=== PATIENT | male | born 1950 | race Caucasian/White ===

== ENCOUNTER 2021-10-23 06:40 | Outpatient (CLI) | payer MEDICARE ==
[~2021-10-23] VITALS: Ht 175.3 cm; Wt 77.3 kg
[2021-10-23] MEDS ORDERED: LISI20TA26 PO (12:07)
[2021-10-23] MEDS ORDERED: IBUP1TAB14 PO (12:07)
[2021-10-23] MEDS ORDERED: OMG1KC PO (12:07)
[2021-10-23] MEDS ORDERED: ASPI-999 PO (12:07)
== END 2021-10-23 12:12 | disposition home or self-care (01) ==
LOC: PREOP 06:40
PROVIDERS: ATTEND Specialist
DX: Z01.818 Encounter for other preprocedural examination (principal)

== ENCOUNTER 2021-10-26 07:44 | Day surgery (SDC) | payer BC, MEDICARE ==
[~2021-10-26] VITALS: Ht 175 cm; Wt 77.3 kg
[~2021-10-26 07:44] MED LIST: ASPI-999 PO; IBUP1TAB14 PO; LISI20TA26 PO; OMG1KC PO
[2021-10-26] MEDS ORDERED: PHENYLEPHRINE 10% OPHTH (NEO-SYN) 5 ML BTL OU PRN (08:00)
[2021-10-26] MEDS ORDERED: TETRACAINE 0.5% OPHTH SOLN 4 ML BTL (SINGLE DOSE ONLY) OU PRN (08:00)
[2021-10-26] MEDS ORDERED: TROPICAMIDE 1% OPH SOLN (MYDRIACYL) 15 ML BTL OU PRN (08:00)
[2021-10-26 08:15] VITALS: BP 129/96
--- NOTE | 2021-10-26 08:48 | Ophthalmologist Pre-Op Note ---
Pre-Operative Progress Note H&P Reviewed The H&P was reviewed, patient examined and no changes noted. Date H&P Reviewed: Oct 26, 2021 Time H&P Reviewed: 08:11 Pre-Op Dx Secondary Cataract, Right Eye SHANEKA RAMIREZ MD Oct 26, 2021 08:48
--- NOTE | 2021-10-26 08:49 | Ophthalmology Operative Report ---
YAG Capsulotomy PREOPERATIVE DIAGNOSIS: Secondary Cataract Left Eye POSTOPERATIVE DIAGNOSIS: Secondary Cataract Left Eye PROCEDURE: YAG Capsulotomy, left eye SURGEON: Errol Ramirez ANESTHESIA: Topical anesthesia COMPLICATIONS: None ESTIMATED BLOOD LOSS: Minimal DESCRIPTION OF PROCEDURE: After proper informed consent was obtained, the patient's, a 71 male left eye received one drop of Tropicamide and one drop of Tetracaine. The patient was then placed at the YAG laser and using a power of [5.2 ] millijoules and [27 ] bursts were used to fashion a central capsulotomy. The patient tolerated the procedure well without complications. ERROL RAMIREZ MD Oct 26, 2021 08:49
== END 2021-10-26 08:39 | disposition home or self-care (01) ==
LOC: SDC 07:44
PROVIDERS: ATTEND Specialist
DX: H26.492 Other secondary cataract, left eye (principal); I10 Essential (primary) hypertension; Z79.899 Other long term (current) drug therapy

== ENCOUNTER 2021-11-14 08:31 | Inpatient (IN) | payer MEDICARE ==
[~2021-11-14] VITALS: Ht 175.3 cm; Wt 63.3 kg
[2021-11-14 09:47] LABS: BASOPHILS % (AUTO) 0 % (0-10); EOSINOPHILS % (AUTO) 0 % (0-10); HEMATOCRIT 41 % (40-54); HEMOGLOBIN 13.6 g/dL (13.3-17.7); LYMPHOCYTES # (AUTO) 0.6 10^3/uL (1.0-4.0); LYMPHOCYTES % (AUTO) 7 % (12-44); MEAN CORPUSCULAR HEMOGLOBIN 29 pg (25-34); MEAN CORPUSCULAR HGB CONC 33 g/dL (32-36); MEAN CORPUSCULAR VOLUME 88 fL (80-99); MEAN PLATELET VOLUME 11.3 fL (9.0-12.2); MONOCYTES # (AUTO) 0.6 10^3/uL (0.0-1.0); MONOCYTES % (AUTO) 8 % (0-12); NEUTROPHILS # (AUTO) 6.7 10^3/uL (1.8-7.8); NEUTROPHILS % (AUTO) 83 % (42-75); PLATELET COUNT 178 10^3/uL (130-400); WHITE BLOOD COUNT 8.1 10^3/uL (4.3-11.0)
[2021-11-14 09:49] LABS: ALBUMIN 3.2 GM/DL (3.2-4.5); POTASSIUM 3.7 MMOL/L (3.6-5.0)
[2021-11-14 09:50] LABS: CALCIUM 8.8 MG/DL (8.5-10.1)
[2021-11-14 09:52] LABS: TOTAL PROTEIN 7.1 GM/DL (6.4-8.2)
[2021-11-14 09:53] LABS: BILIRUBIN,TOTAL 0.9 MG/DL (0.1-1.0)
[2021-11-14 09:56] LABS: CREATININE SERUM 1.2 MG/DL (0.60-1.30)
[2021-11-14 10:20] LABS: FIBRIN DEGRADATION PRODUCTS >= 20.00 UG/ML (0.00-0.49); INR 1.4 (0.8-1.4); PARTIAL THROMBOPLASTIN TIME 33 SEC (24-35); PROTHROMBIN TIME PATIENT 17.2 SEC (12.2-14.7)
[2021-11-14 10:36] LABS: LYMPHOCYTES % (MANUAL) 3 %; NEUTROPHILS % (MANUAL) 90 %
[2021-11-14 10:37] LABS: EOSINOPHILS % (MANUAL) 1 %; MONOCYTES % (MANUAL) 6 %; RBC MORPH NORMAL
--- NOTE | 2021-11-14 10:38 | Diagnostic Imaging Report ---
INDICATION: Short of breath. Positive for Covid 19. FINDINGS: The upright portable chest shows normal heart size and vascularity. There are bilateral infiltrates present in a pattern that can be seen with Covid pneumonia. There is no effusion or pneumothorax. IMPRESSION: There are bilateral infiltrates present, consistent with pneumonia. The report was faxed to Infection Control by [email or web address]@10:35 AM. Dictated by: Dictated on workstation # [id number]
[2021-11-14] MEDS ORDERED: cefTRIAXone 1 GM PRE-MIX 50 ML IV STA (11:41)
[2021-11-14] MEDS ORDERED: ENOXAPARIN 80 MG/0.8 ML (LOVENOX) SYR SC ONE (11:45)
[2021-11-14] MEDS ORDERED: HOLD METFORMIN - RECEIVED CONTRAST 20 ML VIAL IV SCH (11:45)
[2021-11-14] MEDS ORDERED: IOHEXOL 350 MG/ML 100 ML (OMNIPAQUE 350) VIAL IV ONE (11:45)
[2021-11-14] MEDS ORDERED: NS 100 ML (IVPB) BAG IV ONE (11:45)
--- NOTE | 2021-11-14 12:39 | ED General ---
General Chief Complaint: COVID19 Suspect/Confirmed Stated Complaint: COVID PNEUMONIA Nursing Triage Note: PT ARRIVES TO ER VIA W/C. PT REPORTS TESTED POSITIVE FOR COVID APPROX 4-5 DAYS AGO, S/S STARTED 7-10 DAYS AGO. PT C/O WORSENING SOB/COUGH/WEAKNESS. RA SAT WAS 81%, PT PLACED ON 3L, SATS IMPROVED TO 89%, O2 INCREASED TO 4L, SAT'S 92%. Source of Information: Patient, Family Exam Limitations: No Limitations History of Present Illness Date Seen by Provider: Nov 14, 2021 Time Seen by Provider: 09:37 Initial Comments This is 71-year-old gentleman presents to the emergency room with increasing weakness, generalized illness, and shortness of breath after diagnosis of COVID- 19. See timeframes above. He was significantly hypoxic on arrival with an O2 sat of 81% on room air. Oxygen saturation was resuscitated with nasal cannula. Patient does report being fully vaccinated earlier this year. Patient is so weak at this time he is unable to even operate his phone. He is alert but slightly confused. He reports a very few health problems other than hypertension. He denies chest pain or feeling significantly short of breath. Patient thought may be a monoclonal antibody therapy was being arranged but he does not remember having infusion therapy scheduled. Allergies and Home Medications Allergies Coded Allergies: No Known Drug Allergies (Unverified , 10/23/21) Patient Home Medication List Home Medication List Reviewed: Yes Aspirin (Aspirin) 81 Mg Tab.chew, 81 MG PO DAILY, (Reported) Entered as Reported by: LEE GARZA on 10/23/211206 Ibuprofen/Diphenhydramine Cit (Advil Pm Caplet) 1 Each Tablet, 1 EACH PO HS, (Reported) Entered as Reported by: LEE GARZA on 10/23/211206 Lisinopril (Lisinopril) Unknown Strength Tablet, 1 TAB PO DAILY, (Reported) Entered as Reported by: LEE GARZA on 10/23/211206 [place] 3 Polyunsat Fatty Acids (Fish Oil 1,000 mg Capsule) 1,000 Mg Cap, 1,000 MG PO DAILY, (Reported) Entered as Reported by: LEE GARZA on 10/23/211206 Review of Systems Review of Systems Constitutional: see HPI EENTM: no symptoms reported Respiratory: see HPI Cardiovascular: no symptoms reported Gastrointestinal: no symptoms reported Genitourinary: no symptoms reported Musculoskeletal: no symptoms reported Skin: no symptoms reported Psychiatric/Neurological: See HPI Hematologic/Lymphatic: No Symptoms Reported Immunological/Allergic: no symptoms reported Past Yurmomr-Jkinzj-Eecxqi Hx Patient Social History Tobacco Use?: No Use of E-Cig and/or Vaping dev: No Substance use?: No Alcohol Use?: No Pt feels they are or have been: No Immunizations Up To Date First/Initial COVID19 Vaccinat: SPRING 2020 Second COVID19 Vaccination James: SPRING 2020 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 oz. kg; 23.00 BMI Method: General Appearance: WD/WN, Mild Distress, Thin HEENT: PERRL/EOMI, Normal ENT Inspection Neck: Normal Inspection Respiratory: Lungs Clear, Normal Breath Sounds, No Accessory Muscle Use, Decre ased Breath Sounds (Diminished in the right base) Cardiovascular: Regular Rate, Rhythm, No Edema, No Murmur Gastrointestinal: Normal Bowel Sounds, Non Tender, Soft Extremity: Normal Inspection, Non Tender, No Calf Tenderness, No Pedal Edema Neurologic/Psychiatric: Alert, Other (Mildly confused, generalized weakness with no focal deficit) Skin: normal color, warm/dry Focused Exam Lactate Level 11/14/21 09:02: Lactic Acid Level 2.25*H 11/14/21 11:45: Lactic Acid Level 2.00 Lactic Acid Level Laboratory Tests Test 11/14/21 11:45 Lactic Acid Level 2.00 MMOL/L (0.50-2.00) Progress/Results/Core Measures Suspected Sepsis SIRS Temperature: Pulse: 80 Respiratory Rate: 28 Laboratory Tests 11/14/21 09:02: White Blood Count 8.1 Blood Pressure 157 /81 Mean: 99 11/14/21 09:02: Lactic Acid Level 2.25*H 11/14/21 11:45: Lactic Acid Level 2.00 Laboratory Tests 11/14/21 09:02: Creatinine 1.20, INR Comment 1.4, Platelet Count 178, Total Bilirubin 0.9 Results/Orders Lab Results Laboratory Tests Test 11/14/21 09:02 11/14/21 11:45 Range/Units White Blood Count 8.1 4.3-11.0 10^3/uL Red Blood Count 4.72 4.30-5.52 10^6/uL Hemoglobin 13.6 13.3-17.7 g/dL Hematocrit 41 40-54 % Mean Corpuscular Volume 88 80-99 fL Mean Corpuscular Hemoglobin 29 25-34 pg Mean Corpuscular Hemoglobin Concent 33 32-36 g/dL Red Cell Distribution Width 12.7 10.0-14.5 % Platelet Count 178 130-400 10^3/uL Mean Platelet Volume 11.3 9.0-12.2 fL Immature Granulocyte % (Auto) 2 % Neutrophils (%) (Auto) 83 H 42-75 % Lymphocytes (%) (Auto) 7 L 12-44 % Monocytes (%) (Auto) 8 0-12 % Eosinophils (%) (Auto) 0 0-10 % Basophils (%) (Auto) 0 0-10 % Neutrophils # (Auto) 6.7 1.8-7.8 10^3/uL Lymphocytes # (Auto) 0.6 L 1.0-4.0 10^3/uL Monocytes # (Auto) 0.6 0.0-1.0 10^3/uL Eosinophils # (Auto) 0.0 0.0-0.3 10^3/uL Basophils # (Auto) 0.0 0.0-0.1 10^3/uL Immature Granulocyte # (Auto) 0.2 H 0.0-0.1 10^3/uL Neutrophils % (Manual) 90 % Lymphocytes % (Manual) 3 % Monocytes % (Manual) 6 % Eosinophils % (Manual) 1 % Blood Morphology Comment NORMAL Prothrombin Time 17.2 H 12.2-14.7 SEC INR Comment 1.4 0.8-1.4 Activated Partial Thromboplast Time 33 24-35 SEC D-Dimer >= 20.00 H 0.00-0.49 UG/ML Sodium Level 139 135-145 MMOL/L Potassium Level 3.7 3.6-5.0 MMOL/L Chloride Level 103 98-107 MMOL/L Carbon Dioxide Level 24 21-32 MMOL/L Anion Gap 12 5-14 MMOL/L Blood Urea Nitrogen 30 H 7-18 MG/DL Creatinine 1.20 0.60-1.30 MG/DL Estimat Glomerular Filtration Rate 60 BUN/Creatinine Ratio 25 Glucose Level 135 H 70-105 MG/DL Lactic Acid Level 2.25 *H 2.00 0.50-2.00 MMOL/L Calcium Level 8.8 8.5-10.1 MG/DL Corrected Calcium 9.4 8.5-10.1 MG/DL Total Bilirubin 0.9 0.1-1.0 MG/DL Aspartate Amino Transf (AST/SGOT) 56 H 5-34 U/L Alanine Aminotransferase (ALT/SGPT) 22 0-55 U/L Alkaline Phosphatase 61 40-136 U/L Troponin I 5.963 *H <0.028 NG/ML C-Reactive Protein High Sensitivity 15.21 H 0.00-0.50 MG/DL Total Protein 7.1 6.4-8.2 GM/DL Albumin 3.2 3.2-4.5 GM/DL Procalcitonin 0.22 H <0.10 NG/ML My Orders Orders - MANI BARLOW MD Cbc With Automated Diff (11/14/21 09:38) Comprehensive Metabolic Panel (11/14/21 09:38) Blood Culture (11/14/21 09:38) Sputum Culture (11/14/21:38) Urinalysis (11/14/21:38) Urine Culture (11/14/21:38) Protime With Inr (11/14/21:38) Partial Thromboplastin Time (11/14/21:38) Chest 1 View, Ap/Pa Only (11/14/21 09:38) Ed Iv/Invasive Line Start (11/14/21:38) Ed Iv/Invasive Line Start (11/14/21:38) Vital Signs Adult Sepsis Patie Q15M (11/14/21 09:38) O2 (11/14/21 09:38) Remove Rings In Anticipation O (11/14/21 09:38) Lactic Acid Analyzer (11/14/21 09:38) Hs C Reactive Protein (11/14/21 09:38) Fibrin Degradation Products (11/14/21 09:38) Procalcitonin (Pct) (11/14/21 09:38) Manual Differential (11/14/21 09:02) Troponin I [place] (11/14/21 10:19) Ekg Tracing (11/14/21 10:19) Monitor-Rhythm Ecg Trace Only (11/14/21 10:19) Ct Angio Chest W (11/14/21 11:22) Dexamethasone Injection (Decadron Inje (11/14/21 11:30) Iohexol Injection (Omnipaque 350 Mg/Ml 1 (11/14/21 11:45) Received Contrast (Hold Metformin- Contr (11/14/21 11:45) Ns (Ivpb) (Sodium Chloride 0.9% Ivpb Bag (11/14/21 11:45) Ceftriaxone 1 Gm Pre-Mix (Rocephin 1 Gm (11/14/21 11:41) Ed Admission (Communication) (11/14/21 11:42) Enoxaparin Injection (Lovenox Injection) (11/14/21 11:45) Lactated Ringers (Lr 1000 Ml Iv Solution (11/14/21 13:00) Medications Given in ED Current Medications Medications Dose Ordered Sig/Floyd Route Start Time Stop Time Status Last Admin Dose Admin Dexamethasone Sodium Phosphate 6 mg ONCE ONCE IV 11/14/21 11:30 11/14/21 11:31 DC 11/14/21 11:32 6 MG Vital Signs/I&O 11/14/21 11/14/21 11/14/21 11/14/21 08:54 08:54 09:02 09:43 Temp 36.3 Pulse 80 74 Resp 28 18 B/P (MAP) 157/81 (106) 153/80 Pulse Ox 89 92 95 O2 Delivery Nasal Cannula Room Air Nasal Cannula Nasal Cannula O2 Flow Rate 3.00 4.00 4.00 11/14/21 11/14/21 11/14/21 11/14/21 10:43 11:14 11:59 13:01 Pulse 80 78 66 Resp 18 B/P (MAP) 156/80 145/77 153/72 Pulse Ox 90 92 94 97 O2 Delivery Nasal Cannula Nasal Cannula Vapotherm O2 Flow Rate 4.00 4.00 30.00 FiO2 60 11/14/21 13:11 Pulse 69 Resp 18 B/P (MAP) 153/72 Pulse Ox 97 Capillary Refill : Blood Pressure Mean: 99 Progress Note #1: Time: 12:39 Progress Note Septic work-up was pursued. Patient was found to have a markedly elevated D- dimer. CT angiogram report is pending. There was concern about ST changes on the quality assurance monitor chassis. For this reason EKG and troponin were obtained. The automated read of the EKG stated acute MS. This has been reviewed by both Dr. Grewal and myself. We disagree with the automated interpretation. Patient does not appear to have a STEMI. He also denied any chest pain. Troponin was markedly elevated which may reflect NSTEMI versus strain from pulmonary embolus. Patient has received dexamethasone 6 mg IV and is now on Vapotherm. Oxygen saturation was borderline with nasal cannula at 6 L/min. He is more stable and more alert on Vapotherm. I discussed CODE STATUS with the patient and his . He would like to remain full code at this time. He is also agreeable to experimental antiviral therapies. Patient will be admitted to the ICU given his frail condition. His case has been discussed with Dr. Grewal and Dr. Watts. IV fluids will be administered for renal prophylaxis after his CT angiogram. Rocephin was given as a precaution for possible superimposed bacterial pneumonia. Progress Note #2: Time: 13:[address] angiogram demonstrated bilateral pulmonary emboli. Patient received Lovenox 70 mg subcu in the ER. ECG Initial ECG Impression Date: Nov 14, 2021 Initial ECG Impression Time: 10:22 Initial ECG Rate: 76 Comment Sinus rhythm with nondiagnostic ST changes. No STEMI identified. No abnormal intervals or axis deviation. EKG was reviewed by me and Dr. Grewal. Diagnostic Imaging Diagonstic Imaging: Xray Plain Films/CT/US/NM/MRI: chest Comments Chest x-ray reviewed by me and report reviewed. See report below: NAME: KATLYN CHOUDHARY [facility] REC#: [id number] PT STATUS: REG ER : 1950 PHYSICIAN: MANI BARLOW MD ADMIT DATE: 11/14/21/ER Signed Date of Exam:11/14/21 CHEST 1 VIEW, AP/PA ONLY INDICATION: Short of breath. Positive for Covid 19. FINDINGS: The upright portable chest shows normal heart size and vascularity. There are bilateral infiltrates present in a pattern that can be seen with Covid pneumonia. There is no effusion or pneumothorax. IMPRESSION: There are bilateral infiltrates present, consistent with pneumonia. The report was faxed to Infection Control by [email or web address]@10:35 AM. Dictated by: Dictated on workstation # [id number] Dict: 11/14/21 1034 Trans: 11/14/21 1046 [id number] Interpreted by: WILMER BARRIENTOS MD Electronically signed by: WILMER BARRIENTOS MD 11/14/21 1046 Diagonstic Imaging: CT Plain Films/CT/US/NM/MRI: chest Comments CT angiogram chest viewed by me and report reviewed. See report below: NAME: KATLYN CHOUDHARY [facility] REC#: [id number] PT STATUS: ADM IN : 1950 PHYSICIAN: MANI BARLOW MD ADMIT DATE: 11/14/21/ICU Draft Date of Exam:11/14/21 CT ANGIO CHEST W PROCEDURE: CT angiography of the chest with contrast. TECHNIQUE: Multiple contiguous axial images were obtained through the chest after uneventful bolus administration of intravenous contrast. 3D reconstructed CTA MIP acquisitions were also performed. Auto Exposure Controls were utilized during the CT exam to meet ALARA standards for radiation dose reduction. INDICATION: Elevated D-dimer and shortness of air. Patient is COVID-19 positive. COMPARISON: No prior studies are available for comparison. FINDINGS: Evaluation of the pulmonary arterial system demonstrates several filling defects within subsegmental branches of the pulmonary arteries to the right left lower lobes. No definite lobar or central pulmonary emboli are detected. Aorta is nonaneurysmal. There is no pericardial or pleural fluid. Parenchymal evaluation does show extensive groundglass infiltrates throughout bilateral upper and lower lobes consistent with COVID-19 pneumonia. Upper abdomen is unremarkable apart from a small stone in the gallbladder. IMPRESSION: Findings positive for pulmonary emboli involving segmental and subsegmental pulmonary arterial branches to the right and left lower lobes. No central emboli are detected. In addition, there are extensive groundglass pulmonary infiltrates involving all five lobes consistent with COVID-19 pneumonia. Dictated on workstation # [id number] Dict: 11/14/21 1250 Trans: 11/14/21 1300 AS6 [id number] Interpreted by: JONNY GORDILLO MD Departure Communication (Admissions) Time/Spoke to Admitting Phy: 11:40 Dr. Watts Time/Spoke to Consulting Phy: 11:25 Dr. Grewal Impression Primary Impression: Acute respiratory failure due to COVID-19 Additional Impressions: Altered mental status Qualified Codes: R41.82 - Altered mental status, unspecified Elevated d-dimer NSTEMI (non-ST elevated myocardial infarction) Bilateral pulmonary embolism Disposition: ADMITTED INPATIENT Condition: Improved Admissions Decision to Admit Reason: Admit from ER (General) Decision to Admit/Date: Nov 14, 2021 Time/Decision to Admit Time: 09:38 Departure-Patient Inst. Referrals: JEANETH RODRIGUEZ DO (PCP/Family) Primary Care Physician MANI BARLOW MD Nov 14, 2021 12:39
[2021-11-14] MEDS ORDERED: LACTATED RINGERS 1,000 ML IV ONE (13:00)
--- NOTE | 2021-11-14 13:01 | Diagnostic Imaging Report ---
PROCEDURE: CT angiography of the chest with contrast. TECHNIQUE: Multiple contiguous axial images were obtained through the chest after uneventful bolus administration of intravenous contrast. 3D reconstructed CTA MIP acquisitions were also performed. Auto Exposure Controls were utilized during the CT exam to meet ALARA standards for radiation dose reduction. INDICATION: Elevated D-dimer and shortness of air. Patient is COVID-19 positive. COMPARISON: No prior studies are available for comparison. FINDINGS: Evaluation of the pulmonary arterial system demonstrates several filling defects within subsegmental branches of the pulmonary arteries to the right left lower lobes. No definite lobar or central pulmonary emboli are detected. Aorta is nonaneurysmal. There is no pericardial or pleural fluid. Parenchymal evaluation does show extensive groundglass infiltrates throughout bilateral upper and lower lobes consistent with COVID-19 pneumonia. Upper abdomen is unremarkable apart from a small stone in the gallbladder. IMPRESSION: Findings positive for pulmonary emboli involving segmental and subsegmental pulmonary arterial branches to the right and left lower lobes. No central emboli are detected. In addition, there are extensive groundglass pulmonary infiltrates involving all five lobes consistent with COVID-19 pneumonia. Dictated by: Dictated on workstation # [id number]
--- NOTE | 2021-11-14 13:27 | History & Physical-Hospitalist ---
History of Present Illness HPI/Chief Complaint Christiano Cuadra is a 71 year old male with PMH HTN, HLD, who presented with shortness of breath. He was diagnosed with COVID about 5 days ago. He is also having weakness. He is having a dry cough. His appetite is poor. He is not having fevers or chills. He is not having chest pain. He denies nausea, vomiting, and diarrhea. He received two vaccines in January. He did not get a booster. Source: patient Exam Limitations: no limitations Date Seen 11/14/21 Time Seen by a Provider: 13:30 Attending Physician Nat Gore MD PCP Lima Ferris DO Referring Physician Date of Admission Nov 14, 2021 at 11:43 Home Medications & Allergies Home Medications Reviewed patient Home Medication Reconciliation performed by pharmacy medication reconciliations layout technician and/or nursing. Patients Allergies have been reviewed. Allergies Allergies Coded Allergies No Known Drug Allergies (Vykfmnnxhw26/30/21) Past Wswoynj-Vacxti-Vrdqfs Hx Patient Social History Tobacco Use?: No Use of E-Cig and/or Vaping dev: No Substance use?: No Alcohol Use?: No Pt feels they are or have been: No Immunizations Up To Date First/Initial COVID19 Vaccinat: SPRING 2020 Second COVID19 Vaccination James: SPRING 2020 Current Status Advance Directives: No Communicates: Verbally Primary Language: Namibian Preferred Spoken Language: Namibian Is interpretation needed?: No Past Medical History Surgeries: Eye Surgery High Cholesterol, Hypertension Family Medical History No Pertinent Family Hx Review of Systems Constitutional: malaise, weakness EENTM: no symptoms reported Respiratory: cough, short of breath Cardiovascular: no symptoms reported Gastrointestinal: no symptoms reported Genitourinary: no symptoms reported Musculoskeletal: no symptoms reported Skin: no symptoms reported Psychiatric/Neurological: No Symptoms Reported Physical Exam Physical Exam Vital Signs Vital Signs - First Documented 11/14/21 11/14/21 08:54 11:59 Temp 36.3 Pulse 80 Resp 28 B/P (MAP) 157/81 (106) Pulse Ox 89 O2 Delivery Nasal Cannula O2 Flow Rate 3.00 FiO2 60 Capillary Refill : Height, Weight, BMI Height: '" Weight: lbs. oz. kg; 23.00 BMI Method: General Appearance: No Apparent Distress, WD/WN HEENT: PERRL/EOMI, Pharynx Normal Neck: Normal Inspection, Supple Respiratory: Lungs Clear, Normal Breath Sounds, No Respiratory Distress Cardiovascular: Regular Rate, Rhythm, No Edema, No Murmur Gastrointestinal: Normal Bowel Sounds, Non Tender, Soft Extremity: Normal Inspection, Non Tender, No Pedal Edema Neurologic/Psychiatric: Alert, Oriented x3, No Motor/Sensory Deficits, Normal Mood/Affect Skin: Normal Color, Warm/Dry Results Results/Procedures Labs Laboratory Tests 11/14/21 09:02 Patient resulted labs reviewed. Imaging: Reviewed Imaging Films, Reviewed Imaging Report Assessment/Plan Admission Diagnosis Acute respiratory failure due to COVID-19 Admission Status: Inpatient Order (span 2 midnights) Reason for Inpatient Admission: Bilateral pulmonary embolism Assessment and Plan Acute respiratory failure due to COVID-19 Hypercoagulable state associated with COVID-19 Bilateral pulmonary embolism Secondary bacterial pneumonia NSTEMI HTN HLD COVID+ at outside facility about 5 days ago Chest xray with bilateral infiltrates Begin Decadron Actemra ordered in ER Requiring Vapotherm Significantly elevated ddimer CT Angio with bialteral pulmonary embolism Started on therapeutic Lovenox Procal moderately elevated Begin Rocephin and Azithromycin Troponin significantly elevated EKG with some ST elevation in anterolateral leads Cardiology consulted Repeat troponin Echo ordered ASA loading dose then continue daily Consult TeleICU Critical Care Critically Ill Patient Diagnosis/Problems Diagnosis/Problems (1) Acute respiratory failure due to COVID-19 Status: Acute (2) Bilateral pulmonary embolism Status: Acute (3) Hypercoagulable state associated with COVID-19 Status: Acute (4) Secondary bacterial pneumonia Status: Acute (5) NSTEMI (non-ST elevated myocardial infarction) Status: Acute (6) HTN (hypertension) Status: Chronic (7) HLD (hyperlipidemia) Status: Chronic NAT GORE MD Nov 14, 2021 13:27
[2021-11-14] MEDS ORDERED: ASPIRIN 81 MG CHEW (CHILDREN'S ASA) PO ONE (13:30)
[2021-11-14] MEDS ORDERED: MELATONIN 3 MG TABLET PO PRN (13:45)
[2021-11-14] MEDS ORDERED: REMDESIVIR INJ 200 MG in NS (IVPB) 210 ML IV ONE (13:45)
[2021-11-14] MEDS ORDERED: ONDANSETRON 4 MG (ZOFRAN) ORAL DISSOLVE TAB PO PRN (13:45)
[2021-11-14] MEDS ORDERED: ANTACID SUSP 30 ML UDC (MYLANTA) PO PRN (13:45)
[2021-11-14] MEDS ORDERED: ACETAMINOPHEN 325 MG TABLET PO PRN (13:45)
[2021-11-14] MEDS ORDERED: ENOXAPARIN 100 MG/1 ML (LOVENOX) SYR SC SCH (13:45)
[2021-11-14] MEDS ORDERED: diphenhydrAMINE 25 MG TAB (BENADRYL) PO PRN (13:45)
[2021-11-14] MEDS ORDERED: polyethylene glycoL POWDER 17 GM (MIRALAX) PACK PO PRN (13:45)
[2021-11-14] MEDS ORDERED: CEFEPIME INJECTION 1,000 MG in NS (IVPB) 50 ML IV SCH (14:00)
[2021-11-14 14:06] VITALS: BP 157/81
[2021-11-14 14:14] VITALS: BP 135/77
--- NOTE | 2021-11-14 14:22 | Tele-ICU Consult ---
History of Present Illness History of Present Illness Date Seen by Provider: Nov 14, 2021 Time Seen by Provider: 14:12 Date of Admission 11/14/21 History of Present Illness 71 yr old male with pmhx of htn, hld diagnosed with covid-19 infection abput 5 days ago. today came to ER with dyspnea and weakness and cough. no cp. no fever or chills. CTA chest done in Er revealed antonio. PE. He is hypoxic requiring vapotherm. Admitted to icu for further care. No hx of DM or Malignancy. Allergies and Home Medications Allergies Coded Allergies: No Known Drug Allergies (Unverified , 10/23/21) Home Medications Aspirin 81 Mg Tab.chew, 81 MG PO DAILY, (Reported) Ibuprofen/Diphenhydramine Cit 1 Each Tablet, 1 EACH PO HS, (Reported) Lisinopril Unknown Strength Tablet, 1 TAB PO DAILY, (Reported) [place] 3 Polyunsat Fatty Acids 1,000 Mg Cap, 1,000 MG PO DAILY, (Reported) Past Medical/Social/Family Hx Patient Social History Tobacco Use?: No Use of E-Cig and/or Vaping dev: No Substance use?: No Alcohol Use?: No Pt stated abuse/neglect: No Immunizations Up To Date First/Initial COVID19 Vaccinat: SPRING 2020 Second COVID19 Vaccination James: SPRING 2020 Current Status Advance Directives: No Communicates: Verbally Primary Language: Portuguese Preferred Spoken Language: Portuguese Is interpretation needed?: No Review of Systems Constitutional: see HPI EENTM: see HPI Other ROS PER RN Focused Exam Lactate Level 11/14/21 09:02: Lactic Acid Level 2.25*H 11/14/21 11:45: Lactic Acid Level 2.00 Height, Weight, BMI Height: '" Weight: lbs. oz. kg; 23.00 BMI Method: Lactic Acid Level Laboratory Tests Test 11/14/21 11:45 Lactic Acid Level 2.00 MMOL/L (0.50-2.00) Exam Exam Patient acknowledged, consented, and participated in this virtual visit which was conducted using real time audio/video Vital Signs Date Time Temp Pulse Resp B/P (MAP) Pulse Ox O2 Delivery O2 Flow Rate FiO2 11/14/21 14:06 36.3 80 81 21 11/14/21 13:48 92 Vapotherm 30.00 75 11/14/21 13:11 69 18 153/72 97 11/14/21 13:01 66 153/72 97 11/14/21 11:59 94 Vapotherm 30.00 60 11/14/21 11:14 78 145/77 92 Nasal Cannula 4.00 11/14/21 10:43 80 18 156/80 90 Nasal Cannula 4.00 11/14/21 09:43 74 18 153/80 95 Nasal Cannula 4.00 11/14/21 09:02 92 Nasal Cannula 4.00 11/14/21 08:54 36.3 80 28 157/81 (106) Room Air 11/14/21 08:54 89 Nasal Cannula 3.00 Height & Weight Height: '" Weight: lbs. oz. kg; 23.00 BMI Method: General Appearance: No Apparent Distress, WD/WN, Mild Distress HEENT: PERRL/EOMI, Pharynx Normal Neck: Normal Inspection, Supple Respiratory: Lungs Clear, Normal Breath Sounds, No Respiratory Distress Cardiovascular: Regular Rate, Rhythm, No Edema, No Murmur Extremity: Normal Inspection, Non Tender, No Pedal Edema Neurologic/Psychiatric: Alert, Oriented x3, No Motor/Sensory Deficits, Normal Mood/Affect Skin: Normal Color, Warm/Dry Other comments pe per attending Results Lab Laboratory Tests 11/14/21 09:02 Radiology cxr, cta chest reviewed Assessment/Plan Assessment/Plan 1. ACUTE ANTONIO. PE DUE TO HYPERCOAGULABLE STATE ASSOCIATED WITH COVID -19 VIRAL INFECTION. 2. COVID -19 VIRAL INFECTION AND PNEUMONIA. 3. ACUTE HYPOXIC RESPIRATORY FAILURE DUE TO COVID-19 PNEUMONIA. 4. HOSTORY OF HYPERTENSION 5. MILD LACTIC ACIDOSIS DUE TO PE. 6. ELEVATED TROPONIN DUE TO PE OR MYOCARDITIS. 7. SUPERADDED BACTERIAL PNEUMONIA SUSPECTED. RECOMENDATIONS. 1. START FULL DOSE LOVENOX. 2. OXYGENATION WITH VAPOTHER. 3. INITIATE REMDESVIR AND DEXAMETHASONE. 4. IV CEFPIME AND AZITHROMYCIN. 5. SUGGEST TO GET ECHOCARDIOGRAM. 6. ULCER PROPHYLAXIS Critical Care: Critically Ill Patient Time spent with patient (mins): 40 PRISCILA CONCEPCION MD Nov 14, 2021 14:21
[2021-11-14] MEDS ORDERED: AZITHROMYCIN INJECTION 500 MG in NS (IVPB) 250 ML IV NR (14:45)
[2021-11-14] MEDS ORDERED: FAMOTIDINE 20 MG (PEPCID) TABLET PO PRN (14:45)
[2021-11-14 15:00] VITALS: BP 136/71
[2021-11-14] MEDS ORDERED: NS IV 500 ML 500 ML ONE (15:00)
[2021-11-14 16:00] VITALS: BP 152/66
[2021-11-14] MEDS: inSUlin ASPART (NovoLOG) 1 UNIT/0.01 ML (CHARGE PER UNIT) SC SCH ×2 (16:30→21:26)
[2021-11-14 17:00] VITALS: BP 156/83
--- NOTE | 2021-11-14 17:05 | Consultation-Cardiology ---
HPI-Cardiology Cardiology Consultation: Date of Consultation 11/14/2021 Date of Admission 11/14/2021 Attending Physician Lu Watts MD Admitting Physician Lima Ferris DO Consulting Physician ALISHA WILSON JR, MD HPI: Time Seen by a Provider: 17:48 Chief Complaint: Reason for consultation: Abnormal troponin level. I have been asked to see Christiano in the intensive care unit due to an elevated troponin level. Because of the patient's Covid positivity, I did not meet with the patient. I obtained the history from the patient's nurse, the medical record, and per previous discussions with the emergency room provider earlier today. The patient was apparently diagnosed with Covid 5 days ago. He was ini tially managing okay at home. However, he developed progressive shortness of breath and came to the emergency room today for further evaluation. He was felt to be in respiratory distress. During his evaluation, troponin levels were obtained which were elevated. As such, a cardiology consultation was requested. The patient had not been reporting any chest pain. His main complaint was shortness of breath. Due to his acute respiratory failure, he was admitted to the intensive care unit for further treatment. Certain portions of this document may have been dictated utilizing voice recognition technology. Inherent to this technology, typographical and grammatical errors may exist. As much as I am diligent to identify and correct these mistakes, some errors may remain in the document. Review of Systems-Cardiology Review of Systems Other comments Not obtained due to the patient's Covid status. [id number] Hx Patient Social History Smoking Status: Former Smoker Have you traveled recently?: No Alcohol Use?: No Pt feels they are or have been: No Past Medical History PMH As described under Assessment. Family Medical History Family Medical History: There is no reported family history of premature coronary artery disease. Allergies and Home Medications Allergies Coded Allergies: No Known Drug Allergies (Unverified , 10/23/21) Patient Home Medication List Home Medication List Reviewed: Yes Aspirin (Aspirin) 81 Mg Tab.chew, 81 MG PO DAILY, (Reported) Entered as Reported by: LEE GARZA on 10/23/21 1207 Ibuprofen/Diphenhydramine Cit (Advil Pm Caplet) 1 Each Tablet, 1 EACH PO HS, (Reported) Entered as Reported by: LEE GARZA on 10/23/217 Lisinopril (Lisinopril) Unknown Strength Tablet, 1 TAB PO DAILY, (Reported) Entered as Reported by: LEE GARZA on 10/23/21 1207 [place] 3 Polyunsat Fatty Acids (Fish Oil 1,000 mg Capsule) 1,000 Mg Cap, 1,000 MG PO DAILY, (Reported) Entered as Reported by: LEE GARZA on 10/23/211206 Exam Vital Signs Vital Signs Date Time Temp Pulse Resp B/P (MAP) Pulse Ox O2 Delivery O2 Flow Rate FiO2 11/14/21 16:16 36.3 11/14/21 16:00 66 152/66 (94) 94 High Flow N/C 30.00 75.00 11/14/21 16:00 45 11/14/21 15:00 21 Physical Exam I did not examine the patient due to his Covid status. Labs Laboratory Tests Test 11/14/21 09:02 11/14/21 11:45 11/14/21 13:14 11/14/21 16:25 Range/Units White Blood Count 8.1 4.3-11.0 10^3/uL Red Blood Count 4.72 4.30-5.52 10^6/uL Hemoglobin 13.6 13.3-17.7 g/dL Hematocrit 41 40-54 % Mean Corpuscular Volume 88 80-99 fL Mean Corpuscular Hemoglobin 29 25-34 pg Mean Corpuscular Hemoglobin Concent 33 32-36 g/dL Red Cell Distribution Width 12.7 10.0-14.5 % Platelet Count 178 130-400 10^3/uL Mean Platelet Volume 11.3 9.0-12.2 fL Immature Granulocyte % (Auto) 2 % Neutrophils (%) (Auto) 83 H 42-75 % Lymphocytes (%) (Auto) 7 L 12-44 % Monocytes (%) (Auto) 8 0-12 % Eosinophils (%) (Auto) 0 0-10 % Basophils (%) (Auto) 0 0-10 % Neutrophils # (Auto) 6.7 1.8-7.8 10^3/uL Lymphocytes # (Auto) 0.6 L 1.0-4.0 10^3/uL Monocytes # (Auto) 0.6 0.0-1.0 10^3/uL Eosinophils # (Auto) 0.0 0.0-0.3 10^3/uL Basophils # (Auto) 0.0 0.0-0.1 10^3/uL Immature Granulocyte # (Auto) 0.2 H 0.0-0.1 10^3/uL Neutrophils % (Manual) 90 % Lymphocytes % (Manual) 3 % Monocytes % (Manual) 6 % Eosinophils % (Manual) 1 % Blood Morphology Comment NORMAL Prothrombin Time 17.2 H 12.2-14.7 SEC INR Comment 1.4 0.8-1.4 Activated Partial Thromboplast Time 33 24-35 SEC D-Dimer >= 20.00 H 0.00-0.49 UG/ML Sodium Level 139 135-145 MMOL/L Potassium Level 3.7 3.6-5.0 MMOL/L Chloride Level 103 98-107 MMOL/L Carbon Dioxide Level 24 21-32 MMOL/L Anion Gap 12 5-14 MMOL/L Blood Urea Nitrogen 30 H 7-18 MG/DL Creatinine 1.20 0.60-1.30 MG/DL Estimat Glomerular Filtration Rate 60 BUN/Creatinine Ratio 25 Glucose Level 135 H 70-105 MG/DL Lactic Acid Level 2.25 *H 2.00 0.50-2.00 MMOL/L Calcium Level 8.8 8.5-10.1 MG/DL Corrected Calcium 9.4 8.5-10.1 MG/DL Total Bilirubin 0.9 0.1-1.0 MG/DL Aspartate Amino Transf (AST/SGOT) 56 H 5-34 U/L Alanine Aminotransferase (ALT/SGPT) 22 0-55 U/L Alkaline Phosphatase 61 40-136 U/L Troponin I 5.963 *H 7.671 *H <0.028 NG/ML C-Reactive Protein High Sensitivity 15.21 H 0.00-0.50 MG/DL Total Protein 7.1 6.4-8.2 GM/DL Albumin 3.2 3.2-4.5 GM/DL Procalcitonin 0.22 H <0.10 NG/ML Glucometer 153 H 70-110 MG/DL Radiology ECHOCARDIOGRAM (11/14/2021): 1. This is a technically difficult study due to poor image quality, particularly in the apical views. 2. Left ventricle: The cavity size appears normal. Wall thickness appears normal. Systolic function is normal. The estimated ejection fraction is 60-65%. There are no regional wall motion abnormalities identified on this technically difficult study. The left ventricular diastolic function is indeterminate. 3. Aortic valve: There is mild aortic valve sclerosis. There is mild aortic regurgitation with a pressure half-time of 299 ms. 4. Pulmonary arteries: The pulmonary artery pressure cannot be estimated on this study due to inadequate tricuspid regurgitant envelope. ECG Impression ECG Comment Sinus rhythm with possible old inferior myocardial infarction without acute ST changes. Diagnosis/Problems Diagnosis/Problems (1) Troponin level elevated Assessment & Plan: I suspect this is a type II non-ST elevation myocardial infarction secondary to right ventricular strain from the significant pulmonary emboli. Unfortunately, his echocardiogram was unable to obtain a pulmonary pressure. On the other hand, no obvious wall motion abnormalities were identified on the echocardiogram but this was a limited study due to the patient's Covid status. He is being treated with anticoagulation for the pulmonary embolism. Once he recovers from Covid and the pulmonary emboli, we may want to consider an ischemic evaluation. I do not see any indications for urgent cardiac catheterization or noninvasive ischemic evaluation at this time since there is a possible reason for the elevated troponin and no acute, concerning ST changes. Furthermore, the patient is not complaining of chest discomfort. (2) Pulmonary embolism Assessment & Plan: This may possibly be related to his Covid infection. The hospitalist is managing this condition. (3) Primary hypertension Assessment & Plan: Resume outpatient antihypertensive medication. (4) Mixed hyperlipidemia Assessment & Plan: He has a reported history of hyperlipidemia and has been taking omega-3 fatty acids at home. I have ordered a lipid panel for the morning. ALISHA WILSON JR, MD Nov 14, 2021 17:05
[2021-11-14 18:00] VITALS: BP 152/76
[2021-11-14 18:55] LABS: CLARITY,URINE SL CLOUDY; COLOR,URINE AMBER; GLUCOSE, URINE (UA) NEGATIVE (NEGATIVE); KETONES,URINE NEGATIVE (NEGATIVE); LEUKOCYTE ESTERASE ,URINE NEGATIVE (NEGATIVE); NITRITE,URINE NEGATIVE (NEGATIVE); PH,URINE 5.5 (5-9); PROTEIN,URINE 2+ (NEGATIVE)
[2021-11-14] MEDS: RT-ALBUTEROL HFA 8.5 GM INHALER IH SCH ×2 (19:03→22:26)
[2021-11-14 19:04] LABS: RBC,URINE RARE /HPF
[2021-11-14 19:06] LABS: AMORPHOUS SEDIMENT,UR RARE AMOR URATES /LPF; BACTERIA,URINE TRACE /HPF
[2021-11-14 19:10] LABS: BILIRUBIN,URINE 1+ (NEGATIVE)
[2021-11-14] MEDS: SENNOSIDES 8.6 MG (SENOKOT) TAB PO SCH (21:25)
[2021-11-14] MEDS: ENOXAPARIN 80 MG/0.8 ML (LOVENOX) SYR SC SCH (21:25)
[2021-11-14] MEDS: DOCUSATE SODIUM 100 MG (COLACE) CAP PO SCH (21:25)
[2021-11-15] MEDS: RT-ALBUTEROL HFA 8.5 GM INHALER IH SCH ×6 (02:30→22:47)
[2021-11-15 05:48] LABS: BASOPHILS % (AUTO) 0 % (0-10); EOSINOPHILS % (AUTO) 0 % (0-10); HEMATOCRIT 36 % (40-54); HEMOGLOBIN 12.1 g/dL (13.3-17.7); LYMPHOCYTES # (AUTO) 0.5 10^3/uL (1.0-4.0); LYMPHOCYTES % (AUTO) 5 % (12-44); MEAN CORPUSCULAR HEMOGLOBIN 29 pg (25-34); MEAN CORPUSCULAR HGB CONC 34 g/dL (32-36); MEAN CORPUSCULAR VOLUME 86 fL (80-99); MEAN PLATELET VOLUME 11.8 fL (9.0-12.2); MONOCYTES # (AUTO) 0.6 10^3/uL (0.0-1.0); MONOCYTES % (AUTO) 7 % (0-12); NEUTROPHILS # (AUTO) 7.8 10^3/uL (1.8-7.8); NEUTROPHILS % (AUTO) 85 % (42-75); PLATELET COUNT 185 10^3/uL (130-400); WHITE BLOOD COUNT 9.2 10^3/uL (4.3-11.0)
[2021-11-15 05:53] LABS: ALBUMIN 2.7 GM/DL (3.2-4.5); POTASSIUM 3.7 MMOL/L (3.6-5.0)
[2021-11-15 05:54] LABS: CALCIUM 8.4 MG/DL (8.5-10.1)
[2021-11-15 05:57] LABS: BILIRUBIN,TOTAL 0.4 MG/DL (0.1-1.0)
[2021-11-15 05:59] LABS: CREATININE SERUM 1.02 MG/DL (0.60-1.30); PHOSPHORUS 4.4 MG/DL (2.3-4.7)
[2021-11-15 06:02] LABS: MAGNESIUM 2.3 MG/DL (1.6-2.4)
[2021-11-15] MEDS ORDERED: dexAMETHasone 6 MG TAB (DECADRON) PO SCH (07:00)
[2021-11-15] MEDS: inSUlin ASPART (NovoLOG) 1 UNIT/0.01 ML (CHARGE PER UNIT) SC SCH ×4 (07:35→20:15)
[2021-11-15] MEDS: POTASSIUM CL 10MEQ/50ML IVPB 50 ML IV SCH (08:22)
[2021-11-15] MEDS: MAGNESIUM 1 GM/100 ML IVPB 100 ML IV SCH (08:22)
[2021-11-15] MEDS: KCL 20 MEQ TAB (K-DUR) PO SCH (08:23)
[2021-11-15] MEDS: cefTRIAXone 1 GM PRE-MIX 50 ML IV SCH (08:26)
[2021-11-15] MEDS: SENNOSIDES 8.6 MG (SENOKOT) TAB PO SCH ×2 (08:36→20:14)
[2021-11-15] MEDS: DOCUSATE SODIUM 100 MG (COLACE) CAP PO SCH ×2 (08:36→20:14)
[2021-11-15] MEDS: ASPIRIN 81 MG CHEW (CHILDREN'S ASA) PO SCH (08:36)
[2021-11-15] MEDS: ENOXAPARIN 80 MG/0.8 ML (LOVENOX) SYR SC SCH ×2 (08:37→20:14)
[2021-11-15] MEDS: AZITHROMYCIN INJECTION 250 MG in NS (IVPB) 250 ML IV SCH (09:00)
--- NOTE | 2021-11-15 12:56 | Cardiology Progress Note ---
Progress Note-Cardiology Events since last exam Date Seen by Provider: Nov 15, 2021 Time Seen by Provider: 12:55 Events since last exam I am following him due to elevated troponin level. He remains in the intensive care unit. I spoke to one of his nurses and there have not been any significant cardiac issues overnight. He has not been complaining of any chest discomfort whatsoever. He remains on nasal cannula oxygen. I did not meet with the patient due to his Covid status. Certain portions of this document may have been dictated utilizing voice recognition technology. Inherent to this technology, typographical and grammatical errors may exist. As much as I am diligent to identify and correct these mistakes, some errors may remain in the document. Vitals Last set of Vitals Signs Vital Signs 11/14/21 11/15/21 11/15/21 19:29 07:52 12:00 Temp 36.0 Pulse 75 Resp 21 B/P (MAP) 130/63 Pulse Ox 92 O2 Delivery Vapotherm O2 Flow Rate 30.00 75.00 FiO2 75 Labs Labs Laboratory Tests 11/15/21 05:35 Exam Vital Signs Vital Signs Date Time Temp Pulse Resp B/P (MAP) Pulse Ox O2 Delivery O2 Flow Rate FiO2 11/15/21 12:00 75 21 130/63 92 Vapotherm 30.00 75.00 11/15/21 07:52 75 11/14/21 19:29 36.0 Physical Exam I did not examine the patient due to his Covid status. Labs Laboratory Tests Test 11/14/21 16:25 11/14/21 18:47 11/14/21 20:17 11/14/21 21:20 Range/Units Glucometer 153 H 175 H 70-110 MG/DL Urine Color MARTHA H Urine Clarity SL CLOUDY Urine pH 5.5 5-9 Urine Specific [place] 1.025 H 1.016-1.022 Urine Protein 2+ H NEGATIVE Urine Glucose (UA) NEGATIVE NEGATIVE Urine Ketones NEGATIVE NEGATIVE Urine Nitrite NEGATIVE NEGATIVE Urine Bilirubin 1+ H NEGATIVE Urine Urobilinogen 4.0 < = 1.0 MG/DL Urine Leukocyte Esterase NEGATIVE NEGATIVE Urine RBC (Auto) TRACE-I H NEGATIVE Urine RBC RARE /HPF Urine WBC NONE /HPF Urine Crystals PRESENT H /LPF Urine Amorphous Sediment RARE ANGELICA URATES H /LPF Urine Bacteria TRACE /HPF Urine Casts NONE /LPF Urine Mucus NEGATIVE /LPF Urine Culture Indicated CULTURE PENDING Troponin I 5.490 *H <0.028 NG/ML Test 11/15/21 05:35 11/15/21 10:09 Range/Units White Blood Count 9.2 4.3-11.0 10^3/uL Red Blood Count 4.16 L 4.30-5.52 10^6/uL Hemoglobin 12.1 L 13.3-17.7 g/dL Hematocrit 36 L 40-54 % Mean Corpuscular Volume 86 80-99 fL Mean Corpuscular Hemoglobin 29 25-34 pg Mean Corpuscular Hemoglobin Concent 34 32-36 g/dL Red Cell Distribution Width 12.8 10.0-14.5 % Platelet Count 185 130-400 10^3/uL Mean Platelet Volume 11.8 9.0-12.2 fL Immature Granulocyte % (Auto) 2 % Neutrophils (%) (Auto) 85 H 42-75 % Lymphocytes (%) (Auto) 5 L 12-44 % Monocytes (%) (Auto) 7 0-12 % Eosinophils (%) (Auto) 0 0-10 % Basophils (%) (Auto) 0 0-10 % Neutrophils # (Auto) 7.8 1.8-7.8 10^3/uL Lymphocytes # (Auto) 0.5 L 1.0-4.0 10^3/uL Monocytes # (Auto) 0.6 0.0-1.0 10^3/uL Eosinophils # (Auto) 0.0 0.0-0.3 10^3/uL Basophils # (Auto) 0.0 0.0-0.1 10^3/uL Immature Granulocyte # (Auto) 0.2 H 0.0-0.1 10^3/uL Sodium Level 138 135-145 MMOL/L Potassium Level 3.7 3.6-5.0 MMOL/L Chloride Level 105 98-107 MMOL/L Carbon Dioxide Level 20 L 21-32 MMOL/L Anion Gap 13 5-14 MMOL/L Blood Urea Nitrogen 39 H 7-18 MG/DL Creatinine 1.02 0.60-1.30 MG/DL Estimat Glomerular Filtration Rate 72 BUN/Creatinine Ratio 38 Glucose Level 139 H 70-105 MG/DL Calcium Level 8.4 L 8.5-10.1 MG/DL Corrected Calcium 9.4 8.5-10.1 MG/DL Phosphorus Level 4.4 2.3-4.7 MG/DL Magnesium Level 2.3 1.6-2.4 MG/DL Total Bilirubin 0.4 0.1-1.0 MG/DL Aspartate Amino Transf (AST/SGOT) 43 H 5-34 U/L Alanine Aminotransferase (ALT/SGPT) 19 0-55 U/L Alkaline Phosphatase 55 40-136 U/L Lactate Dehydrogenase 628 H 125-220 U/L C-Reactive Protein High Sensitivity 11.34 H 0.00-0.50 MG/DL Total Protein 6.0 L 6.4-8.2 GM/DL Albumin 2.7 L 3.2-4.5 GM/DL Triglycerides Level 157 H <150 MG/DL Cholesterol Level 153 < 200 MG/DL LDL Cholesterol Direct 109 1-129 MG/DL VLDL Cholesterol 31 5-40 MG/DL HDL Cholesterol 17 L 40-60 MG/DL Glucometer 186 H 70-110 MG/DL Radiology ELECTROCARDIOGRAM: Sinus rhythm with anterolateral T wave inversion concerning for ischemia. Diagnosis/Problems Diagnosis/Problems (1) Troponin level elevated Assessment & Plan: I suspect this is a type II non-ST elevation myocardial infarction secondary to right ventricular strain from the significant pulmonary emboli. Unfortunately, his echocardiogram was unable to obtain a pulmonary pressure. On the other hand, no obvious wall motion abnormalities were identified on the echocardiogram but this was a limited study due to the patie nt's Covid status. On the other hand, today's electrocardiogram is concerning for anterolateral ischemia. Despite this, the patient is not complaining of chest discomfort. As such, I recommend we continue with the present medical therapy for his pulmonary emboli and Covid infection. I will obtain a follow-up electrocardiogram tomorrow. If he does start having chest pain, then we may need to consider further evaluation with a cardiac catheterization. (2) Abnormal ECG Assessment & Plan: As above, today's electrocardiogram shows anterolateral T wave changes concerning for ischemia. Despite these changes, the patient does not appear to be having angina. Unclear whether or not these ECG changes could be due to right ventricular strain from bilateral pulmonary emboli. We will proceed as above (3) Pulmonary embolism Assessment & Plan: This may possibly be related to his Covid infection. The hospitalist is managing this condition. (4) Primary hypertension Assessment & Plan: His blood pressure is presently controlled without having resumed his outpatient antihypertensive medication. (5) Mixed hyperlipidemia Assessment & Plan: He has a reported history of hyperlipidemia. His LDL level is minimally elevated. I do not see any indication to start statin medication at this time. ALISHA WILSON JR, MD Nov 15, 2021 12:56
[2021-11-15] MEDS: REMDESIVIR INJ 100 MG in NS (IVPB) 230 ML IV SCH (13:23)
[2021-11-15] MEDS ORDERED: LISI1TAB46 PO (13:34)
--- NOTE | 2021-11-15 18:53 | Progress Note - Hospitalist ---
Subjective HPI/CC On Admission Date Seen by Provider: Nov 15, 2021 Time Seen by Provider: 09:00 Christiano Cuadra is a 71 year old male with PMH HTN, HLD, who presented with shortness of breath. He was diagnosed with COVID about 5 days ago. He is also having weakness. He is having a dry cough. His appetite is poor. He is not having fevers or chills. He is not having chest pain. He denies nausea, vomiting, and diarrhea. He received two vaccines in January. He did not get a booster. Subjective/Events-last exam He is doing well. He is not short of breath. He is not having pain. He was able to eat. Focused Exam Lactate Level 11/14/21 09:02: Lactic Acid Level 2.25*H 11/14/21 11:45: Lactic Acid Level 2.00 Objective Exam Vital Signs Vital Signs Date Time Temp Pulse Resp B/P (MAP) Pulse Ox O2 Delivery O2 Flow Rate FiO2 11/15/21 18:00 76 24 157/96 92 Vapotherm 35.00 65.00 11/15/21 16:00 65 11/15/21 15:50 36.0 Capillary Refill : General Appearance: No Apparent Distress, WD/WN Respiratory: Lungs Clear, Normal Breath Sounds, No Respiratory Distress Cardiovascular: Regular Rate, Rhythm, No Edema, No Murmur Gastrointestinal: Normal Bowel Sounds, Non Tender, Soft Extremity: Normal Inspection, Non Tender, No Pedal Edema Neurologic/Psychiatric: Alert, Oriented x3, No Motor/Sensory Deficits, Normal Mood/Affect Skin: Normal Color, Warm/Dry Results/Procedures Lab Laboratory Tests 11/15/21 05:35 Patient resulted labs reviewed. Imaging: Reviewed Imaging Films, Reviewed Imaging Report Assessment/Plan Assessment and Plan Assess & Plan/Chief Complaint Acute respiratory failure due to COVID-19 Hypercoagulable state associated with COVID-19 Bilateral pulmonary embolism Secondary bacterial pneumonia NSTEMI HTN HLD COVID+ at outside facility about 5 days ago Chest xray with bilateral infiltrates Continue Decadron s/p Actemra 11/14 Requiring Vapotherm, slightly improved CT Angio 11/14 with bialteral pulmonary embolism Continue therapeutic Lovenox Continue Rocephin and Azithromycin Troponin significantly elevated EKG with some ST elevation in anterolateral leads Cardiology following Echo with no wall motion abnormalities, normal EF Continue [facility] TeleICU following Critical Care Critically Ill Patient Diagnosis/Problems Diagnosis/Problems (1) Acute respiratory failure due to COVID-19 Status: Acute (2) Bilateral pulmonary embolism Status: Acute (3) Hypercoagulable state associated with COVID-19 Status: Acute (4) Secondary bacterial pneumonia Status: Acute (5) NSTEMI (non-ST elevated myocardial infarction) Status: Acute (6) HTN (hypertension) Status: Chronic (7) HLD (hyperlipidemia) Status: Chronic NAT GORE MD Nov 15, 2021 18:53
[2021-11-16] MEDS: RT-ALBUTEROL HFA 8.5 GM INHALER IH SCH ×6 (02:48→22:34)
[2021-11-16 06:07] LABS: BASOPHILS % (AUTO) 0 % (0-10); EOSINOPHILS % (AUTO) 0 % (0-10); HEMATOCRIT 40 % (40-54); HEMOGLOBIN 13.3 g/dL (13.3-17.7); LYMPHOCYTES # (AUTO) 0.5 10^3/uL (1.0-4.0); LYMPHOCYTES % (AUTO) 5 % (12-44); MEAN CORPUSCULAR HEMOGLOBIN 29 pg (25-34); MEAN CORPUSCULAR HGB CONC 34 g/dL (32-36); MEAN CORPUSCULAR VOLUME 86 fL (80-99); MEAN PLATELET VOLUME 11.2 fL (9.0-12.2); MONOCYTES # (AUTO) 0.5 10^3/uL (0.0-1.0); MONOCYTES % (AUTO) 5 % (0-12); NEUTROPHILS # (AUTO) 8.8 10^3/uL (1.8-7.8); NEUTROPHILS % (AUTO) 87 % (42-75); PLATELET COUNT 232 10^3/uL (130-400); WHITE BLOOD COUNT 10.1 10^3/uL (4.3-11.0)
[2021-11-16 06:38] LABS: ALBUMIN 2.9 GM/DL (3.2-4.5); BILIRUBIN,TOTAL 0.4 MG/DL (0.1-1.0); CALCIUM 8.7 MG/DL (8.5-10.1); CREATININE SERUM 0.95 MG/DL (0.60-1.30); MAGNESIUM 2.2 MG/DL (1.6-2.4); PHOSPHORUS 3.3 MG/DL (2.3-4.7); POTASSIUM 3.4 MMOL/L (3.6-5.0); TOTAL PROTEIN 6.3 GM/DL (6.4-8.2)
[2021-11-16] MEDS: POTASSIUM CL 10MEQ/50ML IVPB 50 ML IV SCH (06:49)
[2021-11-16] MEDS: MAGNESIUM 1 GM/100 ML IVPB 100 ML IV SCH (06:53)
[2021-11-16] MEDS: KCL 20 MEQ TAB (K-DUR) PO SCH (06:53)
[2021-11-16] MEDS: inSUlin ASPART (NovoLOG) 1 UNIT/0.01 ML (CHARGE PER UNIT) SC SCH ×4 (06:53→20:43)
[2021-11-16] MEDS: cefTRIAXone 1 GM PRE-MIX 50 ML IV SCH (08:24)
[2021-11-16] MEDS: ASPIRIN 81 MG CHEW (CHILDREN'S ASA) PO SCH (08:24)
[2021-11-16] MEDS: SENNOSIDES 8.6 MG (SENOKOT) TAB PO SCH ×2 (08:24→20:43)
[2021-11-16] MEDS: DOCUSATE SODIUM 100 MG (COLACE) CAP PO SCH ×2 (08:26→20:43)
[2021-11-16] MEDS: ENOXAPARIN 80 MG/0.8 ML (LOVENOX) SYR SC SCH ×2 (08:26→20:50)
[2021-11-16] MEDS: AZITHROMYCIN INJECTION 250 MG in NS (IVPB) 250 ML IV SCH (08:37)
[2021-11-16] MEDS ORDERED: AZITHROMYCIN INJECTION 250 MG in NS (IVPB) 250 ML IV SCH (09:00)
--- NOTE | 2021-11-16 09:49 | Cardiology Progress Note ---
Progress Note-Cardiology Events since last exam Date Seen by Provider: Nov 16, 2021 Time Seen by Provider: 09:44 Events since last exam I am following him due to elevated troponin level and abnormal electrocardiogram in the setting of Covid infection on top of bilateral pulmonary emboli. He remains in the ICU. Oxygenation has been acceptable. He is not intubated. He has not reported any chest pain whatsoever to the staff. I did not see the patient due to his Covid status. I did speak with the hospitalist today. Certain portions of this document may have been dictated utilizing voice recognition technology. Inherent to this technology, typographical and grammatical errors may exist. As much as I am diligent to identify and correct these mistakes, some errors may remain in the document. Vitals Last set of Vitals Signs Vital Signs 11/16/21 11/16/21 11/16/21 11/16/21 06:00 07:00 07:34 07:50 Temp 36.9 Pulse 79 Resp 28 B/P (MAP) 148/71 Pulse Ox 91 O2 Delivery Vapotherm O2 Flow Rate 20.00 FiO2 80 Labs Labs Laboratory Tests 11/16/21 05:45 Exam Vital Signs Vital Signs Date Time Temp Pulse Resp B/P (MAP) Pulse Ox O2 Delivery O2 Flow Rate FiO2 11/16/21 07:50 36.9 11/16/21 07:34 91 Vapotherm 20.00 80 11/16/21 07:00 79 11/16/21 06:00 28 148/71 Physical Exam I did not examine the patient due to his Covid status. Labs Laboratory Tests Test 11/15/21 10:09 11/15/21 15:52 11/15/21 20:10 11/16/21 05:45 Range/Units Glucometer 186 H 145 H 144 H 70-110 MG/DL White Blood Count 10.1 4.3-11.0 10^3/uL Red Blood Count 4.61 4.30-5.52 10^6/uL Hemoglobin 13.3 13.3-17.7 g/dL Hematocrit 40 40-54 % Mean Corpuscular Volume 86 80-99 fL Mean Corpuscular Hemoglobin 29 25-34 pg Mean Corpuscular Hemoglobin Concent 34 32-36 g/dL Red Cell Distribution Width 12.9 10.0-14.5 % Platelet Count 232 130-400 10^3/uL Mean Platelet Volume 11.2 9.0-12.2 fL Immature Granulocyte % (Auto) 2 % Neutrophils (%) (Auto) 87 H 42-75 % Lymphocytes (%) (Auto) 5 L 12-44 % Monocytes (%) (Auto) 5 0-12 % Eosinophils (%) (Auto) 0 0-10 % Basophils (%) (Auto) 0 0-10 % Neutrophils # (Auto) 8.8 H 1.8-7.8 10^3/uL Lymphocytes # (Auto) 0.5 L 1.0-4.0 10^3/uL Monocytes # (Auto) 0.5 0.0-1.0 10^3/uL Eosinophils # (Auto) 0.0 0.0-0.3 10^3/uL Basophils # (Auto) 0.0 0.0-0.1 10^3/uL Immature Granulocyte # (Auto) 0.2 H 0.0-0.1 10^3/uL Sodium Level 142 135-145 MMOL/L Potassium Level 3.4 L 3.6-5.0 MMOL/L Chloride Level 109 H 98-107 MMOL/L Carbon Dioxide Level 20 L 21-32 MMOL/L Anion Gap 13 5-14 MMOL/L Blood Urea Nitrogen 36 H 7-18 MG/DL Creatinine 0.95 0.60-1.30 MG/DL Estimat Glomerular Filtration Rate 79 BUN/Creatinine Ratio 38 Glucose Level 111 H 70-105 MG/DL Calcium Level 8.7 8.5-10.1 MG/DL Corrected Calcium 9.6 8.5-10.1 MG/DL Phosphorus Level 3.3 2.3-4.7 MG/DL Magnesium Level 2.2 1.6-2.4 MG/DL Total Bilirubin 0.4 0.1-1.0 MG/DL Aspartate Amino Transf (AST/SGOT) 43 H 5-34 U/L Alanine Aminotransferase (ALT/SGPT) 29 0-55 U/L Alkaline Phosphatase 59 40-136 U/L Total Protein 6.3 L 6.4-8.2 GM/DL Albumin 2.9 L 3.2-4.5 GM/DL Diagnosis/Problems Diagnosis/Problems (1) Troponin level elevated Assessment & Plan: I suspect this is a type II non-ST elevation myocardial infarction secondary to right ventricular strain from the significant pulmonary emboli. Unfortunately, his echocardiogram was unable to obtain a pulmonary pressure. On the other hand, no obvious wall motion abnormalities were identified on the echocardiogram but this was a limited study due to the patient's Covid status. I will continue to follow his electrocardiogram ch tito. If he develops any chest discomfort, we may need to consider further evaluation with a cardiac catheterization. Furthermore, if he has persistent ischemic changes on his electrocardiogram, that may also prompt cardiac catheterization. I recommend he continue on enoxaparin for the time being. (2) Abnormal ECG Assessment & Plan: His electrocardiograms have shown anterolateral T wave changes concerning for ischemia. Despite these changes, the patient does not appear to be having angina. Unclear whether or not these ECG changes could be due to right ventricular strain from bilateral pulmonary emboli. We will proceed as above (3) Primary hypertension Assessment & Plan: Blood pressures have now been intermittently elevated. I will start him on low-dose carvedilol. (4) Pulmonary embolism Assessment & Plan: This may possibly be related to his Covid infection. The hospitalist is managing this condition. Until we decide whether or not he will need a cardiac catheterization, I recommend he continue on enoxaparin for anticoagulation. (5) Mixed hyperlipidemia Assessment & Plan: He has a reported history of hyperlipidemia. His LDL level is minimally elevated. I do not see any indication to start statin medication at this time. ALISHA WILSON JR, MD Nov 16, 2021 09:49
--- NOTE | 2021-11-16 12:00 | Tele-ICU Progress Note ---
Subjective Date Seen by a Provider: Nov 16, 2021 Time Seen by a Provider: 11:59 Sepsis Event Evaluation Height, Weight, BMI Height: '" Weight: lbs. oz. kg; 23.85 BMI Method: Focused Exam Lactate Level 11/14/21 09:02: Lactic Acid Level 2.25*H 11/14/21 11:45: Lactic Acid Level 2.00 Exam Exam Patient acknowledged, consented, and participated in this virtual visit which was conducted using real time audio/video Vital Signs Date Time Temp Pulse Resp B/P (MAP) Pulse Ox O2 Delivery O2 Flow Rate FiO2 11/16/21 10:43 96 Vapotherm 35.00 80 11/16/21 10:00 75 23 154/75 93 Vapotherm 40.00 100.00 11/16/21 09:00 82 17 146/75 90 Vapotherm 40.00 100.00 11/16/21 08:50 Vapotherm 40.00 100.00 11/16/21 08:30 Vapotherm 25.00 80 11/16/21 08:00 82 30 147/76 94 Vapotherm 20.00 55.00 11/16/21 07:50 36.9 11/16/21 07:34 91 Vapotherm 20.00 80 11/16/21 07:00 81 23 139/66 Vapotherm 20.00 55.00 11/16/21 07:00 79 11/16/21 06:00 78 28 148/71 80 Vapotherm 20.00 55.00 11/16/21 05:00 78 28 172/81 91 Vapotherm 20.00 55.00 11/16/21 04:00 Vapotherm 25.00 65 11/16/21 04:00 36.1 11/16/21 04:00 75 20 144/68 91 Vapotherm 20.00 55.00 11/16/21 03:00 86 29 135/64 93 Vapotherm 20.00 55.00 11/16/21 02:48 92 Vapotherm 20.00 55 11/16/21 02:00 50 25 138/68 98 Vapotherm 20.00 55.00 11/16/21 01:00 71 11/16/21 01:00 71 25 139/76 90 Vapotherm 20.00 55.00 11/16/21 00:00 87 29 129/75 92 Vapotherm 20.00 55.00 11/16/21 00:00 36.0 94 Vapotherm 20.00 55.00 11/15/21 23:08 Vapotherm 25.00 60 11/15/21 23:00 73 27 142/76 94 Vapotherm 20.00 55.00 11/15/21 22:47 95 Vapotherm 25.00 65 11/15/21 22:00 72 27 133/71 90 Vapotherm 20.00 55.00 11/15/21 21:00 66 25 148/75 90 Vapotherm 20.00 55.00 11/15/21 20:46 35.7 11/15/21 20:00 81 26 148/70 90 Vapotherm 20.00 55.00 11/15/21 20:00 Vapotherm 25.00 60 11/15/21 19:01 97 Vapotherm 35.00 65 11/15/21 19:00 79 11/15/21 19:00 79 23 131/74 97 Vapotherm 20.00 55.00 11/15/21 18:00 76 24 157/96 92 Vapotherm 35.00 65.00 11/15/21 17:00 75 28 151/81 93 Vapotherm 35.00 65.00 11/15/21 16:00 Vapotherm 30.00 65 11/15/21 16:00 69 32 138/73 93 Vapotherm 35.00 65.00 11/15/21 15:50 36.0 11/15/21 15:00 73 20 138/75 91 Vapotherm 35.00 65.00 11/15/21 14:44 90 Vapotherm 35.00 65 11/15/21 14:00 63 24 130/68 98 Vapotherm 30.00 75.00 11/15/21 13:04 78 11/15/21 13:00 Vapotherm 30.00 75 11/15/21 13:00 81 22 149/95 92 Vapotherm 30.00 75.00 11/15/21 12:00 75 21 130/63 92 Vapotherm 30.00 75.00 I & O 11/16/21 07:00 Intake Total 2350 ml Output Total 1100 ml Balance 1250 ml Height & Weight Height: '" Weight: lbs. oz. kg; 23.85 BMI Method: General Appearance: No Apparent Distress, WD/WN HEENT: PERRL/EOMI, Pharynx Normal Neck: Normal Inspection, Supple Respiratory: Lungs Clear, Normal Breath Sounds, No Respiratory Distress Cardiovascular: Regular Rate, Rhythm, No Edema, No Murmur Extremity: Normal Inspection, Non Tender, No Pedal Edema Neurologic/Psychiatric: Alert, Oriented x3, No Motor/Sensory Deficits, Normal Mood/Affect Skin: Normal Color, Warm/Dry Results Lab Laboratory Tests 11/15/21 05:35 11/16/21 05:45 Assessment/Plan Assessment/Plan (Tele-ICU Physician , Progress Note ) Available chart/ vitals / labs / Images reviewed Video assessment done using teleICU camera, rest of exam as per RN Discussed with RN , EXAM PER RN Events overnight : Afebrile FiO2 - I/O = Drips: Pressors: , hemodynamically stable Consultants: Hospital course: 11/14- ARF , COVID, PNA, PE 11/16 A/P Acite resp failure -VT 40 L 90 % COVID PNA - RMSV - Dexa IV PE - bilar , segmental -lovenoc full dose ELEVATED TROPONIN DUE TO PE OR MYOCARDITIS - cards consulted SUPERADDED BACTERIAL PNEUMONIA - abx Lines : (Central Line Necessity Reviewed) Prieto: OG: Nutrition: Analgesia: Anxiety/ delirium VTE Prophylaxis: Stress Ulcer Prophylaxis: Glycemic Control: Plans in collaboration with bedside consultants and IM MDs. Discussed with RN to reach out if any questions or concerns A total of 33 minutes of critical care time was devoted to this patient today, required to treat and/or prevent further deterioration of critical care condition ( as above) . SAMSON MAYEN MD Nov 16, 2021 11:59
[2021-11-16] MEDS: REMDESIVIR INJ 100 MG in NS (IVPB) 230 ML IV SCH (14:48)
--- NOTE | 2021-11-16 17:43 | Progress Note - Hospitalist ---
Subjective HPI/CC On Admission Date Seen by Provider: Nov 16, 2021 Time Seen by Provider: 09:50 Christiano Cuadra is a 71 year old male with PMH HTN, HLD, who presented with shortness of breath. He was diagnosed with COVID about 5 days ago. He is also having weakness. He is having a dry cough. His appetite is poor. He is not having fevers or chills. He is not having chest pain. He denies nausea, vomiting, and diarrhea. He received two vaccines in January. He did not get a booster. Subjective/Events-last exam He is feeling about the same. He is still short of breath. He denies chest pain. Focused Exam Lactate Level 11/14/21 09:02: Lactic Acid Level 2.25*H 11/14/21 11:45: Lactic Acid Level 2.00 Objective Exam Vital Signs Vital Signs Date Time Temp Pulse Resp B/P (MAP) Pulse Ox O2 Delivery O2 Flow Rate FiO2 11/16/21 17:00 75 29 139/73 93 Vapotherm 35.00 80.00 11/16/21 16:42 36.0 11/16/21 14:58 80 Capillary Refill : General Appearance: No Apparent Distress, WD/WN Respiratory: Lungs Clear, Normal Breath Sounds, No Respiratory Distress, Other (wearing Vapotherm) Cardiovascular: Regular Rate, Rhythm, No Edema Gastrointestinal: Normal Bowel Sounds, Non Tender, Soft Extremity: Normal Inspection, Non Tender, No Pedal Edema Neurologic/Psychiatric: Alert, Oriented x3, Normal Mood/Affect Skin: Normal Color, Warm/Dry Results/Procedures Lab Laboratory Tests 11/16/21 05:45 Patient resulted labs reviewed. Imaging: Reviewed Imaging Films, Reviewed Imaging Report Assessment/Plan Assessment and Plan Assess & Plan/Chief Complaint Acute respiratory failure due to COVID-19 Hypercoagulable state associated with COVID-19 Bilateral pulmonary embolism Secondary bacterial pneumonia NSTEMI HTN HLD COVID+ at outside facility about 5 days ago Chest xray with bilateral infiltrates Continue Decadron s/p Actemra 11/[address] Angio 11/14 with bialteral pulmonary embolism Continue therapeutic Lovenox Continue Rocephin and Azithromycin Troponin significantly elevated Cardiology following Echo with no wall motion abnormalities, normal EF Continue ASA TeleICU following Critical Care Critically Ill Patient Diagnosis/Problems Diagnosis/Problems (1) Acute respiratory failure due to COVID-19 Status: Acute (2) Bilateral pulmonary embolism Status: Acute (3) Hypercoagulable state associated with COVID-19 Status: Acute (4) Secondary bacterial pneumonia Status: Acute (5) NSTEMI (non-ST elevated myocardial infarction) Status: Acute (6) HTN (hypertension) Status: Chronic (7) HLD (hyperlipidemia) Status: Chronic NAT GORE MD Nov 16, 2021 17:43
[2021-11-17] MEDS: RT-ALBUTEROL HFA 8.5 GM INHALER IH SCH ×6 (01:44→21:03)
[2021-11-17 01:45] VITALS: BP 172/72
[2021-11-17 04:22] LABS: BASOPHILS % (AUTO) 0 % (0-10); EOSINOPHILS % (AUTO) 0 % (0-10); HEMATOCRIT 38 % (40-54); HEMOGLOBIN 12.6 g/dL (13.3-17.7); LYMPHOCYTES # (AUTO) 0.5 10^3/uL (1.0-4.0); LYMPHOCYTES % (AUTO) 4 % (12-44); MEAN CORPUSCULAR HEMOGLOBIN 29 pg (25-34); MEAN CORPUSCULAR HGB CONC 33 g/dL (32-36); MEAN CORPUSCULAR VOLUME 88 fL (80-99); MEAN PLATELET VOLUME 10.9 fL (9.0-12.2); MONOCYTES # (AUTO) 0.4 10^3/uL (0.0-1.0); MONOCYTES % (AUTO) 4 % (0-12); NEUTROPHILS # (AUTO) 10.7 10^3/uL (1.8-7.8); NEUTROPHILS % (AUTO) 88 % (42-75); PLATELET COUNT 236 10^3/uL (130-400); WHITE BLOOD COUNT 12.2 10^3/uL (4.3-11.0)
[2021-11-17 04:34] LABS: ALBUMIN 2.7 GM/DL (3.2-4.5)
[2021-11-17 04:35] LABS: POTASSIUM 3.9 MMOL/L (3.6-5.0)
[2021-11-17 04:36] LABS: CALCIUM 8.4 MG/DL (8.5-10.1)
[2021-11-17 04:37] LABS: TOTAL PROTEIN 5.8 GM/DL (6.4-8.2)
[2021-11-17 04:39] LABS: BILIRUBIN,TOTAL 0.5 MG/DL (0.1-1.0)
[2021-11-17 04:41] LABS: CREATININE SERUM 0.84 MG/DL (0.60-1.30)
[2021-11-17 04:44] LABS: MAGNESIUM 2.2 MG/DL (1.6-2.4)
[2021-11-17] MEDS: MAGNESIUM 1 GM/100 ML IVPB 100 ML IV SCH (04:46)
[2021-11-17] MEDS: inSUlin ASPART (NovoLOG) 1 UNIT/0.01 ML (CHARGE PER UNIT) SC SCH ×4 (04:46→21:45)
[2021-11-17] MEDS: POTASSIUM CL 10MEQ/50ML IVPB 50 ML IV SCH (04:46)
[2021-11-17] MEDS: KCL 20 MEQ TAB (K-DUR) PO SCH (04:46)
[2021-11-17] MEDS ORDERED: DexMEDEtomidine 250 ML DRIP 250 ML IV ONE (05:34)
[2021-11-17] MEDS: DexMEDEtomidine 250 ML DRIP 250 ML IV SCH (05:44)
[2021-11-17 06:31] VITALS: BP 150/71
[2021-11-17] MEDS: ASPIRIN 81 MG CHEW (CHILDREN'S ASA) PO SCH ×2 (09:47→09:57)
[2021-11-17] MEDS: AZITHROMYCIN INJECTION 250 MG in NS (IVPB) 250 ML IV SCH (09:47)
[2021-11-17] MEDS: SENNOSIDES 8.6 MG (SENOKOT) TAB PO SCH ×2 (09:47→21:44)
[2021-11-17] MEDS: DOCUSATE SODIUM 100 MG (COLACE) CAP PO SCH ×2 (09:47→21:44)
[2021-11-17] MEDS: ENOXAPARIN 80 MG/0.8 ML (LOVENOX) SYR SC SCH ×2 (09:48→21:45)
[2021-11-17] MEDS: cefTRIAXone 1 GM PRE-MIX 50 ML IV SCH (09:54)
--- NOTE | 2021-11-17 10:29 | Cardiology Progress Note ---
Progress Note-Cardiology Events since last exam Date Seen by Provider: Nov 17, 2021 Time Seen by Provider: 10:24 Events since last exam I am following him due to elevated troponin and abnormal electrocardiogram in the setting of Covid infection. I did not see him today due to his Covid infection. His oxygen requirements have worsened over the past 24 hours and he has been placed on BiPAP which he has been removing. He had increasing confusion last evening and was placed on Precedex infusion. I spoke to his nurse of today. He has not complained of any chest pain whatsoever during this admission. Certain portions of this document may have been dictated utilizing voice recognition technology. Inherent to this technology, typographical and grammatical errors may exist. As much as I am diligent to identify and correct these mistakes, some errors may remain in the document. Vitals Last set of Vitals Signs Vital Signs 11/17/21 11/17/21 03:40 10:00 Pulse 51 Resp 25 B/P (MAP) 149/73 Pulse Ox 93 O2 Delivery NIV Bilevel O2 Flow Rate 85.00 FiO2 80 Labs Labs Laboratory Tests 11/17/21 04:10 Exam Vital Signs Vital Signs Date Time Temp Pulse Resp B/P (MAP) Pulse Ox O2 Delivery O2 Flow Rate FiO2 11/17/21 10:00 51 25 149/73 93 NIV Bilevel 85.00 11/17/21 08:00 36.2 11/17/21 03:40 80 Physical Exam I did not examine the patient due to his Covid status. Labs Laboratory Tests Test 11/16/21 10:43 11/16/21 16:24 11/16/21 20:26 11/17/21 04:10 Range/Units Glucometer 154 H 167 H 110 70-110 MG/DL White Blood Count 12.2 H 4.3-11.0 10^3/uL Red Blood Count 4.36 4.30-5.52 10^6/uL Hemoglobin 12.6 L 13.3-17.7 g/dL Hematocrit 38 L 40-54 % Mean Corpuscular Volume 88 80-99 fL Mean Corpuscular Hemoglobin 29 25-34 pg Mean Corpuscular Hemoglobin Concent 33 32-36 g/dL Red Cell Distribution Width 13.2 10.0-14.5 % Platelet Count 236 130-400 10^3/uL Mean Platelet Volume 10.9 9.0-12.2 fL Immature Granulocyte % (Auto) 3 % Neutrophils (%) (Auto) 88 H 42-75 % Lymphocytes (%) (Auto) 4 L 12-44 % Monocytes (%) (Auto) 4 0-12 % Eosinophils (%) (Auto) 0 0-10 % Basophils (%) (Auto) 0 0-10 % Neutrophils # (Auto) 10.7 H 1.8-7.8 10^3/uL Lymphocytes # (Auto) 0.5 L 1.0-4.0 10^3/uL Monocytes # (Auto) 0.4 0.0-1.0 10^3/uL Eosinophils # (Auto) 0.0 0.0-0.3 10^3/uL Basophils # (Auto) 0.0 0.0-0.1 10^3/uL Immature Granulocyte # (Auto) 0.4 H 0.0-0.1 10^3/uL Sodium Level 140 135-145 MMOL/L Potassium Level 3.9 3.6-5.0 MMOL/L Chloride Level 110 H 98-107 MMOL/L Carbon Dioxide Level 19 L 21-32 MMOL/L Anion Gap 11 5-14 MMOL/L Blood Urea Nitrogen 34 H 7-18 MG/DL Creatinine 0.84 0.60-1.30 MG/DL Estimat Glomerular Filtration Rate 91 BUN/Creatinine Ratio 40 Glucose Level 112 H 70-105 MG/DL Calcium Level 8.4 L 8.5-10.1 MG/DL Corrected Calcium 9.4 8.5-10.1 MG/DL Phosphorus Level 3.0 2.3-4.7 MG/DL Magnesium Level 2.2 1.6-2.4 MG/DL Total Bilirubin 0.5 0.1-1.0 MG/DL Aspartate Amino Transf (AST/SGOT) 31 5-34 U/L Alanine Aminotransferase (ALT/SGPT) 19 0-55 U/L Alkaline Phosphatase 59 40-136 U/L Total Protein 5.8 L 6.4-8.2 GM/DL Albumin 2.7 L 3.2-4.5 GM/DL Diagnosis/Problems Diagnosis/Problems (1) Troponin level elevated Assessment & Plan: I suspect this is a type II non-ST elevation myocardial infarction secondary to right ventricular strain from the significant pulmonary emboli. No obvious wall motion abnormalities were identified on the echocardiogram but this was a limited study due to the patient's Covid status. If he develops any chest discomfort, we may need to consider further evaluation with a cardiac catheterization. His electrocardiogram has actually improved over the past 24 hours. I recommend he continue on enoxaparin for the time being. I may consider performing cardiac catheterization prior to his discharge but for the time being, this can be done electively prior to discharge. (2) Abnormal ECG Assessment & Plan: His electrocardiograms have shown anterolateral T wave changes concerning for ischemia but these changes have improved. Despite these changes, the patient does not appear to be having angina. Unclear whether or not these ECG changes could be due to right ventricular strain from bilateral pulmonary emboli. We will proceed as above (3) Primary hypertension Assessment & Plan: Blood pressures have now been intermittently elevated. I started him on carvedilol but due to his worsening pulmonary status, he has not been able to swallow these pills. He does have intravenous medication ordered to be given as needed for elevated blood pressures. (4) Mixed hyperlipidemia Assessment & Plan: He has a reported history of hyperlipidemia. His LDL level is minimally elevated. I do not see any indication to start statin medication at this time. If we do end up performing a cardiac catheterization and he is found to have coronary artery disease, then I would place him on statin medicati on. (5) Pulmonary embolism Assessment & Plan: This may possibly be related to his Covid infection. The hospitalist is managing this condition. Until we decide whether or not he will need a cardiac catheterization, I recommend he continue on enoxaparin for anticoagulation. ALISHA WILSON JR, MD Nov 17, 2021 10:29
[2021-11-17 10:36] VITALS: BP 150/71
--- NOTE | 2021-11-17 10:57 | Tele-ICU Progress Note ---
Subjective Date Seen by a Provider: Nov 17, 2021 Time Seen by a Provider: 10:53 Sepsis Event Evaluation Height, Weight, BMI Height: '" Weight: lbs. oz. kg; 23.85 BMI Method: Focused Exam Lactate Level 11/14/21 11:45: Lactic Acid Level 2.00 Exam Exam Patient acknowledged, consented, and participated in this virtual visit which was conducted using real time audio/video Vital Signs Date Time Temp Pulse Resp B/P (MAP) Pulse Ox O2 Delivery O2 Flow Rate FiO2 11/17/21 10:36 67 26 90 80.00 11/17/21 10:00 51 25 149/73 93 NIV Bilevel 85.00 11/17/21 09:00 46 30 169/78 93 NIV Bilevel 85.00 11/17/21 08:00 36.2 11/17/21 08:00 48 26 168/80 94 NIV Bilevel 85.00 11/17/21 07:00 48 11/17/21 07:00 49 27 153/67 94 NIV Bilevel 85.00 11/17/21 06:31 67 26 90 75.00 11/17/21 06:00 59 26 150/71 92 NIV Bilevel 85.00 11/17/21 05:44 80 11/17/21 05:00 65 27 139/61 97 NIV Bilevel 85.00 11/17/21 04:38 NIV Bilevel 85.00 11/17/21 04:00 66 27 160/78 92 NIV Bilevel 80.00 11/17/21 03:40 NIV Bilevel 80 11/17/21 03:36 35.2 NIV Bilevel 80.00 11/17/21 03:00 72 28 175/82 94 NIV Bilevel 80.00 11/17/21 02:00 64 24 162/75 96 NIV Bilevel 80.00 11/17/21 02:00 NIV Bilevel 80.00 11/17/21 01:49 NIV Bilevel 100 11/17/21 01:45 62 30 93 75.00 11/17/21 01:40 NIV Bilevel 100.00 11/17/21 01:21 Vapotherm 40.00 100.00 11/17/21 01:00 52 11/17/21 01:00 85 33 172/72 98 Vapotherm 40.00 90.00 11/17/21 00:05 Vapotherm 40.00 90 12/25/21 00:00 71 32 153/83 92 Vapotherm 40.00 90.00 11/17/21 00:00 35.1 11/16/21 23:00 58 21 139/74 98 Vapotherm 40.00 90.00 11/16/21 22:34 95 Vapotherm 40.00 90 11/16/21 22:00 56 23 150/71 98 Vapotherm 40.00 90.00 11/16/21 21:15 Vapotherm 40.00 90.00 11/16/21 21:00 70 20 140/78 92 Vapotherm 35.00 80.00 11/16/21 20:35 Vapotherm 40.00 90 11/16/21 20:30 35.7 11/16/21 20:00 82 15 128/71 90 Vapotherm 35.00 80.00 11/16/21 19:54 92 Vapotherm 35.00 80 11/16/21 19:00 63 11/16/21 19:00 60 17 121/67 98 Vapotherm 35.00 80.00 11/16/21 18:00 66 22 138/77 92 Vapotherm 35.00 80.00 11/16/21 17:00 75 29 139/73 93 Vapotherm 35.00 80.00 11/16/21 16:42 36.0 11/16/21 16:30 Vapotherm 35.00 80 11/16/21 16:00 60 23 138/65 99 Vapotherm 35.00 80.00 11/16/21 15:00 65 18 134/69 93 Vapotherm 35.00 80.00 11/16/21 14:58 94 Vapotherm 35.00 80 11/16/21 14:05 Vapotherm 35.00 80.00 11/16/21 14:00 65 24 125/68 98 Vapotherm 40.00 100.00 11/16/21 13:00 71 34 136/74 91 Vapotherm 40.00 100.00 11/16/21 13:00 76 11/16/21 12:30 Vapotherm 35.00 80 11/16/21 12:00 71 36 147/71 92 Vapotherm 40.00 100.00 11/16/21 12:00 36.1 11/16/21 11:00 76 27 151/81 95 Vapotherm 40.00 100.00 I & O 11/17/21 06:59 Intake Total 1660 ml Output Total 1225 ml Balance 435 ml Height & Weight Height: '" Weight: lbs. oz. kg; 23.85 BMI Method: General Appearance: No Apparent Distress, WD/WN HEENT: PERRL/EOMI, Pharynx Normal Neck: Normal Inspection, Supple Respiratory: Lungs Clear, Normal Breath Sounds, No Respiratory Distress, Other (wearing Vapotherm) Cardiovascular: Regular Rate, Rhythm, No Edema Extremity: Normal Inspection, Non Tender, No Pedal Edema Neurologic/Psychiatric: Alert, Oriented x3, Normal Mood/Affect Skin: Normal Color, Warm/Dry Results Lab Laboratory Tests 11/16/21 05:45 11/17/21 04:10 Assessment/Plan Assessment/Plan (Tele-ICU Physician , Progress Note ) Available chart/ vitals / labs / Images reviewed Video assessment done using teleICU camera, rest of exam as per RN Discussed with RN , EXAM PER RN Events overnight : bipap Afebrile FiO2 - I/O = neg Drips: Pressors: , hemodynamically stable Consultants: Hospital course: 11/14- ARF , COVID, PNA, PE 11/16 - VT 100 % 40 L 11/17 - more hypoxic - > BIPAP =+ precedex , BIPAP 14/8 80% rr 25 tv 500 mv 15 A/P Acite resp failure -BIPAP 14/8 80% rr 25 tv 500 mv 15 L prone - refusing - RECHECK CXR AND BNP COVID PNA - RMSV - Dexa IV PE - bilar , segmental -lovenox full dose ELEVATED TROPONIN DUE TO PE OR MYOCARDITIS - cards consulted BACTERIAL PNEUMONIA - abx Lines : periph (Central Line Necessity Reviewed) Prieto: + OG: Nutrition: npo Analgesia: Anxiety/ delirium VTE Prophylaxis: Stress Ulcer Prophylaxis: Glycemic Control: Plans in collaboration with bedside consultants and IM MDs. Discussed with RN to reach out if any questions or concerns A total of 33 minutes of critical care time was devoted to this patient today, required to treat and/or prevent further deterioration of critical care condition ( as above) . SAMSON MAYEN MD Nov 17, 2021 10:57
--- NOTE | 2021-11-17 11:17 | Diagnostic Imaging Report ---
INDICATION: Hypoxia COMPARISON: 11/14/2021 TECHNIQUE: Single radiograph of the chest dated 11/17/2021. FINDINGS: The cardiac silhouette is within normal limits in size. Pulmonary vasculature is predominantly obscured. Significant left greater than right pulmonary opacities are again identified. These have slightly worsened since the prior examination, particularly within the upper lungs. No large-volume pleural effusion. No pneumothorax. No acute osseous abnormality. IMPRESSION: Slightly worsened extensive bilateral pulmonary opacities felt to relate to infection versus edema. Dictated by: Dictated on workstation # [id number]
[2021-11-17] MEDS: REMDESIVIR INJ 100 MG in NS (IVPB) 230 ML IV SCH (13:31)
[2021-11-17 14:09] VITALS: BP 151/70
--- NOTE | 2021-11-17 18:22 | Progress Note - Hospitalist ---
Subjective HPI/CC On Admission Date Seen by Provider: Nov 17, 2021 Time Seen by Provider: 09:00 Christiano Cuadra is a 71 year old male with PMH HTN, HLD, who presented with shortness of breath. He was diagnosed with COVID about 5 days ago. He is also having weakness. He is having a dry cough. His appetite is poor. He is not having fevers or chills. He is not having chest pain. He denies nausea, vomiting, and diarrhea. He received two vaccines in January. He did not get a booster. Subjective/Events-last exam He is sleeping. He is doing about the same. He has no complaints. Objective Exam Vital Signs Vital Signs Date Time Temp Pulse Resp B/P (MAP) Pulse Ox O2 Delivery O2 Flow Rate FiO2 11/17/21 18:00 44 20 120/60 95 Vapotherm 25.00 70.00 11/17/21 16:01 36.3 11/17/21 15:47 55 Capillary Refill : General Appearance: No Apparent Distress, WD/WN Respiratory: Lungs Clear, Normal Breath Sounds, No Respiratory Distress Cardiovascular: Regular Rate, Rhythm, No Edema, No Murmur Gastrointestinal: Normal Bowel Sounds, Non Tender, Soft Extremity: Normal Inspection, Non Tender, No Pedal Edema Neurologic/Psychiatric: Alert, No Motor/Sensory Deficits Skin: Normal Color, Warm/Dry Results/Procedures Lab Laboratory Tests 11/17/21 04:10 Patient resulted labs reviewed. Imaging: Reviewed Imaging Films, Reviewed Imaging Report Assessment/Plan Assessment and Plan Assess & Plan/Chief Complaint Acute respiratory failure due to COVID-19 Hypercoagulable state associated with COVID-19 Bilateral pulmonary embolism Secondary bacterial pneumonia NSTEMI HTN HLD COVID+ at outside facility about 5 days ago Chest xray with bilateral infiltrates Continue Decadron s/p Actemra 11/[address] Angio 11/14 with bialteral pulmonary embolism Continue therapeutic Lovenox Continue Rocephin and Azithromycin Troponin significantly elevated Cardiology following Echo with no wall motion abnormalities, normal EF Continue ASA TeleICU following Critical Care Critically Ill Patient Diagnosis/Problems Diagnosis/Problems (1) Acute respiratory failure due to COVID-19 Status: Acute (2) Bilateral pulmonary embolism Status: Acute (3) Hypercoagulable state associated with COVID-19 Status: Acute (4) Secondary bacterial pneumonia Status: Acute (5) NSTEMI (non-ST elevated myocardial infarction) Status: Acute (6) HTN (hypertension) Status: Chronic (7) HLD (hyperlipidemia) Status: Chronic NAT GORE MD Nov 17, 2021 18:22
[2021-11-18 02:12] VITALS: BP 126/64
[2021-11-18] MEDS: RT-ALBUTEROL HFA 8.5 GM INHALER IH SCH ×6 (02:12→22:43)
[2021-11-18 05:03] LABS: BASOPHILS % (AUTO) 0 % (0-10); EOSINOPHILS % (AUTO) 0 % (0-10); HEMATOCRIT 41 % (40-54); HEMOGLOBIN 13.4 g/dL (13.3-17.7); LYMPHOCYTES # (AUTO) 0.7 10^3/uL (1.0-4.0); LYMPHOCYTES % (AUTO) 5 % (12-44); MEAN CORPUSCULAR HEMOGLOBIN 29 pg (25-34); MEAN CORPUSCULAR HGB CONC 33 g/dL (32-36); MEAN CORPUSCULAR VOLUME 88 fL (80-99); MEAN PLATELET VOLUME 11.3 fL (9.0-12.2); MONOCYTES # (AUTO) 0.6 10^3/uL (0.0-1.0); MONOCYTES % (AUTO) 4 % (0-12); NEUTROPHILS # (AUTO) 11.5 10^3/uL (1.8-7.8); NEUTROPHILS % (AUTO) 86 % (42-75); PLATELET COUNT 247 10^3/uL (130-400); WHITE BLOOD COUNT 13.4 10^3/uL (4.3-11.0)
[2021-11-18 05:26] LABS: ALBUMIN 2.6 GM/DL (3.2-4.5); POTASSIUM 4.1 MMOL/L (3.6-5.0)
[2021-11-18 05:27] LABS: CALCIUM 8.5 MG/DL (8.5-10.1)
[2021-11-18 05:29] LABS: TOTAL PROTEIN 5.9 GM/DL (6.4-8.2)
[2021-11-18 05:30] LABS: BILIRUBIN,TOTAL 0.4 MG/DL (0.1-1.0)
[2021-11-18 05:32] LABS: CREATININE SERUM 0.9 MG/DL (0.60-1.30); PHOSPHORUS 3.7 MG/DL (2.3-4.7)
[2021-11-18] MEDS: POTASSIUM CL 10MEQ/50ML IVPB 50 ML IV SCH (05:32)
[2021-11-18] MEDS: inSUlin ASPART (NovoLOG) 1 UNIT/0.01 ML (CHARGE PER UNIT) SC SCH ×4 (05:33→21:29)
[2021-11-18] MEDS: KCL 20 MEQ TAB (K-DUR) PO SCH (05:33)
[2021-11-18 05:35] LABS: MAGNESIUM 2.3 MG/DL (1.6-2.4)
[2021-11-18] MEDS: MAGNESIUM 1 GM/100 ML IVPB 100 ML IV SCH (05:40)
[2021-11-18 07:36] VITALS: BP 158/77
[2021-11-18] MEDS: cefTRIAXone 1 GM PRE-MIX 50 ML IV SCH (08:24)
[2021-11-18] MEDS: AZITHROMYCIN INJECTION 250 MG in NS (IVPB) 250 ML IV SCH (08:24)
[2021-11-18] MEDS: ASPIRIN 81 MG CHEW (CHILDREN'S ASA) PO SCH (08:25)
[2021-11-18] MEDS: DOCUSATE SODIUM 100 MG (COLACE) CAP PO SCH ×2 (08:26→21:29)
[2021-11-18] MEDS: SENNOSIDES 8.6 MG (SENOKOT) TAB PO SCH ×2 (08:26→21:29)
[2021-11-18] MEDS: ENOXAPARIN 80 MG/0.8 ML (LOVENOX) SYR SC SCH ×2 (08:27→21:28)
--- NOTE | 2021-11-18 10:01 | Cardiology Progress Note ---
Progress Note-Cardiology Events since last exam Date Seen by Provider: Nov 18, 2021 Time Seen by Provider: 09:56 Events since last exam I am following him due to the elevated troponin level. He remains on the BiPAP in the intensive care unit. His respiratory status remains tenuous. According to his nurse of today, he has a chronic problem using his left arm but today was having trouble using his right arm. His nurse took him off BiPAP so that he could have breakfast but then his oxygen saturation declined and he was put back on BiPAP. I did not see the patient due to his Covid status. Certain portions of this document may have been dictated utilizing voice recognition technology. Inherent to this technology, typographical and grammatical errors may exist. As much as I am diligent to identify and correct these mistakes, some errors may remain in the document. Vitals Last set of Vitals Signs Vital Signs 11/18/21 11/18/21 11/18/21 11/18/21 04:29 07:40 08:00 09:00 Temp 37.3 Pulse 85 Resp 30 B/P (MAP) 131/62 Pulse Ox 95 O2 Delivery NIV Bilevel O2 Flow Rate 80.00 FiO2 80 Labs Labs Laboratory Tests 11/18/21 04:41 Exam Vital Signs Vital Signs Date Time Temp Pulse Resp B/P (MAP) Pulse Ox O2 Delivery O2 Flow Rate FiO2 11/18/21 09:00 85 131/62 95 NIV Bilevel 80.00 11/18/21 08:00 30 11/18/21 07:40 37.3 11/18/21 04:29 80 Physical Exam I did not examine the patient due to his Covid status. Labs Laboratory Tests Test 11/17/21 10:30 11/17/21 15:37 11/17/21 21:04 11/18/21 04:41 Range/Units Glucometer 155 H 152 H 180 H 70-110 MG/DL White Blood Count 13.4 H 4.3-11.0 10^3/uL Red Blood Count 4.66 4.30-5.52 10^6/uL Hemoglobin 13.4 13.3-17.7 g/dL Hematocrit 41 40-54 % Mean Corpuscular Volume 88 80-99 fL Mean Corpuscular Hemoglobin 29 25-34 pg Mean Corpuscular Hemoglobin Concent 33 32-36 g/dL Red Cell Distribution Width 13.3 10.0-14.5 % Platelet Count 247 130-400 10^3/uL Mean Platelet Volume 11.3 9.0-12.2 fL Immature Granulocyte % (Auto) 4 % Neutrophils (%) (Auto) 86 H 42-75 % Lymphocytes (%) (Auto) 5 L 12-44 % Monocytes (%) (Auto) 4 0-12 % Eosinophils (%) (Auto) 0 0-10 % Basophils (%) (Auto) 0 0-10 % Neutrophils # (Auto) 11.5 H 1.8-7.8 10^3/uL Lymphocytes # (Auto) 0.7 L 1.0-4.0 10^3/uL Monocytes # (Auto) 0.6 0.0-1.0 10^3/uL Eosinophils # (Auto) 0.0 0.0-0.3 10^3/uL Basophils # (Auto) 0.0 0.0-0.1 10^3/uL Immature Granulocyte # (Auto) 0.6 H 0.0-0.1 10^3/uL Sodium Level 141 135-145 MMOL/L Potassium Level 4.1 3.6-5.0 MMOL/L Chloride Level 110 H 98-107 MMOL/L Carbon Dioxide Level 18 L 21-32 MMOL/L Anion Gap 13 5-14 MMOL/L Blood Urea Nitrogen 39 H 7-18 MG/DL Creatinine 0.90 0.60-1.30 MG/DL Estimat Glomerular Filtration Rate 84 BUN/Creatinine Ratio 43 Glucose Level 103 70-105 MG/DL Calcium Level 8.5 8.5-10.1 MG/DL Corrected Calcium 9.6 8.5-10.1 MG/DL Phosphorus Level 3.7 2.3-4.7 MG/DL Magnesium Level 2.3 1.6-2.4 MG/DL Total Bilirubin 0.4 0.1-1.0 MG/DL Aspartate Amino Transf (AST/SGOT) 24 5-34 U/L Alanine Aminotransferase (ALT/SGPT) 15 0-55 U/L Alkaline Phosphatase 70 40-136 U/L B-Type Natriuretic Peptide 188.6 H <100.0 PG/ML Total Protein 5.9 L 6.4-8.2 GM/DL Albumin 2.6 L 3.2-4.5 GM/DL Diagnosis/Problems Diagnosis/Problems (1) Troponin level elevated Assessment & Plan: I suspect this is a type II non-ST elevation myocardial infarction secondary to right ventricular strain from the significant pulmonary emboli. No obvious wall motion abnormalities were identified on the echocardiogram around the time of admission but this was a limited study due to the patient's Covid status. If he develops any chest discomfort, we may need to consider further evaluation with a cardiac catheterization. His electrocardiogram has actually improved since admission. I recommend he continue on enoxaparin for the time being. I may consider performing cardiac catheterization prior to his discharge but for the time being, this can be done electively prior to discharge. (2) Abnormal ECG Assessment & Plan: His electrocardiograms have shown anterolateral T wave changes concerning for ischemia but these changes have improved. Despite these changes, the patient does not appear to be having angina. Unclear whether or not these ECG changes could be due to right ventricular strain from bilateral pulmonary emboli. We will proceed as above. I will obtain a follow-up electrocardiogram today. (3) Primary hypertension Assessment & Plan: Blood pressures have been intermittently elevated. I started him on carvedilol but due to his worsening pulmonary status, he has not been able to consistently swallow these pills. However, he has received 2 doses of carvedilol. He may be better off to have some degree of permissive hypertension given his tenuous respiratory status as opposed to giving him intermittent intravenous antihypertensive medication. (4) Mixed hyperlipidemia Assessment & Plan: He has a reported history of hyperlipidemia. His LDL level is minimally elevated. I do not see any indication to start statin medication at this time. If we do end up performing a cardiac catheterization and he is found to have coronary artery disease, then I would place him on statin medication. (5) Pulmonary embolism Assessment & Plan: This may possibly be related to his Covid infection. The hospitalist is managing this condition. Until we decide whether or not he will need a cardiac catheterization, I recommend he continue on enoxaparin for anticoagulation. ALISHA WILSON JR, MD Nov 18, 2021 10:01
[2021-11-18 10:56] VITALS: BP 124/66
--- NOTE | 2021-11-18 12:52 | Tele-ICU Progress Note ---
Subjective Date Seen by a Provider: Nov 18, 2021 Time Seen by a Provider: 12:51 Sepsis Event Evaluation Height, Weight, BMI Height: '" Weight: lbs. oz. kg; 23.85 BMI Method: Exam Exam Patient acknowledged, consented, and participated in this virtual visit which was conducted using real time audio/video Vital Signs Date Time Temp Pulse Resp B/P (MAP) Pulse Ox O2 Delivery O2 Flow Rate FiO2 11/18/21 12:36 36.6 11/18/21 12:00 71 27 119/62 98 NIV Bilevel 80.00 11/18/21 11:00 69 29 98/51 99 NIV Bilevel 80.00 11/18/21 10:56 70 26 98 80.00 11/18/21 10:00 70 28 124/66 95 NIV Bilevel 80.00 11/18/21 09:00 85 131/62 95 NIV Bilevel 80.00 11/18/21 08:00 72 30 149/77 95 NIV Bilevel 80.00 11/18/21 08:00 95 NIV Bilevel 80 11/18/21 07:40 37.3 11/18/21 07:36 75 39 95 80.00 11/18/21 07:00 77 31 158/77 90 NIV Bilevel 80.00 11/18/21 07:00 77 11/18/21 06:00 70 30 142/75 94 NIV Bilevel 80.00 11/18/21 05:00 70 25 143/68 94 NIV Bilevel 80.00 11/18/21 04:29 94 NIV Bilevel 80 11/18/21 04:00 54 30 155/66 96 NIV Bilevel 80.00 11/18/21 03:00 55 32 143/61 96 NIV Bilevel 80.00 11/18/21 02:22 NIV Bilevel 80.00 11/18/21 02:12 60 29 92 75.00 11/18/21 02:05 36.0 NIV Bilevel 100.00 11/18/21 02:00 73 32 126/64 96 Vapotherm 30.00 100.00 11/18/21 01:00 61 32 139/63 95 Vapotherm 30.00 100.00 11/18/21 01:00 60 11/18/21 00:00 65 25 130/67 93 Vapotherm 30.00 100.00 11/17/21 23:31 92 Vapotherm 30.00 100 11/17/21 23:00 60 25 134/67 93 Vapotherm 30.00 100.00 11/17/21 22:29 35.5 11/17/21 22:00 65 25 127/65 97 Vapotherm 30.00 100.00 11/17/21 21:53 Vapotherm 30.00 100.00 11/17/21 21:03 90 Vapotherm 30.00 100 11/17/21 21:00 58 26 124/64 95 Vapotherm 30.00 80.00 11/17/21 20:15 Vapotherm 30.00 80.00 11/17/21 20:02 52 131/63 Vapotherm 25.00 70.00 11/17/21 20:00 92 Vapotherm 25.00 70 11/17/21 19:42 36.3 50 18 119/66 92 Vapotherm 25.00 70.00 11/17/21 19:00 52 11/17/21 18:45 96 Vapotherm 25.00 70 11/17/21 18:00 44 20 120/60 95 Vapotherm 25.00 70.00 11/17/21 17:00 40 20 131/65 93 Vapotherm 25.00 70.00 11/17/21 16:48 Vapotherm 25.00 70.00 11/17/21 16:01 36.3 11/17/21 16:00 41 21 135/65 94 NIV Bilevel 55.00 11/17/21 15:47 NIV Bilevel 55 11/17/21 15:42 NIV Bilevel 55.00 11/17/21 15:00 41 23 123/69 98 NIV Bilevel 80.00 11/17/21 14:09 42 26 99 75.00 11/17/21 14:00 42 23 151/70 99 NIV Bilevel 80.00 11/17/21 13:00 43 24 150/73 99 NIV Bilevel 80.00 11/17/21 12:54 44 I & O 11/18/21 07:00 Intake Total 1010 ml Output Total 900 ml Balance 110 ml Height & Weight Height: '" Weight: lbs. oz. kg; 23.85 BMI Method: General Appearance: No Apparent Distress, WD/WN HEENT: PERRL/EOMI, Pharynx Normal Neck: Normal Inspection, Supple Respiratory: Lungs Clear, Normal Breath Sounds, No Respiratory Distress Cardiovascular: Regular Rate, Rhythm, No Edema, No Murmur Capillary Refill: Less Than 3 Seconds Extremity: Normal Inspection, Non Tender, No Pedal Edema Neurologic/Psychiatric: Alert, No Motor/Sensory Deficits Skin: Normal Color, Warm/Dry Results Lab Laboratory Tests 11/17/21 04:10 11/18/21 04:41 Assessment/Plan Assessment/Plan (Tele-ICU Physician , Progress Note ) Available chart/ vitals / labs / Images reviewed Video assessment done using teleICU camera, rest of exam as per RN Discussed with RN , EXAM PER RN Events overnight : paniack attach this am Afebrile FiO2 - vt I/O = EVEN Drips: Pressors: , hemodynamically stable Consultants: [facility] Hospital course: 11/16 - COVID vapotherm 60%/30L A/P AHRF / ARDS due to severe COVID19 -vapotherm 65 %/30L poor tolerance --> BIPAP - HIGH RISK FOR INTUBATION -prone position if able - conservative fluid strategy (aim for even or negative fluid balance [id number]/COVID-19 PNA ( Symptom onset ~"month " DX unvaccinted --Dexamethasone -Hypercoagulable state , DDIMER= 0.7 on -> lovenox ppx dose , follow D dimer Monitor for superimposed bact PNA -PCT negative , ceftriaxone and z-max 11/15 EVAN - mild monitor Hyperglycemia / Diabetes Mellitus - ISS , close f/up on steroids AURELIO , suspected obesity Lines : mid line 11/18 (Central Line Necessity Reviewed) Prieto: void OG: Nutrition: po Analgesia: Anxiety/ delirium xanax VTE Prophylaxis: daniel 40 Stress Ulcer Prophylaxis: po Plans in collaboration with bedside consultants and IM MDs. Discussed with RN to reach out if any questions or concerns A total of 31 minutes of critical care time was devoted to this patient today, required to treat and/or prevent further deterioration of critical care condition ( as above) . SAMSON MAYEN MD Nov 18, 2021 12:52
[2021-11-18] MEDS: REMDESIVIR INJ 100 MG in NS (IVPB) 230 ML IV SCH (15:07)
--- NOTE | 2021-11-18 15:14 | Diagnostic Imaging Report ---
PROCEDURE: CT head without contrast. TECHNIQUE: Multiple contiguous axial images were obtained through the brain without the use of intravenous contrast. Auto Exposure Controls were utilized during the CT exam to meet ALARA standards for radiation dose reduction. INDICATION: Head pain. COMPARISON: I have no priors. FINDINGS: There is no intracerebral hemorrhage. There is no hydrocephalus. The basilar cisterns patent. There is no sulcal effacement. There are a few patchy areas of hypointensity notably in the inferomedial left occipital lobe, the posterior and inferomedial right occipital lobe as well, to the lesser extent, in the right cerebellar hemisphere. Areas of subacute ischemia could not be excluded. Some left frontal lobe white matter hypodensity is also of uncertain acuity but felt more likely old. No evidence for elevation of the intracranial pressures. No mass or mass effect. No hydrocephalus. No abnormal extra-axial collection, Orbits, sinuses and calvarium are unremarkable. IMPRESSION: 1. No evidence for hemorrhage or hydrocephalus. Patchy areas of bilateral supratentorial and infratentorial hypodensity may reflect subacute or recent ischemia. If there are clinical features compatible with acute or active ischemia follow-up with MRI recommended. 2. There is no hydrocephalus, hemorrhage, evidence for elevated intracerebral pressures, shift or herniation. Dictated by: Dictated on workstation # [id number]
--- NOTE | 2021-11-18 23:38 | Progress Note - Hospitalist ---
Subjective HPI/CC On Admission Date Seen by Provider: Nov 18, 2021 Time Seen by Provider: 09:10 Christiano Cuadra is a 71 year old male with PMH HTN, HLD, who presented with shortness of breath. He was diagnosed with COVID about 5 days ago. He is also having weakness. He is having a dry cough. His appetite is poor. He is not having fevers or chills. He is not having chest pain. He denies nausea, vomiting, and diarrhea. He received two vaccines in January. He did not get a booster. Subjective/Events-last exam He is still short of breath. He has no complaints. Objective Exam Vital Signs Vital Signs Date Time Temp Pulse Resp B/P (MAP) Pulse Ox O2 Delivery O2 Flow Rate FiO2 11/18/21 22:43 94 Vapotherm 35.00 90 11/18/21 19:58 36.8 11/18/21 19:00 11/18/21 19:00 70 11/18/21 13:00 32 Capillary Refill : Less Than 3 Seconds General Appearance: No Apparent Distress, WD/WN Respiratory: No Respiratory Distress, Decreased Breath Sounds, Other (wearing Vapotherm) Cardiovascular: Regular Rate, Rhythm, No Edema, No Murmur Gastrointestinal: Normal Bowel Sounds, Non Tender, Soft Extremity: Normal Inspection, Non Tender, No Pedal Edema Neurologic/Psychiatric: Alert, Oriented x3, Normal Mood/Affect Skin: Normal Color, Warm/Dry Results/Procedures Lab Laboratory Tests 11/18/21 04:41 Patient resulted labs reviewed. Imaging: Reviewed Imaging Films, Reviewed Imaging Report Assessment/Plan Assessment and Plan Assess & Plan/Chief Complaint Acute respiratory failure due to COVID-19 Hypercoagulable state associated with COVID-19 Bilateral pulmonary embolism Secondary bacterial pneumonia NSTEMI HTN HLD COVID+ at outside facility about 5 days ago Chest xray with bilateral infiltrates Continue Decadron s/p Actemra 11/[address] Angio 11/14 with bialteral pulmonary embolism Continue therapeutic Lovenox Continue Rocephin and Azithromycin Troponin significantly elevated Cardiology following Echo with no wall motion abnormalities, normal EF Continue ASA TeleICU following Acute ishemic stroke CT with likely acute infarct MRI ordered Continue aspirin Start statin Carotid ultrasound Critical Care Critically Ill Patient Diagnosis/Problems Diagnosis/Problems (1) Acute respiratory failure due to COVID-19 Status: Acute (2) Bilateral pulmonary embolism Status: Acute (3) Hypercoagulable state associated with COVID-19 Status: Acute (4) Secondary bacterial pneumonia Status: Acute (5) NSTEMI (non-ST elevated myocardial infarction) Status: Acute (6) HTN (hypertension) Status: Chronic (7) HLD (hyperlipidemia) Status: Chronic (8) Acute ischemic stroke Status: Acute NAT GORE MD Nov 18, 2021 23:38
[2021-11-19] MEDS: RT-ALBUTEROL HFA 8.5 GM INHALER IH SCH ×5 (03:12→18:56)
[2021-11-19 05:54] LABS: BASOPHILS % (AUTO) 0 % (0-10); EOSINOPHILS # (AUTO) 0.1 10^3/uL (0.0-0.3); EOSINOPHILS % (AUTO) 0 % (0-10); HEMATOCRIT 38 % (40-54); HEMOGLOBIN 12.4 g/dL (13.3-17.7); LYMPHOCYTES # (AUTO) 0.7 10^3/uL (1.0-4.0); LYMPHOCYTES % (AUTO) 5 % (12-44); MEAN CORPUSCULAR HEMOGLOBIN 29 pg (25-34); MEAN CORPUSCULAR HGB CONC 33 g/dL (32-36); MEAN CORPUSCULAR VOLUME 88 fL (80-99); MEAN PLATELET VOLUME 11.4 fL (9.0-12.2); MONOCYTES # (AUTO) 0.7 10^3/uL (0.0-1.0); MONOCYTES % (AUTO) 5 % (0-12); NEUTROPHILS # (AUTO) 11.9 10^3/uL (1.8-7.8); NEUTROPHILS % (AUTO) 87 % (42-75); PLATELET COUNT 273 10^3/uL (130-400); WHITE BLOOD COUNT 13.7 10^3/uL (4.3-11.0)
[2021-11-19 06:05] LABS: ALBUMIN 2.5 GM/DL (3.2-4.5); POTASSIUM 4.1 MMOL/L (3.6-5.0)
[2021-11-19 06:06] LABS: CALCIUM 8.2 MG/DL (8.5-10.1)
[2021-11-19 06:08] LABS: TOTAL PROTEIN 5.6 GM/DL (6.4-8.2)
[2021-11-19 06:09] LABS: BILIRUBIN,TOTAL 0.4 MG/DL (0.1-1.0)
[2021-11-19 06:11] LABS: CREATININE SERUM 0.83 MG/DL (0.60-1.30); PHOSPHORUS 3.3 MG/DL (2.3-4.7)
[2021-11-19 06:14] LABS: MAGNESIUM 2.2 MG/DL (1.6-2.4)
[2021-11-19] MEDS: POTASSIUM CL 10MEQ/50ML IVPB 50 ML IV SCH (06:18)
[2021-11-19] MEDS: KCL 20 MEQ TAB (K-DUR) PO SCH (06:18)
[2021-11-19] MEDS: inSUlin ASPART (NovoLOG) 1 UNIT/0.01 ML (CHARGE PER UNIT) SC SCH ×4 (06:18→21:25)
[2021-11-19] MEDS: MAGNESIUM 1 GM/100 ML IVPB 100 ML IV SCH (06:18)
[2021-11-19 06:48] VITALS: BP 124/66
[2021-11-19] MEDS: SENNOSIDES 8.6 MG (SENOKOT) TAB PO SCH ×2 (08:44→21:17)
[2021-11-19] MEDS: ASPIRIN 81 MG CHEW (CHILDREN'S ASA) PO SCH (08:44)
[2021-11-19] MEDS: DOCUSATE SODIUM 100 MG (COLACE) CAP PO SCH ×2 (08:44→21:17)
[2021-11-19] MEDS: cefTRIAXone 1 GM PRE-MIX 50 ML IV SCH (08:45)
[2021-11-19] MEDS: amLODIPine 5 MG (NORVASC) TAB PO SCH (10:02)
[2021-11-19] MEDS: ENOXAPARIN 80 MG/0.8 ML (LOVENOX) SYR SC SCH ×2 (10:02→21:18)
--- NOTE | 2021-11-19 10:32 | Progress Note - Hospitalist ---
Subjective HPI/CC On Admission Date Seen by Provider: Nov 19, 2021 Time Seen by Provider: 10:30 Christiano Cuadra is a 71 year old male with PMH HTN, HLD, who presented with shortness of breath. He was diagnosed with COVID about 5 days ago. He is also having weakness. He is having a dry cough. His appetite is poor. He is not having fevers or chills. He is not having chest pain. He denies nausea, vomiting, and diarrhea. He received two vaccines in January. He did not get a booster. Subjective/Events-last exam Pt biPAP dependent Vapotherm given short time so he can eat Norvasc 5 mg daily started for BP elevation after Coreg was given MRI cannot be obtained due to Vapotherm and BiPAP and CT scan showed a subacute stroke Cough syrup will be given at his request Review of Systems Pulmonary: Dyspnea, Cough Objective Exam Vital Signs Vital Signs Date Time Temp Pulse Resp B/P (MAP) Pulse Ox O2 Delivery O2 Flow Rate FiO2 11/20/21 02:40 52 23 98 80.00 11/20/21 00:45 36.1 11/20/21 00:00 NIV Bilevel 65 11/20/21 00:00 161/77 Capillary Refill : Less Than 3 Seconds General Appearance: Anxious, Chronically ill, Mild Distress Respiratory: No Accessory Muscle Use, No Respiratory Distress, Decreased Breath Sounds Cardiovascular: Regular Rate, Rhythm Neurologic/Psychiatric: Alert, Oriented x3 Results/Procedures Lab Laboratory Tests 11/19/21 05:10 Patient resulted labs reviewed. Imaging: Reviewed Imaging Films, Reviewed Imaging Report Assessment/Plan Assessment and Plan Assess & Plan/Chief Complaint Assessment: Acute respiratory failure due to COVID-19 Hypercoagulable state associated with COVID-19 Bilateral pulmonary embolism Secondary bacterial pneumonia NSTEMI HTN HLD COVID+ at outside facility about 7 days ago Chest xray with bilateral infiltrates Continue Decadron s/p Actemra 11/[address] Angio 11/14 with bialteral pulmonary embolism Continue therapeutic Lovenox Continue Rocephin and Azithromycin Troponin significantly elevated Cardiology following Echo with no wall motion abnormalities, normal EF Continue ASA TeleICU following Acute ishemic stroke CT with likely acute infarct MRI ordered but cannot be done while on Vapotherm BiPAP Continue aspirin Start statin Carotid ultrasound 11/19/2021: Supportive care eICU appreciated Critical Care Critically Ill Patient COLLEEN AMARO DO Nov 19, 2021 10:32
--- NOTE | 2021-11-19 11:18 | Tele-ICU Progress Note ---
Subjective Date Seen by a Provider: Nov 19, 2021 Time Seen by a Provider: 10:40 Subjective/Events-last exam This virtual visit was conducted using real time audio/video. Thank you for asking us to see this patient for respiratory insufficiency due to Covid pna. Also B PEs, NSTEMI, superimposed bacterial pna. Recent events: Possible CVA on head CT 10/19/21. PE: Resting comfortably. VSS. O2 sat 95% on BiPAP 14/8, 80%. HEENT: No obvious masses, adenopathy or JVD. Chest: clear to auscultation. CV: RRR S1 S2 No murmur or added sounds. Abd: Non-tender. Bowel sounds Y. : Unremarkable. Prieto Y. 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 No obvious focal findings. Extremities: No edema. Capillary refill < 3 seconds. Skin: unremarkable. Results: Elevated WCC 13.7, BUN 33, Trop 5.49. Decreased hb 12.4. No new BG/CXR: . Available chart/ vitals / labs / images reviewed. Video assessment done using teleICU camera, rest of exam as per RN. A/P: Respiratory insufficiency: Continue present management with BiPAP. Monitor for increasing oxygenation needs and/or need for intubation. Critical Care: critically ill patient. Cont.Dex., Nelson., rocephin, AZT, SSI. Discussed with KAIN Manley. Asked RN to reach out to eICU if any questions or concerns later. Time spent with patient/coordination of care with other health professionals (mins): 20 Sepsis Event Evaluation Height, Weight, BMI Height: '" Weight: lbs. oz. kg; 23.85 BMI Method: Exam Exam Patient acknowledged, consented, and participated in this virtual visit which was conducted using real time audio/video Vital Signs Date Time Temp Pulse Resp B/P (MAP) Pulse Ox O2 Delivery O2 Flow Rate FiO2 11/19/21 10:30 89 Vapotherm 40.00 100 11/19/21 09:02 NIV Bilevel 80.00 11/19/21 08:41 93 Vapotherm 35.00 100 11/19/21 08:38 Vapotherm 35.00 100.00 11/19/21 07:45 36.2 11/19/21 06:48 62 26 98 80.00 11/19/21 06:30 60 11/19/21 06:00 70 160/81 97 NIV Bilevel 80.00 11/19/21 05:00 66 162/78 95 NIV Bilevel 80.00 11/19/21 04:00 58 145/74 95 NIV Bilevel 80.00 11/19/21 03:51 94 NIV Bilevel 80 11/19/21 03:12 94 Vapotherm 40.00 100 11/19/21 03:00 62 161/70 98 NIV Bilevel 80.00 11/19/21 03:00 36.6 NIV Bilevel 80.00 11/19/21 02:00 74 155/76 93 Vapotherm 40.00 100.00 11/19/21 01:00 66 11/19/21 01:00 66 152/75 91 Vapotherm 40.00 100.00 11/19/21 00:00 93 Vapotherm 40.00 100 11/19/21 00:00 63 143/72 96 Vapotherm 40.00 100.00 11/18/21 23:00 62 141/64 89 Vapotherm 40.00 100.00 11/18/21 23:00 36.4 Vapotherm 40.00 100.00 11/18/21 22:43 94 Vapotherm 35.00 90 11/18/21 22:00 57 146/65 96 Vapotherm 35.00 90.00 11/18/21 21:37 Vapotherm 35.00 90.00 11/18/21 21:00 61 158/74 97 Vapotherm 40.00 100.00 11/18/21 20:45 94 Vapotherm 40.00 100 11/18/21 20:00 67 150/71 95 Vapotherm 40.00 100.00 11/18/21 19:58 36.8 11/18/21 19:02 95 Vapotherm 40.00 100 11/18/21 19:00 Vapotherm 40.00 100.00 11/18/21 19:00 70 11/18/21 19:00 67 135/73 95 Vapotherm 40.00 100.00 11/18/21 18:00 71 141/74 98 NIV Bilevel 80.00 11/18/21 17:00 70 147/74 90 NIV Bilevel 80.00 11/18/21 16:00 36.2 11/18/21 16:00 77 139/68 89 NIV Bilevel 80.00 11/18/21 16:00 95 NIV Bilevel 80 11/18/21 15:12 95 Vapotherm 40.00 100 11/18/21 15:00 78 130/77 95 NIV Bilevel 80.00 11/18/21 14:00 65 128/71 99 NIV Bilevel 80.00 11/18/21 13:00 71 32 133/68 96 NIV Bilevel 80.00 11/18/21 12:56 78 11/18/21 12:36 36.6 11/18/21 12:00 71 27 119/62 98 NIV Bilevel 80.00 11/18/21 12:00 95 NIV Bilevel 80 I & O 11/19/21 06:59 Intake Total 2330 ml Output Total 1275 ml Balance 1055 ml Height & Weight Height: '" Weight: lbs. oz. kg; 23.85 BMI Method: General Appearance: No Apparent Distress, WD/WN HEENT: PERRL/EOMI, Pharynx Normal Neck: Normal Inspection, Supple Respiratory: No Respiratory Distress, Decreased Breath Sounds, Other (wearing Vapotherm) Cardiovascular: Regular Rate, Rhythm, No Edema, No Murmur Capillary Refill: Less Than 3 Seconds Peripheral Pulses: 1+ Dorsalis Pedis (R), 1+ Left Dors-Pedis (L) (see free text) Extremity: Normal Inspection, Non Tender, No Pedal Edema Neurologic/Psychiatric: Alert, Oriented x3, Normal Mood/Affect Skin: Normal Color, Warm/Dry Results Lab Laboratory Tests 11/18/21 04:41 11/19/21 05:10 Assessment/Plan Assessment/Plan See free text. Critical Care: Critically Ill Patient AMANDA VIRAMONTES MD Nov 19, 2021 11:18
--- NOTE | 2021-11-19 12:57 | Diagnostic Imaging Report ---
PROCEDURE: US carotid duplex, bilateral. INDICATION: Stroke. Covid positive. TECHNIQUE: Multiple real-time grayscale images were obtained over the carotid arteries in various projections bilaterally. Additional spectral analysis and color Doppler and Duplex images were also obtained. CORRELATION: None FINDINGS: Right carotid circulation: Color images demonstrate mild scattered plaque. The right common carotid artery is normal in course and caliber. The right internal carotid artery is patent. No hemodynamically significant stenosis is present at this time. Right external carotid artery is patent. Left carotid circulation: Color images demonstrate mild scattered plaque. The left common carotid artery is normal in course and caliber. The left internal carotid artery is patent. No hemodynamically significant stenosis is present at this time. Left external carotid artery is patent. Antegrade flow in the bilateral vertebral arteries. DOPPLER (peak systolic velocity M/S Right Left CCA .77 .94 ICA Proximal .64 .40 ICA Mid .66 .49 ICA Distal .81 .47 RATIO 1.06 .53 ECA 1.30 1.39 VERT .46 .47 IMPRESSION: 1. Mild atherosclerosis involving the bilateral carotid arteries. 2. No sonographic evidence to suggest a hemodynamically significant stenosis of the internal carotid arteries at this time. Parameters based on the consensus panel Sears-Scale and Doppler ultrasound criteria published September 2003, Radiology, Volume 229. Dictated by: Dictated on workstation # [id number]
[2021-11-19] MEDS: guaiFENesin/DM (ROBITUSSIN DM) 10 ML UDC PO PRN (13:41)
[2021-11-19] MEDS ORDERED: [UNRECOGNIZED DRUG - REMARK] IV NR (15:00)
--- NOTE | 2021-11-19 19:00 | Cardiology Progress Note ---
Progress Note-Cardiology Events since last exam Date Seen by Provider: Nov 19, 2021 Time Seen by Provider: 18:55 Events since last exam I am following him due to abnormal troponin level and abnormal electrocardio gram. He remains in the intensive care unit. He is now off BiPAP. His pulmonary status has been improving. I did not see the patient today due to his Covid status. I did speak with his nurse of today. Certain portions of this document may have been dictated utilizing voice recognition technology. Inherent to this technology, typographical and grammatical errors may exist. As much as I am diligent to identify and correct these mistakes, some errors may remain in the document. Vitals Last set of Vitals Signs Vital Signs 11/19/21 11/19/21 11/19/21 11/19/21 11/19/21 12:00 15:27 16:08 17:00 18:00 Temp 35.7 Pulse 61 Resp 26 B/P (MAP) 152/80 Pulse Ox 94 O2 Delivery Vapotherm O2 Flow Rate 35.00 65.00 FiO2 65 Labs Labs Laboratory Tests 11/19/21 05:10 Exam Vital Signs Vital Signs Date Time Temp Pulse Resp B/P (MAP) Pulse Ox O2 Delivery O2 Flow Rate FiO2 11/19/21 18:00 Vapotherm 35.00 65.00 11/19/21 17:00 61 94 11/19/21 16:08 35.7 11/19/21 15:27 65 11/19/21 12:00 26 Physical Exam I did not examine the patient due to his Covid status. Labs Laboratory Tests Test 11/18/21 20:31 11/19/21 05:10 11/19/21 11:03 11/19/21 15:38 Range/Units Glucometer 130 H 141 H 181 H 70-110 MG/DL White Blood Count 13.7 H 4.3-11.0 10^3/uL Red Blood Count 4.35 4.30-5.52 10^6/uL Hemoglobin 12.4 L 13.3-17.7 g/dL Hematocrit 38 L 40-54 % Mean Corpuscular Volume 88 80-99 fL Mean Corpuscular Hemoglobin 29 25-34 pg Mean Corpuscular Hemoglobin Concent 33 32-36 g/dL Red Cell Distribution Width 13.2 10.0-14.5 % Platelet Count 273 130-400 10^3/uL Mean Platelet Volume 11.4 9.0-12.2 fL Immature Granulocyte % (Auto) 3 % Neutrophils (%) (Auto) 87 H 42-75 % Lymphocytes (%) (Auto) 5 L 12-44 % Monocytes (%) (Auto) 5 0-12 % Eosinophils (%) (Auto) 0 0-10 % Basophils (%) (Auto) 0 0-10 % Neutrophils # (Auto) 11.9 H 1.8-7.8 10^3/uL Lymphocytes # (Auto) 0.7 L 1.0-4.0 10^3/uL Monocytes # (Auto) 0.7 0.0-1.0 10^3/uL Eosinophils # (Auto) 0.1 0.0-0.3 10^3/uL Basophils # (Auto) 0.0 0.0-0.1 10^3/uL Immature Granulocyte # (Auto) 0.4 H 0.0-0.1 10^3/uL Sodium Level 140 135-145 MMOL/L Potassium Level 4.1 3.6-5.0 MMOL/L Chloride Level 109 H 98-107 MMOL/L Carbon Dioxide Level 20 L 21-32 MMOL/L Anion Gap 11 5-14 MMOL/L Blood Urea Nitrogen 33 H 7-18 MG/DL Creatinine 0.83 0.60-1.30 MG/DL Estimat Glomerular Filtration Rate 92 BUN/Creatinine Ratio 40 Glucose Level 105 70-105 MG/DL Calcium Level 8.2 L 8.5-10.1 MG/DL Corrected Calcium 9.4 8.5-10.1 MG/DL Phosphorus Level 3.3 2.3-4.7 MG/DL Magnesium Level 2.2 1.6-2.4 MG/DL Total Bilirubin 0.4 0.1-1.0 MG/DL Aspartate Amino Transf (AST/SGOT) 22 5-34 U/L Alanine Aminotransferase (ALT/SGPT) 12 0-55 U/L Alkaline Phosphatase 72 40-136 U/L Total Protein 5.6 L 6.4-8.2 GM/DL Albumin 2.5 L 3.2-4.5 GM/DL Diagnosis/Problems Diagnosis/Problems (1) Troponin level elevated Assessment & Plan: I suspect this was a type II non-ST elevation myocardial infarction secondary to right ventricular strain from the significant pulmonary emboli. No obvious wall motion abnormalities were identified on the echocardiogram around the time of admission but this was a limited study due to the patient's Covid status. If he develops any chest discomfort, we may need to consider further evaluation with a cardiac catheterization. His electrocardiogram has actually improved since admission. I may consider performing cardiac catheterization prior to his discharge but for the time being, this can be done electively prior to discharge. He is presently on enoxaparin due to pulmonary emboli. We might be able to consider changing this over to oral anticoagulation soon. I have ordered a follow-up electrocardiogram for the morning. Continue aspirin and beta-eraline. I have not started statin medication because his LDL level is only minimally elevated and we do not know if he has coronary artery disease (2) Abnormal ECG Assessment & Plan: His electrocardiograms showed anterolateral T wave changes concerning for ischemia but this improved. I will obtain a follow-up electrocardiogram in the morning. (3) Primary hypertension Assessment & Plan: Blood pressures have been intermittently elevated. He is receiving carvedilol and the primary hospitalist has added amlodipine. I will attempt to increase the carvedilol in light of the possible non-ST elevation myocardial infarction. (4) Mixed hyperlipidemia Assessment & Plan: He has a reported history of hyperlipidemia. His LDL level is minimally elevated. I will hold off on starting statin medication until we determine whether or not to proceed with a cardiac catheterization. (5) Pulmonary embolism Assessment & Plan: This may possibly be related to his Covid infection. The hospitalist is managing this condition. Until we decide whether or not he will need a cardiac catheterization, I would prefer he continue on enoxaparin for anticoagulation. This will be easier to manage than a DOAC if he needs to undergo cardiac catheterization. ALISHA WILSON JR, MD Nov 19, 2021 19:00
[2021-11-19] MEDS: ACYCLOVIR 400 MG TABLET (ZOVIRAX) PO SCH (21:17)
[2021-11-20] MEDS: RT-ALBUTEROL HFA 8.5 GM INHALER IH SCH ×7 (01:14→21:40)
[2021-11-20 02:40] VITALS: BP 152/78
[2021-11-20 05:23] LABS: BASOPHILS % (AUTO) 0 % (0-10); EOSINOPHILS % (AUTO) 0 % (0-10); HEMATOCRIT 38 % (40-54); HEMOGLOBIN 12.3 g/dL (13.3-17.7); LYMPHOCYTES # (AUTO) 0.6 10^3/uL (1.0-4.0); LYMPHOCYTES % (AUTO) 6 % (12-44); MEAN CORPUSCULAR HEMOGLOBIN 28 pg (25-34); MEAN CORPUSCULAR HGB CONC 33 g/dL (32-36); MEAN CORPUSCULAR VOLUME 87 fL (80-99); MEAN PLATELET VOLUME 11.4 fL (9.0-12.2); MONOCYTES # (AUTO) 0.5 10^3/uL (0.0-1.0); MONOCYTES % (AUTO) 5 % (0-12); NEUTROPHILS % (AUTO) 85 % (42-75); PLATELET COUNT 293 10^3/uL (130-400); WHITE BLOOD COUNT 10.6 10^3/uL (4.3-11.0)
[2021-11-20 05:38] LABS: ALBUMIN 2.5 GM/DL (3.2-4.5); POTASSIUM 4.6 MMOL/L (3.6-5.0)
[2021-11-20 05:39] LABS: CALCIUM 8.4 MG/DL (8.5-10.1)
[2021-11-20 05:41] LABS: TOTAL PROTEIN 5.8 GM/DL (6.4-8.2)
[2021-11-20 05:42] LABS: BILIRUBIN,TOTAL 0.4 MG/DL (0.1-1.0)
[2021-11-20 05:44] LABS: CREATININE SERUM 0.8 MG/DL (0.60-1.30); PHOSPHORUS 3.9 MG/DL (2.3-4.7)
[2021-11-20 05:47] LABS: MAGNESIUM 2.4 MG/DL (1.6-2.4)
--- NOTE | 2021-11-20 05:57 | Progress Note - Hospitalist ---
Subjective HPI/CC On Admission Date Seen by Provider: Nov 20, 2021 Time Seen by Provider: 09:00 Christiano Cuadra is a 71 year old male with PMH HTN, HLD, who presented with shortness of breath. He was diagnosed with COVID about 5 days ago. He is also having weakness. He is having a dry cough. His appetite is poor. He is not having fevers or chills. He is not having chest pain. He denies nausea, vomiting, and diarrhea. He received two vaccines in January. He did not get a booster. Subjective/Events-last exam Pt was maxed on Vapotherm after taking a break from BiPAP Began having chest pain, elevated Troponin and Pt was urgently taken to geochemical laboratory technician for anterior myocardial infarction by Dr. Grewal Pt will be closely monitored Review of Systems Pulmonary: Dyspnea Cardiovascular: Chest Pain Objective Exam Vital Signs Vital Signs Date Time Temp Pulse Resp B/P (MAP) Pulse Ox O2 Delivery O2 Flow Rate FiO2 11/21/21 05:00 59 25 140/81 91 NIV Bilevel 50.00 11/21/21 04:00 85 11/21/21 00:00 36.2 Capillary Refill : Less Than 3 Seconds General Appearance: No Apparent Distress, WD/WN, Anxious, Chronically ill Respiratory: No Respiratory Distress, Accessory Muscle Use, Decreased Breath Sounds Cardiovascular: Regular Rate, Rhythm Neurologic/Psychiatric: Alert, Oriented x3, No Motor/Sensory Deficits, Normal Mood/Affect Results/Procedures Lab Patient resulted labs reviewed. Imaging: Reviewed Imaging Films, Reviewed Imaging Report Assessment/Plan Assessment and Plan Assess & Plan/Chief Complaint Assessment: Acute respiratory failure due to COVID-19 Hypercoagulable state associated with COVID-19 Acute myocardial infarction status post cardiac cath 11/20/2021 Dr. Grewal status post stent in LAD Bilateral pulmonary embolism Secondary bacterial pneumonia NSTEMI HTN HLD COVID+ at outside facility about 7 days ago Chest xray with bilateral infiltrates Continue Decadron s/p Actemra 11/[address] Angio 11/14 with bialteral pulmonary embolism Continue therapeutic Lovenox Continue Rocephin and Azithromycin Troponin significantly elevated Cardiology following Echo with no wall motion abnormalities, normal EF Continue ASA TeleICU following Acute ishemic stroke CT with likely acute infarct MRI ordered but cannot be done while on Vapotherm BiPAP Continue aspirin Start statin Carotid ultrasound 11/19/2021: Supportive care eICU appreciated 11/20/2021: Dr. Grewal appreciated Supportive care Critical Care Critically Ill Patient COLLEEN AMARO DO Nov 20, 2021 05:57
[2021-11-20] MEDS: inSUlin ASPART (NovoLOG) 1 UNIT/0.01 ML (CHARGE PER UNIT) SC SCH ×4 (06:03→20:13)
[2021-11-20 06:40] VITALS: BP 168/76
--- NOTE | 2021-11-20 08:44 | Physical Therapy Evaluation ---
PT Evaluation-General Medical Diagnosis Admission Date Nov 14, 2021 at 11:43 Medical Diagnosis: covid 19 Onset Date: Nov 14, 2021 Therapy Diagnosis Therapy Diagnosis: impaired mobility, strength, endurance Precautions Precautions/Isolations: Contact Isolation, Droplet Isolation, Fall Prevention, Pressure Ulcer Referral Physician: Kathy Bentley DO Reason for Referral: Evaluation/Treatment Medical History Additional Medical History Past Medical History Surgeries: Eye Surgery High Cholesterol, Hypertension Reviewed History: Yes Social History Current Living Status: Alone Entry Into Home: Level Entry Prior Prior Level of Function SCALE: Activities may be completed with or without assistive devices. 4-Mzwjoqfbtb-dbzsvje completes the activity by him/herself with no assistance from a helper. 5-Set-up or Clean-up Assistance-helper sets up or cleans up; patient completes activity. [place] assists only prior to or following the activity. 4-Supervision or Touching Assistance-helper provides verbal cues and/or touching/steadying and/or contact guard assistance as patient completes activity. Assistance may be provided throughout the activity or intermittently. 3-Partial/Moderate Assistance-helper does LESS THAN HALF the effort. [place] lifts, holds or supports trunk or limbs, but provides less than half the effort. 2-Substantial/Maximal Assistance-helper does MORE THAN HALF the effort. [place] lifts or holds trunk or limbs and provides more than half the effort. 2-Ytqxcumkp-livvzx does ALL the effort. Patient does none of the effort to complete the activity. Or, the assistance of 2 or more helpers is required for the patient to complete the activity. If activity was not attempted, code reason: 7-Patient Refused. 9-Not Applicable-not attempted and the patient did not perform the activity before the current illness, exacerbation or injury. 10-Not Attempted due to Environmental Limitations-(lack of equipment, weather restraints, etc.). 88-Not Attempted due to Medical Conditions or Safety Concerns. Bed Mobility: 6 Transfers (B,C,W/C): 6 Gait: 6 Stairs: 6 Indoor Mobility (Ambulation): Independent Stairs: Independent PT Evaluation-Current Subjective Patient in bed pre tx, agrees to PT, has no complaints of pain. Patient has a bipap on and communication is difficult. Pt/Family Goals "to get better" Objective Patient Orientation: Person, Place, Situation Attachments: Oxygen, Prieto Catheter ROM/Strength ROM Lower Extremities WNL Strength Lower Extremities grossly 4/5 BLE Sensory Sensation Right Lower Extremit: Intact Sensation Left Lower Extremity: Intact Transfers Roll Left to Right (QC): 6 Sit to Lying (QC): 6 Lying to Sitting/Side of Bed(Q: 6 Sit to Stand (QC): 3 Patient was able to sit to the side of the bed on his own, O2 staying at 90% at this time. Patient stood with min assist and took about 3 steps toward the head of the bed, during this his O2 dropped rapidly to 83%, sat back down and lay down. His O2 went back up very slowly, mostly due to his persistent cough. Nurse came in and was going to transition him to a vapotherm. After about 3-4 minutes his O2 came up to 87%. Balance Sitting Static: Normal Sitting Dynamic: Normal Assessment/Needs Patient in bed post tx with nurse call, phone, tray, all needs met. Patient has impaired mobility, strength, endurance. Patient O2 drops dramatically with OOB activity. Rehab Potential: Fair PT Halfway Goals Furnace Combination Analyst Goals PT Furnace Combination Analyst Goals Time Frame: Nov 27, 2021 Roll Left & Right (QC): 6 Sit to Lying (QC): 6 Lying-Sitting on Side/Bed(QC): 6 Sit to Stand (QC): 4 Chair/Wsl-kn-Lzxpi Xfer(QC): 4 Walk 10 feet (QC): 4 PT Plan Problem List Problem List: Activity Tolerance, Functional Strength, Safety, Balance, Gait, Transfer, Bed Mobility, ROM Treatment/Plan Treatment Plan: Continue Plan of Care Treatment Plan: Bed Mobility, Education, Functional Activity Nelson, Functional Strength, Gait, Safety, Therapeutic Exercise, Transfers Treatment Duration: Nov 27, 2021 Frequency: 6 times per week Estimated Hrs Per Day: .25 hour per day Patient and/or Family Agrees t: Yes Safety Risks/Education Patient Education: Correct Positioning, Safety Issues Teaching Recipient: Patient Teaching Methods: Demonstration, Discussion Response to Teaching: Reinforcement Needed Discharge Recommendations Plan Patient will perform bed mobility and transfer training, balance and endurance training, functional strengthening, gait training, and education, to improve functional mobility and independence at home. Therapy Discharge Recommendati: Scheduled Assistance, Home & Family, Post Acute PT Time/GCodes Time In: 806 Time Out: 820 Total Billed Treatment Time: 14 Total Billed Treatment 1 visit ELIJAH QUINONES PT Nov 20, 2021 08:44
[2021-11-20] MEDS: ASPIRIN 81 MG CHEW (CHILDREN'S ASA) PO SCH (09:10)
[2021-11-20] MEDS: DOCUSATE SODIUM 100 MG (COLACE) CAP PO SCH ×2 (09:10→20:13)
[2021-11-20] MEDS: guaiFENesin/DM (ROBITUSSIN DM) 10 ML UDC PO PRN ×2 (09:10→22:55)
[2021-11-20] MEDS: ACYCLOVIR 400 MG TABLET (ZOVIRAX) PO SCH ×2 (09:11→20:13)
[2021-11-20] MEDS: amLODIPine 5 MG (NORVASC) TAB PO SCH (09:11)
[2021-11-20] MEDS: SENNOSIDES 8.6 MG (SENOKOT) TAB PO SCH ×2 (09:11→20:13)
[2021-11-20] MEDS: POTASSIUM CL 10MEQ/50ML IVPB 50 ML IV SCH (09:12)
[2021-11-20] MEDS: KCL 20 MEQ TAB (K-DUR) PO SCH (09:12)
[2021-11-20] MEDS: MAGNESIUM 1 GM/100 ML IVPB 100 ML IV SCH (09:12)
[2021-11-20] MEDS ORDERED: fentaNYL INJ 100 MCG/2 ML AMP ONE (10:00)
[2021-11-20] MEDS ORDERED: CATHETER FLUSH 10 ML SYR IV PRN (10:00)
[2021-11-20] MEDS ORDERED: NS IV 1000 ML 1,000 ML IV ONE (10:00)
[2021-11-20] MEDS ORDERED: HEParin (CATH LAB) 2,000 ML IV ONE (10:00)
[2021-11-20] MEDS ORDERED: LIDOCAINE 1% INJ 20 ML VIAL ONE (10:00)
[2021-11-20] MEDS ORDERED: MIDAZOLAM 5 MG/5 ML (VERSED) VIAL ONE (10:00)
[2021-11-20] MEDS ORDERED: HEParin 1000 UNIT/ML (10ML VIAL) FOR BOLUS ONE (10:00)
[2021-11-20] MEDS ORDERED: VERAPAMIL 5 MG/2 ML (CALAN) VIAL IV ONE (10:00)
[2021-11-20] MEDS ORDERED: NITRO DRIP 25000 MCG/D5W 250 ML IV ONE (10:01)
[2021-11-20] MEDS ORDERED: NS IV 1000 ML 1,000 ML ONE (10:01)
--- NOTE | 2021-11-20 10:13 | Pre-Op Note & Conscious Sedat ---
Pre-Operative Progress Note H&P Reviewed The H&P was reviewed, patient examined and no changes noted. Date H&P Reviewed: Nov 20, 2021 Time H&P Reviewed: 10:12 Pre-Op Diagnosis: Anterolateral ST elevation myocardial infarction I have been following the patient due to possible non-ST elevation myocardial infarction. We have been treating him with optimal medical therapy due to his Covid status. He has not been complaining of any chest pain during the entire hospitalization until this morning when he told his nurse that he had substernal chest discomfort. An electrocardiogram was performed that showed anterolateral ST elevation consistent with an injury pattern. As such, a code STEMI has been activated. I have explained the benefits and risks of the procedure to the patient and he is in agreement to proceed and has signed a consent form. We will proceed with emergency cardiac catheterization shortly. Conscious Sedation Pre-Proced ASA Score 3 For ASA 3 and 4: Consider anesthesia and medical clearance. Also, for patients with a history of failed moderate sedation consider anesthesia. Airway Lungs Heart ASA score ASA 1: a normal healthy patient ASA 2: a patient with a mild systemic disease (mid diabetes, controlled hypertension, obesity ASA 3: a patient with a severe systemic disease that limits activity (angina, COPD, prior Myocardial infarction) ASA 4: a patient with an incapacitating disease that is a constant threat to life (CHF, renal failure) ASA 5: a moribund patient not expected to survive 24 hrs. (ruptured aneurysm) ASA 6: a declared brain- patient whose organs are being harvested. For emergent operations, add the letter E after the classification Mallampati Classification Grade 2 Sedation Plan Analgesia, Amnesia, Plan communicated to team members, Discussed options with patient/fam, Discussed risks with patient/fam The patient is an appropriate candidate to undergo the planned procedure, sedation, and anesthesia. The patient immediately re-assessed prior to indication. ALISHA WILSON JR, MD Nov 20, 2021 10:13
[2021-11-20] MEDS: ENOXAPARIN 80 MG/0.8 ML (LOVENOX) SYR SC SCH ×2 (10:34→22:48)
[2021-11-20] MEDS ORDERED: ENOXAPARIN 100 MG/1 ML (LOVENOX) SYR ONE (10:38)
[2021-11-20] MEDS ORDERED: TICAGRELOR 90 MG TABLET (BRILINTA) PO ONE (10:47)
[2021-11-20] MEDS ORDERED: ADENOSINE 90 MG/30 ML (ADENOSCAN) VIAL IV ONE (11:06)
[2021-11-20] MEDS ORDERED: ADENOSINE 6 MG/2 ML (ADENOCARD) VIAL IV ONE (11:07)
[2021-11-20] MEDS ORDERED: NS (IVPB) 250 ML ONE (11:07)
[2021-11-20] MEDS ORDERED: PATIENT MAY USE OWN MEDS, ALL PO SCH (12:00)
[2021-11-20] MEDS: NS IV 1000 ML 1,000 ML IV SCH (12:26)
--- NOTE | 2021-11-20 12:30 | Tele-ICU Progress Note ---
Subjective Date Seen by a Provider: Nov 20, 2021 Time Seen by a Provider: 09:36 Sepsis Event Evaluation Height, Weight, BMI Height: '" Weight: lbs. oz. kg; 23.85 BMI Method: Exam Exam Patient acknowledged, consented, and participated in this virtual visit which was conducted using real time audio/video Vital Signs Date Time Temp Pulse Resp B/P (MAP) Pulse Ox O2 Delivery O2 Flow Rate FiO2 11/20/21 12:17 98 NIV Bilevel 65 11/20/21 08:27 Vapotherm 40.00 100.00 11/20/21 08:00 90 Vapotherm 40.00 100 11/20/21 07:45 35.6 11/20/21 07:00 53 11/20/21 06:40 46 21 95 65.00 11/20/21 06:00 53 26 168/76 96 NIV Bilevel 65.00 11/20/21 05:00 59 26 156/83 97 NIV Bilevel 65.00 11/20/21 04:00 53 26 151/74 93 NIV Bilevel 65.00 11/20/21 04:00 96 NIV Bilevel 35.00 65 11/20/21 03:00 51 26 150/74 96 NIV Bilevel 65.00 11/20/21 02:40 52 23 98 80.00 11/20/21 02:00 50 26 152/78 98 NIV Bilevel 80.00 11/20/21 01:00 48 26 170/80 99 NIV Bilevel 80.00 11/20/21 00:47 57 11/20/21 00:45 36.1 11/20/21 00:00 96 NIV Bilevel 35.00 65 11/20/21 00:00 62 26 161/77 92 Vapotherm 35.00 65.00 11/19/21 23:00 56 25 142/71 94 Vapotherm 35.00 65.00 11/19/21 22:00 62 24 143/76 97 Vapotherm 35.00 65.00 11/19/21 21:00 71 25 140/72 87 Vapotherm 35.00 65.00 11/19/21 20:00 74 24 132/66 91 Vapotherm 35.00 65.00 11/19/21 20:00 96 Vapotherm 35.00 65 11/19/21 20:00 35.6 11/19/21 19:00 77 12/27/21 19:00 76 26 132/72 94 Vapotherm 35.00 65.00 11/19/21 18:57 94 Vapotherm 35.00 65 11/19/21 18:00 Vapotherm 35.00 65.00 11/19/21 17:00 61 152/80 94 Vapotherm 35.00 65.00 11/19/21 16:08 35.7 11/19/21 16:00 67 128/65 95 Vapotherm 35.00 65.00 11/19/21 15:27 96 Vapotherm 35.00 65 11/19/21 15:20 Vapotherm 35.00 65.00 11/19/21 15:00 61 152/80 94 Vapotherm 35.00 75.00 11/19/21 14:45 91 Vapotherm 35.00 75 11/19/21 14:06 Vapotherm 35.00 75.00 11/19/21 14:00 74 129/73 91 Vapotherm 35.00 100.00 11/19/21 13:16 Vapotherm 35.00 100.00 11/19/21 13:00 67 11/19/21 13:00 51 119/70 98 Vapotherm 40.00 100.00 I & O 11/20/21 07:00 Intake Total 1120 ml Output Total 1550 ml Balance -430 ml Height & Weight Height: '" Weight: lbs. oz. kg; 23.85 BMI Method: General Appearance: Anxious, Chronically ill, Mild Distress HEENT: PERRL/EOMI, Pharynx Normal Neck: Normal Inspection, Supple Respiratory: No Accessory Muscle Use, No Respiratory Distress, Decreased Breath Sounds Cardiovascular: Regular Rate, Rhythm Capillary Refill: Less Than 3 Seconds Peripheral Pulses: 1+ Dorsalis Pedis (R), 1+ Left Dors-Pedis (L) (see free text) Extremity: Normal Inspection, Non Tender, No Pedal Edema Neurologic/Psychiatric: Alert, Oriented x3 Skin: Normal Color, Warm/Dry Results Lab Laboratory Tests 11/19/21 05:10 11/20/21 04:57 Assessment/Plan Assessment/Plan (Tele-ICU Physician , Progress Note ) Available chart/ vitals / labs / Images reviewed Video assessment done using teleICU camera, rest of exam as per RN Discussed with RN , EXAM PER RN Events overnight : jorge l rosario this am Afebrile FiO2 - vt I/O = EVEN Drips: Pressors: , hemodynamically stable Consultants: [facility] Hospital course: 11/16 - COVID vapotherm 60%/30L 11/18 - subacute or recent ischemia 11/20- VT 40 100% - bipap overnign A/P AHRF / ARDS due to severe COVID19 - VT 40 100% poor tolerance --> BIPAP - HIGH RISK FOR INTUBATION -prone position if able - conservative fluid strategy (aim for even or negative fluid balance - worse - recheck CXR [id number]-Gpqtvqufsfl-1/COVID-19 PNA ( Symptom onset ~"month " DX unvaccinted --Dexamethasone -Hypercoagulable state , DDIMER= >20 on -> lovenox full dose Monitor for superimposed bact PNA -PCT negative , ceftriaxone and z-max 11/15- 11/19 CVA ? - mild mental status changes 11/16 - subacute or recent ischemia on CTH - on lovenox 70 bid - MONITOR CLOSELY WITH RISK OF HEMORRAHIC CONVERSION - US carotids negative EVAN - mild monitor Hyperglycemia / Diabetes Mellitus - ISS , close f/up on steroids AURELIO , suspected obesity Lines : mid line 11/18 (Central Line Necessity Reviewed) Prieto: void OG: Nutrition: po Analgesia: Anxiety/ delirium xanax VTE Prophylaxis: daniel 70 Stress Ulcer Prophylaxis: po Plans in collaboration with bedside consultants and IM MDs. Discussed with RN to reach out if any questions or concerns A total of 31 minutes of critical care time was devoted to this patient today, required to treat and/or prevent further deterioration of critical care condition ( as above) . SAMSON MAYEN MD Nov 20, 2021 12:30
--- NOTE | 2021-11-20 13:12 | Occ Therapy Progress Note ---
Therapy Progress Note OT orders received and chart was reviewed. RN requests to hold eval this date as pt just returned from getting heart cath and still sedated from procedure. OT will attempt again 11/21/21 if medically appropriate. Natividad Jeffrey OT Nov 20, 2021 13:12
[2021-11-20 14:48] VITALS: BP 168/76
--- NOTE | 2021-11-20 15:48 | Cardiac Cath Report ---
CARDIAC CATHETERIZATION DATE OF PROCEDURE: 11/20/2021 INDICATION: Acute anterolateral ST elevation myocardial infarction. HISTORY: The patient is a 71 year old male with no known history of coronary artery disease. He presented to the hospital 6 days ago with progressive dyspnea and was diagnosed with Covid infection. He denied any chest discomfort since that time. On admission he had anterolateral ST-T wave changes on his electrocardiogram but without evidence of an ST elevation myocardial infarction. He also had elevated troponin levels but was denying any chest pain whatsoever. He was treated for Covid infection and every day denied chest pain until this morning when he started complaining of substernal chest tightness. An electrocardiogram was performed that then showed anterolateral ST elevation consistent with injury. As such, a code STEMI was called. PROCEDURES PERFORMED: 1. Diagnostic jamul coronary angiography. 2. Drug-eluting stent placement to the mid left anterior descending coronary artery for acute anterolateral ST elevation myocardial infarction. PROCEDURE DESCRIPTION: After informed consent and in the fasting state, left heart catheterization was performed through the right radial artery utilizing a 6 Kosovan system by percutaneous approach. A 6 Kosovan JR4 catheter was utilized to interrogate the right coronary artery. A 6 Kosovan CLS 3.5 guide catheter was utilized to interrogate the left coronary artery and for the percutaneous coronary intervention. Two small air bubbles were inadvertently injected in the left coronary artery via the power injector on the initial angiogram. The aortic valve was not crossed. All catheters were exchanged over a guidewire. Following the procedure, a vascular band was applied to the radial artery access site and the sheath was removed with good hemostasis. RESULTS: HEMODYNAMICS: The aortic pressure was 117/53 mmHg. The aortic valve was not crossed. CORONARY ANGIOGRAPHY: Left main coronary artery: Free of significant disease. Left anterior descending coronary artery: Totally occluded in the mid segment at the takeoff of a diagonal branch with evidence of thrombus and KY 0 flow. This was the ischemia related vessel for the acute myocardial infarction. Left circumflex coronary artery: Codominant and there was diffuse severe disease up to 70% stenotic in the second obtuse marginal branch with KY 1 flow. Right coronary artery: Codominant and there was mild diffuse disease from the proximal down to the distal segment including the distal branches with no more than 30% stenosis at any segment. PERCUTANEOUS CORONARY INTERVENTION: Percutaneous coronary intervention was carried out on the mid left anterior descending coronary artery through a 6 Kosovan CLS 3.5 guide catheter. I first placed a Whisper medium support guidewire down into the first major diagonal branch. At first it appeared as though this could be the continuation of the left anterior descending coronary artery and a sharp bend in the vessel. I subsequently performed coronary angioplasty with a 2.5 x 12 mm Trek balloon at a pressure of 6-8 christiane for several inflations. At that point, I could now see the distal continuation of the left anterior descending coronary artery proper. I subsequently placed an additional Whisper medium support guidewire down into the distal left anterior descending coronary artery. I subsequently performed coronary angioplasty with the same 2.5 x 12 mm balloon at a pressure of up to 10 christiane for multiple inflations. There was KY 1 flow with evidence of no reflow more distally. Intracoronary adenosine was administered. I subsequently performed aspiration thrombectomy with an Kimberton aspiration catheter. Additional intracoronary adenosine was administered. At that point, there was finally flow down into the apical portion of the vessel. I subsequently deployed a 2.75 x 18 mm drug-eluting Xience Skypoint stent in the midsegment of the vessel overlapping the diagonal branch had a pressure of 16 christiane. I then postdilated the proximal segment of the stent with a 3 x 12 mm noncompliant Trek balloon at a pressure of 18 christiane. Following stent placement, there was 0% residual stenosis with KY-3 flow. There did appear to be some plaque shift into the diagonal branch with KY-2 flow. During the last 30 minutes of the procedure, the patient became very restless and was moving his legs and both arms during the procedure. I was considering rewiring the diagonal branch but the patient was too restless and I was concerned this could be dangerous for the patient so at that time, I concluded the procedure. IMPRESSION: 1. Normal central aortic pressure. 2. Acute thrombotic occlusion of the mid left anterior descending coronary artery. This was the ischemia related vessel for the acute myocardial infarction. 3. There was mild disease of the right coronary artery and severe diffuse disease of the distal left circumflex coronary artery as outlined above. 4. Status post drug-eluting stent placement to the mid left anterior descending coronary artery with a 2.75 x 18 mm Xience Skypoint stent with the proximal segment postdilated with a 3 x 12 mm noncompliant balloon with 0% residual stenosis and KY-3 flow. 4. The patient was previously known to have normal left ventricular systolic function with an estimated ejection fraction of 60-65% by echocardiogram obtained on 11/14/2021. Certain portions of this document may have been dictated utilizing voice recognition technology. Inherent to this technology, typographical and grammatical errors may exist. As much as I am diligent to identify and correct these mistakes, some errors may remain in the document. ALISHA WILSON JR, MD Nov 20, 2021 15:48
[2021-11-20] MEDS: TICAGRELOR 90 MG TABLET (BRILINTA) PO SCH (20:12)
[2021-11-21] MEDS: RT-ALBUTEROL HFA 8.5 GM INHALER IH SCH ×6 (03:09→21:36)
[2021-11-21 03:10] VITALS: BP 136/79
[2021-11-21 05:22] LABS: BASOPHILS % (AUTO) 0 % (0-10); EOSINOPHILS # (AUTO) 0.1 10^3/uL (0.0-0.3); EOSINOPHILS % (AUTO) 0 % (0-10); HEMATOCRIT 44 % (40-54); HEMOGLOBIN 14.8 g/dL (13.3-17.7); LYMPHOCYTES # (AUTO) 0.7 10^3/uL (1.0-4.0); LYMPHOCYTES % (AUTO) 5 % (12-44); MEAN CORPUSCULAR HEMOGLOBIN 29 pg (25-34); MEAN CORPUSCULAR HGB CONC 34 g/dL (32-36); MEAN CORPUSCULAR VOLUME 86 fL (80-99); MONOCYTES # (AUTO) 0.6 10^3/uL (0.0-1.0); MONOCYTES % (AUTO) 5 % (0-12); NEUTROPHILS # (AUTO) 11.6 10^3/uL (1.8-7.8); NEUTROPHILS % (AUTO) 84 % (42-75); PLATELET COUNT 382 10^3/uL (130-400); WHITE BLOOD COUNT 13.8 10^3/uL (4.3-11.0)
[2021-11-21 05:37] LABS: ALBUMIN 2.7 GM/DL (3.2-4.5); POTASSIUM 4.6 MMOL/L (3.6-5.0)
[2021-11-21 05:38] LABS: CALCIUM 8.5 MG/DL (8.5-10.1)
[2021-11-21 05:39] LABS: TOTAL PROTEIN 6.1 GM/DL (6.4-8.2)
[2021-11-21 05:41] LABS: BILIRUBIN,TOTAL 0.6 MG/DL (0.1-1.0)
[2021-11-21 05:43] LABS: CREATININE SERUM 0.75 MG/DL (0.60-1.30)
[2021-11-21 05:46] LABS: MAGNESIUM 2.2 MG/DL (1.6-2.4)
[2021-11-21] MEDS: guaiFENesin/DM (ROBITUSSIN DM) 10 ML UDC PO PRN ×2 (06:02→09:55)
[2021-11-21] MEDS: NS IV 1000 ML 1,000 ML IV SCH (06:43)
[2021-11-21] MEDS: POTASSIUM CL 10MEQ/50ML IVPB 50 ML IV SCH (06:44)
[2021-11-21] MEDS: MAGNESIUM 1 GM/100 ML IVPB 100 ML IV SCH (06:44)
[2021-11-21] MEDS: inSUlin ASPART (NovoLOG) 1 UNIT/0.01 ML (CHARGE PER UNIT) SC SCH ×4 (06:44→20:03)
[2021-11-21] MEDS: KCL 20 MEQ TAB (K-DUR) PO SCH (06:44)
--- NOTE | 2021-11-21 06:44 | Progress Note - Hospitalist ---
Subjective HPI/CC On Admission Date Seen by Provider: Nov 21, 2021 Time Seen by Provider: 10:00 Christiano Cuadra is a 71 year old male with PMH HTN, HLD, who presented with shortness of breath. He was diagnosed with COVID about 5 days ago. He is also having weakness. He is having a dry cough. His appetite is poor. He is not having fevers or chills. He is not having chest pain. He denies nausea, vomiting, and diarrhea. He received two vaccines in January. He did not get a booster. Subjective/Events-last exam Pt tolerating BiPAP but he is BiPAP dependent Intubation is near Precedex causes him Bradycardia Checked meds and labs Pt resting Review of Systems General: Fatigue, Malaise Pulmonary: Dyspnea Objective Exam Vital Signs Vital Signs Date Time Temp Pulse Resp B/P (MAP) Pulse Ox O2 Delivery O2 Flow Rate FiO2 11/22/21 04:24 95 NIV Bilevel 90 11/22/21 04:23 35.3 90.00 11/22/21 02:47 51 22 11/22/21 00:54 135/76 Capillary Refill : Less Than 3 Seconds General Appearance: Anxious, Chronically ill, Other (Drowsy) Respiratory: No Accessory Muscle Use, No Respiratory Distress, Decreased Breath Sounds Cardiovascular: Regular Rate, Rhythm Results/Procedures Lab Laboratory Tests 11/22/21 04:46 Patient resulted labs reviewed. Imaging: Reviewed Imaging Films, Reviewed Imaging Report Assessment/Plan Assessment and Plan Assess & Plan/Chief Complaint Assessment: Acute respiratory failure due to COVID-19 Hypercoagulable state associated with COVID-19 Acute myocardial infarction status post cardiac cath 11/20/2021 Dr. Grewal status post stent in LAD Bilateral pulmonary embolism Secondary bacterial pneumonia NSTEMI HTN HLD COVID+ at outside facility about 7 days ago Chest xray with bilateral infiltrates Continue Decadron s/p Actemra 11/[address] Angio 11/14 with bialteral pulmonary embolism Continue therapeutic Lovenox Continue Rocephin and Azithromycin Troponin significantly elevated Cardiology following Echo with no wall motion abnormalities, normal EF Continue ASA TeleICU following Acute ishemic stroke CT with likely acute infarct MRI ordered but cannot be done while on Vapotherm BiPAP Continue aspirin Start statin Carotid ultrasound 11/19/2021: Supportive care eICU appreciated 11/20/2021: Dr. Grewal appreciated Supportive care 11/21/2021: Getting close to intubation Critical Care Critically Ill Patient COLLEEN AMARO DO Nov 21, 2021 06:44
[2021-11-21 07:17] VITALS: BP 142/84
[2021-11-21] MEDS: ASPIRIN 81 MG CHEW (CHILDREN'S ASA) PO SCH (07:57)
[2021-11-21] MEDS: DOCUSATE SODIUM 100 MG (COLACE) CAP PO SCH ×2 (07:57→20:03)
[2021-11-21] MEDS: ACYCLOVIR 400 MG TABLET (ZOVIRAX) PO SCH ×2 (07:57→20:03)
[2021-11-21] MEDS: TICAGRELOR 90 MG TABLET (BRILINTA) PO SCH (07:57)
[2021-11-21] MEDS: amLODIPine 5 MG (NORVASC) TAB PO SCH (07:58)
[2021-11-21] MEDS: SENNOSIDES 8.6 MG (SENOKOT) TAB PO SCH ×2 (07:58→20:03)
[2021-11-21 08:24] LABS: ABG BASE EXCESS -4.1 MMOL/L (-2.5-2.5); ABG OXYGEN SATURATION 93 % (94-100); ABG PCO2 30 MMHG (35-45); ABG PH 7.43 (7.37-7.43); ABG PO2 64 MMHG (79-93); ABG TCO2 20.4 MMOL/L (21.0-31.0)
[2021-11-21 08:26] LABS: INSPIRED O2 100%; PATIENT TEMP 36.7; VENTILATOR NO
[2021-11-21] MEDS ORDERED: CLOPIDOGREL 300 MG (PLAVIX) TABLET PO NR (09:08)
[2021-11-21] MEDS ORDERED: ENOXAPARIN 40 MG/0.4 ML (LOVENOX) SYR SC SCH (09:15)
[2021-11-21] MEDS ORDERED: ALPRAZolam 0.25 MG (XANAX) TAB PO PRN (09:45)
--- NOTE | 2021-11-21 09:49 | Cardiology Progress Note ---
Progress Note-Cardiology Events since last exam Date Seen by Provider: Nov 21, 2021 Time Seen by Provider: 09:44 Events since last exam I am following him due to anterior ST elevation myocardial infarction. He r emains in the intensive care unit on BiPAP. He changes to Vapotherm so he can have his meals. He denies any further chest discomfort. I did not speak to the patient due to his Covid status. I did speak to his nurse of today. Certain portions of this document may have been dictated utilizing voice recognition technology. Inherent to this technology, typographical and grammatical errors may exist. As much as I am diligent to identify and correct these mistakes, some errors may remain in the document. Vitals Last set of Vitals Signs Vital Signs 11/21/21 11/21/21 11/21/21 11/21/21 06:00 07:17 08:00 08:44 Temp 35.9 Pulse 66 Resp 28 B/P (MAP) 107/50 Pulse Ox 92 O2 Delivery NIV Bilevel O2 Flow Rate 100.00 FiO2 100 Labs Labs Laboratory Tests 11/21/21 04:52 Exam Vital Signs Vital Signs Date Time Temp Pulse Resp B/P (MAP) Pulse Ox O2 Delivery O2 Flow Rate FiO2 11/21/21 08:44 92 NIV Bilevel 100 11/21/21 08:00 35.9 11/21/21 07:17 66 28 100.00 11/21/21 06:00 107/50 Physical Exam I did not examine the patient due to his Covid status. Labs Laboratory Tests Test 11/20/21 14:50 11/20/21 16:07 11/20/21 19:51 11/21/21 04:52 Range/Units Glucometer 187 H 130 H 70-110 MG/DL White Blood Count 13.8 H 4.3-11.0 10^3/uL Red Blood Count 5.16 4.30-5.52 10^6/uL Hemoglobin 14.8 # 13.3-17.7 g/dL Hematocrit 44 40-54 % Mean Corpuscular Volume 86 80-99 fL Mean Corpuscular Hemoglobin 29 25-34 pg Mean Corpuscular Hemoglobin Concent 34 32-36 g/dL Red Cell Distribution Width 13.2 10.0-14.5 % Platelet Count 382 130-400 10^3/uL Mean Platelet Volume 11.0 9.0-12.2 fL Immature Granulocyte % (Auto) 6 % Neutrophils (%) (Auto) 84 H 42-75 % Lymphocytes (%) (Auto) 5 L 12-44 % Monocytes (%) (Auto) 5 0-12 % Eosinophils (%) (Auto) 0 0-10 % Basophils (%) (Auto) 0 0-10 % Neutrophils # (Auto) 11.6 H 1.8-7.8 10^3/uL Lymphocytes # (Auto) 0.7 L 1.0-4.0 10^3/uL Monocytes # (Auto) 0.6 0.0-1.0 10^3/uL Eosinophils # (Auto) 0.1 0.0-0.3 10^3/uL Basophils # (Auto) 0.0 0.0-0.1 10^3/uL Immature Granulocyte # (Auto) 0.8 H 0.0-0.1 10^3/uL Sodium Level 134 L 135-145 MMOL/L Potassium Level 4.6 3.6-5.0 MMOL/L Chloride Level 106 98-107 MMOL/L Carbon Dioxide Level 18 L 21-32 MMOL/L Anion Gap 10 5-14 MMOL/L Blood Urea Nitrogen 34 H 7-18 MG/DL Creatinine 0.75 0.60-1.30 MG/DL Estimat Glomerular Filtration Rate 103 BUN/Creatinine Ratio 45 Glucose Level 109 H 70-105 MG/DL Calcium Level 8.5 8.5-10.1 MG/DL Corrected Calcium 9.5 8.5-10.1 MG/DL Phosphorus Level 4.0 2.3-4.7 MG/DL Magnesium Level 2.2 1.6-2.4 MG/DL Total Bilirubin 0.6 0.1-1.0 MG/DL Aspartate Amino Transf (AST/SGOT) 216 H 5-34 U/L Alanine Aminotransferase (ALT/SGPT) 45 0-55 U/L Alkaline Phosphatase 114 40-136 U/L Total Protein 6.1 L 6.4-8.2 GM/DL Albumin 2.7 L 3.2-4.5 GM/DL Test 11/21/21 08:15 Range/Units Blood Gas Puncture Site LT RAD Blood Gas Patient Temperature 36.7 Arterial Blood pH 7.43 7.37-7.43 Arterial Blood Partial Pressure CO2 30 L 35-45 MMHG Arterial Blood Partial Pressure O2 64 L 79-93 MMHG Arterial Blood HCO3 20 L 23-27 MMOL/L Arterial Blood Total CO2 20.4 L 21.0-31.0 MMOL/L Arterial Blood Oxygen Saturation 93 L 94-100 % Arterial Blood Base Excess -4.1 L -2.5-2.5 MMOL/L Juvenal Test NA Blood Gas Ventilator Setting NO Blood Gas Inspired Oxygen 100% Diagnosis/Problems Diagnosis/Problems (1) ST elevation myocardial infarction (STEMI) of anterolateral wall, initial episode of care Assessment & Plan: On 11/20 he started having chest pain and an electrocardiogram showed an acute anterolateral ST elevation myocardial infarction. His electrocardiograms earlier during his hospitalization showed what appeared to be a threatening stenosis in the left anterior descending coronary artery but it was treating him medically due to his Covid and the possibility that the troponin level may have been elevated due to bilateral pulmonary emboli. On 11/20 he was taken for emergent cardiac catheterization and underwent drug-eluting stent placement to the mid left anterior descending coronary artery. I initially started him on ticagrelor for platelet inhibition. However, since he will need a DOAC for the pulmonary embolism, I will change the ticagrelor over to clopidogrel. The studies looking at dual antiplatelet therapy with DOACs have primarily used clopidogrel as opposed to ticagrelor. I have ordered a loading dose of clopidogrel and then will change him over to 75 mg once daily. I will continue aspirin for at least the next week. I would recommend stopping the aspirin when he is discharged. (2) Pulmonary embolism Assessment & Plan: This may possibly be related to his Covid infection. He received almost 1 week of enoxaparin. I spoke to the pharmacist and we can now change the enoxaparin over to apixaban at a dose of 5 mg twice daily. He should not need the 10 mg twice daily dose because he was on enoxaparin for 1 week. I have taken the liberty of making this change. (3) Mixed hyperlipidemia Assessment & Plan: He has a reported history of hyperlipidemia. Now that he has suffered an acute anterior ST elevation myocardial infarction, I have started him on high-dose statin medication. (4) Primary hypertension Assessment & Plan: Blood pressures have been intermittently elevated. He is receiving carvedilol and the primary hospitalist has added amlodipine. In light of the acute anterior myocardial infarction, I recommend changing amlodipine over to an JESUSITA inhibitor. I will take the liberty of making this change. ALISHA WILSON JR, MD Nov 21, 2021 09:49
--- NOTE | 2021-11-21 10:00 | Physical Therapy Progress Note ---
Therapy Progress Note Patient on hold today per nurse due to medical issues. Will check back tomorrow. ELIJAH MARC PT Nov 21, 2021 10:00
[2021-11-21] MEDS ORDERED: PANTOPRAZOLE 40 MG (PROTONIX) TAB PO NR (10:06)
--- NOTE | 2021-11-21 10:06 | Occ Therapy Progress Note ---
Therapy Progress Note RN requests to hold eval this date due to medical issues. OT to attempt again 11/22/21 if medically appropriate. Natividad Jeffrey OT Nov 21, 2021 10:06
[2021-11-21 10:30] VITALS: BP 119/69
--- NOTE | 2021-11-21 10:55 | Tele-ICU Progress Note ---
Subjective Date Seen by a Provider: Nov 21, 2021 Time Seen by a Provider: 09:27 Sepsis Event Evaluation Height, Weight, BMI Height: '" Weight: lbs. oz. kg; 23.85 BMI Method: Exam Exam Patient acknowledged, consented, and participated in this virtual visit which was conducted using real time audio/video Vital Signs Date Time Temp Pulse Resp B/P (MAP) Pulse Ox O2 Delivery O2 Flow Rate FiO2 11/21/21 10:30 62 22 97 100.00 11/21/21 08:44 92 NIV Bilevel 100 11/21/21 08:15 100.00 11/21/21 08:00 35.9 11/21/21 07:17 66 28 96 100.00 11/21/21 07:00 59 11/21/21 06:00 71 20 107/50 99 NIV Bilevel 50.00 11/21/21 05:00 59 25 140/81 91 NIV Bilevel 50.00 11/21/21 04:00 61 25 128/78 89 NIV Bilevel 50.00 11/21/21 04:00 95 Vapotherm 40.00 85 11/21/21 03:10 61 26 93 50.00 11/21/21 03:00 62 15 136/79 93 NIV Bilevel 50.00 11/21/21 02:00 54 19 124/74 94 NIV Bilevel 50.00 11/21/21 01:00 68 11/21/21 01:00 68 10 145/89 92 NIV Bilevel 50.00 11/21/21 00:00 95 Vapotherm 40.00 85 11/21/21 00:00 63 20 139/74 91 NIV Bilevel 50.00 11/21/21 00:00 36.2 11/20/21 23:05 61 26 98 NIV Bilevel 50.00 11/20/21 23:00 61 144/78 96 Vapotherm 40.00 75.00 11/20/21 22:47 36.2 11/20/21 22:00 66 13 131/77 93 Vapotherm 40.00 75.00 11/20/21 21:40 93 Vapotherm 40.00 75 11/20/21 21:00 67 14 131/82 94 Vapotherm 40.00 75.00 11/20/21 20:00 61 132/75 94 Vapotherm 40.00 75.00 11/20/21 20:00 95 Vapotherm 40.00 85 11/20/21 20:00 36.4 11/20/21 19:00 65 136/76 94 Vapotherm 40.00 75.00 11/20/21 19:00 65 11/20/21 18:45 Vapotherm 40.00 75.00 11/20/21 18:24 95 Vapotherm 40.00 75 11/20/21 18:00 56 128/75 100 Vapotherm 40.00 100.00 11/20/21 17:00 75 124/72 91 Vapotherm 40.00 100.00 11/20/21 16:27 95 NIV Bilevel 40.00 100 11/20/21 16:00 64 137/76 100 Vapotherm 40.00 100.00 11/20/21 15:49 36.0 11/20/21 15:00 68 36 129/77 98 Vapotherm 40.00 100.00 11/20/21 14:48 69 24 98 65.00 11/20/21 14:00 68 125/67 99 Vapotherm 40.00 100.00 11/20/21 13:00 75 11/20/21 13:00 73 149/83 98 Vapotherm 40.00 100.00 11/20/21 12:17 98 NIV Bilevel 65 11/20/21 12:00 149/89 Vapotherm 40.00 100.00 11/20/21 11:00 74 86 Vapotherm 40.00 100.00 I & O 11/21/21 07:00 Intake Total 850 ml Output Total 1975 ml Balance -1125 ml Height & Weight Height: '" Weight: lbs. oz. kg; 23.85 BMI Method: General Appearance: No Apparent Distress, WD/WN, Anxious, Chronically ill HEENT: PERRL/EOMI, Pharynx Normal Neck: Normal Inspection, Supple Respiratory: No Respiratory Distress, Accessory Muscle Use, Decreased Breath Sounds Cardiovascular: Regular Rate, Rhythm Capillary Refill: Less Than 3 Seconds Peripheral Pulses: 1+ Dorsalis Pedis (R), 1+ Left Dors-Pedis (L) (see free text) Extremity: Normal Inspection, Non Tender, No Pedal Edema Neurologic/Psychiatric: Alert, Oriented x3, No Motor/Sensory Deficits, Normal Mood/Affect Skin: Normal Color, Warm/Dry Results Lab Laboratory Tests 11/20/21 04:57 11/21/21 04:52 Assessment/Plan Assessment/Plan (Tele-ICU Physician , Progress Note ) Available chart/ vitals / labs / Images reviewed Video assessment done using teleICU camera, rest of exam as per RN Discussed with RN , EXAM PER RN Events overnight : panic attach this am again , puling up BIPAP Afebrile FiO2 - vt I/O = EVEN Drips: precedex on /off Pressors: , hemodynamically stable Consultants: [facility] Hospital course: 11/16 - COVID vapotherm 60%/30L 11/18 - subacute or recent ischemia 11/20- VT 40 100% - bipap overnign A/P AHRF / ARDS due to severe COVID19 - VT 40 100% poor tolerance --> BIPAP - HIGH RISK FOR INTUBATION -prone position if able - conservative fluid strategy (aim for even or negative fluid balance - worse - recheck CXR [id number]/COVID-19 PNA ( Symptom onset ~"month " DX unvaccinted --Dexamethasone -Hypercoagulable state , DDIMER= >20 on -> lovenox full dose - to eliqios 11/21 Monitor for superimposed bact PNA -PCT negative , ceftriaxone and z-max 11/15- 11/19 CVA ? - mild mental status changes 11/16 - subacute or recent ischemia on CTH - on lovenox 70 bid - MONITOR CLOSELY WITH RISK OF HEMORRAHIC CONVERSION - US carotids negative EVAN - mild monitor Hyperglycemia / Diabetes Mellitus - ISS , close f/up on steroids AURELIO , suspected obesity Lines : mid line 11/18 (Central Line Necessity Reviewed) Vasquez: vasquez OG: Nutrition: po Analgesia: Anxiety/ delirium xanax VTE Prophylaxis: leliquis Stress Ulcer Prophylaxis: po Plans in collaboration with bedside consultants and IM MDs. Discussed with RN to reach out if any questions or concerns A total of 31 minutes of critical care time was devoted to this patient today, required to treat and/or prevent further deterioration of critical care condition ( as above) . SAMSON MAYEN MD Nov 21, 2021 10:55
--- NOTE | 2021-11-21 12:04 | Diagnostic Imaging Report ---
INDICATION: Hypoxia. TECHNIQUE: AP view of the chest is obtained with comparison made to study of 11/17/2021. FINDINGS: Mixed interstitial and alveolar infiltrates again seen within both lungs. These demonstrate predominantly peripheral distribution with background emphysema. Aeration of the lungs has shown mild improvement. There is an increase in gaseous distention of loops of bowel beneath the diaphragm. IMPRESSION: Bilateral pulmonary infiltrates with background emphysema have shown mild improvement without new abnormality seen in the chest. There is increasing gaseous distention of bowel. Dictated by: Dictated on workstation # [id number]
[2021-11-21] MEDS: LORazepam INJ 2 MG/ML (ATIVAN) VIAL IVP PRN (12:35)
[2021-11-21 14:49] VITALS: BP 125/75
[2021-11-21] MEDS: DexMEDEtomidine 250 ML DRIP 250 ML IV SCH (14:53)
[2021-11-21 18:34] VITALS: BP 119/72
[2021-11-21] MEDS: APIXABAN 5 MG (ELIQUIS) TABLET PO SCH (20:03)
[2021-11-21] MEDS: ROSUVASTATIN 20 MG (CRESTOR) TABLET PO SCH (20:03)
[2021-11-21] MEDS ORDERED: APIXABAN 5 MG (ELIQUIS) TABLET PO SCH (21:00)
[2021-11-21 21:37] VITALS: BP 117/80
[2021-11-22] MEDS: RT-ALBUTEROL HFA 8.5 GM INHALER IH SCH ×6 (02:43→22:53)
[2021-11-22 05:02] LABS: BASOPHILS # (AUTO) 0.1 10^3/uL (0.0-0.1); BASOPHILS % (AUTO) 0 % (0-10); EOSINOPHILS # (AUTO) 0.2 10^3/uL (0.0-0.3); EOSINOPHILS % (AUTO) 2 % (0-10); HEMATOCRIT 46 % (40-54); HEMOGLOBIN 15.4 g/dL (13.3-17.7); LYMPHOCYTES # (AUTO) 0.7 10^3/uL (1.0-4.0); LYMPHOCYTES % (AUTO) 5 % (12-44); MEAN CORPUSCULAR HEMOGLOBIN 29 pg (25-34); MEAN CORPUSCULAR HGB CONC 34 g/dL (32-36); MEAN CORPUSCULAR VOLUME 86 fL (80-99); MONOCYTES # (AUTO) 0.6 10^3/uL (0.0-1.0); MONOCYTES % (AUTO) 5 % (0-12); NEUTROPHILS % (AUTO) 83 % (42-75); PLATELET COUNT 381 10^3/uL (130-400); WHITE BLOOD COUNT 12.1 10^3/uL (4.3-11.0)
[2021-11-22 05:13] LABS: ALBUMIN 2.8 GM/DL (3.2-4.5); POTASSIUM 4.9 MMOL/L (3.6-5.0)
[2021-11-22 05:14] LABS: CALCIUM 8.4 MG/DL (8.5-10.1)
[2021-11-22 05:17] LABS: BILIRUBIN,TOTAL 0.6 MG/DL (0.1-1.0)
[2021-11-22] MEDS: KCL 20 MEQ TAB (K-DUR) PO SCH (05:18)
[2021-11-22] MEDS: POTASSIUM CL 10MEQ/50ML IVPB 50 ML IV SCH (05:18)
[2021-11-22 05:19] LABS: CREATININE SERUM 0.84 MG/DL (0.60-1.30); PHOSPHORUS 4.5 MG/DL (2.3-4.7)
[2021-11-22] MEDS: inSUlin ASPART (NovoLOG) 1 UNIT/0.01 ML (CHARGE PER UNIT) SC SCH ×4 (05:19→21:05)
[2021-11-22 05:22] LABS: MAGNESIUM 2.2 MG/DL (1.6-2.4)
[2021-11-22] MEDS: MAGNESIUM 1 GM/100 ML IVPB 100 ML IV SCH (05:31)
[2021-11-22 07:34] VITALS: BP 103/58
[2021-11-22] MEDS: CLOPIDOGREL 75 MG (PLAVIX) TABLET PO SCH (08:08)
[2021-11-22] MEDS: ACYCLOVIR 400 MG TABLET (ZOVIRAX) PO SCH ×2 (08:08→20:13)
[2021-11-22] MEDS: ASPIRIN 81 MG CHEW (CHILDREN'S ASA) PO SCH (08:08)
[2021-11-22] MEDS: PANTOPRAZOLE 40 MG (PROTONIX) TAB PO SCH (08:08)
[2021-11-22] MEDS: LORazepam INJ 2 MG/ML (ATIVAN) VIAL IVP PRN (08:09)
[2021-11-22] MEDS ORDERED: lisINopril 5 MG (PRINIVIL) TABLET PO SCH (09:00)
--- NOTE | 2021-11-22 10:01 | Physical Therapy Progress Note ---
Therapy Progress Note Patient on Hold per RN due to medical status. PT will check in a.m. with nursing on POC. RYAN KHAN PT Nov 22, 2021 10:01
[2021-11-22] MEDS: SENNOSIDES 8.6 MG (SENOKOT) TAB PO SCH ×2 (10:21→19:41)
[2021-11-22] MEDS: DOCUSATE SODIUM 100 MG (COLACE) CAP PO SCH ×2 (10:22→19:41)
--- NOTE | 2021-11-22 10:41 | Tele-ICU Progress Note ---
Subjective Date Seen by a Provider: Nov 22, 2021 Time Seen by a Provider: 10:40 Sepsis Event Evaluation Height, Weight, BMI Height: '" Weight: lbs. oz. kg; 23.85 BMI Method: Exam Exam Patient acknowledged, consented, and participated in this virtual visit which was conducted using real time audio/video Vital Signs Date Time Temp Pulse Resp B/P (MAP) Pulse Ox O2 Delivery O2 Flow Rate FiO2 11/22/21 08:15 94 NIV Bilevel 70 11/22/21 08:09 NIV Bilevel 70.00 11/22/21 07:39 36.0 11/22/21 07:34 50 20 99 100.00 11/22/21 07:00 52 11/22/21 06:00 51 13 98/49 99 NIV Bilevel 80.00 11/22/21 06:00 NIV Bilevel 80.00 11/22/21 05:00 59 19 115/65 98 NIV Bilevel 90.00 11/22/21 04:24 95 NIV Bilevel 90 11/22/21 04:23 35.3 NIV Bilevel 90.00 11/22/21 04:00 56 18 128/69 98 NIV Bilevel 100.00 11/22/21 03:00 53 26 109/59 98 NIV Bilevel 100.00 11/22/21 02:47 51 22 95 100.00 11/22/21 02:00 49 23 96/62 99 NIV Bilevel 100.00 11/22/21 01:01 NIV Bilevel 100.00 11/22/21 01:00 61 36 96/56 92 NIV Bilevel 90.00 11/22/21 01:00 67 11/22/21 00:54 36.6 87 NIV Bilevel 90.00 11/22/21 00:54 70 135/76 11/22/21 00:00 50 21 135/76 95 NIV Bilevel 85.00 11/21/21 23:59 91 NIV Bilevel 85 11/21/21 23:00 48 20 127/75 94 NIV Bilevel 85.00 11/21/21 22:00 53 24 129/71 96 NIV Bilevel 85.00 11/21/21 21:37 55 24 94 85.00 11/21/21 20:00 95 NIV Bilevel 85 11/21/21 20:00 53 22 121/77 96 NIV Bilevel 85.00 11/21/21 20:00 52 11/21/21 19:59 NIV Bilevel 85.00 11/21/21 19:49 35.0 11/21/21 19:00 53 11/21/21 19:00 55 121/77 94 NIV Bilevel 90.00 11/21/21 18:34 51 24 97 85.00 11/21/21 18:00 62 119/65 97 NIV Bilevel 90.00 11/21/21 17:00 49 121/70 96 NIV Bilevel 90.00 11/21/21 16:08 35.0 11/21/21 16:00 53 119/73 97 NIV Bilevel 90.00 11/21/21 15:21 96 NIV Bilevel 100 11/21/21 15:01 NIV Bilevel 90.00 11/21/21 15:00 62 115/79 97 NIV Bilevel 50.00 11/21/21 14:53 69 125/75 11/21/21 14:49 69 27 96 100.00 11/21/21 14:00 64 124/75 94 NIV Bilevel 50.00 11/21/21 13:00 66 11/21/21 13:00 60 37 130/83 100 NIV Bilevel 50.00 11/21/21 12:14 96 NIV Bilevel 100 11/21/21 12:00 59 113/69 98 NIV Bilevel 50.00 11/21/21 12:00 36.1 11/21/21 11:00 58 26 120/76 98 NIV Bilevel 50.00 I & O 11/22/21 07:00 Intake Total 0 ml Output Total 1002 ml Balance -1002 ml Height & Weight Height: '" Weight: lbs. oz. kg; 23.85 BMI Method: General Appearance: Anxious, Chronically ill, Other (Drowsy) HEENT: PERRL/EOMI, Pharynx Normal Neck: Normal Inspection, Supple Respiratory: No Accessory Muscle Use, No Respiratory Distress, Decreased Breath Sounds Cardiovascular: Regular Rate, Rhythm Capillary Refill: Less Than 3 Seconds Peripheral Pulses: 1+ Dorsalis Pedis (R), 1+ Left Dors-Pedis (L) (see free text) Extremity: Normal Inspection, Non Tender, No Pedal Edema Neurologic/Psychiatric: Alert, Oriented x3, No Motor/Sensory Deficits, Normal Mood/Affect Skin: Normal Color, Warm/Dry Results Lab Laboratory Tests 12/29/21 04:52 11/22/21 04:46 Assessment/Plan Assessment/Plan (Tele-ICU Physician , Progress Note ) Available chart/ vitals / labs / Images reviewed Video assessment done using teleICU camera, rest of exam as per RN Discussed with RN , EXAM PER RN Events overnight : panic attach this am again , puling up BIPAP Afebrile FiO2 - vt I/O = EVEN Drips: precedex on /off Pressors: , hemodynamically stable Consultants: [facility] Hospital course: 11/16 - COVID vapotherm 60%/30L 11/18 - subacute or recent ischemia 11/20- VT 40 100% - bipap overnign 11/22 confusion , precedex on/off, start zosyn A/P AHRF / ARDS due to severe COVID19 - VT 40 100% poor tolerance --> BIPAP 70 % - HIGH RISK FOR INTUBATION -prone position if able - conservative fluid strategy (aim for even or negative fluid balance LFSX-Bgyqxjfacyt-3/COVID-19 PNA ( Symptom onset ~"month " DX unvaccinted --Dexamethasone -Hypercoagulable state , DDIMER= >20 on -> lovenox full dose - to eliqios 11/21 Monitor for superimposed bact PNA -PCT negative , ceftriaxone and z-max 11/15- 11/19 - check PCT , empirically start zosyn CVA ? - mild mental status changes 11/16 - subacute or recent ischemia on CTH - on lovenox 70 bid - MONITOR CLOSELY WITH RISK OF HEMORRAHIC CONVERSION - US carotids negative EVAN - mild monitor Hyperglycemia / Diabetes Mellitus - ISS , close f/up on steroids AURELIO , suspected obesity Lines : periph 11/18 (Central Line Necessity Reviewed) Vasquez: vasquez OG: Nutrition: po Analgesia: Anxiety/ delirium xanax VTE Prophylaxis: leliquis Stress Ulcer Prophylaxis: po Plans in collaboration with bedside consultants and IM MDs. Discussed with RN to reach out if any questions or concerns A total of 31 minutes of critical care time was devoted to this patient today, required to treat and/or prevent further deterioration of critical care con dition ( as above) . SAMSON MAYEN MD Nov 22, 2021 10:40
[2021-11-22] MEDS: APIXABAN 5 MG (ELIQUIS) TABLET PO SCH ×2 (10:53→20:13)
[2021-11-22] MEDS: PIPERACILLIN SODIUM/TAZOBACTAM 4.5 GM in NS (IVPB) 100 ML IV SCH ×2 (10:53→19:06)
[2021-11-22 11:03] VITALS: BP 79/53
--- NOTE | 2021-11-22 11:13 | Cardiology Progress Note ---
Progress Note-Cardiology Events since last exam Date Seen by Provider: Nov 22, 2021 Time Seen by Provider: 11:12 Events since last exam I am following him due to coronary artery disease status post anterior ST el evation myocardial infarction during this admission. I did not see the patient today due to his Covid status. I did speak with his nurse of today. He remains in the intensive care unit on BiPAP. His oxygen requirements have increased over the past 24 hours. He has not been complaining of any recurrent chest pain. Certain portions of this document may have been dictated utilizing voice recogn ition technology. Inherent to this technology, typographical and grammatical errors may exist. As much as I am diligent to identify and correct these mistakes, some errors may remain in the document. Vitals Last set of Vitals Signs Vital Signs 11/22/21 11/22/21 11/22/21 12:00 12:15 16:00 Temp 36.6 Pulse 47 Resp 18 B/P (MAP) 95/59 Pulse Ox 97 O2 Delivery NIV Bilevel O2 Flow Rate 70.00 FiO2 70 Labs Labs Laboratory Tests 11/22/21 04:46 11/22/21 15:45 Exam Vital Signs Vital Signs Date Time Temp Pulse Resp B/P (MAP) Pulse Ox O2 Delivery O2 Flow Rate FiO2 11/22/21 16:00 47 18 95/59 97 NIV Bilevel 70.00 11/22/21 12:15 70 11/22/21 12:00 36.6 Physical Exam I did not examine the patient due to his Covid status. Labs Laboratory Tests Test 11/21/21 20:02 11/22/21 04:46 11/22/21 10:08 11/22/21 15:45 Range/Units Glucometer 130 H 114 H 70-110 MG/DL White Blood Count 12.1 H 11.5 H 4.3-11.0 10^3/uL Red Blood Count 5.33 5.13 4.30-5.52 10^6/uL Hemoglobin 15.4 14.9 13.3-17.7 g/dL Hematocrit 46 45 40-54 % Mean Corpuscular Volume 86 87 80-99 fL Mean Corpuscular Hemoglobin 29 29 25-34 pg Mean Corpuscular Hemoglobin Concent 34 33 32-36 g/dL Red Cell Distribution Width 13.2 13.3 10.0-14.5 % Platelet Count 381 315 130-400 10^3/uL Mean Platelet Volume 11.0 10.6 9.0-12.2 fL Immature Granulocyte % (Auto) 6 % Neutrophils (%) (Auto) 83 H 42-75 % Lymphocytes (%) (Auto) 5 L 12-44 % Monocytes (%) (Auto) 5 0-12 % Eosinophils (%) (Auto) 2 0-10 % Basophils (%) (Auto) 0 0-10 % Neutrophils # (Auto) 10.0 H 1.8-7.8 10^3/uL Lymphocytes # (Auto) 0.7 L 1.0-4.0 10^3/uL Monocytes # (Auto) 0.6 0.0-1.0 10^3/uL Eosinophils # (Auto) 0.2 0.0-0.3 10^3/uL Basophils # (Auto) 0.1 0.0-0.1 10^3/uL Immature Granulocyte # (Auto) 0.7 H 0.0-0.1 10^3/uL Sodium Level 137 135-145 MMOL/L Potassium Level 4.9 3.6-5.0 MMOL/L Chloride Level 105 98-107 MMOL/L Carbon Dioxide Level 20 L 21-32 MMOL/L Anion Gap 12 5-14 MMOL/L Blood Urea Nitrogen 40 H 7-18 MG/DL Creatinine 0.84 0.60-1.30 MG/DL Estimat Glomerular Filtration Rate 91 BUN/Creatinine Ratio 48 Glucose Level 101 70-105 MG/DL Calcium Level 8.4 L 8.5-10.1 MG/DL Corrected Calcium 9.4 8.5-10.1 MG/DL Phosphorus Level 4.5 2.3-4.7 MG/DL Magnesium Level 2.2 1.6-2.4 MG/DL Total Bilirubin 0.6 0.1-1.0 MG/DL Aspartate Amino Transf (AST/SGOT) 88 H 5-34 U/L Alanine Aminotransferase (ALT/SGPT) 34 0-55 U/L Alkaline Phosphatase 100 40-136 U/L Total Protein 6.0 L 6.4-8.2 GM/DL Albumin 2.8 L 3.2-4.5 GM/DL Troponin I 32.219 *H <0.028 NG/ML Test 11/22/21 16:05 Range/Units Glucometer 142 H 70-110 MG/DL Diagnosis/Problems Diagnosis/Problems (1) ST elevation myocardial infarction (STEMI) of anterolateral wall, initial episode of care Assessment & Plan: On 11/20 he started having chest pain and an electrocardiogram showed an acute anterolateral ST elevation myocardial infarction. 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 He has been started on clopidogrel. I will continue aspirin until discharge. He is on apixaban due to pulmonary embolism diagnosed during this admission. I started him on high-dose statin medication due to the acute myocardial infarction. (2) Mixed hyperlipidemia Assessment & Plan: Due to his acute myocardial infarction, now have him on high-dose statin medication. This will need to be reassessed in approximately 6 weeks. (3) Primary hypertension Assessment & Plan: Blood pressures were intermittently elevated but are now intermittently running on the low side. I have decreased the dose of carvedilol. I have him on low-dose lisinopril due to the acute myocardial infarction. (4) Pulmonary embolism Assessment & Plan: This may possibly be related to his Covid infection. I changed his enoxaparin over to apixaban on 11/21. ALISHA WILSON JR, MD Nov 22, 2021 11:13
--- NOTE | 2021-11-22 12:05 | Progress Note - Hospitalist ---
Subjective HPI/CC On Admission Date Seen by Provider: Nov 22, 2021 Time Seen by Provider: 12:00 Christiano Cuadra is a 71 year old male with PMH HTN, HLD, who presented with shortness of breath. He was diagnosed with COVID about 5 days ago. He is also having weakness. He is having a dry cough. His appetite is poor. He is not having fevers or chills. He is not having chest pain. He denies nausea, vomiting, and diarrhea. He received two vaccines in January. He did not get a booster. Subjective/Events-last exam Pt BiPAP dependent Checked meds and labs HR 52 Pt sleeping soundly PICC line will be placed for pressor therapy Review of Systems Pulmonary: Dyspnea Objective Exam Vital Signs Vital Signs Date Time Temp Pulse Resp B/P (MAP) Pulse Ox O2 Delivery O2 Flow Rate FiO2 11/23/21 04:11 36.2 11/23/21 03:04 NIV Bilevel 50 11/23/21 03:04 53 28 94 50.00 11/23/21 00:00 115/61 Capillary Refill : Less Than 3 Seconds General Appearance: Chronically ill, Other (Frail, sedated, on BiPAP) Respiratory: No Accessory Muscle Use, No Respiratory Distress, Decreased Breath Sounds Cardiovascular: Regular Rate, Rhythm Results/Procedures Lab Laboratory Tests 11/22/21 15:45 11/23/21 04:15 Patient resulted labs reviewed. Imaging: Reviewed Imaging Films, Reviewed Imaging Report Assessment/Plan Assessment and Plan Assess & Plan/Chief Complaint Assessment: Acute respiratory failure due to COVID-19 Hypercoagulable state associated with COVID-19 Acute myocardial infarction status post cardiac cath 11/20/2021 Dr. Grewal status post stent in LAD Bilateral pulmonary embolism Secondary bacterial pneumonia NSTEMI HTN HLD COVID+ at outside facility Chest xray with bilateral infiltrates Continue Decadron s/p Actemra 11/[address] Angio 11/14 with bialteral pulmonary embolism Continue therapeutic Lovenox Continue Rocephin and Azithromycin Troponin significantly elevated Cardiology following Echo with no wall motion abnormalities, normal EF Continue ASA TeleICU following Acute ishemic stroke CT with likely acute infarct MRI ordered but cannot be done while on Vapotherm BiPAP Continue aspirin Start statin Carotid ultrasound 11/19/2021: Supportive care eICU appreciated 11/20/2021: Dr. Grewal appreciated Supportive care 11/21/2021: Getting close to intubation 11/22/2021: PICC line for pressor therapy Critical Care Critically Ill Patient COLLEEN AMARO DO Nov 22, 2021 12:05
[2021-11-22] MEDS ORDERED: NS IV 1000 ML 1,000 ML ONE (12:52)
[2021-11-22] MEDS ORDERED: NS 50 ML (IVPB) BAG IV ONE (13:00)
--- NOTE | 2021-11-22 13:45 | Occ Therapy Progress Note ---
Therapy Progress Note RN request to hold OT eval due to medical status. OT will discharge pt at this time Due to multiple days of being on hold secondary to decline in medical status. New OT orders will be needed Once pt is medically stable and able to tolerate therapy. Natividad Jeffrey OT Nov 22, 2021 13:45
[2021-11-22 14:40] VITALS: BP 77/50
[2021-11-22] MEDS: NS IV 1000 ML 1,000 ML IV SCH ×9 (15:15→23:41)
[2021-11-22] MEDS: NOREPINEPHRINE 8 MG/250 ML 250 ML IV SCH (15:17)
--- NOTE | 2021-11-22 15:22 | Diagnostic Imaging Report ---
Portable erect AP chest at 3:08. Indication: Respiratory distress The heart is stable in size when compared to the prior exam of 11/21/2021. The diffuse alveolar/interstitial infiltrates primarily along the periphery of the left mid lung and left upper lung and the periphery of the right upper lobe seen previously are again evident and not significantly changed. There would still be a small amount of pneumonia/atelectasis in the right lung base. Mediastinum is not widened. The osseous structures are intact. Impression: Stable chest. There has been no significant change since the prior exam. Dictated by: Dictated on workstation # [id number]
[2021-11-22 15:58] LABS: HEMATOCRIT 45 % (40-54); HEMOGLOBIN 14.9 g/dL (13.3-17.7); MEAN CORPUSCULAR HEMOGLOBIN 29 pg (25-34); MEAN CORPUSCULAR HGB CONC 33 g/dL (32-36); MEAN CORPUSCULAR VOLUME 87 fL (80-99); MEAN PLATELET VOLUME 10.6 fL (9.0-12.2); PLATELET COUNT 315 10^3/uL (130-400); WHITE BLOOD COUNT 11.5 10^3/uL (4.3-11.0)
[2021-11-22 18:48] VITALS: BP 124/67
[2021-11-22] MEDS: ROSUVASTATIN 20 MG (CRESTOR) TABLET PO SCH (20:13)
[2021-11-22 22:53] VITALS: BP 101/58
[2021-11-23] MEDS: PIPERACILLIN SODIUM/TAZOBACTAM 4.5 GM in NS (IVPB) 100 ML IV SCH ×3 (02:55→18:28)
[2021-11-23 03:04] VITALS: BP 101/58
[2021-11-23] MEDS: RT-ALBUTEROL HFA 8.5 GM INHALER IH SCH ×6 (03:04→21:40)
[2021-11-23 04:23] LABS: BASOPHILS % (AUTO) 0 % (0-10); EOSINOPHILS # (AUTO) 0.1 10^3/uL (0.0-0.3); EOSINOPHILS % (AUTO) 2 % (0-10); HEMATOCRIT 41 % (40-54); HEMOGLOBIN 13.8 g/dL (13.3-17.7); LYMPHOCYTES # (AUTO) 0.5 10^3/uL (1.0-4.0); LYMPHOCYTES % (AUTO) 5 % (12-44); MEAN CORPUSCULAR HEMOGLOBIN 29 pg (25-34); MEAN CORPUSCULAR HGB CONC 34 g/dL (32-36); MEAN CORPUSCULAR VOLUME 85 fL (80-99); MEAN PLATELET VOLUME 10.8 fL (9.0-12.2); MONOCYTES # (AUTO) 0.4 10^3/uL (0.0-1.0); MONOCYTES % (AUTO) 5 % (0-12); NEUTROPHILS # (AUTO) 7.8 10^3/uL (1.8-7.8); NEUTROPHILS % (AUTO) 86 % (42-75); PLATELET COUNT 300 10^3/uL (130-400)
[2021-11-23 04:39] LABS: ALBUMIN 2.6 GM/DL (3.2-4.5); POTASSIUM 4.3 MMOL/L (3.6-5.0)
[2021-11-23] MEDS: POTASSIUM CL 10MEQ/50ML IVPB 50 ML IV SCH (04:39)
[2021-11-23 04:40] LABS: CALCIUM 8.1 MG/DL (8.5-10.1)
[2021-11-23] MEDS: KCL 20 MEQ TAB (K-DUR) PO SCH (04:40)
[2021-11-23] MEDS: MAGNESIUM 1 GM/100 ML IVPB 100 ML IV SCH (04:40)
[2021-11-23 04:41] LABS: TOTAL PROTEIN 5.4 GM/DL (6.4-8.2)
[2021-11-23 04:43] LABS: BILIRUBIN,TOTAL 0.5 MG/DL (0.1-1.0)
[2021-11-23 04:45] LABS: CREATININE SERUM 1.07 MG/DL (0.60-1.30)
[2021-11-23] MEDS: inSUlin ASPART (NovoLOG) 1 UNIT/0.01 ML (CHARGE PER UNIT) SC SCH ×4 (04:46→21:52)
[2021-11-23 04:47] LABS: MAGNESIUM 2.4 MG/DL (1.6-2.4)
[2021-11-23 05:20] LABS: BAND NEUTROPHILS 2 %; EOSINOPHILS % (MANUAL) 2 %; LYMPHOCYTES % (MANUAL) 6 %; MONOCYTES % (MANUAL) 4 %; NEUTROPHILS % (MANUAL) 86 %; RBC MORPH NORMAL
--- NOTE | 2021-11-23 07:08 | Physical Therapy Progress Note ---
Therapy Progress Note Patient on hold due to increase in O2 demand and decline in status. PT will continue to monitor patient status. RYAN KHAN PT Nov 23, 2021 07:08
[2021-11-23 07:33] VITALS: BP 105/65
[2021-11-23] MEDS ORDERED: lisINopril 5 MG (PRINIVIL) TABLET PO SCH (09:00)
[2021-11-23] MEDS: APIXABAN 5 MG (ELIQUIS) TABLET PO SCH ×2 (09:04→20:16)
[2021-11-23] MEDS: ASPIRIN 81 MG CHEW (CHILDREN'S ASA) PO SCH (09:04)
[2021-11-23] MEDS: PANTOPRAZOLE 40 MG (PROTONIX) TAB PO SCH (09:04)
[2021-11-23] MEDS: ACYCLOVIR 400 MG TABLET (ZOVIRAX) PO SCH ×2 (09:04→20:16)
[2021-11-23] MEDS: CLOPIDOGREL 75 MG (PLAVIX) TABLET PO SCH (09:04)
[2021-11-23] MEDS: SENNOSIDES 8.6 MG (SENOKOT) TAB PO SCH ×2 (09:06→20:16)
[2021-11-23] MEDS: DOCUSATE SODIUM 100 MG (COLACE) CAP PO SCH ×2 (09:06→20:16)
[2021-11-23] MEDS: NOREPINEPHRINE 8 MG/250 ML 250 ML IV SCH (09:06)
[2021-11-23 11:00] VITALS: BP 99/64
[2021-11-23] MEDS ORDERED: ANTACID SUSP 30 ML UDC (MYLANTA) PO PRN (11:00)
--- NOTE | 2021-11-23 11:07 | Tele-ICU Progress Note ---
Subjective Date Seen by a Provider: Nov 23, 2021 Time Seen by a Provider: 11:07 Sepsis Event Evaluation Height, Weight, BMI Height: '" Weight: lbs. oz. kg; 23.85 BMI Method: Exam Exam Patient acknowledged, consented, and participated in this virtual visit which was conducted using real time audio/video Vital Signs Date Time Temp Pulse Resp B/P (MAP) Pulse Ox O2 Delivery O2 Flow Rate FiO2 11/23/21 11:00 59 29 95 50.00 11/23/21 11:00 54 22 99/64 99 NIV Bilevel 50.00 11/23/21 10:00 70 116/65 90 NIV Bilevel 70.00 11/23/21 09:00 72 21 117/77 94 NIV Bilevel 70.00 11/23/21 08:00 58 124/72 95 NIV Bilevel 70.00 11/23/21 08:00 90 NIV Bilevel 70 11/23/21 08:00 36.0 11/23/21 07:33 53 25 95 60.00 11/23/21 07:00 58 126/63 93 NIV Bilevel 70.00 11/23/21 07:00 54 11/23/21 06:00 64 113/63 94 NIV Bilevel 70.00 11/23/21 05:00 47 88/53 97 NIV Bilevel 70.00 11/23/21 04:11 36.2 11/23/21 04:00 44 20 80/54 91 NIV Bilevel 70.00 11/23/21 03:30 NIV Bilevel 70.00 11/23/21 03:04 NIV Bilevel 50 11/23/21 03:04 53 28 94 50.00 11/23/21 03:00 57 20 98/62 92 NIV Bilevel 50.00 11/23/21 02:00 56 26 112/69 92 NIV Bilevel 50.00 11/23/21 01:00 58 11/23/21 01:00 58 24 102/60 91 NIV Bilevel 50.00 11/23/21 00:00 36.0 11/23/21 00:00 63 21 115/61 95 NIV Bilevel 50.00 11/22/21 23:44 NIV Bilevel 50 11/22/21 23:00 55 23 93/51 93 NIV Bilevel 50.00 11/22/21 22:53 56 23 91 50.00 11/22/21 22:26 35.5 11/22/21 22:00 48 23 116/64 95 NIV Bilevel 50.00 11/22/21 21:00 51 19 100/60 91 NIV Bilevel 50.00 11/22/21 20:30 36.4 11/22/21 20:12 67 25 91/55 91 NIV Bilevel 50.00 11/22/21 20:00 NIV Bilevel 50 11/22/21 20:00 57 24 93/55 95 NIV Bilevel 50.00 11/22/21 19:00 55 23 123/66 94 NIV Bilevel 50.00 11/22/21 19:00 60 11/22/21 18:55 Vapotherm 40.00 100.00 11/22/21 18:50 NIV Bilevel 50.00 11/22/21 18:48 45 20 98 60.00 11/22/21 18:00 49 116/67 100 NIV Bilevel 60.00 11/22/21 17:45 NIV Bilevel 60.00 11/22/21 17:00 51 23 117/90 95 NIV Bilevel 70.00 11/22/21 16:00 47 18 112/72 97 NIV Bilevel 70.00 11/22/21 16:00 95 NIV Bilevel 60 11/22/21 15:17 53 81/53 11/22/21 15:00 47 18 97/65 94 NIV Bilevel 70.00 11/22/21 14:40 44 18 97 70.00 11/22/21 14:00 48 18 91/57 99 NIV Bilevel 70.00 11/22/21 13:00 46 11/22/21 13:00 45 23 95/59 97 NIV Bilevel 70.00 11/22/21 12:15 97 NIV Bilevel 70 11/22/21 12:00 46 24 80/53 93 NIV Bilevel 70.00 11/22/21 12:00 36.6 I & O 11/23/21 07:00 Intake Total 840 ml Output Total 875 ml Balance -35 ml Height & Weight Height: '" Weight: lbs. oz. kg; 23.85 BMI Method: General Appearance: Chronically ill, Other (Frail, sedated, on BiPAP) HEENT: PERRL/EOMI, Pharynx Normal Neck: Normal Inspection, Supple Respiratory: No Accessory Muscle Use, No Respiratory Distress, Decreased Breath Sounds Cardiovascular: Regular Rate, Rhythm Capillary Refill: Less Than 3 Seconds Peripheral Pulses: 1+ Dorsalis Pedis (R), 1+ Left Dors-Pedis (L) (see free text) Extremity: Normal Inspection, Non Tender, No Pedal Edema Neurologic/Psychiatric: Alert, Oriented x3, No Motor/Sensory Deficits, Normal Mood/Affect Skin: Normal Color, Warm/Dry Results Lab Laboratory Tests 11/22/21 04:46 11/22/21 15:45 11/23/21 04:15 Assessment/Plan Assessment/Plan Available chart/ vitals / labs / Images reviewed Video assessment done using teleICU camera, rest of exam as per RN Discussed with RN , EXAM PER RN Events overnight : panic attach this am again , puling up BIPAP Afebrile FiO2 - vt I/O = EVEN Drips: precedex on /off Pressors: , hemodynamically stable Consultants: [facility] Hospital course: 11/16 - COVID vapotherm 60%/30L 11/18 - subacute or recent ischemia 11/20- VT 40 100% - bipap overnign 11/22 confusion , precedex on/off, start zosyn 11/23 dependant on bipap 70%. gets quickly hypoxic off bipap. 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 - mild mental status changes 11/16 - subacute or recent ischemia on CTH - on lovenox 70 bid - MONITOR CLOSELY WITH RISK OF HEMORRAHIC CONVERSION - US carotids negative EVAN - mild monitor Hyperglycemia / Diabetes Mellitus - ISS , close f/up on steroids AURELIO , suspected obesity Lines : periph 11/18 (Central Line Necessity Reviewed) Vasquez: vasquez OG: Nutrition: po Analgesia: Anxiety/ delirium xanax VTE Prophylaxis: leliquis Stress Ulcer Prophylaxis: po Plans in collaboration with bedside consultants and IM MDs. Discussed with RN to reach out if any questions or concerns A total of 25 minutes of critical care time was devoted to this patient today, required to treat and/or prevent further deterioration of critical care cond ition ( as above) . Critical Care: Critically Ill Patient Time spent with patient (mins): 25 PRISCILA CONCEPCION MD Nov 23, 2021 11:07
--- NOTE | 2021-11-23 11:49 | Progress Note - Hospitalist ---
Subjective HPI/CC On Admission Date Seen by Provider: Nov 23, 2021 Time Seen by Provider: 12:30 Christiano Cuadra is a 71 year old male with PMH HTN, HLD, who presented with shortness of breath. He was diagnosed with COVID about 5 days ago. He is also having weakness. He is having a dry cough. His appetite is poor. He is not having fevers or chills. He is not having chest pain. He denies nausea, vomiting, and diarrhea. He received two vaccines in January. He did not get a booster. Subjective/Events-last exam Patient is BiPAP dependent No significant other issues Pressor therapy discontinued Loose stools noted Checked meds and labs Review of Systems General: Fatigue Objective Exam Vital Signs Vital Signs Date Time Temp Pulse Resp B/P (MAP) Pulse Ox O2 Delivery O2 Flow Rate FiO2 11/23/21 15:43 37.0 11/23/21 15:20 52 31 95 50.00 11/23/21 15:00 97/59 NIV Bilevel 11/23/21 12:00 50 Capillary Refill : Less Than 3 Seconds General Appearance: No Apparent Distress, WD/WN, Anxious, Chronically ill, Thin, Other (Sedated) Respiratory: Lungs Clear, Normal Breath Sounds, Decreased Breath Sounds Cardiovascular: Regular Rate, Rhythm Results/Procedures Lab Laboratory Tests 11/23/21 04:15 Patient resulted labs reviewed. Imaging: Reviewed Imaging Films, Reviewed Imaging Report Assessment/Plan Assessment and Plan Assess & Plan/Chief Complaint Assessment: Acute respiratory failure due to COVID-19 Hypercoagulable state associated with COVID-19 Acute myocardial infarction status post cardiac cath 11/20/2021 Dr. Grewal status post stent in LAD Bilateral pulmonary embolism Secondary bacterial pneumonia NSTEMI HTN HLD COVID+ at outside facility Chest xray with bilateral infiltrates Continue Decadron s/p Actemra 11/[address] Angio 11/14 with bialteral pulmonary embolism Continue therapeutic Lovenox Continue Rocephin and Azithromycin Troponin significantly elevated Cardiology following Echo with no wall motion abnormalities, normal EF Continue ASA TeleICU following Acute ishemic stroke CT with likely acute infarct MRI ordered but cannot be done while on Vapotherm BiPAP Continue aspirin Start statin Carotid ultrasound 11/19/2021: Supportive care eICU appreciated 11/20/2021: Dr. Grewal appreciated Supportive care 11/21/2021: Getting close to intubation 11/22/2021: PICC line for pressor therapy 11/23/2021: Pressor therapy discontinued Checked meds and labs Critical Care Critically Ill Patient COLLEEN AMARO DO Nov 23, 2021 11:49
--- NOTE | 2021-11-23 12:42 | Cardiology Progress Note ---
Progress Note-Cardiology Events since last exam Date Seen by Provider: Nov 23, 2021 Time Seen by Provider: 12:41 Events since last exam I am following him for acute anterior myocardial infarction that occurred while he was in the intensive care unit. He remains in the intensive care unit on BiPAP with 50% FiO2. He has not been complaining of any chest discomfort. I did not see the patient due to his Covid status. I did speak with his nurse of today. Certain portions of this document may have been dictated utilizing voice recognition technology. Inherent to this technology, typographical and grammati ed errors may exist. As much as I am diligent to identify and correct these mistakes, some errors may remain in the document. Vitals Last set of Vitals Signs Vital Signs 11/23/21 11/23/21 11/23/21 11:00 11:30 14:00 Temp 35.7 Pulse 46 Resp 29 B/P (MAP) 84/46 Pulse Ox 98 O2 Delivery NIV Bilevel O2 Flow Rate 50.00 Labs Labs Laboratory Tests 11/22/21 15:45 11/23/21 04:15 Exam Vital Signs Vital Signs Date Time Temp Pulse Resp B/P (MAP) Pulse Ox O2 Delivery O2 Flow Rate FiO2 11/23/21 14:00 46 84/46 98 NIV Bilevel 50.00 11/23/21 12:00 50 11/23/21 11:30 35.7 11/23/21 11:00 29 Physical Exam I did not examine the patient due to his Covid status. Labs Laboratory Tests Test 11/22/21 15:45 11/22/21 16:05 11/22/21 20:20 11/23/21 04:15 Range/Units White Blood Count 11.5 H 9.0 4.3-11.0 10^3/uL Red Blood Count 5.13 4.77 4.30-5.52 10^6/uL Hemoglobin 14.9 13.8 13.3-17.7 g/dL Hematocrit 45 41 40-54 % Mean Corpuscular Volume 87 85 80-99 fL Mean Corpuscular Hemoglobin 29 29 25-34 pg Mean Corpuscular Hemoglobin Concent 33 34 32-36 g/dL Red Cell Distribution Width 13.3 13.2 10.0-14.5 % Platelet Count 315 300 130-400 10^3/uL Mean Platelet Volume 10.6 10.8 9.0-12.2 fL Troponin I 32.219 *H <0.028 NG/ML Glucometer 142 H 188 H 70-110 MG/DL Immature Granulocyte % (Auto) 2 % Neutrophils (%) (Auto) 86 H 42-75 % Lymphocytes (%) (Auto) 5 L 12-44 % Monocytes (%) (Auto) 5 0-12 % Eosinophils (%) (Auto) 2 0-10 % Basophils (%) (Auto) 0 0-10 % Neutrophils # (Auto) 7.8 1.8-7.8 10^3/uL Lymphocytes # (Auto) 0.5 L 1.0-4.0 10^3/uL Monocytes # (Auto) 0.4 0.0-1.0 10^3/uL Eosinophils # (Auto) 0.1 0.0-0.3 10^3/uL Basophils # (Auto) 0.0 0.0-0.1 10^3/uL Immature Granulocyte # (Auto) 0.2 H 0.0-0.1 10^3/uL Neutrophils % (Manual) 86 % Lymphocytes % (Manual) 6 % Monocytes % (Manual) 4 % Eosinophils % (Manual) 2 % Band Neutrophils 2 % Blood Morphology Comment NORMAL Sodium Level 137 135-145 MMOL/L Potassium Level 4.3 3.6-5.0 MMOL/L Chloride Level 108 H 98-107 MMOL/L Carbon Dioxide Level 21 21-32 MMOL/L Anion Gap 8 5-14 MMOL/L Blood Urea Nitrogen 50 H 7-18 MG/DL Creatinine 1.07 0.60-1.30 MG/DL Estimat Glomerular Filtration Rate 69 BUN/Creatinine Ratio 47 Glucose Level 108 H 70-105 MG/DL Calcium Level 8.1 L 8.5-10.1 MG/DL Corrected Calcium 9.2 8.5-10.1 MG/DL Phosphorus Level 4.0 2.3-4.7 MG/DL Magnesium Level 2.4 1.6-2.4 MG/DL Total Bilirubin 0.5 0.1-1.0 MG/DL Aspartate Amino Transf (AST/SGOT) 48 H 5-34 U/L Alanine Aminotransferase (ALT/SGPT) 26 0-55 U/L Alkaline Phosphatase 87 40-136 U/L Total Protein 5.4 L 6.4-8.2 GM/DL Albumin 2.6 L 3.2-4.5 GM/DL Procalcitonin 0.05 <0.10 NG/ML Test 11/23/21 10:50 Range/Units Glucometer 149 H 70-110 MG/DL Diagnosis/Problems Diagnosis/Problems (1) ST elevation myocardial infarction (STEMI) of anterolateral wall, initial episode of care Assessment & Plan: On 11/20 he started having chest pain and an electroca rdiogram showed an acute anterolateral ST elevation myocardial infarction. 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 He has been started on clopidogrel. I will continue aspirin until discharge. He is on apixaban due to pulmonary embolism diagnosed during this admission. I started him on high-dose statin medication due to the acute myocardial infarction. I will change his lisinopril over to shorter acting captopril. We will administer carvedilol and JESUSITA inhibitor as tolerated by his blood pressure. (2) Mixed hyperlipidemia Assessment & Plan: Due to his acute myocardial infarction, now have him on high-dose statin medication. This will need to be reassessed in approximately 6 weeks. (3) Primary hypertension Assessment & Plan: Blood pressures continue to intermittently be on the low side. I will give carvedilol and captopril as his blood pressure will tolerate. (4) Pulmonary embolism Assessment & Plan: This may possibly be related to his Covid infection. I changed his enoxaparin over to apixaban on 11/21. ALISHA WILSON JR, MD Nov 23, 2021 12:42
[2021-11-23 15:20] VITALS: BP 97/59
[2021-11-23 19:09] VITALS: BP 97/59
[2021-11-23] MEDS: ROSUVASTATIN 20 MG (CRESTOR) TABLET PO SCH (20:16)
[2021-11-23] MEDS: CAPTOPRIL 25 MG (CAPOTEN) TAB PO SCH (20:16)
[2021-11-24] MEDS: PIPERACILLIN SODIUM/TAZOBACTAM 4.5 GM in NS (IVPB) 100 ML IV SCH ×3 (01:41→17:14)
[2021-11-24] MEDS: NOREPINEPHRINE 8 MG/250 ML 250 ML IV SCH ×2 (02:01→19:38)
[2021-11-24] MEDS: RT-ALBUTEROL HFA 8.5 GM INHALER IH SCH ×6 (02:42→22:27)
[2021-11-24 02:43] VITALS: BP 93/55
[2021-11-24 05:18] LABS: BASOPHILS % (AUTO) 0 % (0-10); EOSINOPHILS # (AUTO) 0.1 10^3/uL (0.0-0.3); EOSINOPHILS % (AUTO) 2 % (0-10); HEMATOCRIT 40 % (40-54); HEMOGLOBIN 13.3 g/dL (13.3-17.7); LYMPHOCYTES # (AUTO) 0.5 10^3/uL (1.0-4.0); LYMPHOCYTES % (AUTO) 5 % (12-44); MEAN CORPUSCULAR HEMOGLOBIN 29 pg (25-34); MEAN CORPUSCULAR HGB CONC 33 g/dL (32-36); MEAN CORPUSCULAR VOLUME 86 fL (80-99); MEAN PLATELET VOLUME 10.9 fL (9.0-12.2); MONOCYTES # (AUTO) 0.4 10^3/uL (0.0-1.0); MONOCYTES % (AUTO) 5 % (0-12); NEUTROPHILS # (AUTO) 8.4 10^3/uL (1.8-7.8); NEUTROPHILS % (AUTO) 88 % (42-75); PLATELET COUNT 262 10^3/uL (130-400); WHITE BLOOD COUNT 9.5 10^3/uL (4.3-11.0)
[2021-11-24 05:34] LABS: ALBUMIN 2.7 GM/DL (3.2-4.5); POTASSIUM 4.3 MMOL/L (3.6-5.0)
[2021-11-24 05:35] LABS: CALCIUM 8.2 MG/DL (8.5-10.1)
[2021-11-24] MEDS: POTASSIUM CL 10MEQ/50ML IVPB 50 ML IV SCH (05:35)
[2021-11-24] MEDS: MAGNESIUM 1 GM/100 ML IVPB 100 ML IV SCH (05:35)
[2021-11-24 05:36] LABS: TOTAL PROTEIN 5.3 GM/DL (6.4-8.2)
[2021-11-24] MEDS: KCL 20 MEQ TAB (K-DUR) PO SCH (05:36)
[2021-11-24 05:38] LABS: BILIRUBIN,TOTAL 0.4 MG/DL (0.1-1.0)
[2021-11-24] MEDS: inSUlin ASPART (NovoLOG) 1 UNIT/0.01 ML (CHARGE PER UNIT) SC SCH ×4 (05:38→21:42)
[2021-11-24 05:40] LABS: CREATININE SERUM 1.04 MG/DL (0.60-1.30); PHOSPHORUS 2.9 MG/DL (2.3-4.7)
[2021-11-24 05:43] LABS: MAGNESIUM 2.2 MG/DL (1.6-2.4)
--- NOTE | 2021-11-24 06:00 | Progress Note - Hospitalist ---
Subjective HPI/CC On Admission Date Seen by Provider: Nov 24, 2021 Time Seen by Provider: 11:00 Christiano Cuadra is a 71 year old male with PMH HTN, HLD, who presented with shortness of breath. He was diagnosed with COVID about 5 days ago. He is also having weakness. He is having a dry cough. His appetite is poor. He is not having fevers or chills. He is not having chest pain. He denies nausea, vomiting, and diarrhea. He received two vaccines in January. He did not get a booster. Subjective/Events-last exam Patient doing pretty well Vapotherm now Checked meds and labs Denies any pain Hopefully wean oxygen Objective Exam Vital Signs Vital Signs Date Time Temp Pulse Resp B/P (MAP) Pulse Ox O2 Delivery O2 Flow Rate FiO2 11/24/21 18:35 92 Vapotherm 40.00 80 11/24/21 18:00 58 131/73 11/24/21 15:52 36.2 11/24/21 13:00 24 Capillary Refill : Less Than 3 Seconds General Appearance: No Apparent Distress, WD/WN, Anxious Respiratory: Lungs Clear, Normal Breath Sounds Cardiovascular: Regular Rate, Rhythm Results/Procedures Lab Laboratory Tests 11/24/21 05:05 Patient resulted labs reviewed. Imaging: Reviewed Imaging Films, Reviewed Imaging Report Assessment/Plan Assessment and Plan Assess & Plan/Chief Complaint Assessment: Acute respiratory failure due to COVID-19 Hypercoagulable state associated with COVID-19 Acute myocardial infarction status post cardiac cath 11/20/2021 Dr. Grewal status post stent in LAD Bilateral pulmonary embolism Secondary bacterial pneumonia NSTEMI HTN HLD COVID+ at outside facility Chest xray with bilateral infiltrates Continue Decadron s/p Actemra 11/[address] Angio 11/14 with bialteral pulmonary embolism Continue therapeutic Lovenox Continue Rocephin and Azithromycin Troponin significantly elevated Cardiology following Echo with no wall motion abnormalities, normal EF Continue ASA TeleICU following Acute ishemic stroke CT with likely acute infarct MRI ordered but cannot be done while on Vapotherm BiPAP Continue aspirin Start statin Carotid ultrasound 11/19/2021: Supportive care eICU appreciated 11/20/2021: Dr. Grewal appreciated Supportive care 11/21/2021: Getting close to intubation 11/22/2021: PICC line for pressor therapy 11/23/2021: Pressor therapy discontinued Checked meds and labs 11/24/2021: Wean Vapotherm Critical Care Critically Ill Patient COLLEEN AMARO DO Nov 24, 2021 06:00
--- NOTE | 2021-11-24 09:32 | Physical Therapy Daily Note ---
PT Daily Note-Current Subjective Patient in bed pre tx, agrees to PT, voices no complaints of pain. Nurse gives approval to tx patient but doesn't want him out of the bed. Appearance Patient in bed post tx with nurse call, phone, tray, all needs met. Mental Status Patient Orientation: Person, Place, Situation Attachments: Oxygen (vapotherm), IV Transfers SCALE: Activities may be completed with or without assistive devices. 4-Pnxmymaebp-gqfeswd completes the activity by him/herself with no assistance from a helper. 5-Set-up or Clean-up Assistance-helper sets up or cleans up; patient completes activity. Hanna assists only prior to or following the activity. 4-Supervision or Touching Assistance-helper provides verbal cues and/or touchin g/steadying and/or contact guard assistance as patient completes activity. Assistance may be provided throughout the activity or intermittently. 3-Partial/Moderate Assistance-helper does LESS THAN HALF the effort. Hanna lifts, holds or supports trunk or limbs, but provides less than half the effort. 2-Substantial/Maximal Assistance-helper does MORE THAN HALF the effort. Hanna lifts or holds trunk or limbs and provides more than half the effort. 4-Ikczsinsr-eteqjm does ALL the effort. Patient does none of the effort to complete the activity. Or, the assistance of 2 or more helpers is required for the patient to complete the activity. If activity was not attempted, code reason: 7-Patient Refused. 9-Not Applicable-not attempted and the patient did not perform the activity before the current illness, exacerbation or injury. 10-Not Attempted due to Environmental Limitations-(lack of equipment, weather restraints, etc.). 88-Not Attempted due to Medical Conditions or Safety Concerns. Exercises Supine Ex: Ankle pumps, Heel Slides, Straight leg raise, Hip abd/add Supine Reps: 20 Treatments LE strengthening Assessment Current Status: Poor Progress Patient's O2 drops into the upper 80's several times during ex, needs cues to purse lip breath, takes a couple of minutes to get back up to 90% each time. 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 PT Race Car Mechanic Goals Time Frame: Nov 27, 2021 Roll Left & Right (QC): 6 Sit to Lying (QC): 6 Lying-Sitting on Side/Bed(QC): 6 Sit to Stand (QC): 4 Chair/Mth-ce-Fiull Xfer(QC): 4 Walk 10 feet (QC): 4 PT Plan Problem List Problem List: Activity Tolerance, Functional Strength, Safety, Balance, Gait, Transfer, Bed Mobility, ROM Treatment/Plan Treatment Plan: Continue Plan of Care Treatment Plan: Bed Mobility, Education, Functional Activity Nelson, Functional Strength, Gait, Safety, Therapeutic Exercise, Transfers Treatment Duration: Nov 27, 2021 Frequency: 6 times per week Estimated Hrs Per Day: .25 hour per day Patient and/or Family Agrees t: Yes Safety Risks/Education Patient Education: Correct Positioning, Safety Issues Teaching Recipient: Patient Teaching Methods: Demonstration, Discussion Response to Teaching: Reinforcement Needed Time/GCodes Time In: 901 Time Out: 912 Total Billed Treatment Time: 11 Total Billed Treatment 1 visit EX ELIJAH SKELTON PT Nov 24, 2021 09:32
[2021-11-24] MEDS: DOCUSATE SODIUM 100 MG (COLACE) CAP PO SCH ×2 (10:00→19:52)
[2021-11-24] MEDS: SENNOSIDES 8.6 MG (SENOKOT) TAB PO SCH ×2 (10:01→19:52)
[2021-11-24] MEDS: PANTOPRAZOLE 40 MG (PROTONIX) TAB PO SCH (10:01)
[2021-11-24] MEDS: ASPIRIN 81 MG CHEW (CHILDREN'S ASA) PO SCH (10:01)
[2021-11-24] MEDS: APIXABAN 5 MG (ELIQUIS) TABLET PO SCH ×2 (10:01→21:41)
[2021-11-24] MEDS: CAPTOPRIL 25 MG (CAPOTEN) TAB PO SCH ×3 (10:01→21:44)
[2021-11-24] MEDS: CLOPIDOGREL 75 MG (PLAVIX) TABLET PO SCH (10:01)
[2021-11-24] MEDS: ACYCLOVIR 400 MG TABLET (ZOVIRAX) PO SCH ×2 (10:01→21:41)
--- NOTE | 2021-11-24 10:16 | Tele-ICU Progress Note ---
Subjective Date Seen by a Provider: Nov 24, 2021 Time Seen by a Provider: 10:15 Subjective/Events-last exam ABLE TO COME OFF BIPAP AND TOLERATING VAPOTHERM. DRINKING FLUIDS Sepsis Event Evaluation Height, Weight, BMI Height: '" Weight: lbs. oz. kg; 23.85 BMI Method: Exam Exam Patient acknowledged, consented, and participated in this virtual visit which was conducted using real time audio/video Vital Signs Date Time Temp Pulse Resp B/P (MAP) Pulse Ox O2 Delivery O2 Flow Rate FiO2 11/24/21 08:00 36.1 11/24/21 08:00 Vapotherm 40.00 100 11/24/21 07:00 61 11/24/21 06:59 93 Vapotherm 40.00 100 11/24/21 06:00 59 28 111/74 97 Vapotherm 40.00 100.00 11/24/21 05:51 Vapotherm 40.00 100.00 11/24/21 05:00 58 19 117/65 96 NIV Bilevel 60.00 11/24/21 04:00 61 28 107/65 92 NIV Bilevel 60.00 11/24/21 03:23 NIV Bilevel 60 11/24/21 03:00 75 28 111/58 90 NIV Bilevel 60.00 11/24/21 02:43 52 18 91 60.00 11/24/21 02:00 69 25 115/65 92 NIV Bilevel 60.00 11/24/21 01:57 NIV Bilevel 60.00 11/24/21 01:00 71 11/24/21 01:00 68 25 103/62 97 Vapotherm 40.00 100.00 11/24/21 00:00 70 24 108/65 97 Vapotherm 40.00 100.00 11/24/21 00:00 Vapotherm 40.00 100 11/23/21 23:00 71 21 109/75 97 Vapotherm 40.00 100.00 11/23/21 22:56 36.2 11/23/21 22:00 61 20 109/62 97 Vapotherm 40.00 100.00 11/23/21 21:40 95 Vapotherm 40.00 100 11/23/21 21:00 65 21 94/57 93 Vapotherm 40.00 100.00 11/23/21 20:54 36.1 11/23/21 20:26 Vapotherm 40.00 100 11/23/21 20:25 Vapotherm 40.00 100.00 11/23/21 20:15 56 22 99/63 98 NIV Bilevel 55.00 11/23/21 19:09 52 18 91 55.00 11/23/21 19:00 56 16 106/62 94 NIV Bilevel 50.00 11/23/21 19:00 60 11/23/21 18:36 Vapotherm 30.00 70.00 11/23/21 18:00 52 23 113/68 97 NIV Bilevel 50.00 11/23/21 17:00 56 25 109/66 93 NIV Bilevel 50.00 11/23/21 16:00 54 20 98/60 98 NIV Bilevel 50.00 11/23/21 16:00 95 NIV Bilevel 50 11/23/21 15:43 37.0 11/23/21 15:20 52 31 95 50.00 11/23/21 15:00 50 97/59 95 NIV Bilevel 50.00 11/23/21 14:00 46 84/46 98 NIV Bilevel 50.00 11/23/21 13:00 51 95/60 98 NIV Bilevel 50.00 11/23/21 12:35 51 11/23/21 12:00 96 NIV Bilevel 50 11/23/21 12:00 55 86/52 90 NIV Bilevel 50.00 11/23/21 11:30 35.7 11/23/21 11:00 59 29 95 50.00 11/23/21 11:00 54 22 99/64 99 NIV Bilevel 50.00 I & O 11/24/21 07:00 Intake Total 1190 ml Output Total 975 ml Balance 215 ml Height & Weight Height: '" Weight: lbs. oz. kg; 23.85 BMI Method: General Appearance: No Apparent Distress, WD/WN, Anxious, Chronically ill, Thin, Other (Sedated) HEENT: PERRL/EOMI, Pharynx Normal Neck: Normal Inspection, Supple Respiratory: Lungs Clear, Normal Breath Sounds, Decreased Breath Sounds Cardiovascular: Regular Rate, Rhythm Capillary Refill: Less Than 3 Seconds Peripheral Pulses: 1+ Dorsalis Pedis (R), 1+ Left Dors-Pedis (L) (see free text) Extremity: Normal Inspection, Non Tender, No Pedal Edema Neurologic/Psychiatric: Alert, Oriented x3, No Motor/Sensory Deficits, Normal Mood/Affect Skin: Normal Color, Warm/Dry Results Lab Laboratory Tests 11/22/21 15:45 11/23/21 04:15 11/24/21 05:05 Assessment/Plan Assessment/Plan Available chart/ vitals / labs / Images reviewed Video assessment done using teleICU camera, rest of exam as per RN Discussed with RN , EXAM PER RN Events overnight : NO NEW EVENTS Afebrile FiO2 - vt I/O = EVEN Drips: precedex on /off Pressors: , hemodynamically stable Consultants: [facility] Hospital course: 11/16 - COVID vapotherm 60%/30L 11/18 - subacute or recent ischemia 11/20- VT 40 100% - bipap overnign 11/22 confusion , precedex on/off, start zosyn 11/23 dependant on bipap 70%. gets quickly hypoxic off bipap. A/P AHRF / ARDS due to severe COVID19 - VT 40L -prone position if able - conservative fluid strategy (aim for even or negative fluid balance STEMI S/P CATH AND PCI OF LAD per cardiology [id number]-Stmbfdzudod-9/COVID-19 PNA ( Symptom onset ~"month " DX unvaccinted --Dexamethasone -Hypercoagulable state , DDIMER= >20 on -> lovenox full dose - to eliqios 11/21 Monitor for superimposed bact PNA -PCT negative , ceftriaxone and z-max 11/15- 11/19 - check PCT , empirically start zosyn CVA ? - mild mental status changes 11/16 - subacute or recent ischemia on CTH - on lovenox 70 bid - MONITOR CLOSELY WITH RISK OF HEMORRAHIC CONVERSION - US carotids negative EVAN - mild monitor Hyperglycemia / Diabetes Mellitus - ISS , close f/up on steroids AURELIO , suspected obesity Lines : periph 11/18 (Central Line Necessity Reviewed) Vasquez: vasquez OG: Nutrition: po Analgesia: Anxiety/ delirium xanax VTE Prophylaxis: leliquis Stress Ulcer Prophylaxis: po Plans in collaboration with bedside consultants and IM MDs. Discussed with RN to reach out if any questions or concerns A total of 20 minutes of critical care time was devoted to this patient today, required to treat and/or prevent further deterioration of critical care condition ( as above) . Critical Care: Critically Ill Patient Time spent with patient (mins): 20 PRISCILA CONCEPCION MD Nov 24, 2021 10:16
--- NOTE | 2021-11-24 10:32 | Cardiology Progress Note ---
Progress Note-Cardiology Events since last exam Date Seen by Provider: Nov 24, 2021 Time Seen by Provider: 10:29 Events since last exam I am following him due to anterior STEMI. He remains in the intensive care u nit. He is now on 35% oxygen. This is an improvement from requiring BiPAP nearly 24 hours a day. He has not complained of any recurrent chest discomfort. I did not see the patient today due to his Covid status. Certain portions of this document may have been dictated utilizing voice recognition technology. Inherent to this technology, typographical and grammatical errors may exist. As much as I am diligent to identify and correct these mistakes, some errors may remain in the document. Vitals Last set of Vitals Signs Vital Signs 11/24/21 11/24/21 11/24/21 11/24/21 06:00 06:59 07:00 08:00 Temp 36.1 Pulse 61 Resp 28 B/P (MAP) 111/74 Pulse Ox 93 O2 Delivery Vapotherm O2 Flow Rate 40.00 FiO2 100 Labs Labs Laboratory Tests 11/24/21 05:05 Exam Vital Signs Vital Signs Date Time Temp Pulse Resp B/P (MAP) Pulse Ox O2 Delivery O2 Flow Rate FiO2 11/24/21 08:00 36.1 11/24/21 08:00 Vapotherm 40.00 100 11/24/21 07:00 61 11/24/21 06:59 93 11/24/21 06:00 28 111/74 Physical Exam I did not examine the patient due to his Covid status. Labs Laboratory Tests Test 11/23/21 10:50 11/23/21 15:40 11/23/21 20:55 11/24/21 05:05 Range/Units Glucometer 149 H 167 H 176 H 70-110 MG/DL White Blood Count 9.5 4.3-11.0 10^3/uL Red Blood Count 4.67 4.30-5.52 10^6/uL Hemoglobin 13.3 13.3-17.7 g/dL Hematocrit 40 40-54 % Mean Corpuscular Volume 86 80-99 fL Mean Corpuscular Hemoglobin 29 25-34 pg Mean Corpuscular Hemoglobin Concent 33 32-36 g/dL Red Cell Distribution Width 13.5 10.0-14.5 % Platelet Count 262 130-400 10^3/uL Mean Platelet Volume 10.9 9.0-12.2 fL Immature Granulocyte % (Auto) 1 % Neutrophils (%) (Auto) 88 H 42-75 % Lymphocytes (%) (Auto) 5 L 12-44 % Monocytes (%) (Auto) 5 0-12 % Eosinophils (%) (Auto) 2 0-10 % Basophils (%) (Auto) 0 0-10 % Neutrophils # (Auto) 8.4 H 1.8-7.8 10^3/uL Lymphocytes # (Auto) 0.5 L 1.0-4.0 10^3/uL Monocytes # (Auto) 0.4 0.0-1.0 10^3/uL Eosinophils # (Auto) 0.1 0.0-0.3 10^3/uL Basophils # (Auto) 0.0 0.0-0.1 10^3/uL Immature Granulocyte # (Auto) 0.1 0.0-0.1 10^3/uL Sodium Level 139 135-145 MMOL/L Potassium Level 4.3 3.6-5.0 MMOL/L Chloride Level 107 98-107 MMOL/L Carbon Dioxide Level 21 21-32 MMOL/L Anion Gap 11 5-14 MMOL/L Blood Urea Nitrogen 57 H 7-18 MG/DL Creatinine 1.04 0.60-1.30 MG/DL Estimat Glomerular Filtration Rate 71 BUN/Creatinine Ratio 55 Glucose Level 164 H 70-105 MG/DL Calcium Level 8.2 L 8.5-10.1 MG/DL Corrected Calcium 9.2 8.5-10.1 MG/DL Phosphorus Level 2.9 2.3-4.7 MG/DL Magnesium Level 2.2 1.6-2.4 MG/DL Total Bilirubin 0.4 0.1-1.0 MG/DL Aspartate Amino Transf (AST/SGOT) 34 5-34 U/L Alanine Aminotransferase (ALT/SGPT) 22 0-55 U/L Alkaline Phosphatase 118 40-136 U/L Total Protein 5.3 L 6.4-8.2 GM/DL Albumin 2.7 L 3.2-4.5 GM/DL Diagnosis/Problems Diagnosis/Problems (1) ST elevation myocardial infarction (STEMI) of anterolateral wall, initial episode of care Assessment & Plan: On 11/20 he started having chest pain and an electrocardiogram showed an acute anterolateral ST elevation myocardial infarction. 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 He has been started on clopidogrel. I will continue aspirin until discharge. He is on apixaban due to pulmonary embolism diagnosed during this admission. I started him on high-dose statin medication due to the acute myocardial infarction. I will change his lisinopril over to shorter acting captopril. We will administer carvedilol and JESUSITA inhibitor as tolerated by his blood pressure. We may want to consider another echocardiogram prior to discharge. I have been holding off on this due to his Covid status to help reduce the risk to staff. (2) Primary hypertension Assessment & Plan: Blood pressures continue to intermittently be on the low side. I have ordered carvedilol and captopril as his blood pressure will tolerate. (3) Mixed hyperlipidemia Assessment & Plan: Due to his acute myocardial infarction, I now have him on high-dose statin medication. This will need to be reassessed in approximately 6 weeks. (4) Pulmonary embolism Assessment & Plan: This may possibly be related to his Covid infection. I changed his enoxaparin over to apixaban on 11/21. ALISHA WILSON JR, MD Nov 24, 2021 10:32
[2021-11-24 15:52] VITALS: BP 117/66
[2021-11-24] MEDS: ROSUVASTATIN 20 MG (CRESTOR) TABLET PO SCH (21:41)
[2021-11-24 22:33] VITALS: BP 125/70
[2021-11-25 02:14] VITALS: BP 116/65
[2021-11-25] MEDS: RT-ALBUTEROL HFA 8.5 GM INHALER IH SCH ×6 (02:14→21:42)
[2021-11-25] MEDS: PIPERACILLIN SODIUM/TAZOBACTAM 4.5 GM in NS (IVPB) 100 ML IV SCH ×3 (02:31→17:38)
[2021-11-25 04:38] LABS: ABG BASE EXCESS -0.1 MMOL/L (-2.5-2.5); ABG OXYGEN SATURATION 91 % (94-100); ABG PCO2 36 MMHG (35-45); ABG PH 7.44 (7.37-7.43); ABG PO2 62 MMHG (79-93); ABG TCO2 24.7 MMOL/L (21.0-31.0)
[2021-11-25 04:39] LABS: ALLENS TEST YES-POS; INSPIRED O2 100%; PATIENT TEMP 37; VENTILATOR YES
[2021-11-25 04:47] LABS: BASOPHILS % (AUTO) 0 % (0-10); EOSINOPHILS # (AUTO) 0.1 10^3/uL (0.0-0.3); EOSINOPHILS % (AUTO) 2 % (0-10); HEMATOCRIT 40 % (40-54); HEMOGLOBIN 13.4 g/dL (13.3-17.7); LYMPHOCYTES # (AUTO) 0.6 10^3/uL (1.0-4.0); LYMPHOCYTES % (AUTO) 8 % (12-44); MEAN CORPUSCULAR HEMOGLOBIN 29 pg (25-34); MEAN CORPUSCULAR HGB CONC 33 g/dL (32-36); MEAN CORPUSCULAR VOLUME 86 fL (80-99); MEAN PLATELET VOLUME 11.3 fL (9.0-12.2); MONOCYTES # (AUTO) 0.4 10^3/uL (0.0-1.0); MONOCYTES % (AUTO) 5 % (0-12); NEUTROPHILS # (AUTO) 6.1 10^3/uL (1.8-7.8); NEUTROPHILS % (AUTO) 84 % (42-75); PLATELET COUNT 224 10^3/uL (130-400); WHITE BLOOD COUNT 7.3 10^3/uL (4.3-11.0)
[2021-11-25 04:59] LABS: ALBUMIN 2.8 GM/DL (3.2-4.5); POTASSIUM 4.4 MMOL/L (3.6-5.0)
[2021-11-25 05:01] LABS: CALCIUM 8.3 MG/DL (8.5-10.1)
[2021-11-25 05:02] LABS: TOTAL PROTEIN 5.7 GM/DL (6.4-8.2)
[2021-11-25 05:04] LABS: BILIRUBIN,TOTAL 0.5 MG/DL (0.1-1.0)
[2021-11-25] MEDS: KCL 20 MEQ TAB (K-DUR) PO SCH (05:04)
[2021-11-25] MEDS: POTASSIUM CL 10MEQ/50ML IVPB 50 ML IV SCH (05:04)
[2021-11-25 05:05] LABS: PHOSPHORUS 2.9 MG/DL (2.3-4.7)
[2021-11-25 05:06] LABS: CREATININE SERUM 0.82 MG/DL (0.60-1.30)
[2021-11-25 05:08] LABS: MAGNESIUM 2.1 MG/DL (1.6-2.4)
[2021-11-25] MEDS: MAGNESIUM 1 GM/100 ML IVPB 100 ML IV SCH (05:09)
[2021-11-25] MEDS: inSUlin ASPART (NovoLOG) 1 UNIT/0.01 ML (CHARGE PER UNIT) SC SCH ×4 (05:10→19:50)
--- NOTE | 2021-11-25 06:44 | Diagnostic Imaging Report ---
INDICATION: Respiratory distress, COVID positive. Frontal chest obtained at 0339 a.m. and compared with 11/22/2021 There is cardiomegaly. There is a right-sided PICC line with tip overlying the SVC. There is patchy infiltrate in the mid to upper lung joseph on both sides. There appears to be increasing infiltrate in the lung bases. There is no pneumothorax or pleural fluid. IMPRESSION: No change in bilateral upper lobe infiltrates with increasing infiltrate in the lung bases. There is no pneumothorax or pleural fluid. There is a new right-sided PICC line, as above. Dictated by: Dictated on workstation # [id number]
--- NOTE | 2021-11-25 07:22 | Progress Note - Hospitalist ---
Subjective HPI/CC On Admission Date Seen by Provider: Nov 25, 2021 Time Seen by Provider: 11:15 Christiano Cuadra is a 71 year old male with PMH HTN, HLD, who presented with shortness of breath. He was diagnosed with COVID about 5 days ago. He is also having weakness. He is having a dry cough. His appetite is poor. He is not having fevers or chills. He is not having chest pain. He denies nausea, vomiting, and diarrhea. He received two vaccines in January. He did not get a booster. Subjective/Events-last exam Patient much improved Tolerating Vapotherm BiPAP at night Confusion noted at times Patient appears to be very frail Review of Systems General: Fatigue, Malaise Objective Exam Vital Signs Vital Signs Date Time Temp Pulse Resp B/P (MAP) Pulse Ox O2 Delivery O2 Flow Rate FiO2 11/26/21 05:01 49 19 91 60.00 11/26/21 04:00 NIV Bilevel 60 11/26/21 03:16 36.3 11/26/21 00:00 92/61 Capillary Refill : Less Than 3 Seconds General Appearance: Anxious, Chronically ill, Mild Distress, Thin Respiratory: No Accessory Muscle Use, No Respiratory Distress, Decreased Breath Sounds Cardiovascular: Regular Rate, Rhythm Neurologic/Psychiatric: Alert, Depressed Affect Results/Procedures Lab Laboratory Tests 11/26/21 05:10 Patient resulted labs reviewed. Imaging: Reviewed Imaging Films, Reviewed Imaging Report Assessment/Plan Assessment and Plan Assess & Plan/Chief Complaint Assessment: Acute respiratory failure due to COVID-19 Hypercoagulable state associated with COVID-19 Acute myocardial infarction status post cardiac cath 11/20/2021 Dr. Grewal status post stent in LAD Bilateral pulmonary embolism Secondary bacterial pneumonia NSTEMI HTN HLD COVID+ at outside facility Chest xray with bilateral infiltrates Continue Decadron s/p Actemra 11/[address] Angio 11/14 with bialteral pulmonary embolism Continue therapeutic Lovenox Continue Rocephin and Azithromycin Troponin significantly elevated Cardiology following Echo with no wall motion abnormalities, normal EF Continue ASA TeleICU following Acute ishemic stroke CT with likely acute infarct MRI ordered but cannot be done while on Vapotherm BiPAP Continue aspirin Start statin Carotid ultrasound 11/19/2021: Supportive care eICU appreciated 11/20/2021: Dr. Grewal appreciated Supportive care 11/21/2021: Getting close to intubation 11/22/2021: PICC line for pressor therapy 11/23/2021: Pressor therapy discontinued Checked meds and labs 11/24/2021: Wean Vapotherm 12/03/2021: Supportive care Wean Vapotherm Critical Care Critically Ill Patient COLLEEN AMARO DO Nov 25, 2021 07:22
[2021-11-25] MEDS: APIXABAN 5 MG (ELIQUIS) TABLET PO SCH ×2 (09:04→20:13)
[2021-11-25] MEDS: ASPIRIN 81 MG CHEW (CHILDREN'S ASA) PO SCH (09:04)
[2021-11-25] MEDS: CLOPIDOGREL 75 MG (PLAVIX) TABLET PO SCH (09:05)
[2021-11-25] MEDS: ACYCLOVIR 400 MG TABLET (ZOVIRAX) PO SCH ×2 (09:05→20:13)
[2021-11-25] MEDS: SENNOSIDES 8.6 MG (SENOKOT) TAB PO SCH ×2 (09:05→19:50)
[2021-11-25] MEDS: PANTOPRAZOLE 40 MG (PROTONIX) TAB PO SCH (09:05)
[2021-11-25] MEDS: DOCUSATE SODIUM 100 MG (COLACE) CAP PO SCH ×2 (09:06→19:50)
[2021-11-25] MEDS: CAPTOPRIL 25 MG (CAPOTEN) TAB PO SCH ×2 (09:06→20:13)
--- NOTE | 2021-11-25 10:24 | Tele-ICU Progress Note ---
Subjective Date Seen by a Provider: Nov 25, 2021 Time Seen by a Provider: 07:45 Subjective/Events-last exam This virtual visit was conducted using real time audio/video. Thank you for asking us to see this patient for respiratory insufficiency due to Covid pna. Course complicated by STEMI w stenting, B PEs, ischemic CVA. PE: Resting comfortably. VSS. O2 sat 95-98% on 40LPM/90% Vapotherm. HEENT: No obvious masses, adenopathy or JVD. Chest: clear to auscultation. Diminished. CV: RRR S1 S2 No murmur or added sounds. Abd: Non-tender. Bowel sounds Y. : Unremarkable. Prieto N. CLINICAL COURIER/psychiatric: Grossly intact. No obvious focal findings. Extremities: No edema. Capillary refill < 3 seconds. Skin: unremarkable. Results: Elevated BUN 43 Available chart/ vitals / labs / images reviewed. Video assessment done using teleICU camera, rest of exam as per RN. A/P: Respiratory insufficiency: Continue present management with Vapotherm. Wean as rich[place] and consider transfer to a lower level of care. Monitor for increasing oxygenation needs and/or need for intubation. Critical Care: critically ill patient. Cont. Alb., Precedex PRN, Dex., Zosyn, Acyclovir, Nelson., Plavix, Eliquis, ASA, SSI Discussed with KAIN Rouse. Asked RN to reach out to eICU if any questions or concerns later. Time spent with patient/coordination of care with other health professionals (mins): 15 Sepsis Event Evaluation Height, Weight, BMI Height: '" Weight: lbs. oz. kg; 23.85 BMI Method: Exam Exam Patient acknowledged, consented, and participated in this virtual visit which was conducted using real time audio/video Vital Signs Date Time Temp Pulse Resp B/P (MAP) Pulse Ox O2 Delivery O2 Flow Rate FiO2 11/25/21 10:08 82 22 120/65 94 Vapotherm 40.00 95.00 11/25/21 10:00 Vapotherm 40.00 95.00 11/25/21 10:00 90 120/65 93 Vapotherm 40.00 95.00 11/25/21 09:00 66 35 130/70 91 Vapotherm 40.00 100.00 11/25/21 08:00 36.2 11/25/21 08:00 72 14 126/70 100 Vapotherm 40.00 100.00 11/25/21 08:00 Vapotherm 40.00 80 11/25/21 07:15 94 Vapotherm 40.00 100 11/25/21 07:00 64 11/25/21 07:00 59 17 133/69 94 Vapotherm 40.00 100.00 11/25/21 06:00 61 125/69 90 Vapotherm 40.00 100.00 11/25/21 05:00 58 121/71 90 Vapotherm 40.00 100.00 11/25/21 04:56 95 Vapotherm 40.00 100 11/25/21 04:00 65 132/75 95 NIV Bilevel 60.00 11/25/21 03:00 57 102/63 97 NIV Bilevel 60.00 11/25/21 02:14 68 25 93 60.00 11/25/21 02:00 53 114/65 94 NIV Bilevel 60.00 11/25/21 01:00 52 115/66 93 NIV Bilevel 60.00 11/25/21 01:00 52 11/25/21 00:00 58 34 127/70 95 NIV Bilevel 60.00 11/24/21 23:43 95 NIV Bilevel 60 11/24/21 23:00 61 114/66 NIV Bilevel 60.00 11/24/21 22:33 58 18 93 60.00 11/24/21 22:27 96 Vapotherm 40.00 100 11/24/21 22:00 58 23 125/70 96 Vapotherm 40.00 100.00 11/24/21 21:00 64 31 129/69 98 Vapotherm 40.00 100.00 11/24/21 20:00 70 127/67 91 Vapotherm 40.00 100.00 11/24/21 20:00 Vapotherm 40.00 100 11/24/21 20:00 67 127/67 91 Vapotherm 40.00 100.00 11/24/21 19:51 94 Vapotherm 40.00 100.00 11/24/21 19:00 72 109/74 90 Vapotherm 40.00 80.00 11/24/21 19:00 73 11/24/21 18:35 92 Vapotherm 40.00 80 1/1/22 18:00 58 131/73 99 Vapotherm 40.00 80.00 11/24/21 17:00 65 127/72 85 Vapotherm 40.00 80.00 11/24/21 16:00 58 114/73 97 Vapotherm 40.00 80.00 11/24/21 16:00 Vapotherm 40.00 100 11/24/21 16:00 96 Vapotherm 40.00 80.00 11/24/21 15:52 36.2 71 97 90 11/24/21 15:37 Vapotherm 40.00 80.00 11/24/21 15:35 Vapotherm 40.00 80 11/24/21 15:29 97 Vapotherm 40.00 90 11/24/21 15:00 72 116/66 94 Vapotherm 40.00 100.00 11/24/21 14:00 68 117/66 100 Vapotherm 40.00 100.00 11/24/21 13:00 75 11/24/21 13:00 66 24 125/72 97 Vapotherm 40.00 100.00 11/24/21 12:00 Vapotherm 40.00 100 11/24/21 12:00 36.2 11/24/21 12:00 71 26 111/66 97 Vapotherm 40.00 100.00 11/24/21 11:07 93 Vapotherm 40.00 90 11/24/21 11:06 96 Vapotherm 40.00 100 11/24/21 11:00 65 26 103/61 96 Vapotherm 40.00 100.00 I & O 11/25/21 07:00 Intake Total 1260 ml Output Total 1350 ml Balance -90 ml Height & Weight Height: '" Weight: lbs. oz. kg; 23.85 BMI Method: General Appearance: No Apparent Distress, WD/WN, Anxious HEENT: PERRL/EOMI, Pharynx Normal Neck: Normal Inspection, Supple Respiratory: Lungs Clear, Normal Breath Sounds Cardiovascular: Regular Rate, Rhythm Capillary Refill: Less Than 3 Seconds Peripheral Pulses: 1+ Dorsalis Pedis (R), 1+ Left Dors-Pedis (L) (see free text) Extremity: Normal Inspection, Non Tender, No Pedal Edema Neurologic/Psychiatric: Alert, Oriented x3, No Motor/Sensory Deficits, Normal Mood/Affect Skin: Normal Color, Warm/Dry Results Lab Laboratory Tests 11/24/21 05:05 11/25/21 03:50 Assessment/Plan Assessment/Plan See free text. Critical Care: Critically Ill Patient AMANDA VIRAMONTES MD Nov 25, 2021 10:24
--- NOTE | 2021-11-25 10:39 | Cardiology Progress Note ---
Progress Note-Cardiology Events since last exam Date Seen by Provider: Nov 25, 2021 Time Seen by Provider: 10:38 Events since last exam I am following him due to anterior myocardial infarction. He remains in the intensive care unit on Vapotherm secondary to his acute respiratory failure from Covid pneumonia. I did not see the patient due to his Covid status. He has not complained of any further chest discomfort.He has not had any significant arrhythmias. I spoke to his nurse of today. Certain portions of this document may have been dictated utilizing voice recognition technology. Inherent to this technology, typographical and grammatical errors may exist. As much as I am diligent to identify and correct these mistakes, some errors may remain in the document. Vitals Last set of Vitals Signs Vital Signs 11/25/21 11/25/21 11/25/21 12:00 14:00 14:55 Temp 36.0 Pulse 85 B/P (MAP) 135/74 Pulse Ox 97 O2 Delivery Vapotherm O2 Flow Rate 35.00 FiO2 95 Labs Labs Laboratory Tests 11/25/21 03:50 Exam Vital Signs Vital Signs Date Time Temp Pulse Resp B/P (MAP) Pulse Ox O2 Delivery O2 Flow Rate FiO2 11/25/21 14:55 97 Vapotherm 35.00 95 11/25/21 14:00 85 135/74 11/25/21 12:00 24 11/25/21 12:00 36.0 Physical Exam I did not examine the patient due to his Covid status. Labs Laboratory Tests Test 11/24/21 15:29 11/24/21 21:40 11/25/21 03:50 11/25/21 04:25 Range/Units Glucometer 243 H 146 H 70-110 MG/DL White Blood Count 7.3 4.3-11.0 10^3/uL Red Blood Count 4.68 4.30-5.52 10^6/uL Hemoglobin 13.4 13.3-17.7 g/dL Hematocrit 40 40-54 % Mean Corpuscular Volume 86 80-99 fL Mean Corpuscular Hemoglobin 29 25-34 pg Mean Corpuscular Hemoglobin Concent 33 32-36 g/dL Red Cell Distribution Width 13.6 10.0-14.5 % Platelet Count 224 130-400 10^3/uL Mean Platelet Volume 11.3 9.0-12.2 fL Immature Granulocyte % (Auto) 1 % Neutrophils (%) (Auto) 84 H 42-75 % Lymphocytes (%) (Auto) 8 L 12-44 % Monocytes (%) (Auto) 5 0-12 % Eosinophils (%) (Auto) 2 0-10 % Basophils (%) (Auto) 0 0-10 % Neutrophils # (Auto) 6.1 1.8-7.8 10^3/uL Lymphocytes # (Auto) 0.6 L 1.0-4.0 10^3/uL Monocytes # (Auto) 0.4 0.0-1.0 10^3/uL Eosinophils # (Auto) 0.1 0.0-0.3 10^3/uL Basophils # (Auto) 0.0 0.0-0.1 10^3/uL Immature Granulocyte # (Auto) 0.1 0.0-0.1 10^3/uL Sodium Level 140 135-145 MMOL/L Potassium Level 4.4 3.6-5.0 MMOL/L Chloride Level 107 98-107 MMOL/L Carbon Dioxide Level 23 21-32 MMOL/L Anion Gap 10 5-14 MMOL/L Blood Urea Nitrogen 43 H 7-18 MG/DL Creatinine 0.82 0.60-1.30 MG/DL Estimat Glomerular Filtration Rate 93 BUN/Creatinine Ratio 52 Glucose Level 119 H 70-105 MG/DL Calcium Level 8.3 L 8.5-10.1 MG/DL Corrected Calcium 9.3 8.5-10.1 MG/DL Phosphorus Level 2.9 2.3-4.7 MG/DL Magnesium Level 2.1 1.6-2.4 MG/DL Total Bilirubin 0.5 0.1-1.0 MG/DL Aspartate Amino Transf (AST/SGOT) 34 5-34 U/L Alanine Aminotransferase (ALT/SGPT) 20 0-55 U/L Alkaline Phosphatase 114 40-136 U/L Total Protein 5.7 L 6.4-8.2 GM/DL Albumin 2.8 L 3.2-4.5 GM/DL Blood Gas Puncture Site RR Blood Gas Patient Temperature 37 Arterial Blood pH 7.44 H 7.37-7.43 Arterial Blood Partial Pressure CO2 36 35-45 MMHG Arterial Blood Partial Pressure O2 62 L 79-93 MMHG Arterial Blood HCO3 24 23-27 MMOL/L Arterial Blood Total CO2 24.7 21.0-31.0 MMOL/L Arterial Blood Oxygen Saturation 91 L 94-100 % Arterial Blood Base Excess -0.1 -2.5-2.5 MMOL/L Juvenal Test YES-POS Blood Gas Ventilator Setting YES Blood Gas Inspired Oxygen 100% Test 11/25/21 10:55 Range/Units Glucometer 176 H 70-110 MG/DL Diagnosis/Problems Diagnosis/Problems (1) ST elevation myocardial infarction (STEMI) of anterolateral wall, initial episode of care Assessment & Plan: On 11/20 he started having chest pain and an electrocardiogram showed an acute anterolateral ST elevation myocardial inf arction. 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 He has been started on clopidogrel. I will continue aspirin until discharge. He is on apixaban due to pulmonary embolism diagnosed during this admission. I started him on high-dose statin medication due to the acute myocardial infarction. I will change his lisinopril over to shorter acting captopril. We will administer carvedilol and JESUSITA inhibitor as tolerated by his blood pressure. We may want to consider another echocardiogram prior to discharge. I have been holding off on this due to his Covid status to help reduce the risk to staff. (2) Primary hypertension Assessment & Plan: Blood pressures continue to intermittently be on the low side. I have ordered carvedilol and captopril as his blood pressure will tolerate. (3) Mixed hyperlipidemia Assessment & Plan: Due to his acute myocardial infarction, I now have him on high-dose statin medication. This will need to be reassessed in approximately 6 weeks. (4) Pulmonary embolism Assessment & Plan: This may possibly be related to his Covid infection. I changed his enoxaparin over to apixaban on 11/21. ALISHA WILSON JR, MD Nov 25, 2021 10:39
[2021-11-25] MEDS: NOREPINEPHRINE 8 MG/250 ML 250 ML IV SCH (17:37)
[2021-11-25] MEDS: ROSUVASTATIN 20 MG (CRESTOR) TABLET PO SCH (20:12)
[2021-11-25 21:42] VITALS: BP 109/62
[2021-11-26] MEDS: PIPERACILLIN SODIUM/TAZOBACTAM 4.5 GM in NS (IVPB) 100 ML IV SCH ×3 (02:34→17:23)
[2021-11-26 02:58] VITALS: BP 98/66
[2021-11-26] MEDS: RT-ALBUTEROL HFA 8.5 GM INHALER IH SCH ×6 (02:58→21:53)
[2021-11-26 05:01] VITALS: BP 100/66
[2021-11-26 05:20] LABS: BASOPHILS % (AUTO) 0 % (0-10); EOSINOPHILS # (AUTO) 0.1 10^3/uL (0.0-0.3); EOSINOPHILS % (AUTO) 2 % (0-10); HEMATOCRIT 39 % (40-54); HEMOGLOBIN 12.9 g/dL (13.3-17.7); LYMPHOCYTES # (AUTO) 0.6 10^3/uL (1.0-4.0); LYMPHOCYTES % (AUTO) 12 % (12-44); MEAN CORPUSCULAR HEMOGLOBIN 29 pg (25-34); MEAN CORPUSCULAR HGB CONC 33 g/dL (32-36); MEAN CORPUSCULAR VOLUME 86 fL (80-99); MEAN PLATELET VOLUME 11.3 fL (9.0-12.2); MONOCYTES # (AUTO) 0.5 10^3/uL (0.0-1.0); MONOCYTES % (AUTO) 10 % (0-12); NEUTROPHILS # (AUTO) 3.8 10^3/uL (1.8-7.8); NEUTROPHILS % (AUTO) 74 % (42-75); PLATELET COUNT 177 10^3/uL (130-400); WHITE BLOOD COUNT 5.1 10^3/uL (4.3-11.0)
[2021-11-26 05:26] LABS: ALBUMIN 2.8 GM/DL (3.2-4.5)
[2021-11-26 05:27] LABS: POTASSIUM 4.5 MMOL/L (3.6-5.0)
[2021-11-26 05:28] LABS: CALCIUM 8.3 MG/DL (8.5-10.1)
[2021-11-26 05:29] LABS: TOTAL PROTEIN 5.5 GM/DL (6.4-8.2)
[2021-11-26 05:31] LABS: BILIRUBIN,TOTAL 0.4 MG/DL (0.1-1.0)
[2021-11-26] MEDS: KCL 20 MEQ TAB (K-DUR) PO SCH (05:31)
[2021-11-26] MEDS: POTASSIUM CL 10MEQ/50ML IVPB 50 ML IV SCH (05:31)
[2021-11-26 05:33] LABS: CREATININE SERUM 0.82 MG/DL (0.60-1.30)
[2021-11-26 05:36] LABS: MAGNESIUM 2.1 MG/DL (1.6-2.4)
[2021-11-26] MEDS: inSUlin ASPART (NovoLOG) 1 UNIT/0.01 ML (CHARGE PER UNIT) SC SCH ×4 (06:22→20:38)
[2021-11-26] MEDS: MAGNESIUM 1 GM/100 ML IVPB 100 ML IV SCH (06:23)
[2021-11-26] MEDS: SENNOSIDES 8.6 MG (SENOKOT) TAB PO SCH ×2 (08:53→20:06)
[2021-11-26] MEDS: CLOPIDOGREL 75 MG (PLAVIX) TABLET PO SCH (09:02)
[2021-11-26] MEDS: ASPIRIN 81 MG CHEW (CHILDREN'S ASA) PO SCH (09:02)
[2021-11-26] MEDS: APIXABAN 5 MG (ELIQUIS) TABLET PO SCH ×2 (09:02→20:03)
[2021-11-26] MEDS: PANTOPRAZOLE 40 MG (PROTONIX) TAB PO SCH (09:03)
[2021-11-26] MEDS: CAPTOPRIL 25 MG (CAPOTEN) TAB PO SCH ×2 (09:03→20:04)
[2021-11-26] MEDS: DOCUSATE SODIUM 100 MG (COLACE) CAP PO SCH ×2 (09:03→20:06)
[2021-11-26] MEDS: NOREPINEPHRINE 8 MG/250 ML 250 ML IV SCH (09:11)
--- NOTE | 2021-11-26 10:27 | Progress Note ---
Subjective Subjective/Events-last exam Pt states he is feeling pretty well, but hasn't been doing much and is anxious to see what he can do. He is pleasantly confused, [place] and needs to do some work. Objective Exam Last Set of Vital Signs Vital Signs Date Time Temp Pulse Resp B/P (MAP) Pulse Ox O2 Delivery O2 Flow Rate FiO2 11/26/21 09:11 120/66 11/26/21 08:00 36.2 11/26/21 08:00 Vapotherm 40.00 80 11/26/21 06:00 45 91 11/26/21 05:01 19 Capillary Refill : Less Than 3 Seconds I&O Intake and Output 11/25/21 23:59 Intake Total 730 ml Output Total 1125 ml Balance -395 ml Intake Oral 730 ml Output Urine Total 1125 ml # Bowel Movements 2 General: Alert, No Acute Distress Lungs: Clear to Auscultation, Normal Air Movement Heart: Regular Rate, No Murmurs Abdomen: Normal Bowel Sounds, Soft Extremities: No Edema Psych/Mental Status: Other (oriented to self only) Results/Procedures Lab Laboratory Tests 11/25/21 10:55: Glucometer 176H 11/25/21 17:34: Glucometer 118H 11/25/21 19:39: Glucometer 142H 11/26/21 05:09: Glucometer 130H 11/26/21 05:10: White Blood Count 5.1, Red Blood Count 4.50, Hemoglobin 12.9L, Hematocrit 39L, Mean Corpuscular Volume 86, Mean Corpuscular Hemoglobin 29, Mean Corpuscular Hemoglobin Concent 33, Red Cell Distribution Width 13.8, Platelet Count 177, Mean Platelet Volume 11.3, Immature Granulocyte % (Auto) 2, Neutrophils (%) (Auto) 74, Lymphocytes (%) (Auto) 12, Monocytes (%) (Auto) 10, Eosinophils (%) (Auto) 2, Basophils (%) (Auto) 0, Neutrophils # (Auto) 3.8, Lymphocytes # (Auto) 0.6L, Monocytes # (Auto) 0.5, Eosinophils # (Auto) 0.1, Basophils # (Auto) 0.0, Immature Granulocyte # (Auto) 0.1, Sodium Level 138, Potassium Level 4.5, Chloride Level 107, Carbon Dioxide Level 24, Anion Gap 7, Blood Urea Nitrogen 36H, Creatinine 0.82, Estimat Glomerular Filtration Rate 93, BUN/Creatinine Ratio 44, Glucose Level 123H, Calcium Level 8.3L, Corrected Calcium 9.3, Phosphorus Level 3.0, Magnesium Level 2.1, Total Bilirubin 0.4, Aspartate Amino Transf (AST/SGOT) 29, Alanine Aminotransferase (ALT/SGPT) 19, Alkaline Phosphat ase 100, Total Protein 5.5L, Albumin 2.8L Microbiology 11/14/21 Urine Culture - Final, Complete NO GROWTH 11/14/21 MRSA Screen - Final, Complete MRSA not isolated 11/14/21 Blood Culture - Final, Complete No growth Assessment/Plan Assessment/Plan (1) Pneumonia due to COVID-19 virus Status: Acute Assessment & Plan: Requiring vapotherm with 90% FiO2 today. s/p Actemra, on acyclovir for pprx. Continued on dexamethasone and zosyn for suspected secondary bacterial pneumonia. (2) ST elevation myocardial infarction (STEMI) of anterolateral wall, initial episode of care Status: Acute Assessment & Plan: 11/20 cath with stent to LAD, appreciate Cardiology recommendations. On clopidogrel, aspirin, statin. (3) Acute ischemic stroke Status: Acute Assessment & Plan: CT findings with possible subacute or recent ischemia, unable to get MRI due to respiratory status, no clear physical findings of ischemia. Carotid US without significant stenosis. (4) Mixed hyperlipidemia Status: Chronic (5) Bilateral pulmonary embolism Status: Acute Assessment & Plan: On apixaban. Bilateral segmental and subsegmental. (6) Altered mental status Status: Acute Qualifiers: Qualified Codes: R41.82 - Altered mental status, unspecified (7) HTN (hypertension) Status: Chronic (8) HLD (hyperlipidemia) Status: Chronic (9) Secondary bacterial pneumonia Status: Acute (10) Acute respiratory failure due to COVID-19 Status: Acute NAM RUSS MD Nov 26, 2021 10:27
[2021-11-26] MEDS ORDERED: NS IV 1000 ML 1,000 ML IV SCH (10:30)
[2021-11-26] MEDS: ACYCLOVIR 400 MG TABLET (ZOVIRAX) PO SCH ×2 (10:54→20:04)
--- NOTE | 2021-11-26 11:33 | Tele-ICU Progress Note ---
Subjective Date Seen by a Provider: Nov 26, 2021 Time Seen by a Provider: 11:33 Subjective/Events-last exam Patient today is able to come off BiPAP and is currently on Vapotherm at 35 L and 90% FiO2. He is sitting in the bed and looking around. She was able to talk but disoriented. No respiratory distress present. His urine output apparently decreased hence he is started on IV fluids. Review of Systems ros per rn Sepsis Event Evaluation Height, Weight, BMI Height: '" Weight: lbs. oz. kg; 23.85 BMI Method: Exam Exam Patient acknowledged, consented, and participated in this virtual visit which was conducted using real time audio/video Vital Signs Date Time Temp Pulse Resp B/P (MAP) Pulse Ox O2 Delivery O2 Flow Rate FiO2 11/26/21 10:39 94 Vapotherm 35.00 90 11/26/21 09:11 120/66 11/26/21 08:00 36.2 11/26/21 08:00 Vapotherm 40.00 80 11/26/21 07:00 56 11/26/21 06:47 Vapotherm 35.00 90.00 11/26/21 06:00 45 105/66 91 NIV Bilevel 55.00 11/26/21 05:01 49 19 91 60.00 11/26/21 05:00 53 100/66 NIV Bilevel 55.00 11/26/21 04:00 94 NIV Bilevel 60 11/26/21 04:00 49 105/63 95 NIV Bilevel 55.00 11/26/21 03:16 36.3 11/26/21 03:00 52 106/68 91 NIV Bilevel 55.00 11/26/21 02:58 51 21 92 65.00 11/26/21 02:00 47 98/66 94 NIV Bilevel 55.00 11/26/21 01:00 52 11/26/21 01:00 52 95/65 91 NIV Bilevel 55.00 11/26/21 00:00 94 NIV Bilevel 60 11/26/21 00:00 48 92/61 97 NIV Bilevel 55.00 11/25/21 23:23 36.4 11/25/21 23:00 62 24 121/70 88 NIV Bilevel 55.00 11/25/21 22:00 56 25 101/60 96 NIV Bilevel 55.00 11/25/21 21:42 54 25 96 65.00 11/25/21 21:00 67 31 109/62 90 NIV Bilevel 55.00 11/25/21 20:44 75 91 NIV Bilevel 55.00 11/25/21 20:19 38.2 84 92 Vapotherm 35.00 90.00 11/25/21 20:00 79 132 132/77 77 Vapotherm 35.00 90.00 11/25/21 20:00 92 Vapotherm 35.00 90 11/25/21 19:00 88 133/67 Vapotherm 35.00 90.00 11/25/21 19:00 88 11/25/21 18:26 94 Vapotherm 35.00 90 11/25/21 18:00 79 131/90 96 Vapotherm 40.00 95.00 11/25/21 17:37 125/68 11/25/21 17:00 62 125/68 90 Vapotherm 40.00 95.00 11/25/21 16:00 Vapotherm 40.00 80 11/25/21 16:00 68 117/70 91 Vapotherm 40.00 95.00 11/25/21 15:00 72 123/91 94 Vapotherm 40.00 95.00 11/25/21 14:55 97 Vapotherm 35.00 95 11/25/21 14:00 85 135/74 94 Vapotherm 40.00 95.00 11/25/21 13:00 89 120/66 95 Vapotherm 40.00 95.00 11/25/21 13:00 66 11/25/21 12:00 70 24 110/70 94 Vapotherm 40.00 95.00 11/25/21 12:00 Vapotherm 40.00 80 11/25/21 12:00 36.0 I & O 11/26/21 06:59 Intake Total 530 ml Output Total 1060 ml Balance -530 ml Height & Weight Height: '" Weight: lbs. oz. kg; 23.85 BMI Method: General Appearance: Anxious, Chronically ill, Mild Distress, Thin HEENT: PERRL/EOMI, Pharynx Normal Neck: Normal Inspection, Supple Respiratory: No Accessory Muscle Use, No Respiratory Distress, Decreased Breath Sounds Cardiovascular: Regular Rate, Rhythm Capillary Refill: Less Than 3 Seconds Peripheral Pulses: 1+ Dorsalis Pedis (R), 1+ Left Dors-Pedis (L) (see free text) Extremity: Normal Inspection, Non Tender, No Pedal Edema Neurologic/Psychiatric: Alert, Depressed Affect Skin: Normal Color, Warm/Dry Other comments PE PER RN Results Lab Laboratory Tests 11/25/21 03:50 11/26/21 05:10 Assessment/Plan Assessment/Plan 1. SARScoronavirus2/Covid19 pneumonia 2. Acute hypoxic respiratory failure requiring Vapotherm 3. Status post STEMI requiring PCI of LAD 4. Recent CVA with mild mental status changes 5. EVAN improving 6. Hyperglycemia secondary to steroids and diabetes mellitus. Recommendations 1. Continue Vapotherm and wean FiO2 as tolerated 2. Continue Lovenox and ulcer prophylaxis 3. IV Zosyn per primary care physician 4. Eliquis 5 mg twice daily. 5. His prognosis is guarded. 6. Video visit made and discussed with the patient as well as ICU Critical Care: Critically Ill Patient Time spent with patient (mins): 25 PRISCILA CONCEPCION MD Nov 26, 2021 11:33
--- NOTE | 2021-11-26 11:34 | Physical Therapy Daily Note ---
PT Daily Note-Current Subjective Patient on 90% vapotherm Mental Status Patient Orientation: Person, Time, Situation Attachments: Oxygen (vapotherm), Prieto Catheter, IV Transfers SCALE: Activities may be completed with or without assistive devices. 5-[id number]-[id number] completes the activity by him/herself with no assistance from a helper. 5-Set-up or Clean-up Assistance-helper sets up or cleans up; patient completes activity. [place] assists only prior to or following the activity. 4-Supervision or Touching Assistance-helper provides verbal cues and/or touching/steadying and/or contact guard assistance as patient completes activity . Assistance may be provided throughout the activity or intermittently. 3-Partial/Moderate Assistance-helper does LESS THAN HALF the effort. [place] lifts, holds or supports trunk or limbs, but provides less than half the effort. 2-Substantial/Maximal Assistance-helper does MORE THAN HALF the effort. [place] lifts or holds trunk or limbs and provides more than half the effort. 6-Zklhotcku-mfykiw does ALL the effort. Patient does none of the effort to complete the activity. Or, the assistance of 2 or more helpers is required for the patient to complete the activity. If activity was not attempted, code reason: 7-Patient Refused. 9-Not Applicable-not attempted and the patient did not perform the activity before the current illness, exacerbation or injury. 10-Not Attempted due to Environmental Limitations-(lack of equipment, weather restraints, etc.). 88-Not Attempted due to Medical Conditions or Safety Concerns. Sit to Lying (QC): 4 Lying to Sitting/Side of Bed(Q: 4 (sat EOB x 5 min with SAO2 84%) Exercises Seated Therapy Exercises: Ankle pumps, Long arc quads Seated Reps: 15 Assessment Patient SAO2 deceases to 84% on 90% vapotherm. Patient tolerates minimal activity. Returned to supine in bed with HOB elevated and 4 rails up. PT Residential Goals Residential Goals PT Gas Station Attendant Goals Time Frame: Nov 27, 2021 Roll Left & Right (QC): 6 Sit to Lying (QC): 6 Lying-Sitting on Side/Bed(QC): 6 Sit to Stand (QC): 4 Chair/[id number]-[id number]-[id number] Xfer(QC): 4 Walk 10 feet (QC): 4 PT Plan Treatment/Plan Treatment Plan: Continue Plan of Care Treatment Plan: Bed Mobility, Education, Functional Activity Nelson, Functional Strength, Gait, Safety, Therapeutic Exercise, Transfers Treatment Duration: Nov 27, 2021 Frequency: 6 times per week Estimated Hrs Per Day: .25 hour per day Patient and/or Family Agrees t: Yes Time/GCodes Time In: 1105 Time Out: 1114 Total Billed Treatment Time: 9 Total Billed Treatment 1 visit EX 9 min RYAN KHAN PT Nov 26, 2021 11:34
--- NOTE | 2021-11-26 16:41 | Cardiology Progress Note ---
Progress Note-Cardiology Events since last exam Date Seen by Provider: Nov 26, 2021 Time Seen by Provider: 16:38 Events since last exam SupineI am following him for anterior STEMI that occurred while he was in the hospital being treated for Covid pneumonia with post pulmonary emboli. I did not see the patient due to his Covid status. I did speak with of his nurse of today. His oxygen requirements continue to improve but he remains in the intensive care unit. He has not been complaining of any recurrent chest discomfort. Certain portions of this document may have been dictated utilizing voice recognition technology. Inherent to this technology, typographical and grammatical errors may exist. As much as I am diligent to identify and correct these mistakes, some errors may remain in the document. Vitals Last set of Vitals Signs Vital Signs 11/26/21 11/26/21 11/26/21 14:14 15:00 16:00 Temp 36.4 Pulse 85 Resp 22 B/P (MAP) 122/73 Pulse Ox 98 O2 Delivery Vapotherm O2 Flow Rate 35.00 90.00 FiO2 90 Labs Labs Laboratory Tests 11/26/21 05:10 Exam Vital Signs Vital Signs Date Time Temp Pulse Resp B/P (MAP) Pulse Ox O2 Delivery O2 Flow Rate FiO2 11/26/21 16:00 36.4 11/26/21 15:00 85 22 122/73 98 Vapotherm 35.00 90.00 11/26/21 14:14 90 Physical Exam I did not examine the patient due to his Covid status. Labs Laboratory Tests Test 11/25/21 17:34 11/25/21 19:39 11/26/21 05:09 11/26/21 05:10 Range/Units Glucometer 118 H 142 H 130 H 70-110 MG/DL White Blood Count 5.1 4.3-11.0 10^3/uL Red Blood Count 4.50 4.30-5.52 10^6/uL Hemoglobin 12.9 L 13.3-17.7 g/dL Hematocrit 39 L 40-54 % Mean Corpuscular Volume 86 80-99 fL Mean Corpuscular Hemoglobin 29 25-34 pg Mean Corpuscular Hemoglobin Concent 33 32-36 g/dL Red Cell Distribution Width 13.8 10.0-14.5 % Platelet Count 177 130-400 10^3/uL Mean Platelet Volume 11.3 9.0-12.2 fL Immature Granulocyte % (Auto) 2 % Neutrophils (%) (Auto) 74 42-75 % Lymphocytes (%) (Auto) 12 12-44 % Monocytes (%) (Auto) 10 0-12 % Eosinophils (%) (Auto) 2 0-10 % Basophils (%) (Auto) 0 0-10 % Neutrophils # (Auto) 3.8 1.8-7.8 10^3/uL Lymphocytes # (Auto) 0.6 L 1.0-4.0 10^3/uL Monocytes # (Auto) 0.5 0.0-1.0 10^3/uL Eosinophils # (Auto) 0.1 0.0-0.3 10^3/uL Basophils # (Auto) 0.0 0.0-0.1 10^3/uL Immature Granulocyte # (Auto) 0.1 0.0-0.1 10^3/uL Sodium Level 138 135-145 MMOL/L Potassium Level 4.5 3.6-5.0 MMOL/L Chloride Level 107 98-107 MMOL/L Carbon Dioxide Level 24 21-32 MMOL/L Anion Gap 7 5-14 MMOL/L Blood Urea Nitrogen 36 H 7-18 MG/DL Creatinine 0.82 0.60-1.30 MG/DL Estimat Glomerular Filtration Rate 93 BUN/Creatinine Ratio 44 Glucose Level 123 H 70-105 MG/DL Calcium Level 8.3 L 8.5-10.1 MG/DL Corrected Calcium 9.3 8.5-10.1 MG/DL Phosphorus Level 3.0 2.3-4.7 MG/DL Magnesium Level 2.1 1.6-2.4 MG/DL Total Bilirubin 0.4 0.1-1.0 MG/DL Aspartate Amino Transf (AST/SGOT) 29 5-34 U/L Alanine Aminotransferase (ALT/SGPT) 19 0-55 U/L Alkaline Phosphatase 100 40-136 U/L Total Protein 5.5 L 6.4-8.2 GM/DL Albumin 2.8 L 3.2-4.5 GM/DL Test 11/26/21 10:53 11/26/21 15:56 Range/Units Glucometer 198 H 162 H 70-110 MG/DL Diagnosis/Problems Diagnosis/Problems (1) ST elevation myocardial infarction (STEMI) of anterolateral wall, initial episode of care Assessment & Plan: On 11/20 he started having chest pain and an electrocardiogram showed an acute anterolateral ST elevation myocardial infarction. 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 He has been started on clopidogrel. I will continue aspirin until discharge. He is on apixaban due to pulmonary embolism diagnosed during this admission. His discharge anticoagulation should be clopidogrel and apixaban without aspirin. I started him on high-dose statin medication due to the acute myocardial infarction. I will change his lisinopril over to shorter acting captopril. We will administer carvedilol and JESUSITA inhibitor as tolerated by his blood pressure. We may want to consider another echocardiogram prior to discharge. I have been holding off on this due to his Covid status to help reduce the risk to staff. (2) Primary hypertension Assessment & Plan: Blood pressures continue to intermittently be on the low side. I have ordered carvedilol and captopril as his blood pressure will tolerate. (3) Mixed hyperlipidemia Assessment & Plan: Due to his acute myocardial infarction, I started him on high-dose statin medication. This will need to be reassessed in approximately 6 weeks. (4) Pulmonary embolism Assessment & Plan: This may possibly be related to his Covid infection. I changed his enoxaparin over to apixaban on 11/21. ALISHA WILSON JR, MD Nov 26, 2021 16:41
[2021-11-26] MEDS: ROSUVASTATIN 20 MG (CRESTOR) TABLET PO SCH (20:03)
[2021-11-26] MEDS: guaiFENesin/DM (ROBITUSSIN DM) 10 ML UDC PO PRN (20:34)
[2021-11-27] MEDS: RT-ALBUTEROL HFA 8.5 GM INHALER IH SCH ×5 (02:39→21:16)
[2021-11-27] MEDS: PIPERACILLIN SODIUM/TAZOBACTAM 4.5 GM in NS (IVPB) 100 ML IV SCH (02:53)
[2021-11-27 03:06] LABS: BASOPHILS % (AUTO) 1 % (0-10); EOSINOPHILS # (AUTO) 0.1 10^3/uL (0.0-0.3); EOSINOPHILS % (AUTO) 3 % (0-10); HEMATOCRIT 39 % (40-54); HEMOGLOBIN 12.9 g/dL (13.3-17.7); LYMPHOCYTES # (AUTO) 0.7 10^3/uL (1.0-4.0); LYMPHOCYTES % (AUTO) 17 % (12-44); MEAN CORPUSCULAR HEMOGLOBIN 29 pg (25-34); MEAN CORPUSCULAR HGB CONC 33 g/dL (32-36); MEAN CORPUSCULAR VOLUME 86 fL (80-99); MEAN PLATELET VOLUME 11.2 fL (9.0-12.2); MONOCYTES # (AUTO) 0.6 10^3/uL (0.0-1.0); MONOCYTES % (AUTO) 13 % (0-12); NEUTROPHILS % (AUTO) 67 % (42-75); PLATELET COUNT 159 10^3/uL (130-400); WHITE BLOOD COUNT 4.4 10^3/uL (4.3-11.0)
[2021-11-27 03:21] LABS: ALBUMIN 2.9 GM/DL (3.2-4.5); POTASSIUM 4.2 MMOL/L (3.6-5.0)
[2021-11-27 03:22] LABS: CALCIUM 8.2 MG/DL (8.5-10.1)
[2021-11-27 03:24] LABS: TOTAL PROTEIN 5.6 GM/DL (6.4-8.2)
[2021-11-27 03:25] LABS: BILIRUBIN,TOTAL 0.5 MG/DL (0.1-1.0)
[2021-11-27 03:27] LABS: CREATININE SERUM 0.85 MG/DL (0.60-1.30)
[2021-11-27 03:30] LABS: MAGNESIUM 2.1 MG/DL (1.6-2.4)
[2021-11-27] MEDS: POTASSIUM CL 10MEQ/50ML IVPB 50 ML IV SCH (03:52)
[2021-11-27] MEDS: MAGNESIUM 1 GM/100 ML IVPB 100 ML IV SCH (03:52)
[2021-11-27] MEDS: KCL 20 MEQ TAB (K-DUR) PO SCH (03:52)
[2021-11-27] MEDS: NOREPINEPHRINE 8 MG/250 ML 250 ML IV SCH ×2 (03:52→20:09)
[2021-11-27] MEDS: inSUlin ASPART (NovoLOG) 1 UNIT/0.01 ML (CHARGE PER UNIT) SC SCH ×4 (03:56→20:10)
[2021-11-27] MEDS: ASPIRIN 81 MG CHEW (CHILDREN'S ASA) PO SCH (09:38)
[2021-11-27] MEDS: APIXABAN 5 MG (ELIQUIS) TABLET PO SCH ×2 (09:39→20:09)
[2021-11-27] MEDS: CLOPIDOGREL 75 MG (PLAVIX) TABLET PO SCH (09:39)
[2021-11-27] MEDS: PANTOPRAZOLE 40 MG (PROTONIX) TAB PO SCH (09:39)
[2021-11-27] MEDS: CAPTOPRIL 25 MG (CAPOTEN) TAB PO SCH ×2 (09:39→20:09)
[2021-11-27] MEDS: DOCUSATE SODIUM 100 MG (COLACE) CAP PO SCH ×2 (09:39→20:09)
[2021-11-27] MEDS: SENNOSIDES 8.6 MG (SENOKOT) TAB PO SCH ×2 (09:39→20:09)
[2021-11-27] MEDS: ACYCLOVIR 400 MG TABLET (ZOVIRAX) PO SCH ×2 (09:39→20:09)
--- NOTE | 2021-11-27 09:43 | Cardiology Progress Note ---
Progress Note-Cardiology Events since last exam Date Seen by Provider: Nov 27, 2021 Time Seen by Provider: 09:39 Events since last exam I am following him due to anterior STEMI. He remains in the intensive care u nit. His oxygen requirements have gone up over the past 24 hours. He is now on 80% oxygen by Vapotherm. He has not complained of any further chest pain. I did not see the patient due to his Covid status. I did speak with his nurse of today. Certain portions of this document may have been dictated utilizing voice recognition technology. Inherent to this technology, typographical and grammati ed errors may exist. As much as I am diligent to identify and correct these mistakes, some errors may remain in the document. Vitals Last set of Vitals Signs Vital Signs 11/27/21 11/27/21 11/27/21 10:46 11:00 11:25 Temp 35.5 Pulse 85 Resp 31 B/P (MAP) 128/71 Pulse Ox 93 O2 Delivery Vapotherm O2 Flow Rate 35.00 100.00 FiO2 100 Labs Labs Laboratory Tests 11/27/21 03:00 Exam Vital Signs Vital Signs Date Time Temp Pulse Resp B/P (MAP) Pulse Ox O2 Delivery O2 Flow Rate FiO2 11/27/21 11:25 35.5 11/27/21 11:00 85 31 128/71 93 Vapotherm 35.00 100.00 11/27/21 10:46 100 Physical Exam I did not examine the patient due to his Covid status. Labs Laboratory Tests Test 11/26/21 15:56 11/26/21 20:31 11/27/21 03:00 11/27/21 10:50 Range/Units Glucometer 162 H 125 H 174 H 70-110 MG/DL White Blood Count 4.4 4.3-11.0 10^3/uL Red Blood Count 4.48 4.30-5.52 10^6/uL Hemoglobin 12.9 L 13.3-17.7 g/dL Hematocrit 39 L 40-54 % Mean Corpuscular Volume 86 80-99 fL Mean Corpuscular Hemoglobin 29 25-34 pg Mean Corpuscular Hemoglobin Concent 33 32-36 g/dL Red Cell Distribution Width 13.9 10.0-14.5 % Platelet Count 159 130-400 10^3/uL Mean Platelet Volume 11.2 9.0-12.2 fL Immature Granulocyte % (Auto) 1 % Neutrophils (%) (Auto) 67 42-75 % Lymphocytes (%) (Auto) 17 12-44 % Monocytes (%) (Auto) 13 H 0-12 % Eosinophils (%) (Auto) 3 0-10 % Basophils (%) (Auto) 1 0-10 % Neutrophils # (Auto) 3.0 1.8-7.8 10^3/uL Lymphocytes # (Auto) 0.7 L 1.0-4.0 10^3/uL Monocytes # (Auto) 0.6 0.0-1.0 10^3/uL Eosinophils # (Auto) 0.1 0.0-0.3 10^3/uL Basophils # (Auto) 0.0 0.0-0.1 10^3/uL Immature Granulocyte # (Auto) 0.0 0.0-0.1 10^3/uL Sodium Level 138 135-145 MMOL/L Potassium Level 4.2 3.6-5.0 MMOL/L Chloride Level 107 98-107 MMOL/L Carbon Dioxide Level 22 21-32 MMOL/L Anion Gap 9 5-14 MMOL/L Blood Urea Nitrogen 33 H 7-18 MG/DL Creatinine 0.85 0.60-1.30 MG/DL Estimat Glomerular Filtration Rate 89 BUN/Creatinine Ratio 39 Glucose Level 106 H 70-105 MG/DL Calcium Level 8.2 L 8.5-10.1 MG/DL Corrected Calcium 9.1 8.5-10.1 MG/DL Phosphorus Level 3.0 2.3-4.7 MG/DL Magnesium Level 2.1 1.6-2.4 MG/DL Total Bilirubin 0.5 0.1-1.0 MG/DL Aspartate Amino Transf (AST/SGOT) 30 5-34 U/L Alanine Aminotransferase (ALT/SGPT) 19 0-55 U/L Alkaline Phosphatase 95 40-136 U/L Total Protein 5.6 L 6.4-8.2 GM/DL Albumin 2.9 L 3.2-4.5 GM/DL Diagnosis/Problems Diagnosis/Problems (1) ST elevation myocardial infarction (STEMI) of anterolateral wall, initial episode of care Status: Acute Assessment & Plan: On 11/20/21 he started having chest pain and an electrocardiogram showed an acute anterolateral ST elevation myocardial infarction. 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 He has been started on clopidogrel. I will continue aspirin until discharge. He is on apixaban due to pulmonary embolism diagnosed during this admission. His discharge anticoagulation should be clopidogrel and apixaban without aspirin. I started him on high-dose statin medication due to the acute myocardial infarction. I have changed his lisinopril over to shorter acting captopril in the event he develops hypotension from the JESUSITA inhibitor. We will administer carvedilol and JESUSITA inhibitor as tolerated by his blood pressure. We may want to consider another echocardiogram prior to discharge. I have been holding off on this due to his Covid status to help reduce the exposure risk to staff. (2) Primary hypertension Assessment & Plan: Blood pressures continue to intermittently be on the low side. I have ordered carvedilol and captopril as his blood pressure will tolerate. (3) Mixed hyperlipidemia Status: Chronic Assessment & Plan: Due to his acute myocardial infarction, I started him on hi gh-dose statin medication. This will need to be reassessed in approximately 6 weeks. (4) Pulmonary embolism Assessment & Plan: This may possibly be related to his Covid infection. I changed his enoxaparin over to apixaban on 11/21. ALISHA WILSON JR, MD Nov 27, 2021 09:43
--- NOTE | 2021-11-27 11:32 | Physical Therapy Daily Note ---
PT Daily Note-Current Subjective Patient in bed pre tx, agrees to PT, has no complaints of pain. Patient has an improved appearance when just laying in bed. Appearance Patient in bed post tx with nurse call, phone, tray, all needs met, bed alarm on. Mental Status Patient Orientation: Person, Place, Situation Attachments: Oxygen, Prieto Catheter, IV Transfers SCALE: Activities may be completed with or without assistive devices. 1-Niiprxjjur-utltzgt completes the activity by him/herself with no assistance from a helper. 5-Set-up or Clean-up Assistance-helper sets up or cleans up; patient completes activity. Tryon assists only prior to or following the activity. 4-Supervision or Touching Assistance-helper provides verbal cues and/or touc joshua/steadying and/or contact guard assistance as patient completes activity. Assistance may be provided throughout the activity or intermittently. 3-Partial/Moderate Assistance-helper does LESS THAN HALF the effort. Tryon lifts, holds or supports trunk or limbs, but provides less than half the effort. 2-Substantial/Maximal Assistance-helper does MORE THAN HALF the effort. Tryon lifts or holds trunk or limbs and provides more than half the effort. 3-Nvzdzqhef-epjbwt does ALL the effort. Patient does none of the effort to complete the activity. Or, the assistance of 2 or more helpers is required for the patient to complete the activity. If activity was not attempted, code reason: 7-Patient Refused. 9-Not Applicable-not attempted and the patient did not perform the activity before the current illness, exacerbation or injury. 10-Not Attempted due to Environmental Limitations-(lack of equipment, weather restraints, etc.). 88-Not Attempted due to Medical Conditions or Safety Concerns. Roll Left & Right (QC): 6 Sit to Lying (QC): 4 Lying to Sitting/Side of Bed(Q: 4 Patient is able to sit to the side of the bed with SBA, his O2 drops into the mid 80's but comes back up to 90% with purse lip breathing, he has a few coughing fits which drops his O2 again but each time he is able to get it back to 90%, he attempts standing with BRIM MOLDER but is only able to come partway standing, he says he can't do it and sits back down, at this time his O2 drops rapidly into the 70's and patient lays back down, again with purse lip breathing his O2 comes back up to 90% fairly rapidly, he is able to scoot himself up in bed. Exercises Supine Ex: Ankle pumps, Heel Slides Supine Reps: 20 Treatments bed mobility, LE strengthening, standing Assessment Current Status: Poor Progress slow improvement PT Jail Goals Jail Goals PT Jail Goals Time Frame: Nov 27, 2021 Roll Left & Right (QC): 6 Sit to Lying (QC): 6 Lying-Sitting on Side/Bed(QC): 6 Sit to Stand (QC): 4 Chair/Dmb-eb-Lijgw Xfer(QC): 4 Walk 10 feet (QC): 4 PT Plan Problem List Problem List: Activity Tolerance, Functional Strength, Safety, Balance, Gait, Transfer, Bed Mobility, ROM Treatment/Plan Treatment Plan: Continue Plan of Care Treatment Plan: Bed Mobility, Education, Functional Activity Nelson, Functional Strength, Gait, Safety, Therapeutic Exercise, Transfers Treatment Duration: Nov 27, 2021 Frequency: 6 times per week Estimated Hrs Per Day: .25 hour per day Patient and/or Family Agrees t: Yes Safety Risks/Education Patient Education: Correct Positioning, Safety Issues Teaching Recipient: Patient Teaching Methods: Demonstration, Discussion Response to Teaching: Reinforcement Needed Time/GCodes Time In: 1100 Time Out: 1111 Total Billed Treatment Time: 11 Total Billed Treatment 1 visit FA ELIJAH MARC PT Nov 27, 2021 11:32
--- NOTE | 2021-11-27 12:36 | Tele-ICU Progress Note ---
Subjective Date Seen by a Provider: Nov 27, 2021 Time Seen by a Provider: 09:25 Subjective/Events-last exam Patient today is awake alert and following simple commands. His voice is a little bit stronger today. He is still requiring Vapotherm for adequate oxygenation. He did not require however BiPAP ventilation. Hemodynamically stable. Cardiology is following for his NSTEMI status post PCI to the LAD.Being considered for transfer to an LTAC Review of Systems ros per rn Sepsis Event Evaluation Height, Weight, BMI Height: '" Weight: lbs. oz. kg; 23.85 BMI Method: Exam Exam Patient acknowledged, consented, and participated in this virtual visit which was conducted using real time audio/video Vital Signs Date Time Temp Pulse Resp B/P (MAP) Pulse Ox O2 Delivery O2 Flow Rate FiO2 11/27/21 11:25 35.5 11/27/21 11:00 85 31 128/71 93 Vapotherm 35.00 100.00 11/27/21 10:46 99 Vapotherm 35.00 100 11/27/21 10:25 Vapotherm 35.00 100.00 11/27/21 10:00 79 24 118/71 95 Vapotherm 35.00 80.00 11/27/21 09:00 76 11 147/89 97 Vapotherm 35.00 80.00 11/27/21 08:50 Vapotherm 35.00 85 11/27/21 08:15 Vapotherm 35.00 80.00 11/27/21 08:00 86 36 145/81 87 Vapotherm 35.00 70.00 11/27/21 07:45 36.2 11/27/21 07:30 35.00 70.00 11/27/21 07:14 94 Vapotherm 35.00 70 11/27/21 07:03 Vapotherm 35.00 80.00 11/27/21 07:00 74 11/27/21 07:00 57 129/67 95 Vapotherm 30.00 75.00 11/27/21 06:00 58 120/79 95 Vapotherm 30.00 75.00 11/27/21 05:00 77 143/73 87 Vapotherm 30.00 75.00 11/27/21 04:00 72 19 136/75 93 Vapotherm 30.00 75.00 11/27/21 04:00 92 Vapotherm 30.00 75 11/27/21 03:30 68 22 129/81 95 Vapotherm 30.00 75.00 11/27/21 03:01 35.9 95 Vapotherm 30.00 75.00 11/27/21 02:55 97 Vapotherm 35.00 75.00 11/27/21 02:40 Vapotherm 35.00 80.00 11/27/21 02:39 91 Vapotherm 35.00 80 11/27/21 02:00 66 17 133/78 95 Vapotherm 35.00 75.00 11/27/21 01:00 58 15 134/73 98 Vapotherm 35.00 75.00 11/27/21 01:00 61 11/27/21 00:19 36.1 Vapotherm 35.00 75.00 11/27/21 00:00 72 28 122/69 Vapotherm 35.00 70.00 11/27/21 00:00 95 Vapotherm 35.00 75 11/26/21 23:00 67 21 114/69 89 Vapotherm 35.00 70.00 11/26/21 22:54 90 Vapotherm 35.00 70.00 11/26/21 22:15 100 Vapotherm 40.00 75.00 11/26/21 22:00 74 23 124/68 98 Vapotherm 40.00 100.00 11/26/21 21:53 93 Vapotherm 40.00 75 11/26/21 21:00 75 27 129/74 88 Vapotherm 40.00 100.00 11/26/21 20:42 Vapotherm 40.00 100.00 11/26/21 20:00 83 129/75 88 Vapotherm 35.00 80.00 11/26/21 20:00 Vapotherm 35.00 80 11/26/21 19:42 36.2 11/26/21 19:02 81 11/26/21 19:00 78 132/87 92 Vapotherm 35.00 80.00 11/26/21 19:00 Vapotherm 35.00 80.00 11/26/21 18:47 93 Vapotherm 35.00 80 11/26/21 18:00 75 138/75 95 Vapotherm 35.00 90.00 11/26/21 17:00 68 121/73 95 Vapotherm 35.00 90.00 11/26/21 16:00 Vapotherm 40.00 80 11/26/21 16:00 36.4 11/26/21 16:00 72 129/72 95 Vapotherm 35.00 90.00 11/26/21 15:00 85 22 122/73 98 Vapotherm 35.00 90.00 11/26/21 14:14 100 Vapotherm 35.00 90 11/26/21 14:00 83 23 143/80 90 Vapotherm 35.00 90.00 11/26/21 13:00 69 118/101 Vapotherm 35.00 90.00 11/26/21 13:00 63 I & O 11/27/21 07:00 Intake Total 1410 ml Output Total 1300 ml Balance 110 ml Height & Weight Height: '" Weight: lbs. oz. kg; 23.85 BMI Method: General Appearance: Anxious, Chronically ill, Mild Distress, Thin HEENT: PERRL/EOMI, Pharynx Normal Neck: Normal Inspection, Supple Respiratory: No Accessory Muscle Use, No Respiratory Distress, Decreased Breath Sounds Cardiovascular: Regular Rate, Rhythm Capillary Refill: Less Than 3 Seconds Peripheral Pulses: 1+ Dorsalis Pedis (R), 1+ Left Dors-Pedis (L) (see free text) Extremity: Normal Inspection, Non Tender, No Pedal Edema Neurologic/Psychiatric: Alert, Depressed Affect Skin: Normal Color, Warm/Dry Other comments pe per rn Results Lab Laboratory Tests 11/26/21 05:10 11/27/21 03:00 Assessment/Plan Assessment/Plan 1. SARScoronavirus2/Covid19 pneumonia 2. Acute hypoxic respiratory failure requiring Vapotherm 3. Status post STEMI requiring PCI of LAD 4. Recent CVA with mild mental status changes 5. EVAN improving 6. Hyperglycemia secondary to steroids and diabetes mellitus. Recommendations 1. Continue Vapotherm and wean FiO2 as tolerated 2. Continue Lovenox and ulcer prophylaxis 3. IV Zosyn per primary care physician 4. Eliquis 5 mg twice daily. 5. His prognosis is guarded. 6. Video visit made and discussed with the patient as well as ICU. 7. consider transferring to a LTAC Critical Care: Critically Ill Patient Time spent with patient (mins): 25 PRISCILA CONCEPCION MD Nov 27, 2021 12:36
--- NOTE | 2021-11-27 17:19 | Progress Note ---
Subjective Subjective/Events-last exam Afebrile, states he is feeling well, denies feeling short of breath although his oxygen saturation was in the low 80s on vapotherm at FiO2 80%. Objective Exam Last Set of Vital Signs Vital Signs Date Time Temp Pulse Resp B/P (MAP) Pulse Ox O2 Delivery O2 Flow Rate FiO2 11/27/21 16:00 80 37 120/63 90 Vapotherm 35.00 100.00 11/27/21 16:00 35.6 11/27/21 15:58 100 Capillary Refill : Less Than 3 Seconds I&O Intake and Output 11/27/21 00:00 Intake Total 1340 ml Output Total 1235 ml Balance 105 ml Intake Oral 1240 ml IV Total 100 ml Output Urine Total 1235 ml # Bowel Movements 1 General: Alert, No Acute Distress Lungs: Other (ronchi) Heart: Regular Rate Extremities: No Edema Psych/Mental Status: Mood NL, Other (oriented to self only) Results/Procedures Lab Laboratory Tests 11/26/21 20:31: Glucometer 125H 11/27/21 03:00: White Blood Count 4.4, Red Blood Count 4.48, Hemoglobin 12.9L, Hematocrit 39L, Mean Corpuscular Volume 86, Mean Corpuscular Hemoglobin 29, Mean Corpuscular Hemoglobin Concent 33, Red Cell Distribution Width 13.9, Platelet Count 159, Mean Platelet Volume 11.2, Immature Granulocyte % (Auto) 1, Neutrophils (%) (Auto) 67, Lymphocytes (%) (Auto) 17, Monocytes (%) (Auto) 13H, Eosinophils (%) (Auto) 3, Basophils (%) (Auto) 1, Neutrophils # (Auto) 3.0, Lymphocytes # (Auto) 0.7L, Monocytes # (Auto) 0.6, Eosinophils # (Auto) 0.1, Basophils # (Auto) 0.0, Immature Granulocyte # (Auto) 0.0, Sodium Level 138, Potassium Level 4.2, Chloride Level 107, Carbon Dioxide Level 22, Anion Gap 9, Blood Urea Nitrogen 33H, Creatinine 0.85, Estimat Glomerular Filtration Rate 89, BUN/Creatinine Ratio 39, Glucose Level 106H, Calcium Level 8.2L, Corrected Calcium 9.1, Phosphorus Level 3.0, Magnesium Level 2.1, Total Bilirubin 0.5, Aspartate Amino Transf (AST/SGOT) 30, Alanine Aminotransferase (ALT/SGPT) 19, Alkaline Phosphatase 95, Total Protein 5.6L, Albumin 2.9L 11/27/21 10:50: Glucometer 174H 11/27/21 15:27: Glucometer 193H Microbiology 11/14/21 Urine Culture - Final, Complete NO GROWTH 11/14/21 MRSA Screen - Final, Complete MRSA not isolated 11/14/21 Blood Culture - Final, Complete No growth Assessment/Plan Assessment/Plan (1) Pneumonia due to COVID-19 virus Status: Acute Assessment & Plan: 11/26 Requiring vapotherm with 90% FiO2 today. s/p Actemra, on acyclovir for pprx. Continued on dexamethasone and zosyn for suspected secondary bacterial pneumonia. 11/27- has received 13 days of dexamethasone will d/c. continues to require high Fio2 but is relatively stable on that. Continued zosyn. (2) ST elevation myocardial infarction (STEMI) of anterolateral wall, initial episode of care Status: Acute Assessment & Plan: 11/20 cath with stent to LAD, appreciate Cardiology recommendations. On clopidogrel, aspirin, statin. (3) Acute ischemic stroke Status: Acute Assessment & Plan: CT findings with possible subacute or recent ischemia, unable to get MRI due to respiratory status, no clear physical findings of ischemia. Carotid US without significant stenosis. (4) Mixed hyperlipidemia Status: Chronic (5) Bilateral pulmonary embolism Status: Acute Assessment & Plan: On apixaban. Bilateral segmental and subsegmental. (6) Altered mental status Status: Acute Qualifiers: Qualified Codes: R41.82 - Altered mental status, unspecified (7) HTN (hypertension) Status: Chronic (8) HLD (hyperlipidemia) Status: Chronic (9) Secondary bacterial pneumonia Status: Acute Assessment & Plan: Zosyn (10) Acute respiratory failure due to COVID-19 Status: Acute NAM RUSS MD Nov 27, 2021 17:19
[2021-11-27] MEDS: ROSUVASTATIN 20 MG (CRESTOR) TABLET PO SCH (20:09)
[2021-11-28] MEDS: RT-ALBUTEROL HFA 8.5 GM INHALER IH SCH ×4 (02:46→21:06)
[2021-11-28 04:02] LABS: BASOPHILS % (AUTO) 0 % (0-10); HEMATOCRIT 40 % (40-54); MEAN CORPUSCULAR VOLUME 86 fL (80-99)
[2021-11-28 04:04] LABS: EOSINOPHILS # (AUTO) 0.2 10^3/uL (0.0-0.3); EOSINOPHILS % (AUTO) 3 % (0-10); HEMOGLOBIN 13.3 g/dL (13.3-17.7); LYMPHOCYTES # (AUTO) 0.9 10^3/uL (1.0-4.0); LYMPHOCYTES % (AUTO) 20 % (12-44); MEAN CORPUSCULAR HEMOGLOBIN 29 pg (25-34); MEAN CORPUSCULAR HGB CONC 33 g/dL (32-36); MEAN PLATELET VOLUME 11.2 fL (9.0-12.2); MONOCYTES # (AUTO) 0.6 10^3/uL (0.0-1.0); MONOCYTES % (AUTO) 13 % (0-12); NEUTROPHILS % (AUTO) 63 % (42-75); PLATELET COUNT 127 10^3/uL (130-400); WHITE BLOOD COUNT 4.7 10^3/uL (4.3-11.0)
[2021-11-28 04:11] LABS: POTASSIUM 4.3 MMOL/L (3.6-5.0)
[2021-11-28 04:13] LABS: CALCIUM 8.5 MG/DL (8.5-10.1)
[2021-11-28 04:14] LABS: TOTAL PROTEIN 5.9 GM/DL (6.4-8.2)
[2021-11-28 04:16] LABS: BILIRUBIN,TOTAL 0.6 MG/DL (0.1-1.0)
[2021-11-28 04:17] LABS: CREATININE SERUM 0.84 MG/DL (0.60-1.30); PHOSPHORUS 3.1 MG/DL (2.3-4.7)
[2021-11-28 04:20] LABS: MAGNESIUM 2.1 MG/DL (1.6-2.4)
[2021-11-28] MEDS: POTASSIUM CL 10MEQ/50ML IVPB 50 ML IV SCH (05:42)
[2021-11-28] MEDS: MAGNESIUM 1 GM/100 ML IVPB 100 ML IV SCH (05:42)
[2021-11-28] MEDS: KCL 20 MEQ TAB (K-DUR) PO SCH (05:43)
[2021-11-28] MEDS: inSUlin ASPART (NovoLOG) 1 UNIT/0.01 ML (CHARGE PER UNIT) SC SCH ×4 (05:43→21:11)
--- NOTE | 2021-11-28 09:07 | Physical Therapy Daily Note ---
PT Daily Note-Current Subjective Patient in bed pre tx, agrees to PT, has no complaints of pain. Appearance Patient in bed post tx with nurse call, phone, tray, all needs met, bed alarm on. Mental Status Patient Orientation: Person, Confused Attachments: Oxygen (vapotherm), Prieto Catheter Transfers SCALE: Activities may be completed with or without assistive devices. 7-Agudjywkrn-kackxzm completes the activity by him/herself with no assistance from a helper. 5-Set-up or Clean-up Assistance-helper sets up or cleans up; patient completes activity. [place] assists only prior to or following the activity. 4-Supervision or Touching Assistance-helper provides verbal cues and/or touching/steadying and/or contact guard assistance as patient completes activity. Assistance may be provided throughout the activity or intermittently. 3-Partial/Moderate Assistance-helper does LESS THAN HALF the effort. [place] lifts, holds or supports trunk or limbs, but provides less than half the effort. 2-Substantial/Maximal Assistance-helper does MORE THAN HALF the effort. [place] lifts or holds trunk or limbs and provides more than half the effort. 0-Tpjdpuitr-fleony does ALL the effort. Patient does none of the effort to complete the activity. Or, the assistance of 2 or more helpers is required for the patient to complete the activity. If activity was not attempted, code reason: 7-Patient Refused. 9-Not Applicable-not attempted and the patient did not perform the activity before the current illness, exacerbation or injury. 10-Not Attempted due to Environmental Limitations-(lack of equipment, weather restraints, etc.). 88-Not Attempted due to Medical Conditions or Safety Concerns. Roll Left & Right (QC): 6 Sit to Lying (QC): 6 Lying to Sitting/Side of Bed(Q: 4 Sit to Stand (QC): 4 Patient sits to the side of the bed and O2 drops to upper 80's, with purse lip breathing his O2 comes back up to 90%, he stands using a rolling walker and CGA, very unsteady, cues for positioning, he can only stand about 10 seconds before O2 drops rapidly to the mid 70's, patient sits and lays back down and it take several minutes for O2 to come back up even with purse lip breathing because pa tient cannot stop coughing. Treatments bed mobility and standing Assessment Current Status: Poor Progress Very slow progress. Patient was able to stand completely today but still have not been able to get to the recliner due to severe O2 drop with activity. PT Detention Goals Detention Goals PT Program Instructor Goals Time Frame: Nov 27, 2021 Roll Left & Right (QC): 6 Sit to Lying (QC): 6 Lying-Sitting on Side/Bed(QC): 6 Sit to Stand (QC): 4 Chair/Keh-gv-Pqzun Xfer(QC): 4 Walk 10 feet (QC): 4 PT Plan Problem List Problem List: Activity Tolerance, Functional Strength, Safety, Balance, Gait, Transfer, Bed Mobility, ROM Treatment/Plan Treatment Plan: Continue Plan of Care Treatment Plan: Bed Mobility, Education, Functional Activity Nelson, Functional Strength, Gait, Safety, Therapeutic Exercise, Transfers Treatment Duration: Nov 27, 2021 Frequency: 6 times per week Estimated Hrs Per Day: .25 hour per day Patient and/or Family Agrees t: Yes Safety Risks/Education Patient Education: Correct Positioning, Safety Issues Teaching Recipient: Patient Teaching Methods: Demonstration, Discussion Response to Teaching: Reinforcement Needed Time/GCodes Time In: 0844 Time Out: 0857 Total Billed Treatment Time: 13 Total Billed Treatment 1 visit FA ELIJAH DUONG PT Nov 28, 2021 09:07
--- NOTE | 2021-11-28 09:24 | Cardiology Progress Note ---
Progress Note-Cardiology Events since last exam Date Seen by Provider: Nov 28, 2021 Time Seen by Provider: 09:23 Events since last exam I am following him due to anterior STEMI treated with 1 drug-eluting stent to the left anterior descending coronary artery. He remains in the intensive care unit on Vapotherm. He has not been on BiPAP for 2 days but this had to be resumed this morning. However, just now he had a coughing fit and the nurses and respiratory are having trouble getting his oxygen saturations to come up. He has not complained of any further chest discomfort. There has been no report of palpitations, syncope, or ankle edema. I did not see the patient due to his Covid status. I did speak with his nurse of today. Certain portions of this document may have been dictated utilizing voice recognition technology. Inherent to this technology, typographical and grammatical errors may exist. As much as I am diligent to identify and correct these mistakes, some errors may remain in the document. Vitals Last set of Vitals Signs Vital Signs 11/28/21 11/28/21 11/28/21 11/28/21 11:00 12:00 12:02 13:00 Temp 34.9 Pulse 69 Resp 19 B/P (MAP) 107/65 Pulse Ox 90 O2 Delivery NIV Bilevel O2 Flow Rate 100.00 FiO2 100 Labs Labs Laboratory Tests 11/28/21 03:56 Exam Vital Signs Vital Signs Date Time Temp Pulse Resp B/P (MAP) Pulse Ox O2 Delivery O2 Flow Rate FiO2 11/28/21 13:00 69 11/28/21 12:02 34.9 11/28/21 12:00 90 NIV Bilevel 100 11/28/21 11:00 19 107/65 100.00 Physical Exam I did not examine the patient due to his Covid status. Labs Laboratory Tests Test 11/27/21 15:27 11/27/21 20:01 11/28/21 03:56 11/28/21 09:20 Range/Units Glucometer 193 H 86 70-110 MG/DL White Blood Count 4.7 4.3-11.0 10^3/uL Red Blood Count 4.64 4.30-5.52 10^6/uL Hemoglobin 13.3 13.3-17.7 g/dL Hematocrit 40 40-54 % Mean Corpuscular Volume 86 80-99 fL Mean Corpuscular Hemoglobin 29 25-34 pg Mean Corpuscular Hemoglobin Concent 33 32-36 g/dL Red Cell Distribution Width 14.1 10.0-14.5 % Platelet Count 127 L 130-400 10^3/uL Mean Platelet Volume 11.2 9.0-12.2 fL Immature Granulocyte % (Auto) 1 % Neutrophils (%) (Auto) 63 42-75 % Lymphocytes (%) (Auto) 20 12-44 % Monocytes (%) (Auto) 13 H 0-12 % Eosinophils (%) (Auto) 3 0-10 % Basophils (%) (Auto) 0 0-10 % Neutrophils # (Auto) 3.0 1.8-7.8 10^3/uL Lymphocytes # (Auto) 0.9 L 1.0-4.0 10^3/uL Monocytes # (Auto) 0.6 0.0-1.0 10^3/uL Eosinophils # (Auto) 0.2 0.0-0.3 10^3/uL Basophils # (Auto) 0.0 0.0-0.1 10^3/uL Immature Granulocyte # (Auto) 0.0 0.0-0.1 10^3/uL Percent Immature Platelet Fraction 4.8 0.0-7.6 % Sodium Level 137 135-145 MMOL/L Potassium Level 4.3 3.6-5.0 MMOL/L Chloride Level 106 98-107 MMOL/L Carbon Dioxide Level 21 21-32 MMOL/L Anion Gap 10 5-14 MMOL/L Blood Urea Nitrogen 27 H 7-18 MG/DL Creatinine 0.84 0.60-1.30 MG/DL Estimat Glomerular Filtration Rate 91 BUN/Creatinine Ratio 32 Glucose Level 94 70-105 MG/DL Calcium Level 8.5 8.5-10.1 MG/DL Corrected Calcium 9.3 8.5-10.1 MG/DL Phosphorus Level 3.1 2.3-4.7 MG/DL Magnesium Level 2.1 1.6-2.4 MG/DL Total Bilirubin 0.6 0.1-1.0 MG/DL Aspartate Amino Transf (AST/SGOT) 28 5-34 U/L Alanine Aminotransferase (ALT/SGPT) 16 0-55 U/L Alkaline Phosphatase 95 40-136 U/L Total Protein 5.9 L 6.4-8.2 GM/DL Albumin 3.0 L 3.2-4.5 GM/DL Blood Gas Puncture Site L RAD Blood Gas Patient Temperature 35.1 Arterial Blood pH 7.45 H 7.37-7.43 Arterial Blood Partial Pressure CO2 31 L 35-45 MMHG Arterial Blood Partial Pressure O2 45 L 79-93 MMHG Arterial Blood HCO3 22 L 23-27 MMOL/L Arterial Blood Total CO2 22.8 21.0-31.0 MMOL/L Arterial Blood Oxygen Saturation 85 L 94-100 % Arterial Blood Base Excess -2.0 -2.5-2.5 MMOL/L Juvenal Test YES-POS Blood Gas Ventilator Setting NO Blood Gas Inspired Oxygen 100% Test 11/28/21 10:35 11/28/21 12:40 Range/Units Glucometer 88 70-110 MG/DL Blood Gas Puncture Site LEFT RADIAL Blood Gas Patient Temperature 34.9 Arterial Blood pH 7.44 H 7.37-7.43 Arterial Blood Partial Pressure CO2 31 L 35-45 MMHG Arterial Blood Partial Pressure O2 62 L 79-93 MMHG Arterial Blood HCO3 21 L 23-27 MMOL/L Arterial Blood Total CO2 22.5 21.0-31.0 MMOL/L Arterial Blood Oxygen Saturation 95 94-100 % Arterial Blood Base Excess -2.5 -2.5-2.5 MMOL/L Juvenal Test POSITIVE Blood Gas Ventilator Setting NO Blood Gas Inspired Oxygen 100% Diagnosis/Problems Diagnosis/Problems (1) Acute heart failure with preserved ejection fraction (HFpEF) Assessment & Plan: He may have some superimposed pulmonary edema on top of the Covid pneumonia. I will give him a dose of Lasix today and then start him on IV Lasix twice daily tomorrow. I will obtain a limited follow-up echocardiogram. He has not had an assessment of his ejection fraction since the acute myocardial infarction. (2) ST elevation myocardial infarction (STEMI) of anterolateral wall, initial episode of care Status: Acute Assessment & Plan: On 11/20/21 he started having chest pain and an electrocardiogram showed an acute anterolateral ST elevation myocardial infarction. 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 He has been started on clopidogrel. I will continue aspirin until discharge. He is on apixaban due to pulmonary embolism diagnosed during this admission. His discharge anticoagulation should be clopidogrel and apixaban without aspirin. I started him on high-dose statin medication due to the acute myocardial infarction. I have changed his lisinopril over to shorter acting captopril in the event he develops hypotension from the JESUSITA inhibitor. We will administer carvedilol and JESUSITA inhibitor as tolerated by his blood pressure. As above, now that his respiratory status is worse, I feel that it is prudent to obtain another assessment of his ejection fraction. (3) Primary hypertension Assessment & Plan: Blood pressures continue to intermittently be on the low side. I have ordered carvedilol and captopril as his blood pressure will tolerate. (4) Mixed hyperlipidemia Status: Chronic Assessment & Plan: Due to his acute myocardial infarction, I started him on in tensive-dose statin medication. (5) Pulmonary embolism Assessment & Plan: This may possibly be related to his Covid infection. I changed his enoxaparin over to apixaban on 11/21. (6) Acute respiratory failure due to COVID-19 Status: Acute Assessment & Plan: His pulmonary status seems to be worsening. eICU and the hospitalist are managing the respiratory failure. ALISHA WILSON JR, MD Nov 28, 2021 09:24
[2021-11-28 09:27] VITALS: BP 131/69
[2021-11-28 09:31] LABS: ABG OXYGEN SATURATION 85 % (94-100); ABG PCO2 31 MMHG (35-45); ABG PH 7.45 (7.37-7.43); ABG PO2 45 MMHG (79-93); ABG TCO2 22.8 MMOL/L (21.0-31.0)
[2021-11-28 09:32] LABS: ALLENS TEST YES-POS; INSPIRED O2 100%; PATIENT TEMP 35.1; VENTILATOR NO
[2021-11-28] MEDS ORDERED: morphine INJ 10 MG/ML 1ML (SYR OR VIAL) IVP STA (09:40)
[2021-11-28] MEDS ORDERED: morphine INJ 4 MG/ML 1 ML (VIAL/SYRINGE) ONE (09:41)
--- NOTE | 2021-11-28 09:50 | Diagnostic Imaging Report ---
INDICATION: Respiratory distress. Covid positive. EXAMINATION: Chest 11/28/2021. COMPARISON: 11/25/2021 FINDINGS: There are persistent diffuse bilateral infiltrates similar to previous imaging. The heart is stable. Pulmonary vasculature is congested. There is no pneumothorax. No effusions. The right PICC line tip is stable. IMPRESSION: 1. Diffuse persistent bilateral infiltrates consistent with the history of Covid pneumonia. Dictated by: Dictated on workstation # [id number]
[2021-11-28] MEDS: ACYCLOVIR 400 MG TABLET (ZOVIRAX) PO SCH ×2 (09:51→21:14)
[2021-11-28] MEDS: SENNOSIDES 8.6 MG (SENOKOT) TAB PO SCH ×2 (09:51→21:11)
[2021-11-28] MEDS: CLOPIDOGREL 75 MG (PLAVIX) TABLET PO SCH (09:52)
[2021-11-28] MEDS: DOCUSATE SODIUM 100 MG (COLACE) CAP PO SCH ×2 (09:52→21:11)
[2021-11-28] MEDS: CAPTOPRIL 25 MG (CAPOTEN) TAB PO SCH ×2 (09:52→21:14)
[2021-11-28] MEDS: PANTOPRAZOLE 40 MG (PROTONIX) TAB PO SCH (09:52)
[2021-11-28] MEDS: ASPIRIN 81 MG CHEW (CHILDREN'S ASA) PO SCH (09:52)
[2021-11-28] MEDS: APIXABAN 5 MG (ELIQUIS) TABLET PO SCH ×2 (09:52→21:14)
--- NOTE | 2021-11-28 10:11 | Progress Note ---
Subjective Subjective/Events-last exam Afebrile, pt states he is feeling okay and denies shortness of breath even though he is on bipap this morning after he had a long desaturation with coughing. He states that if it were needed, he does want to be intubated. Objective Exam Last Set of Vital Signs Vital Signs Date Time Temp Pulse Resp B/P (MAP) Pulse Ox O2 Delivery O2 Flow Rate FiO2 11/28/21 09:48 NIV Bilevel 100.00 11/28/21 09:27 82 29 90 11/28/21 09:26 90 11/28/21 07:44 35.3 11/28/21 06:00 120/66 Capillary Refill : Less Than 3 Seconds I&O Intake and Output 11/28/21 00:00 Intake Total 970 ml Output Total 1550 ml Balance -580 ml Intake Oral 870 ml IV Total 100 ml Output Urine Total 1550 ml # Bowel Movements 5 General: Alert, No Acute Distress Lungs: Other (ronchi) Heart: Regular Rate, No Murmurs Neuro: Normal Speech Psych/Mental Status: Mood NL Results/Procedures Lab Laboratory Tests 11/27/21 10:50: Glucometer 174H 11/27/21 15:27: Glucometer 193H 11/27/21 20:01: Glucometer 86 11/28/21 03:56: White Blood Count 4.7, Red Blood Count 4.64, Hemoglobin 13.3, Hematocrit 40, Mean Corpuscular Volume 86, Mean Corpuscular Hemoglobin 29, Mean Corpuscular Hemoglobin Concent 33, Red Cell Distribution Width 14.1, Platelet Count 127L, Mean Platelet Volume 11.2, Immature Granulocyte % (Auto) 1, Neutrophils (%) (Auto) 63, Lymphocytes (%) (Auto) 20, Monocytes (%) (Auto) 13H, Eosinophils (%) (Auto) 3, Basophils (%) (Auto) 0, Neutrophils # (Auto) 3.0, Lymphocytes # (Auto) 0.9L, Monocytes # (Auto) 0.6, Eosinophils # (Auto) 0.2, Basophils # (Auto) 0.0, Immature Granulocyte # (Auto) 0.0, Percent Immature Platelet Fraction 4.8, Sodium Level 137, Potassium Level 4.3, Chloride Level 106, Carbon Dioxide Level 21, Anion Gap 10, Blood Urea Nitrogen 27H, Creatinine 0.84, Estimat Glomerular Filtration Rate 91, BUN/Creatinine Ratio 32, Glucose Level 94, Calcium Level 8.5, Corrected Calcium 9.3, Phosphorus Level 3.1, Magnesium Level 2.1, Total Bilirubin 0.6, Aspartate Amino Transf (AST/SGOT) 28, Alanine Aminotransferase (ALT/SGPT) 16, Alkaline Phosphatase 95, Total Protein 5.9L, Albumin 3.0L 11/28/21 09:20: Blood Gas Puncture Site L RAD, Blood Gas Patient Temperature 35.1, Arterial Blood pH 7.45H, Arterial Blood Partial Pressure CO2 31L, Arterial Blood Partial Pressure O2 45L, Arterial Blood HCO3 22L, Arterial Blood Total CO2 22.8, Arterial Blood Oxygen Saturation 85L, Arterial Blood Base Excess -2.0, Juvenal Test YES-POS, Blood Gas Ventilator Setting NO, Blood Gas Inspired Oxygen 100% Microbiology 11/14/21 Urine Culture - Final, Complete NO GROWTH 11/14/21 MRSA Screen - Final, Complete MRSA not isolated 11/14/21 Blood Culture - Final, Complete No growth Assessment/Plan Assessment/Plan (1) Pneumonia due to COVID-19 virus Status: Acute Assessment & Plan: 11/26 Requiring vapotherm with 90% FiO2 today. s/p Actemra, on acyclovir for pprx. Continued on dexamethasone and zosyn for suspected secondary bacterial pneumonia. 11/27- has received 13 days of dexamethasone will d/c. continues to require high Fio2 but is relatively stable on that. Continued zosyn. 11/28- completed course of Zosyn, somewhat worsened today requiring bipap this am, appreciate [facility]ania ICU assistance. Updated daughter via phone today. (2) ST elevation myocardial infarction (STEMI) of anterolateral wall, initial episode of care Status: Acute Assessment & Plan: 11/20 cath with stent to LAD, appreciate Cardiology recommendations. On clopidogrel, aspirin, statin. (3) Acute ischemic stroke Status: Acute Assessment & Plan: CT findings with possible subacute or recent ischemia, unable to get MRI due to respiratory status, no clear physical findings of ischemia. Carotid US without significant stenosis. (4) Mixed hyperlipidemia Status: Chronic (5) Bilateral pulmonary embolism Status: Acute Assessment & Plan: On apixaban. Bilateral segmental and subsegmental. (6) Altered mental status Status: Acute Qualifiers: Qualified Codes: R41.82 - Altered mental status, unspecified (7) HTN (hypertension) Status: Chronic (8) HLD (hyperlipidemia) Status: Chronic (9) Secondary bacterial pneumonia Status: Acute Assessment & Plan: Torie (10) Acute respiratory failure due to COVID-19 Status: Acute NAM RUSS MD Nov 28, 2021 10:11
[2021-11-28 13:47] LABS: ABG BASE EXCESS -2.5 MMOL/L (-2.5-2.5); ABG OXYGEN SATURATION 95 % (94-100); ABG PCO2 31 MMHG (35-45); ABG PH 7.44 (7.37-7.43); ABG PO2 62 MMHG (79-93); ABG TCO2 22.5 MMOL/L (21.0-31.0)
[2021-11-28 13:48] LABS: ALLENS TEST POSITIVE; INSPIRED O2 100%; PATIENT TEMP 34.9; VENTILATOR NO
[2021-11-28] MEDS: NOREPINEPHRINE 8 MG/250 ML 250 ML IV SCH ×2 (15:09→23:01)
[2021-11-28] MEDS ORDERED: FUROSEMIDE 40 MG/4 ML INJ (LASIX) IVP ONE (15:15)
--- NOTE | 2021-11-28 15:21 | Tele-ICU Progress Note ---
Subjective Date Seen by a Provider: Nov 28, 2021 Time Seen by a Provider: 10:06 Sepsis Event Evaluation Height, Weight, BMI Height: '" Weight: lbs. oz. kg; 23.85 BMI Method: Exam Exam Patient acknowledged, consented, and participated in this virtual visit which was conducted using real time audio/video Vital Signs Date Time Temp Pulse Resp B/P (MAP) Pulse Ox O2 Delivery O2 Flow Rate FiO2 11/28/21 13:00 69 11/28/21 12:02 34.9 11/28/21 12:00 90 NIV Bilevel 100 11/28/21 11:00 69 19 107/65 93 NIV Bilevel 100.00 11/28/21 10:00 74 121/70 89 NIV Bilevel 100.00 11/28/21 09:48 NIV Bilevel 100.00 11/28/21 09:27 82 29 90 100.00 11/28/21 09:26 84 Vapotherm 35.00 90 11/28/21 09:00 98 131/69 79 Vapotherm 35.00 90.00 11/28/21 08:00 95 Vapotherm 35.00 90 11/28/21 08:00 85 27 145/77 78 Vapotherm 35.00 90.00 11/28/21 07:44 35.3 11/28/21 07:00 65 14 110/63 93 Vapotherm 35.00 90.00 11/28/21 07:00 57 11/28/21 06:00 69 13 120/66 100 Vapotherm 35.00 90.00 11/28/21 05:00 78 20 119/62 89 Vapotherm 35.00 90.00 11/28/21 04:00 94 Vapotherm 35.00 90 11/28/21 04:00 68 23 137/71 90 Vapotherm 35.00 90.00 11/28/21 03:56 36.0 11/28/21 03:00 52 17 118/72 91 Vapotherm 35.00 90.00 11/28/21 02:46 94 Vapotherm 35.00 90 11/28/21 02:00 63 14 125/72 96 Vapotherm 35.00 90.00 11/28/21 01:00 56 13 116/71 96 Vapotherm 35.00 90.00 11/28/21 01:00 56 11/28/21 00:36 52 15 96 Vapotherm 35.00 90.00 11/28/21 00:00 51 120/69 96 Vapotherm 35.00 80.00 11/27/21 23:53 94 Vapotherm 35.00 85 11/27/21 23:30 35.1 11/27/21 23:00 52 108/68 92 Vapotherm 35.00 80.00 11/27/21 22:00 63 139/75 92 Vapotherm 35.00 80.00 11/27/21 21:16 88 Vapotherm 35.00 80 11/27/21 21:00 63 24 134/77 89 Vapotherm 35.00 80.00 11/27/21 20:12 70 11/27/21 20:06 96 Vapotherm 35.00 80 11/27/21 20:04 35.9 96 Vapotherm 35.00 80.00 11/27/21 20:00 68 20 141/86 94 Vapotherm 35.00 80.00 11/27/21 19:00 64 30 117/69 91 Vapotherm 35.00 80.00 11/27/21 19:00 64 11/27/21 18:00 65 18 131/79 92 Vapotherm 35.00 85.00 11/27/21 17:32 96 Vapotherm 35.00 85.00 11/27/21 17:00 71 14 138/75 98 Vapotherm 35.00 100.00 11/27/21 16:00 80 37 120/63 90 Vapotherm 35.00 100.00 11/27/21 16:00 35.6 11/27/21 15:58 Vapotherm 35.00 100 11/27/21 15:31 90 100 99 I & O 11/28/21 07:00 Intake Total 900 ml Output Total 1625 ml Balance -725 ml Height & Weight Height: '" Weight: lbs. oz. kg; 23.85 BMI Method: General Appearance: Anxious, Chronically ill, Mild Distress, Thin HEENT: PERRL/EOMI, Pharynx Normal Neck: Normal Inspection, Supple Respiratory: No Accessory Muscle Use, No Respiratory Distress, Decreased Breath Sounds Cardiovascular: Regular Rate, Rhythm Capillary Refill: Less Than 3 Seconds Peripheral Pulses: 1+ Dorsalis Pedis (R), 1+ Left Dors-Pedis (L) (see free text) Extremity: Normal Inspection, Non Tender, No Pedal Edema Neurologic/Psychiatric: Alert, Depressed Affect Skin: Normal Color, Warm/Dry Results Lab Laboratory Tests 11/27/21 03:00 11/28/21 03:56 Assessment/Plan Assessment/Plan (Tele-ICU Physician , Progress Note ) Available chart/ vitals / labs / Images reviewed Video assesment done using teleICU camera, rest of exam as per RN Discussed with RN , EXAM PER RN Events overnight : Afebrile FiO2 - I/O = Drips: Pressors: , hemodynamically stable Consultants: A/P Pneumonia due to COVID-19 virus s/p Actemra, on acyclovir for pprx. dexamethasone and zosyn for suspected secondary bacterial pneumonia zosyn Acute rsp failure = vapotherm with 90% FiO2 --> to BIPA today high risk for intubAtion STEMI of anterolatera 11/20 cath with stent to LAD, clopidogrel, aspirin, statin. Acute ischemic stroke CT findings with possible subacute or recent ischemia, unable to get MRI due to respiratory status, no clear physical findings of ischemia. Carotid US without significant stenosis. Bilateral pulmonary embolism On apixaban. Bilateral segmental and subsegmental. Secondary bacterial pneumonia Zosyn Lines : (Central Line Necessity Reviewed) Prieto: OG: Nutrition: DVT propn - eliquis Stress Ulcer Prophylaxis: Glycemic Control: Plans in collaboration with bedside consultants and IM MDs. Discussed with RN to reach out if any questions or concerns A total of 33 minutes of critical care time was devoted to this patient today, required to treat and/or prevent further deterioration of critical care condition ( as above) . SAMSON MAYEN MD Nov 28, 2021 15:21
[2021-11-28] MEDS: DexMEDEtomidine 250 ML DRIP 250 ML IV SCH (15:23)
[2021-11-28] MEDS ORDERED: FUROSEMIDE 40 MG/4 ML INJ (LASIX) ONE (15:36)
[2021-11-28] MEDS: FUROSEMIDE 40 MG/4 ML INJ (LASIX) IVP SCH (15:45)
[2021-11-28 16:11] VITALS: BP 92/59
[2021-11-28 21:07] VITALS: BP 122/67
[2021-11-28] MEDS: NYSTATIN CREAM (MYCOSTATIN) 30 GM TUBE TP SCH (21:14)
[2021-11-28] MEDS: ROSUVASTATIN 20 MG (CRESTOR) TABLET PO SCH (21:14)
[2021-11-28] MEDS: ONDANSETRON 4 MG/2 ML (SDV) Z0FRAN IV PRN (21:24)
[2021-11-29] MEDS: LORazepam INJ 2 MG/ML (ATIVAN) VIAL IVP PRN ×3 (00:10→13:39)
[2021-11-29 02:41] VITALS: BP 99/33
[2021-11-29] MEDS: RT-ALBUTEROL HFA 8.5 GM INHALER IH SCH ×4 (02:41→21:41)
[2021-11-29 04:56] LABS: EOSINOPHILS # (AUTO) 0.1 10^3/uL (0.0-0.3); EOSINOPHILS % (AUTO) 1 % (0-10); HEMATOCRIT 41 % (40-54); LYMPHOCYTES # (AUTO) 0.7 10^3/uL (1.0-4.0); LYMPHOCYTES % (AUTO) 8 % (12-44); MEAN CORPUSCULAR HEMOGLOBIN 29 pg (25-34); MEAN CORPUSCULAR HGB CONC 34 g/dL (32-36); MEAN CORPUSCULAR VOLUME 85 fL (80-99); MONOCYTES # (AUTO) 0.8 10^3/uL (0.0-1.0); MONOCYTES % (AUTO) 9 % (0-12); NEUTROPHILS # (AUTO) 7.1 10^3/uL (1.8-7.8); NEUTROPHILS % (AUTO) 80 % (42-75); WHITE BLOOD COUNT 8.9 10^3/uL (4.3-11.0)
[2021-11-29 04:59] LABS: BASOPHILS # (AUTO) 0.1 10^3/uL (0.0-0.1); BASOPHILS % (AUTO) 1 % (0-10); HEMOGLOBIN 14.1 g/dL (13.3-17.7); MEAN PLATELET VOLUME 11.6 fL (9.0-12.2); PLATELET COUNT 121 10^3/uL (130-400)
[2021-11-29] MEDS: FUROSEMIDE 40 MG/4 ML INJ (LASIX) IVP SCH (05:17)
[2021-11-29 05:19] LABS: ALBUMIN 3.4 GM/DL (3.2-4.5); POTASSIUM 4.8 MMOL/L (3.6-5.0)
[2021-11-29 05:21] LABS: CALCIUM 8.7 MG/DL (8.5-10.1)
[2021-11-29 05:22] LABS: TOTAL PROTEIN 6.5 GM/DL (6.4-8.2)
[2021-11-29] MEDS: KCL 20 MEQ TAB (K-DUR) PO SCH (05:23)
[2021-11-29] MEDS: inSUlin ASPART (NovoLOG) 1 UNIT/0.01 ML (CHARGE PER UNIT) SC SCH ×4 (05:23→20:46)
[2021-11-29] MEDS: MAGNESIUM 1 GM/100 ML IVPB 100 ML IV SCH (05:23)
[2021-11-29] MEDS: POTASSIUM CL 10MEQ/50ML IVPB 50 ML IV SCH (05:23)
[2021-11-29 05:24] LABS: BILIRUBIN,TOTAL 0.7 MG/DL (0.1-1.0)
[2021-11-29 05:25] LABS: PHOSPHORUS 5.4 MG/DL (2.3-4.7)
[2021-11-29 05:26] LABS: CREATININE SERUM 1.33 MG/DL (0.60-1.30)
[2021-11-29 05:28] LABS: MAGNESIUM 2.2 MG/DL (1.6-2.4)
[2021-11-29] MEDS: ASPIRIN 81 MG CHEW (CHILDREN'S ASA) PO SCH (08:31)
[2021-11-29] MEDS: ACYCLOVIR 400 MG TABLET (ZOVIRAX) PO SCH ×2 (08:32→20:42)
[2021-11-29] MEDS: CLOPIDOGREL 75 MG (PLAVIX) TABLET PO SCH (08:32)
[2021-11-29] MEDS: PANTOPRAZOLE 40 MG (PROTONIX) TAB PO SCH (08:32)
[2021-11-29] MEDS: APIXABAN 5 MG (ELIQUIS) TABLET PO SCH ×2 (08:32→20:42)
[2021-11-29] MEDS: ONDANSETRON 4 MG/2 ML (SDV) Z0FRAN IV PRN (08:52)
[2021-11-29 09:22] LABS: ABG BASE EXCESS -1.7 MMOL/L (-2.5-2.5); ABG OXYGEN SATURATION 94 % (94-100); ABG PCO2 37 MMHG (35-45); ABG PO2 67 MMHG (79-93); ABG TCO2 23.8 MMOL/L (21.0-31.0)
[2021-11-29 09:24] LABS: ALLENS TEST YES-POS; INSPIRED O2 40; PATIENT TEMP 36.4; VENTILATOR NO
[2021-11-29] MEDS: DOCUSATE SODIUM 100 MG (COLACE) CAP PO SCH ×2 (10:07→19:53)
[2021-11-29] MEDS: CAPTOPRIL 25 MG (CAPOTEN) TAB PO SCH ×2 (10:07→20:42)
[2021-11-29] MEDS: SENNOSIDES 8.6 MG (SENOKOT) TAB PO SCH ×2 (10:08→19:54)
[2021-11-29] MEDS: NYSTATIN CREAM (MYCOSTATIN) 30 GM TUBE TP SCH ×3 (11:16→20:42)
--- NOTE | 2021-11-29 11:16 | Cardiology Progress Note ---
Progress Note-Cardiology Events since last exam Date Seen by Provider: Nov 29, 2021 Time Seen by Provider: 11:10 Events since last exam I am following him due to anterior STEMI. He remains in the intensive care unit intermittently on BiPAP and Vapotherm. This morning he had some vomiting and the BiPAP was changed over to Vapotherm. He has not complained of any further chest pain. I did not see the patient due to his Covid status. I did speak with his nurse of today. This morning one of his blood pressure medications was held due to low blood pressure. He was started on low-dose of norepinephrine. Certain portions of this document may have been dictated utilizing voice recognition technology. Inherent to this technology, typographical and grammatical errors may exist. As much as I am diligent to identify and correct these mistakes, some errors may remain in the document. Vitals Last set of Vitals Signs Vital Signs 11/29/21 11/29/21 11/29/21 08:34 08:59 10:00 Temp 36.4 Pulse 64 Resp 21 B/P (MAP) 90/48 Pulse Ox 98 O2 Delivery Vapotherm O2 Flow Rate 40.00 100.00 FiO2 100 Labs Labs Laboratory Tests 11/29/21 04:30 Exam Vital Signs Vital Signs Date Time Temp Pulse Resp B/P (MAP) Pulse Ox O2 Delivery O2 Flow Rate FiO2 11/29/21 10:00 64 21 90/48 98 Vapotherm 40.00 100.00 11/29/21 08:59 100 11/29/21 08:34 36.4 Physical Exam I did not examine the patient due to his Covid status. Labs Laboratory Tests Test 11/28/21 12:40 11/28/21 16:43 11/28/21 20:27 11/29/21 04:30 Range/Units Blood Gas Puncture Site LEFT RADIAL Blood Gas Patient Temperature 34.9 Arterial Blood pH 7.44 H 7.37-7.43 Arterial Blood Partial Pressure CO2 31 L 35-45 MMHG Arterial Blood Partial Pressure O2 62 L 79-93 MMHG Arterial Blood HCO3 21 L 23-27 MMOL/L Arterial Blood Total CO2 22.5 21.0-31.0 MMOL/L Arterial Blood Oxygen Saturation 95 94-100 % Arterial Blood Base Excess -2.5 -2.5-2.5 MMOL/L Juvenal Test POSITIVE Blood Gas Ventilator Setting NO Blood Gas Inspired Oxygen 100% Glucometer 116 H 124 H 70-110 MG/DL White Blood Count 8.9 4.3-11.0 10^3/uL Red Blood Count 4.89 4.30-5.52 10^6/uL Hemoglobin 14.1 13.3-17.7 g/dL Hematocrit 41 40-54 % Mean Corpuscular Volume 85 80-99 fL Mean Corpuscular Hemoglobin 29 25-34 pg Mean Corpuscular Hemoglobin Concent 34 32-36 g/dL Red Cell Distribution Width 14.2 10.0-14.5 % Platelet Count 121 L 130-400 10^3/uL Mean Platelet Volume 11.6 9.0-12.2 fL Immature Granulocyte % (Auto) 1 % Neutrophils (%) (Auto) 80 H 42-75 % Lymphocytes (%) (Auto) 8 L 12-44 % Monocytes (%) (Auto) 9 0-12 % Eosinophils (%) (Auto) 1 0-10 % Basophils (%) (Auto) 1 0-10 % Neutrophils # (Auto) 7.1 1.8-7.8 10^3/uL Lymphocytes # (Auto) 0.7 L 1.0-4.0 10^3/uL Monocytes # (Auto) 0.8 0.0-1.0 10^3/uL Eosinophils # (Auto) 0.1 0.0-0.3 10^3/uL Basophils # (Auto) 0.1 0.0-0.1 10^3/uL Immature Granulocyte # (Auto) 0.1 0.0-0.1 10^3/uL Percent Immature Platelet Fraction 5.6 0.0-7.6 % Sodium Level 138 135-145 MMOL/L Potassium Level 4.8 3.6-5.0 MMOL/L Chloride Level 103 98-107 MMOL/L Carbon Dioxide Level 21 21-32 MMOL/L Anion Gap 14 5-14 MMOL/L Blood Urea Nitrogen 39 H 7-18 MG/DL Creatinine 1.33 H 0.60-1.30 MG/DL Estimat Glomerular Filtration Rate 53 BUN/Creatinine Ratio 29 Glucose Level 127 H 70-105 MG/DL Calcium Level 8.7 8.5-10.1 MG/DL Corrected Calcium 9.2 8.5-10.1 MG/DL Phosphorus Level 5.4 H 2.3-4.7 MG/DL Magnesium Level 2.2 1.6-2.4 MG/DL Total Bilirubin 0.7 0.1-1.0 MG/DL Aspartate Amino Transf (AST/SGOT) 28 5-34 U/L Alanine Aminotransferase (ALT/SGPT) 15 0-55 U/L Alkaline Phosphatase 94 40-136 U/L Total Protein 6.5 6.4-8.2 GM/DL Albumin 3.4 3.2-4.5 GM/DL Test 11/29/21 09:19 11/29/21 10:43 Range/Units Blood Gas Puncture Site LT RAD Blood Gas Patient Temperature 36.4 Arterial Blood pH 7.40 7.37-7.43 Arterial Blood Partial Pressure CO2 37 35-45 MMHG Arterial Blood Partial Pressure O2 67 L 79-93 MMHG Arterial Blood HCO3 23 23-27 MMOL/L Arterial Blood Total CO2 23.8 21.0-31.0 MMOL/L Arterial Blood Oxygen Saturation 94 94-100 % Arterial Blood Base Excess -1.7 -2.5-2.5 MMOL/L Juvenal Test YES-POS Blood Gas Ventilator Setting NO Blood Gas Inspired Oxygen 40 Glucometer 122 H 70-110 MG/DL Diagnosis/Problems Diagnosis/Problems (1) Acute HFrEF (heart failure with reduced ejection fraction) Assessment & Plan: He may have some superimposed pulmonary edema on top of the Covid pneumonia. I started him on IV Lasix twice daily on 11/29. His follow-up echocardiogram showed mild left ventricular systolic dysfunction with an estimated ejection fraction of 40-45%. I have him on low-dose carvedilol and captopril as tolerated by blood pressure. (2) Cardiomyopathy Assessment & Plan: When he first presented to the hospital his ejection f raction was normal. However, following the myocardial infarction, he has mild left ventricular systolic dysfunction. Some of this could be due to regional stunning. As above, I have him on low-dose carvedilol and captopril. (3) ST elevation myocardial infarction (STEMI) of anterolateral wall, initial episode of care Status: Acute Assessment & Plan: On 11/20/21 he started having chest pain and an electrocardiogram showed an acute anterolateral ST elevation myocardial infarction. He was taken for emergent cardiac catheterization and was found to have thrombotic occlusion of the mid left anterior descending coronary artery th at was treated with 1 drug-eluting stent. He has been started on clopidogrel. I will continue aspirin until discharge. He is on apixaban due to pulmonary embolism diagnosed during this admission. His discharge anticoagulation should be clopidogrel and apixaban without aspirin. Continue beta-earline, JESUSITA inhibitor and statin. (4) Primary hypertension Assessment & Plan: Blood pressures continue to intermittently be on the low side. I have ordered carvedilol and captopril as his blood pressure will tolerate. He is now on low-dose norepinephrine infusion as outlined above. (5) Mixed hyperlipidemia Status: Chronic Assessment & Plan: Due to his acute myocardial infarction, I started him on intensive-dose statin medication. (6) Pulmonary embolism Assessment & Plan: This may possibly be related to his Covid infection. I changed his enoxaparin over to apixaban on 11/21. (7) Acute respiratory failure due to COVID-19 Status: Acute Assessment & Plan: His pulmonary status has been about the same since 11/27. eICU and the hospitalist are managing the respiratory failure. (8) Acute kidney injury Assessment & Plan: His kidney function is slightly worse today. We will need to follow this closely with the intravenous furosemide. ALISHA WILSON JR, MD Nov 29, 2021 11:16
--- NOTE | 2021-11-29 12:02 | Tele-ICU Progress Note ---
Subjective Date Seen by a Provider: Nov 29, 2021 Time Seen by a Provider: 12:01 Sepsis Event Evaluation Height, Weight, BMI Height: '" Weight: lbs. oz. kg; 23.85 BMI Method: Exam Exam Patient acknowledged, consented, and participated in this virtual visit which was conducted using real time audio/video Vital Signs Date Time Temp Pulse Resp B/P (MAP) Pulse Ox O2 Delivery O2 Flow Rate FiO2 11/29/21 11:10 36.2 11/29/21 11:00 63 17 92/55 98 Vapotherm 40.00 100.00 11/29/21 10:00 64 21 90/48 98 Vapotherm 40.00 100.00 11/29/21 09:18 Vapotherm 40.00 100.00 11/29/21 09:00 72 20 90/51 98 NIV Bilevel 90.00 11/29/21 08:59 88 Vapotherm 40.00 100 11/29/21 08:34 36.4 11/29/21 08:31 NIV Bilevel 90.00 11/29/21 08:00 72 25 101/66 96 NIV Bilevel 100.00 11/29/21 07:45 95 NIV Bilevel 90 11/29/21 07:00 74 11/29/21 07:00 75 26 102/66 94 NIV Bilevel 100.00 11/29/21 06:00 72 23 90/65 94 NIV Bilevel 100.00 11/29/21 05:00 79 27 103/66 92 NIV Bilevel 100.00 11/29/21 04:00 70 25 119/70 95 NIV Bilevel 100.00 11/29/21 03:10 95 NIV Bilevel 100 11/29/21 03:00 68 27 112/70 94 NIV Bilevel 100.00 11/29/21 03:00 36.3 11/29/21 02:41 82 17 94 100.00 11/29/21 02:00 61 26 95/65 94 NIV Bilevel 100.00 11/29/21 01:55 36.2 NIV Bilevel 100.00 11/29/21 01:00 68 26 94/62 95 NIV Bilevel 100.00 11/29/21 01:00 68 11/29/21 00:18 NIV Bilevel 100.00 11/29/21 00:00 72 25 112/66 92 NIV Bilevel 95.00 11/28/21 23:15 91/65 NIV Bilevel 95.00 11/28/21 23:13 36.1 11/28/21 23:10 94 NIV Bilevel 95 11/28/21 23:07 64 23 72/47 94 NIV Bilevel 95.00 11/28/21 23:01 65 76/64 11/28/21 22:35 35.3 11/28/21 22:00 58 32 84/50 91 NIV Bilevel 100.00 11/28/21 21:34 34.6 11/28/21 21:07 68 55 80 100.00 11/28/21 21:00 71 28 113/59 90 NIV Bilevel 100.00 11/28/21 20:00 64 35 122/67 81 NIV Bilevel 100.00 11/28/21 20:00 83 NIV Bilevel 100 11/28/21 19:00 74 11/28/21 19:00 35.1 66 32 110/70 86 NIV Bilevel 100.00 11/28/21 18:00 76 31 111/69 88 NIV Bilevel 100.00 11/28/21 17:00 58 17 129/86 97 NIV Bilevel 100.00 11/28/21 16:11 52 18 97 100.00 11/28/21 16:00 55 19 113/64 94 NIV Bilevel 100.00 11/28/21 16:00 36.0 11/28/21 16:00 90 NIV Bilevel 100 11/28/21 15:23 74 132/81 11/28/21 15:00 84 28 118/67 94 NIV Bilevel 100.00 11/28/21 14:00 73 30 115/66 90 NIV Bilevel 100.00 11/28/21 13:00 74 23 113/69 94 NIV Bilevel 100.00 11/28/21 13:00 69 11/28/21 12:02 34.9 I & O 11/29/21 07:00 Intake Total 360 ml Output Total 2155 ml Balance -1795 ml Height & Weight Height: '" Weight: lbs. oz. kg; 23.85 BMI Method: General Appearance: Anxious, Chronically ill, Mild Distress, Thin HEENT: PERRL/EOMI, Pharynx Normal Neck: Normal Inspection, Supple Respiratory: No Accessory Muscle Use, No Respiratory Distress, Decreased Breath Sounds Cardiovascular: Regular Rate, Rhythm Capillary Refill: Less Than 3 Seconds Peripheral Pulses: 1+ Dorsalis Pedis (R), 1+ Left Dors-Pedis (L) (see free text) Extremity: Normal Inspection, Non Tender, No Pedal Edema Neurologic/Psychiatric: Alert, Depressed Affect Skin: Normal Color, Warm/Dry Results Lab Laboratory Tests 11/28/21 03:56 11/29/21 04:30 Assessment/Plan Assessment/Plan Tele-ICU Physician , Progress Note ) Available chart/ vitals / labs / Images reviewed Video assesment done using teleICU camera, rest of exam as per RN Discussed with RN , EXAM PER RN Events overnight : VOMIT / aspirate Afebrile FiO2 - I/O = neg 2 L Drips: Pressors: LEVO hemodynamically stable Consultants: A/P Pneumonia due to COVID-19 virus s/p Actemra, on acyclovir for pprx. dexamethasone finished zosyn eliquis( +PE ) Acute rsp failure = vapotherm with 90% FiO2 --> to BIPAP 11/28 , still on BIPAP 11/29 100% high risk for intubation -- cxr with infitrates - better then on admission- recheck PCT and cxr - recheck ddimer and Xa -IV steroids x 24 h and eval responce STEMI of anterolatera 11/20 cath with stent to LAD, clopidogrel, aspirin, statin. Acute ischemic stroke CTHsubacute or recent ischemia, unable to get MRI due to respiratory status, - Carotid US without significant stenosis. Bilateral pulmonary embolism On apixaban. Bilateral segmental and subsegmental. Secondary bacterial pneumonia - cxr with infitrates - better then on admission cefrt/z-max 1222-11/19 - Zosyn 11/22--11/27 OFF ABX _ recheck pct and cxr EVAN - cr increased 11/29 ( poor po intake and disrrhea ) - change lasix to qd from bid Anxiety - precedex / ativan Lines : (Central Line Necessity Reviewed) Prieto: OG: Nutrition: poor DVT propn - eliquis Stress Ulcer Prophylaxis: h2b Glycemic Control: Plans in collaboration with bedside consultants and IM MDs. Discussed with RN to reach out if any questions or concerns A total of 43 minutes of critical care time was devoted to this patient today, required to treat and/or prevent further deterioration of critical care condition ( as above) . SAMSON MAYEN MD Nov 29, 2021 12:02
--- NOTE | 2021-11-29 13:14 | Progress Note ---
Subjective Subjective/Events-last exam Continued to require bipap since yesterday, this morning vomited and is more lethargic. Objective Exam Last Set of Vital Signs Vital Signs Date Time Temp Pulse Resp B/P (MAP) Pulse Ox O2 Delivery O2 Flow Rate FiO2 11/29/21 12:46 58 11/29/21 11:10 36.2 11/29/21 11:00 17 92/55 98 Vapotherm 40.00 100.00 11/29/21 08:59 100 Capillary Refill : Less Than 3 Seconds I&O Intake and Output 11/29/21 00:00 Intake Total 360 ml Output Total 2325 ml Balance -1965 ml Intake Oral 360 ml Output Urine Total 2325 ml # Bowel Movements 2 General: Moderate Distress Lungs: Other (ronchi) Heart: Regular Rate, No Murmurs Abdomen: Normal Bowel Sounds, Soft Neuro: Other (lethargic, opens eye to aggressive physical stimulation) Results/Procedures Lab Laboratory Tests 11/28/21 16:43: Glucometer 116H 11/28/21 20:27: Glucometer 124H 11/29/21 04:30: White Blood Count 8.9, Red Blood Count 4.89, Hemoglobin 14.1, Hematocrit 41, Mean Corpuscular Volume 85, Mean Corpuscular Hemoglobin 29, Mean Corpuscular Hemoglobin Concent 34, Red Cell Distribution Width 14.2, Platelet Count 121L, Mean Platelet Volume 11.6, Immature Granulocyte % (Auto) 1, Neutrophils (%) (Auto) 80H, Lymphocytes (%) (Auto) 8L, Monocytes (%) (Auto) 9, Eosinophils (%) (Auto) 1, Basophils (%) (Auto) 1, Neutrophils # (Auto) 7.1, Lymphocytes # (Auto) 0.7L, Monocytes # (Auto) 0.8, Eosinophils # (Auto) 0.1, Basophils # (Auto) 0.1, Immature Granulocyte # (Auto) 0.1, Percent Immature Platelet Fraction 5.6, Sodium Level 138, Potassium Level 4.8, Chloride Level 103, Carbon Dioxide Level 21, Anion Gap 14, Blood Urea Nitrogen 39H, Creatinine 1.33H, Estimat Glomerular Filtration Rate 53, BUN/Creatinine Ratio 29, Glucose Level 127H, Calcium Level 8.7, Corrected Calcium 9.2, Phosphorus Level 5.4H, Magnesium Level 2.2, Total Bilirubin 0.7, Aspartate Amino Transf (AST/SGOT) 28, Alanine Aminotransferase (ALT/SGPT) 15, Alkaline Phosphatase 94, Total Protein 6.5, Albumin 3.4 11/29/21 09:19: Blood Gas Puncture Site LT RAD, Blood Gas Patient Temperature 36.4, Arterial Blood pH 7.40, Arterial Blood Partial Pressure CO2 37, Arterial Blood Partial Pressure O2 67L, Arterial Blood HCO3 23, Arterial Blood Total CO2 23.8, Arterial Blood Oxygen Saturation 94, Arterial Blood Base Excess -1.7, Juvenal Test YES-POS, Blood Gas Ventilator Setting NO, Blood Gas Inspired Oxygen 40 11/29/21 10:43: Glucometer 122H Microbiology 11/14/21 Urine Culture - Final, Complete NO GROWTH 11/14/21 MRSA Screen - Final, Complete MRSA not isolated 11/14/21 Blood Culture - Final, Complete No growth Assessment/Plan Assessment/Plan (1) Pneumonia due to COVID-19 virus Status: Acute Assessment & Plan: 11/26 Requiring vapotherm with 90% FiO2 today. s/p Actemra, on acyclovir for pprx. Continued on dexamethasone and zosyn for suspected secondary bacterial pneumonia. 11/27- has received 13 days of dexamethasone will d/c. continues to require high Fio2 but is relatively stable on that. Continued zosyn. 11/28- completed course of Zosyn, somewhat worsened today requiring bipap this am, appreciate [facility] ICU assistance. Updated daughter via phone today. 11/29- continued to require bipap, suspect possible aspiration with vomiting this morning, appreciate [facility] assistance, anticipate may need intubated soon if no change. (2) ST elevation myocardial infarction (STEMI) of anterolateral wall, initial episode of care Status: Acute Assessment & Plan: 11/20 cath with stent to LAD, appreciate Cardiology recommendations. On clopidogrel, aspirin, statin. (3) Acute ischemic stroke Status: Acute Assessment & Plan: CT findings with possible subacute or recent ischemia, unable to get MRI due to respiratory status, no clear physical findings of ischemia. Carotid US without significant stenosis. (4) Mixed hyperlipidemia Status: Chronic (5) Bilateral pulmonary embolism Status: Acute Assessment & Plan: On apixaban. Bilateral segmental and subsegmental. (6) Altered mental status Status: Acute Qualifiers: Qualified Codes: R41.82 - Altered mental status, unspecified (7) HTN (hypertension) Status: Chronic (8) HLD (hyperlipidemia) Status: Chronic (9) Secondary bacterial pneumonia Status: Acute Assessment & Plan: Had 5 days of azithromycin and ceftriaxone 11/14-11/19, Zosyn 11/22-11/27. (10) Acute respiratory failure due to COVID-19 Status: Acute (11) Acute kidney injury Status: Acute Assessment & Plan: Will decrease lasix to daily. NAM RUSS MD Nov 29, 2021 13:14
[2021-11-29] MEDS: methylPREDNISolone 40 MG/ML (Solu-MEDROL) VIAL IV SCH ×3 (13:38→23:47)
[2021-11-29] MEDS: guaiFENesin/DM (ROBITUSSIN DM) 10 ML UDC PO PRN (13:39)
--- NOTE | 2021-11-29 13:48 | Physical Therapy Progress Note ---
Therapy Progress Note Patient on hold this afternoon per nurse. Patient is on a bipap again and nurse states they are having difficulty with O2 saturation just at rest. Will check back tomorrow. ELIJAH MARC PT Nov 29, 2021 13:48
[2021-11-29 14:06] VITALS: BP 94/66
[2021-11-29 18:46] VITALS: BP 130/76
[2021-11-29] MEDS: ROSUVASTATIN 20 MG (CRESTOR) TABLET PO SCH (20:42)
[2021-11-30] MEDS: RT-ALBUTEROL HFA 8.5 GM INHALER IH SCH ×4 (01:59→22:25)
[2021-11-30] MEDS: NOREPINEPHRINE 8 MG/250 ML 250 ML IV SCH ×2 (03:22→21:14)
[2021-11-30 04:01] LABS: BASOPHILS % (AUTO) 0 % (0-10); EOSINOPHILS % (AUTO) 0 % (0-10); HEMATOCRIT 38 % (40-54); HEMOGLOBIN 12.9 g/dL (13.3-17.7); LYMPHOCYTES # (AUTO) 0.5 10^3/uL (1.0-4.0); LYMPHOCYTES % (AUTO) 6 % (12-44); MEAN CORPUSCULAR HEMOGLOBIN 29 pg (25-34); MEAN CORPUSCULAR HGB CONC 34 g/dL (32-36); MEAN CORPUSCULAR VOLUME 86 fL (80-99); MEAN PLATELET VOLUME 12.1 fL (9.0-12.2); MONOCYTES # (AUTO) 0.2 10^3/uL (0.0-1.0); MONOCYTES % (AUTO) 3 % (0-12); NEUTROPHILS # (AUTO) 8.3 10^3/uL (1.8-7.8); NEUTROPHILS % (AUTO) 91 % (42-75); PLATELET COUNT 117 10^3/uL (130-400); WHITE BLOOD COUNT 9.1 10^3/uL (4.3-11.0)
[2021-11-30 04:21] LABS: ALBUMIN 3.2 GM/DL (3.2-4.5)
[2021-11-30 04:22] LABS: POTASSIUM 4.5 MMOL/L (3.6-5.0)
[2021-11-30 04:23] LABS: CALCIUM 8.7 MG/DL (8.5-10.1)
[2021-11-30 04:24] LABS: TOTAL PROTEIN 6.2 GM/DL (6.4-8.2)
[2021-11-30 04:26] LABS: BILIRUBIN,TOTAL 0.7 MG/DL (0.1-1.0)
[2021-11-30 04:27] LABS: PHOSPHORUS 4.1 MG/DL (2.3-4.7)
[2021-11-30 04:28] LABS: CREATININE SERUM 1.2 MG/DL (0.60-1.30)
[2021-11-30 04:30] LABS: MAGNESIUM 2.4 MG/DL (1.6-2.4)
[2021-11-30] MEDS: MAGNESIUM 1 GM/100 ML IVPB 100 ML IV SCH (04:47)
[2021-11-30] MEDS: POTASSIUM CL 10MEQ/50ML IVPB 50 ML IV SCH (04:47)
[2021-11-30] MEDS: inSUlin ASPART (NovoLOG) 1 UNIT/0.01 ML (CHARGE PER UNIT) SC SCH ×4 (04:48→21:48)
[2021-11-30] MEDS: KCL 20 MEQ TAB (K-DUR) PO SCH (04:48)
--- NOTE | 2021-11-30 05:47 | Diagnostic Imaging Report ---
Reason for examination: Hypoxia. Upright AP portable chest was obtained and compared to 11/28/2021. Cardiac silhouette is within normal limits. No mediastinal widening. Bilateral pulmonary infiltrates left more than right. Not much change since the prior exam. Right PICC line projects to the lower SVC. No effusions or pneumothorax. IMPRESSION: 1. Left greater than right pulmonary infiltrates without much overall change. Dictated by: Dictated on workstation # [id number]
[2021-11-30] MEDS: methylPREDNISolone 40 MG/ML (Solu-MEDROL) VIAL IV SCH ×4 (05:55→23:53)
[2021-11-30] MEDS: RT-ALBUTEROL HFA 8.5 GM INHALER IH PRN (07:09)
[2021-11-30 07:10] VITALS: BP 133/76
--- NOTE | 2021-11-30 07:27 | Physical Therapy Progress Note ---
Therapy Progress Note Patient remains on Hold due to increase O2 demand. PT will continue to monitor patient status. RYAN KHAN PT Nov 30, 2021 07:27
[2021-11-30] MEDS: PANTOPRAZOLE 40 MG (PROTONIX) TAB PO SCH (09:03)
[2021-11-30] MEDS: CLOPIDOGREL 75 MG (PLAVIX) TABLET PO SCH (09:03)
[2021-11-30] MEDS: ASPIRIN 81 MG CHEW (CHILDREN'S ASA) PO SCH (09:03)
[2021-11-30] MEDS: APIXABAN 5 MG (ELIQUIS) TABLET PO SCH ×2 (09:03→21:48)
[2021-11-30] MEDS: DOCUSATE SODIUM 100 MG (COLACE) CAP PO SCH ×2 (09:04→21:14)
[2021-11-30] MEDS: ACYCLOVIR 400 MG TABLET (ZOVIRAX) PO SCH ×2 (09:04→21:48)
[2021-11-30] MEDS: SENNOSIDES 8.6 MG (SENOKOT) TAB PO SCH ×2 (09:04→21:14)
[2021-11-30] MEDS: FUROSEMIDE 40 MG/4 ML INJ (LASIX) IVP SCH (09:04)
[2021-11-30] MEDS: CAPTOPRIL 25 MG (CAPOTEN) TAB PO SCH ×2 (09:04→21:48)
[2021-11-30] MEDS: NYSTATIN CREAM (MYCOSTATIN) 30 GM TUBE TP SCH ×3 (09:05→21:48)
--- NOTE | 2021-11-30 09:10 | Cardiology Progress Note ---
Progress Note-Cardiology Events since last exam Date Seen by Provider: Nov 30, 2021 Time Seen by Provider: 09:05 Events since last exam I am following him due to anterior STEMI that was treated with 1 drug-eluting stent to the left anterior descending coronary artery. He remains in the ICU on Vapotherm and intermittently BiPAP. He has not complained of any recurrent chest discomfort. I did not see the patient due to his Covid status. I did speak with his nurse of today. Dr. Rousseau will be covering for the weekend. Please call if you have questions or concerns. Certain portions of this document may have been dictated utilizing voice recognition technology. Inherent to this technology, typographical and grammatical errors may exist. As much as I am diligent to identify and correct these mistakes, some errors may remain in the document. Vitals Last set of Vitals Signs Vital Signs 11/30/21 11/30/21 11/30/21 03:12 03:45 08:00 Temp 36.2 Pulse 87 Resp 19 B/P (MAP) 135/74 Pulse Ox 95 O2 Delivery NIV Bilevel O2 Flow Rate 100.00 FiO2 85 Labs Labs Laboratory Tests 11/30/21 03:45 Exam Vital Signs Vital Signs Date Time Temp Pulse Resp B/P (MAP) Pulse Ox O2 Delivery O2 Flow Rate FiO2 11/30/21 08:00 87 19 135/74 95 NIV Bilevel 100.00 11/30/21 03:45 85 11/30/21 03:12 36.2 Physical Exam I did not examine the patient due to his Covid status. Labs Laboratory Tests Test 11/29/21 09:19 11/29/21 10:43 11/29/21 16:34 11/29/21 20:46 Range/Units Blood Gas Puncture Site LT RAD Blood Gas Patient Temperature 36.4 Arterial Blood pH 7.40 7.37-7.43 Arterial Blood Partial Pressure CO2 37 35-45 MMHG Arterial Blood Partial Pressure O2 67 L 79-93 MMHG Arterial Blood HCO3 23 23-27 MMOL/L Arterial Blood Total CO2 23.8 21.0-31.0 MMOL/L Arterial Blood Oxygen Saturation 94 94-100 % Arterial Blood Base Excess -1.7 -2.5-2.5 MMOL/L Juvenal Test YES-POS Blood Gas Ventilator Setting NO Blood Gas Inspired Oxygen 40 Glucometer 122 H 132 H 147 H 70-110 MG/DL Test 11/30/21 03:45 Range/Units White Blood Count 9.1 4.3-11.0 10^3/uL Red Blood Count 4.43 4.30-5.52 10^6/uL Hemoglobin 12.9 L 13.3-17.7 g/dL Hematocrit 38 L 40-54 % Mean Corpuscular Volume 86 80-99 fL Mean Corpuscular Hemoglobin 29 25-34 pg Mean Corpuscular Hemoglobin Concent 34 32-36 g/dL Red Cell Distribution Width 14.3 10.0-14.5 % Platelet Count 117 L 130-400 10^3/uL Mean Platelet Volume 12.1 9.0-12.2 fL Immature Granulocyte % (Auto) 1 % Neutrophils (%) (Auto) 91 H 42-75 % Lymphocytes (%) (Auto) 6 L 12-44 % Monocytes (%) (Auto) 3 0-12 % Eosinophils (%) (Auto) 0 0-10 % Basophils (%) (Auto) 0 0-10 % Neutrophils # (Auto) 8.3 H 1.8-7.8 10^3/uL Lymphocytes # (Auto) 0.5 L 1.0-4.0 10^3/uL Monocytes # (Auto) 0.2 0.0-1.0 10^3/uL Eosinophils # (Auto) 0.0 0.0-0.3 10^3/uL Basophils # (Auto) 0.0 0.0-0.1 10^3/uL Immature Granulocyte # (Auto) 0.1 0.0-0.1 10^3/uL D-Dimer 5.72 H 0.00-0.49 UG/ML Sodium Level 138 135-145 MMOL/L Potassium Level 4.5 3.6-5.0 MMOL/L Chloride Level 103 98-107 MMOL/L Carbon Dioxide Level 22 21-32 MMOL/L Anion Gap 13 5-14 MMOL/L Blood Urea Nitrogen 56 H 7-18 MG/DL Creatinine 1.20 0.60-1.30 MG/DL Estimat Glomerular Filtration Rate 60 BUN/Creatinine Ratio 47 Glucose Level 138 H 70-105 MG/DL Calcium Level 8.7 8.5-10.1 MG/DL Corrected Calcium 9.3 8.5-10.1 MG/DL Phosphorus Level 4.1 2.3-4.7 MG/DL Magnesium Level 2.4 1.6-2.4 MG/DL Total Bilirubin 0.7 0.1-1.0 MG/DL Aspartate Amino Transf (AST/SGOT) 23 5-34 U/L Alanine Aminotransferase (ALT/SGPT) 14 0-55 U/L Alkaline Phosphatase 73 40-136 U/L Total Protein 6.2 L 6.4-8.2 GM/DL Albumin 3.2 3.2-4.5 GM/DL Procalcitonin 0.05 <0.10 NG/ML Diagnosis/Problems Diagnosis/Problems (1) Acute HFrEF (heart failure with reduced ejection fraction) Assessment & Plan: He may have some superimposed pulmonary edema on top of the Covid pneumonia. I started him on IV Lasix twice daily on 11/29. His follow-up echocardiogram after the myocardial infarction showed mild left ventricular systolic dysfunction with an estimated ejection fraction of 40-45%. I have him on low-dose carvedilol and captopril as tolerated by blood pressure. (2) Cardiomyopathy Assessment & Plan: When he first presented to the hospital his ejection fraction was normal. However, following the myocardial infarction, he has mild left ventricular systolic dysfunction. Some of this could be due to regional stunning. As above, I have him on low-dose carvedilol and captopril when his blood pressure will tolerate the medication. (3) ST elevation myocardial infarction (STEMI) of anterolateral wall, initial episode of care Status: Acute Assessment & Plan: On 11/20/21 he started having chest pain and an electroc ardiogram showed an acute anterolateral ST elevation myocardial infarction. 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 He has been started on clopidogrel. I will continue aspirin until discharge. He is on apixaban due to pulmonary embolism diagnosed during this admission. His discharge anticoagulation should be clopidogrel and apixaban without aspirin. Continue beta-earline, JESUSITA inhibitor and statin. (4) Primary hypertension Assessment & Plan: Blood pressures continue to intermittently be on the low side. I have ordered carvedilol and captopril as his blood pressure will tolerate. He has intermittently required low-dose norepinephrine infusion. (5) Mixed hyperlipidemia Status: Chronic Assessment & Plan: Due to his acute myocardial infarction, I started him on intensive-dose statin medication. (6) Pulmonary embolism Assessment & Plan: This may possibly be related to his Covid infection. I changed his enoxaparin over to apixaban on 11/21. (7) Acute respiratory failure due to COVID-19 Status: Acute Assessment & Plan: His pulmonary status has been about the same since 11/27. eICU and the hospitalist are managing the respiratory failure. (8) Acute kidney injury Status: Acute Assessment & Plan: His kidney function is slightly worse today. We will need to follow this closely with the intravenous furosemide. ALISHA WILSON JR, MD Nov 30, 2021 09:10
--- NOTE | 2021-11-30 12:24 | Tele-ICU Progress Note ---
Subjective Date Seen by a Provider: Nov 30, 2021 Time Seen by a Provider: 12:24 Sepsis Event Evaluation Height, Weight, BMI Height: '" Weight: lbs. oz. kg; 23.85 BMI Method: Exam Exam Patient acknowledged, consented, and participated in this virtual visit which was conducted using real time audio/video Vital Signs Date Time Temp Pulse Resp B/P (MAP) Pulse Ox O2 Delivery O2 Flow Rate FiO2 11/30/21 12:00 92 25 125/72 99 Vapotherm 40.00 100.00 11/30/21 12:00 36.2 NIV Bilevel 100.00 11/30/21 11:00 97 18 128/72 98 Vapotherm 40.00 100.00 11/30/21 10:00 107 26 106/64 96 NIV Bilevel 100.00 11/30/21 09:00 96 13 127/95 97 NIV Bilevel 100.00 11/30/21 08:00 87 19 135/74 95 NIV Bilevel 100.00 11/30/21 08:00 36.1 11/30/21 07:10 84 25 97 90.00 11/30/21 07:00 81 25 133/76 94 NIV Bilevel 100.00 11/30/21 07:00 83 11/30/21 06:00 87 20 126/69 93 NIV Bilevel 100.00 11/30/21 05:00 81 20 107/65 93 NIV Bilevel 100.00 11/30/21 04:29 NIV Bilevel 100.00 11/30/21 04:00 71 14 96/56 95 Vapotherm 30.00 85.00 11/30/21 03:45 Vapotherm 30.00 85.00 11/30/21 03:45 94 Vapotherm 30.00 85 11/30/21 03:12 36.2 11/30/21 03:00 71 22 93/60 93 Vapotherm 30.00 85.00 11/30/21 02:00 68 14 95/55 94 Vapotherm 30.00 85.00 11/30/21 01:59 93 Vapotherm 30.00 85 11/30/21 01:30 Vapotherm 30.00 85.00 11/30/21 01:00 73 15 92/57 93 Vapotherm 35.00 90.00 11/30/21 01:00 73 11/30/21 00:00 72 15 110/63 93 Vapotherm 35.00 90.00 11/29/21 23:49 Vapotherm 35.00 90.00 11/29/21 23:40 94 Vapotherm 40.00 100 11/29/21 23:35 36.1 78 24 94/51 97 Vapotherm 40.00 100.00 11/29/21 23:00 76 15 111/62 95 Vapotherm 40.00 100.00 11/29/21 22:00 75 15 96/58 98 Vapotherm 40.00 100.00 11/29/21 21:41 98 Vapotherm 40.00 100 11/29/21 21:00 86 16 115/63 90 Vapotherm 40.00 100.00 11/29/21 20:45 Vapotherm 40.00 100.00 11/29/21 20:00 89 25 124/72 94 NIV Bilevel 90.00 11/29/21 19:40 93 NIV Bilevel 90 11/29/21 19:38 NIV Bilevel 90.00 11/29/21 19:00 36.7 86 31 138/70 96 NIV Bilevel 100.00 11/29/21 19:00 85 11/29/21 18:46 78 25 97 100.00 11/29/21 18:00 87 27 123/82 96 NIV Bilevel 100.00 11/29/21 17:00 73 24 117/73 96 NIV Bilevel 100.00 11/29/21 16:35 35.6 11/29/21 16:00 84 24 119/63 93 NIV Bilevel 100.00 11/29/21 15:55 94 NIV Bilevel 100 11/29/21 15:00 64 11 113/57 95 NIV Bilevel 100.00 11/29/21 14:07 NIV Bilevel 100.00 11/29/21 14:06 71 25 90 100.00 11/29/21 14:00 73 17 94/66 92 Vapotherm 40.00 100.00 11/29/21 13:00 59 17 100/58 97 Vapotherm 40.00 100.00 11/29/21 12:46 58 11/29/21 12:45 96 Vapotherm 40.00 100 I & O 11/30/21 07:00 Intake Total 850 ml Output Total 1095 ml Balance -245 ml Height & Weight Height: '" Weight: lbs. oz. kg; 23.85 BMI Method: General Appearance: Anxious, Chronically ill, Mild Distress, Thin HEENT: PERRL/EOMI, Pharynx Normal Neck: Normal Inspection, Supple Respiratory: No Accessory Muscle Use, No Respiratory Distress, Decreased Breath Sounds Cardiovascular: Regular Rate, Rhythm Capillary Refill: Less Than 3 Seconds Peripheral Pulses: 1+ Dorsalis Pedis (R), 1+ Left Dors-Pedis (L) (see free text) Extremity: Normal Inspection, Non Tender, No Pedal Edema Neurologic/Psychiatric: Alert, Depressed Affect Skin: Normal Color, Warm/Dry Results Lab Laboratory Tests 11/29/21 04:30 11/30/21 03:45 Assessment/Plan Assessment/Plan Tele-ICU Physician , Progress Note ) Available chart/ vitals / labs / Images reviewed Video assesment done using teleICU camera, rest of exam as per RN Discussed with RN , EXAM PER RN Events overnight : on bipap Afebrile FiO2 - 100% I/O = neg 700 Drips: Pressors: LEVO hemodynamically stable Consultants: A/P Pneumonia due to COVID-19 virus s/p Actemra, on acyclovir for pprx. dexamethasone finished zosyn eliquis( +PE ) Acute rsp failure = vapotherm with 90% FiO2 --> to BIPAP 11/28 , still on BIPAP 11/29 100% high risk for intubation -- cxr with infitrates - better then on admission- 11/30 neg PCT and cxr same - recheck ddimer and Xa - pending -IV steroids x 24 h and eval responce - CONSIDER TO STOP / DECREASE 12/01 IF NO IMPROVEMENT STEMI of anterolateral 11/20 cath with stent to LAD, clopidogrel, aspirin, statin. Acute ischemic stroke CTHsubacute or recent ischemia, unable to get MRI due to respiratory status, - Carotid US without significant stenosis. Bilateral pulmonary embolism On apixaban. Bilateral segmental and subsegmental. Secondary bacterial pneumonia - cxr with infitrates - better then on admission cefrt/z-max 1222-11/19 - Zosyn 11/22--11/27 OFF ABX EVAN - cr increased 11/29 ( poor po intake and disrrhea ) - change lasix to qd from bid - no diarrhea 11/30 Anxiety - precedex / ativan Lines : (Central Line Necessity Reviewed) Prieto: OG: Nutrition: poor, ONLY ENSURE TAKEN DVT propn - eliquis Stress Ulcer Prophylaxis: h2b Glycemic Control: Plans in collaboration with bedside consultants and IM MDs. Discussed with RN to reach out if any questions or concerns A total of 43 minutes of critical care time was devoted to this patient today, required to treat and/or prevent further deterioration of critical care condition ( as above) . SAMSON MAYEN MD Nov 30, 2021 12:24
--- NOTE | 2021-11-30 13:34 | Progress Note ---
Subjective Subjective/Events-last exam Much more alert today, states he is feeling fairly well. Is still on bipap. Objective Exam Last Set of Vital Signs Vital Signs Date Time Temp Pulse Resp B/P (MAP) Pulse Ox O2 Delivery O2 Flow Rate FiO2 11/30/21 13:00 93 11/30/21 12:00 25 125/72 99 Vapotherm 40.00 100.00 11/30/21 12:00 36.2 11/30/21 03:45 85 Capillary Refill : Less Than 3 Seconds I&O Intake and Output 11/30/21 00:00 Intake Total 300 ml Output Total 1075 ml Balance -775 ml Intake Oral 300 ml Output Urine Total 1075 ml # Bowel Movements 7 General: Alert, No Acute Distress Lungs: Other (ronchi, bipap in place) Heart: Regular Rate, No Murmurs Abdomen: Normal Bowel Sounds, Soft Extremities: No Edema Neuro: Normal Speech Psych/Mental Status: Mood NL Results/Procedures Lab Laboratory Tests 11/29/21 16:34: Glucometer 132H 11/29/21 20:46: Glucometer 147H 11/30/21 03:45: White Blood Count 9.1, Red Blood Count 4.43, Hemoglobin 12.9L, Hematocrit 38L, Mean Corpuscular Volume 86, Mean Corpuscular Hemoglobin 29, Mean Corpuscular Hemoglobin Concent 34, Red Cell Distribution Width 14.3, Platelet Count 117L, Mean Platelet Volume 12.1, Immature Granulocyte % (Auto) 1, Neutrophils (%) (Auto) 91H, Lymphocytes (%) (Auto) 6L, Monocytes (%) (Auto) 3, Eosinophils (%) (Auto) 0, Basophils (%) (Auto) 0, Neutrophils # (Auto) 8.3H, Lymphocytes # (Auto) 0.5L, Monocytes # (Auto) 0.2, Eosinophils # (Auto) 0.0, Basophils # (Auto) 0.0, Immature Granulocyte # (Auto) 0.1, D-Dimer 5.72H, Sodium Level 138, Potassium Level 4.5, Chloride Level 103, Carbon Dioxide Level 22, Anion Gap 13, Blood Urea Nitrogen 56H, Creatinine 1.20, Estimat Glomerular Filtration Rate 60, BUN/Creatinine Ratio 47, Glucose Level 138H, Calcium Level 8.7, Corrected Calcium 9.3, Phosphorus Level 4.1, Magnesium Level 2.4, Total Bilirubin 0.7, Aspartate Amino Transf (AST/SGOT) 23, Alanine Aminotransferase (ALT/SGPT) 14, Alkaline Phosphatase 73, Total Protein 6.2L, Albumin 3.2, Procalcitonin 0.05 11/30/21 11:10: Glucometer 229H Microbiology 11/14/21 Urine Culture - Final, Complete NO GROWTH 11/14/21 MRSA Screen - Final, Complete MRSA not isolated 11/14/21 Blood Culture - Final, Complete No growth Assessment/Plan Assessment/Plan (1) Pneumonia due to COVID-19 virus Status: Acute Assessment & Plan: 11/26 Requiring vapotherm with 90% FiO2 today. s/p Actemra, on acyclovir for pprx. Continued on dexamethasone and zosyn for suspected secondary bacterial pneumonia. 11/27- has received 13 days of dexamethasone will d/c. continues to require high Fio2 but is relatively stable on that. Continued zosyn. 11/28- completed course of Zosyn, somewhat worsened today requiring bipap this am, appreciate [facility] ICU assistance. Updated daughter via phone today. 11/29- continued to require bipap, suspect possible aspiration with vomiting this morning, appreciate Thania assistance, anticipate may need intubated soon if no change. 11/30- continued on bipap but is much more alert today, possible benefit from steroids started yesterday per ICU physician. Called daughter to update, unable to reach. (2) ST elevation myocardial infarction (STEMI) of anterolateral wall, initial episode of care Status: Acute Assessment & Plan: 11/20 cath with stent to LAD, appreciate Cardiology recommendations. On clopidogrel, aspirin, statin. (3) Acute ischemic stroke Status: Acute Assessment & Plan: CT findings with possible subacute or recent ischemia, unable to get MRI due to respiratory status, no clear physical findings of ischemia. Carotid US without significant stenosis. (4) Mixed hyperlipidemia Status: Chronic (5) Bilateral pulmonary embolism Status: Acute Assessment & Plan: On apixaban. Bilateral segmental and subsegmental. 11/30 d dimer decreased, factor Xa pending to eval apixaban efficacy given recent worsening respiratory status. (6) Altered mental status Status: Acute Assessment & Plan: Suspect illness induced delirium Qualifiers: Qualified Codes: R41.82 - Altered mental status, unspecified (7) HTN (hypertension) Status: Chronic (8) HLD (hyperlipidemia) Status: Chronic (9) Secondary bacterial pneumonia Status: Acute Assessment & Plan: Had 5 days of azithromycin and ceftriaxone 11/14-11/19, Z osyn 11/22-11/27. (10) Acute respiratory failure due to COVID-19 Status: Acute (11) Acute kidney injury Status: Resolved Assessment & Plan: 11/29 creatinine increased today, Will decrease lasix to daily. 11/30 improved NAM RUSS MD Nov 30, 2021 13:34
[2021-11-30] MEDS: DexMEDEtomidine 250 ML DRIP 250 ML IV SCH (14:31)
[2021-11-30 14:48] VITALS: BP 133/76
[2021-11-30 18:48] VITALS: BP 113/69
[2021-11-30] MEDS: ROSUVASTATIN 20 MG (CRESTOR) TABLET PO SCH (21:48)
[2021-11-30 22:09] VITALS: BP 102/69
[2021-12-01 03:16] VITALS: BP 123/77
[2021-12-01] MEDS: RT-ALBUTEROL HFA 8.5 GM INHALER IH SCH ×4 (03:16→22:34)
[2021-12-01] MEDS: DexMEDEtomidine 250 ML DRIP 250 ML IV SCH ×2 (04:24→21:01)
[2021-12-01 05:17] LABS: BASOPHILS % (AUTO) 0 % (0-10); EOSINOPHILS % (AUTO) 0 % (0-10); HEMATOCRIT 39 % (40-54); LYMPHOCYTES # (AUTO) 0.6 10^3/uL (1.0-4.0); LYMPHOCYTES % (AUTO) 4 % (12-44); MEAN CORPUSCULAR HEMOGLOBIN 29 pg (25-34); MEAN CORPUSCULAR HGB CONC 33 g/dL (32-36); MEAN CORPUSCULAR VOLUME 87 fL (80-99); MEAN PLATELET VOLUME 12.1 fL (9.0-12.2); MONOCYTES # (AUTO) 0.7 10^3/uL (0.0-1.0); MONOCYTES % (AUTO) 5 % (0-12); NEUTROPHILS # (AUTO) 13.7 10^3/uL (1.8-7.8); NEUTROPHILS % (AUTO) 91 % (42-75); PLATELET COUNT 130 10^3/uL (130-400); WHITE BLOOD COUNT 15.1 10^3/uL (4.3-11.0)
[2021-12-01 05:31] LABS: ALBUMIN 3.5 GM/DL (3.2-4.5); POTASSIUM 4.7 MMOL/L (3.6-5.0)
[2021-12-01 05:32] LABS: CALCIUM 9.3 MG/DL (8.5-10.1)
[2021-12-01 05:33] LABS: TOTAL PROTEIN 6.6 GM/DL (6.4-8.2)
[2021-12-01 05:35] LABS: BILIRUBIN,TOTAL 0.6 MG/DL (0.1-1.0)
[2021-12-01 05:36] LABS: PHOSPHORUS 4.3 MG/DL (2.3-4.7)
[2021-12-01 05:37] LABS: CREATININE SERUM 1.29 MG/DL (0.60-1.30)
[2021-12-01 05:40] LABS: MAGNESIUM 2.7 MG/DL (1.6-2.4)
[2021-12-01 05:46] LABS: BAND NEUTROPHILS 4 %; LYMPHOCYTES % (MANUAL) 8 %; MONOCYTES % (MANUAL) 3 %; NEUTROPHILS % (MANUAL) 85 %; RBC MORPH NORMAL
[2021-12-01] MEDS: MAGNESIUM 1 GM/100 ML IVPB 100 ML IV SCH (06:48)
[2021-12-01] MEDS: POTASSIUM CL 10MEQ/50ML IVPB 50 ML IV SCH (06:48)
[2021-12-01] MEDS: KCL 20 MEQ TAB (K-DUR) PO SCH (06:48)
[2021-12-01] MEDS: inSUlin ASPART (NovoLOG) 1 UNIT/0.01 ML (CHARGE PER UNIT) SC SCH ×4 (06:49→20:59)
[2021-12-01] MEDS: methylPREDNISolone 40 MG/ML (Solu-MEDROL) VIAL IV SCH ×4 (06:49→22:55)
[2021-12-01 06:52] VITALS: BP 125/70
--- NOTE | 2021-12-01 08:03 | Tele-ICU Progress Note ---
Progress Note video rounds completed 59 y/o vaccinated, but still with Covid PNA Has PE on apixaban On BIPAP 20/, 90%, reasonably comfortable, up to chair VSS PLAN: has completed decadron course Overall stable, but still requiring high FIO@ Focused Exam Height, Weight, BMI Height: '" Weight: lbs. oz. kg; 23.85 BMI Method: Laboratory Tests 12/01/21 04:28 Labs Labs Laboratory Tests 11/30/21 11:10: Glucometer 229H 11/30/21 16:24: Glucometer 168H 11/30/21 21:04: Glucometer 180H 12/01/21 04:28: White Blood Count 15.1H, Red Blood Count 4.53, Hemoglobin 13.0L, Hematocrit 39L, Mean Corpuscular Volume 87, Mean Corpuscular Hemoglobin 29, Mean Corpuscular Hemoglobin Concent 33, Red Cell Distribution Width 14.6H, Platelet Count 130, Mean Platelet Volume 12.1, Immature Granulocyte % (Auto) 1, Neutrophils (%) (Auto) 91H, Lymphocytes (%) (Auto) 4L, Monocytes (%) (Auto) 5, Eosinophils (%) (Auto) 0, Basophils (%) (Auto) 0, Neutrophils # (Auto) 13.7H, Lymphocytes # (Auto) 0.6L, Monocytes # (Auto) 0.7, Eosinophils # (Auto) 0.0, Basophils # (Auto) 0.0, Immature Granulocyte # (Auto) 0.1, Neutrophils % (Manual) 85, Lymphocytes % (Manual) 8, Monocytes % (Manual) 3, Band Neutrophils 4, Blood Morphology Comment NORMAL, Sodium Level 141, Potassium Level 4.7, Chloride Level 103, Carbon Dioxide Level 25, Anion Gap 13, Blood Urea Nitrogen 78H, Creatinine 1.29, Estimat Glomerular Filtration Rate 55, BUN/Creatinine Ratio 60, Glucose Level 174H, Calcium Level 9.3, Corrected Calcium 9.7, Phosphorus Level 4.3, Magnesium Level 2.7H, Total Bilirubin 0.6, Aspartate Amino Transf (AST/SGOT) 22, Alanine Aminotransferase (ALT/SGPT) 16, Alkaline Phosphatase 75, Total Protein 6.6, Albumin 3.5 Microbiology 11/14/21 Urine Culture - Final, Complete NO GROWTH 11/14/21 MRSA Screen - Final, Complete MRSA not isolated 11/14/21 Blood Culture - Final, Complete No growth JEANINE MONTELONGO MD Dec 01, 2021 08:03
[2021-12-01 08:19] LABS: ABG BASE EXCESS 0.3 MMOL/L (-2.5-2.5); ABG OXYGEN SATURATION 94 % (94-100); ABG PCO2 37 MMHG (35-45); ABG PH 7.43 (7.37-7.43); ABG PO2 59 MMHG (79-93); ABG TCO2 25.8 MMOL/L (21.0-31.0)
[2021-12-01 08:21] LABS: INSPIRED O2 50%; PATIENT TEMP 35.1; VENTILATOR NO
[2021-12-01] MEDS: ASPIRIN 81 MG CHEW (CHILDREN'S ASA) PO SCH (08:48)
[2021-12-01] MEDS: APIXABAN 5 MG (ELIQUIS) TABLET PO SCH ×2 (08:48→20:58)
[2021-12-01] MEDS: CAPTOPRIL 25 MG (CAPOTEN) TAB PO SCH ×2 (08:48→20:58)
[2021-12-01] MEDS: DOCUSATE SODIUM 100 MG (COLACE) CAP PO SCH ×2 (08:48→21:02)
[2021-12-01] MEDS: SENNOSIDES 8.6 MG (SENOKOT) TAB PO SCH ×2 (08:49→21:02)
[2021-12-01] MEDS: CLOPIDOGREL 75 MG (PLAVIX) TABLET PO SCH (08:49)
[2021-12-01] MEDS: ACYCLOVIR 400 MG TABLET (ZOVIRAX) PO SCH ×2 (08:49→20:58)
[2021-12-01] MEDS: PANTOPRAZOLE 40 MG (PROTONIX) TAB PO SCH (08:49)
[2021-12-01] MEDS: NYSTATIN CREAM (MYCOSTATIN) 30 GM TUBE TP SCH ×3 (08:50→21:02)
[2021-12-01] MEDS: FUROSEMIDE 40 MG/4 ML INJ (LASIX) IVP SCH (08:50)
--- NOTE | 2021-12-01 09:07 | Tele-ICU Progress Note ---
Progress Note my prior note was entered in error Focused Exam Height, Weight, BMI Height: '" Weight: lbs. oz. kg; 23.85 BMI Method: JEANINE MONTELONGO MD Dec 01, 2021 09:07
--- NOTE | 2021-12-01 09:10 | Tele-ICU Progress Note ---
Progress Note video rounds completed 71 y/o male admitted with Covid pna Developed NSTEMI and had PCI Now on BIPAP , 65% Overall stable Continue present plan Focused Exam Height, Weight, BMI Height: '" Weight: lbs. oz. kg; 23.85 BMI Method: Labs Laboratory Tests 12/01/21 04:28 Labs Labs Laboratory Tests 11/30/21 11:10: Glucometer 229H 11/30/21 16:24: Glucometer 168H 11/30/21 21:04: Glucometer 180H 12/01/21 04:28: White Blood Count 15.1H, Red Blood Count 4.53, Hemoglobin 13.0L, Hematocrit 39L, Mean Corpuscular Volume 87, Mean Corpuscular Hemoglobin 29, Mean Corpuscular Hemoglobin Concent 33, Red Cell Distribution Width 14.6H, Platelet Count 130, Mean Platelet Volume 12.1, Immature Granulocyte % (Auto) 1, Neutrophils (%) (Auto) 91H, Lymphocytes (%) (Auto) 4L, Monocytes (%) (Auto) 5, Eosinophils (%) (Auto) 0, Basophils (%) (Auto) 0, Neutrophils # (Auto) 13.7H, Lymphocytes # (Auto) 0.6L, Monocytes # (Auto) 0.7, Eosinophils # (Auto) 0.0, Basophils # (Auto) 0.0, Immature Granulocyte # (Auto) 0.1, Neutrophils % (Manual) 85, Ly mphocytes % (Manual) 8, Monocytes % (Manual) 3, Band Neutrophils 4, Blood Morphology Comment NORMAL, Sodium Level 141, Potassium Level 4.7, Chloride Level 103, Carbon Dioxide Level 25, Anion Gap 13, Blood Urea Nitrogen 78H, Creatinine 1.29, Estimat Glomerular Filtration Rate 55, BUN/Creatinine Ratio 60, Glucose Level 174H, Calcium Level 9.3, Corrected Calcium 9.7, Phosphorus Level 4.3, Magnesium Level 2.7H, Total Bilirubin 0.6, Aspartate Amino Transf (AST/SGOT) 22, Alanine Aminotransferase (ALT/SGPT) 16, Alkaline Phosphatase 75, Total Protein 6.6, Albumin 3.5 12/01/21 08:08: Blood Gas Puncture Site NA, Blood Gas Patient Temperature 35.1, Arterial Blood pH 7.43, Arterial Blood Partial Pressure CO2 37, Arterial Blood Partial Pressure O2 59L, Arterial Blood HCO3 25, Arterial Blood Total CO2 25.8, Arterial Blood Oxygen Saturation 94, Arterial Blood Base Excess 0.3, Juvenal Test NA, Blood Gas Ventilator Setting NO, Blood Gas Inspired Oxygen 50% Microbiology 11/14/21 Urine Culture - Final, Complete NO GROWTH 11/14/21 MRSA Screen - Final, Complete MRSA not isolated 11/14/21 Blood Culture - Final, Complete No growth JEANINE MONTELONGO MD Dec 01, 2021 09:10
--- NOTE | 2021-12-01 09:42 | Progress Note - Hospitalist ---
Subjective HPI/CC On Admission Date Seen by Provider: Dec 01, 2021 Time Seen by Provider: 12:30 Christiano Cuadra is a 71 year old male with PMH HTN, HLD, who presented with shortness of breath. He was diagnosed with COVID about 5 days ago. He is also having weakness. He is having a dry cough. His appetite is poor. He is not having fevers or chills. He is not having chest pain. He denies nausea, vomiting, and diarrhea. He received two vaccines in January. He did not get a booster. Subjective/Events-last exam Patient BiPAP dependent Patient requiring Precedex Check meds and labs Prognosis poor Review of Systems General: Fatigue Objective Exam Vital Signs Vital Signs Date Time Temp Pulse Resp B/P (MAP) Pulse Ox O2 Delivery O2 Flow Rate FiO2 12/01/21 21:01 69 141/79 12/01/21 19:46 36.4 12/01/21 18:38 22 93 70.00 12/01/21 18:00 NIV Bilevel 12/01/21 16:00 70 Capillary Refill : Less Than 3 Seconds General Appearance: Anxious, Chronically ill, Thin Respiratory: No Respiratory Distress, Accessory Muscle Use, Decreased Breath Sounds, Other (on bipap) Cardiovascular: Regular Rate, Rhythm Results/Procedures Lab Laboratory Tests 12/01/21 04:28 Patient resulted labs reviewed. Imaging: Reviewed Imaging Films, Reviewed Imaging Report Assessment/Plan Assessment and Plan Assess & Plan/Chief Complaint Assessment: Acute respiratory failure due to COVID-19 Hypercoagulable state associated with COVID-19 Acute myocardial infarction status post cardiac cath 11/20/2021 Dr. Grewal status post stent in LAD Bilateral pulmonary embolism Secondary bacterial pneumonia NSTEMI HTN HLD COVID+ at outside facility Chest xray with bilateral infiltrates Continue Decadron s/p Actemra 11/[address] Angio 11/14 with bialteral pulmonary embolism Continue therapeutic Lovenox Continue Rocephin and Azithromycin Troponin significantly elevated Cardiology following Echo with no wall motion abnormalities, normal EF Continue ASA TeleICU following Acute ishemic stroke CT with likely acute infarct MRI ordered but cannot be done while on Vapotherm BiPAP Continue aspirin Start statin Carotid ultrasound 11/19/2021: Supportive care eICU appreciated 11/20/2021: Dr. Grewal appreciated Supportive care 11/21/2021: Getting close to intubation 11/22/2021: PICC line for pressor therapy 11/23/2021: Pressor therapy discontinued Checked meds and labs 11/24/2021: Wean Vapotherm 11/24/2021: Supportive care Wean Vapotherm 12/01/2021: BiPAP dependent Critical Care Critically Ill Patient COLLEEN AMARO DO Dec 01, 2021 09:42
[2021-12-01 10:32] VITALS: BP 123/62
[2021-12-01] MEDS: LORazepam INJ 2 MG/ML (ATIVAN) VIAL IVP PRN ×2 (11:49→22:55)
--- NOTE | 2021-12-01 12:02 | Cardiology Progress Note ---
Subjective Date Seen by Provider: Dec 01, 2021 Time Seen by Provider: 11:54 Subjective/Events-last exam Patient is laying down in bed, no new complaint. No reported issues. Maintained on BiPAP I visited with his nurse and discussed his management plan. Objective-Cardiology Exam Last Set of Vital Signs Vital Signs 12/01/21 12/01/21 12/01/21 11:00 11:25 11:27 Temp 36.1 Pulse 52 Resp 22 B/P (MAP) 122/71 Pulse Ox 92 O2 Delivery NIV Bilevel O2 Flow Rate 100.00 FiO2 100 I&O Intake and Output 11/30/21 23:59 Intake Total 1290 ml Output Total 1375 ml Balance -85 ml Intake Oral 1290 ml Output Urine Total 1375 ml General: Alert, Cooperative, No Acute Distress Neck: Supple, No JVD Lungs: Normal Air Movement, Other (ronchi, bipap in place) Heart: Regular Rate, Normal S1, Normal S2, No Murmurs Abdomen: Normal Bowel Sounds, Soft Extremities: No Edema Skin: No Rashes Neuro: Normal Speech Psych/Mental Status: Mood NL Results Lab Laboratory Tests 12/01/21 04:28 A/P-Cardiology Admission Diagnosis Coronary artery disease Congestive heart failure, acute left ventricular systolic dysfunction Acute respiratory failure COVID-19 pneumonia Pulmonary embolism Assessment/Plan Coronary artery disease, status post acute myocardial infarction involving the anterolateral wall. Status post angiogram and stenting to the LAD by Dr. Grewal. Maintained on aspirin and Plavix. Continue to monitor Congestive heart failure, acute left ventricular systolic dysfunction due to acu te myocardial infarction, continue current treatment and monitor Acute respiratory failure secondary to COVID-19 pneumonia, maintained on BiPAP. Pulmonary embolism, maintained on Eliquis Status post acute renal failure. Improved Hypertension, monitor blood pressure Hyperlipidemia, maintained on statin. DIONISIO THOMSON MD Dec 01, 2021 12:02
[2021-12-01] MEDS: NOREPINEPHRINE 8 MG/250 ML 250 ML IV SCH (13:43)
[2021-12-01 15:43] VITALS: BP 135/69
[2021-12-01 18:38] VITALS: BP 134/67
[2021-12-01] MEDS: ROSUVASTATIN 20 MG (CRESTOR) TABLET PO SCH (20:58)
[2021-12-01] MEDS: RT-ALBUTEROL HFA 8.5 GM INHALER IH PRN (22:33)
[2021-12-01 22:34] VITALS: BP 141/72
[2021-12-02 02:24] VITALS: BP 143/72
[2021-12-02] MEDS: RT-ALBUTEROL HFA 8.5 GM INHALER IH PRN (02:24)
[2021-12-02 05:48] LABS: EOSINOPHILS % (AUTO) 0 % (0-10); LYMPHOCYTES % (AUTO) 3 % (12-44)
[2021-12-02 05:50] LABS: BASOPHILS % (AUTO) 0 % (0-10); HEMATOCRIT 39 % (40-54); HEMOGLOBIN 13.3 g/dL (13.3-17.7); LYMPHOCYTES # (AUTO) 0.5 10^3/uL (1.0-4.0); MEAN CORPUSCULAR HEMOGLOBIN 29 pg (25-34); MEAN CORPUSCULAR HGB CONC 34 g/dL (32-36); MEAN CORPUSCULAR VOLUME 86 fL (80-99); MEAN PLATELET VOLUME 12.4 fL (9.0-12.2); MONOCYTES # (AUTO) 0.7 10^3/uL (0.0-1.0); MONOCYTES % (AUTO) 4 % (0-12); NEUTROPHILS % (AUTO) 93 % (42-75); PLATELET COUNT 110 10^3/uL (130-400); WHITE BLOOD COUNT 17.3 10^3/uL (4.3-11.0)
[2021-12-02 05:54] LABS: ALBUMIN 3.5 GM/DL (3.2-4.5); POTASSIUM 4.5 MMOL/L (3.6-5.0)
[2021-12-02 05:55] LABS: CALCIUM 9.2 MG/DL (8.5-10.1)
[2021-12-02 05:57] LABS: TOTAL PROTEIN 6.5 GM/DL (6.4-8.2)
[2021-12-02 05:59] LABS: BILIRUBIN,TOTAL 0.5 MG/DL (0.1-1.0)
[2021-12-02 06:00] LABS: CREATININE SERUM 1.28 MG/DL (0.60-1.30); PHOSPHORUS 4.2 MG/DL (2.3-4.7)
[2021-12-02 06:03] LABS: MAGNESIUM 2.7 MG/DL (1.6-2.4)
[2021-12-02] MEDS: MAGNESIUM 1 GM/100 ML IVPB 100 ML IV SCH (06:19)
[2021-12-02] MEDS: POTASSIUM CL 10MEQ/50ML IVPB 50 ML IV SCH (06:19)
[2021-12-02] MEDS: KCL 20 MEQ TAB (K-DUR) PO SCH (06:20)
[2021-12-02] MEDS: methylPREDNISolone 40 MG/ML (Solu-MEDROL) VIAL IV SCH ×4 (06:43→23:53)
[2021-12-02] MEDS: inSUlin ASPART (NovoLOG) 1 UNIT/0.01 ML (CHARGE PER UNIT) SC SCH ×4 (06:45→20:46)
[2021-12-02] MEDS: LORazepam INJ 2 MG/ML (ATIVAN) VIAL IVP PRN ×2 (07:24→20:07)
[2021-12-02] MEDS: RT-ALBUTEROL HFA 8.5 GM INHALER IH SCH ×4 (08:10→21:13)
[2021-12-02 08:11] VITALS: BP 143/75
--- NOTE | 2021-12-02 08:33 | Progress Note - Hospitalist ---
Subjective HPI/CC On Admission Date Seen by Provider: Dec 02, 2021 Time Seen by Provider: 11:00 Christiano Cuadra is a 71 year old male with PMH HTN, HLD, who presented with shortness of breath. He was diagnosed with COVID about 5 days ago. He is also having weakness. He is having a dry cough. His appetite is poor. He is not having fevers or chills. He is not having chest pain. He denies nausea, vomiting, and diarrhea. He received two vaccines in January. He did not get a booster. Subjective/Events-last exam Patient is the same BiPAP dependent Precedex helps Checked Meds and labs Prognosis guarded Review of Systems General: Fatigue Pulmonary: Dyspnea Objective Exam Vital Signs Vital Signs Date Time Temp Pulse Resp B/P (MAP) Pulse Ox O2 Delivery O2 Flow Rate FiO2 12/03/21 04:00 61 16 143/69 93 NIV Bilevel 55.00 12/02/21 20:00 65 12/02/21 20:00 35.3 Capillary Refill : Less Than 3 Seconds General Appearance: No Apparent Distress, WD/WN, Anxious, Chronically ill, Thin Respiratory: Lungs Clear, Normal Breath Sounds Cardiovascular: Regular Rate, Rhythm Results/Procedures Lab Patient resulted labs reviewed. Imaging: Reviewed Imaging Films, Reviewed Imaging Report Assessment/Plan Assessment and Plan Assess & Plan/Chief Complaint Assessment: Acute respiratory failure due to COVID-19 Hypercoagulable state associated with COVID-19 Acute myocardial infarction status post cardiac cath 11/20/2021 Dr. Grewal status post stent in LAD Bilateral pulmonary embolism Secondary bacterial pneumonia NSTEMI HTN HLD COVID+ at outside facility Chest xray with bilateral infiltrates Continue Decadron s/p Actemra 11/[address] Angio 11/14 with bialteral pulmonary embolism Continue therapeutic Lovenox Continue Rocephin and Azithromycin Troponin significantly elevated Cardiology following Echo with no wall motion abnormalities, normal EF Continue ASA TeleICU following Acute ishemic stroke CT with likely acute infarct MRI ordered but cannot be done while on Vapotherm BiPAP Continue aspirin Start statin Carotid ultrasound 11/19/2021: Supportive care eICU appreciated 11/20/2021: Dr. Grewal appreciated Supportive care 11/21/2021: Getting close to intubation 11/22/2021: PICC line for pressor therapy 11/23/2021: Pressor therapy discontinued Checked meds and labs 11/24/2021: Wean Vapotherm 11/24/2021: Supportive care Wean Vapotherm 12/01/2021: BiPAP dependent 12/02/2021: BiPAP dependent Critical Care Critically Ill Patient COLLEEN AMARO DO Dec 02, 2021 08:33
[2021-12-02] MEDS: NOREPINEPHRINE 8 MG/250 ML 250 ML IV SCH (09:58)
[2021-12-02] MEDS: NYSTATIN CREAM (MYCOSTATIN) 30 GM TUBE TP SCH ×3 (09:58→20:46)
[2021-12-02] MEDS: DexMEDEtomidine 250 ML DRIP 250 ML IV SCH ×2 (09:58→20:47)
[2021-12-02] MEDS: FUROSEMIDE 40 MG/4 ML INJ (LASIX) IVP SCH (09:59)
--- NOTE | 2021-12-02 10:08 | Tele-ICU Progress Note ---
Subjective Date Seen by a Provider: Dec 02, 2021 Time Seen by a Provider: 08:40 Subjective/Events-last exam This virtual visit was conducted using real time audio/video. Thank you for asking us to see this patient for respiratory insufficiency due to Covid pna and complicated by Ant-Lat [place] s/p stent, systolic dysfunction and PE. Recent events: pulling on BiPAP mask PE: VSS. O2 sat 93% on , 80%. HEENT: No obvious masses, adenopathy or JVD. Chest: clear to auscultation. CV: RRR S1 S2 No murmur or added sounds. Abd: Non-tender. Bowel sounds Y. : Unremarkable. Prieto Y. BLADE GRINDER/psychiatric: Grossly intact. No obvious focal findings. Extremities: Tr edema. Capillary refill < 3 seconds. Skin: unremarkable. Results: Elevated WCC 17.3, BUN 89, Creat 1.28. CXR: B infilts.. Available chart/ vitals / labs / images reviewed. Video assessment done using teleICU camera, rest of exam as per RN. A/P: Respiratory insufficiency: Continue present management with BIPAP. Will add PRN Ativan. Monitor for increasing oxygenation needs and/or need for intubation. Critical Care: critically ill patient. Cont. Alb., Prec., Medrol, acyclovir, ASA, Plavix, Eliquis, PPI, SSI Discussed with KAIN Chaney. Asked RN to reach out to eICU if any questions or concerns later. Time spent with patient/coordination of care with other health professionals (mins): 20 Sepsis Event Evaluation Height, Weight, BMI Height: '" Weight: lbs. oz. kg; 23.85 BMI Method: Exam Exam Patient acknowledged, consented, and participated in this virtual visit which was conducted using real time audio/video Vital Signs Date Time Temp Pulse Resp B/P (MAP) Pulse Ox O2 Delivery O2 Flow Rate FiO2 12/02/21 09:58 143/73 12/02/21 09:00 56 20 131/73 94 NIV Bilevel 70.00 12/02/21 08:11 58 24 91 85.00 12/02/21 08:00 61 18 137/73 96 NIV Bilevel 70.00 12/02/21 08:00 36.4 12/02/21 07:00 63 12/02/21 07:00 61 16 126/66 97 NIV Bilevel 70.00 12/02/21 06:00 57 16 134/67 96 NIV Bilevel 70.00 12/02/21 05:30 NIV Bilevel 55.00 12/02/21 05:00 62 20 140/65 95 NIV Bilevel 70.00 12/02/21 04:00 64 21 136/70 95 NIV Bilevel 70.00 12/02/21 04:00 NIV Bilevel 55 12/02/21 03:00 57 25 137/66 95 NIV Bilevel 70.00 12/02/21 02:24 58 23 96 55.00 12/02/21 02:00 60 17 143/72 96 NIV Bilevel 70.00 12/02/21 01:00 60 12/02/21 01:00 60 21 133/71 97 NIV Bilevel 70.00 12/02/21 00:00 58 18 145/72 96 NIV Bilevel 70.00 12/01/21 23:28 NIV Bilevel 65 12/01/21 23:00 62 25 132/73 94 NIV Bilevel 70.00 12/01/21 22:44 36.2 12/01/21 22:34 63 22 96 65.00 12/01/21 22:00 70 18 137/70 96 NIV Bilevel 70.00 12/01/21 21:01 69 141/79 12/01/21 21:00 70 18 137/70 96 NIV Bilevel 70.00 12/01/21 20:00 68 18 139/70 95 NIV Bilevel 70.00 12/01/21 20:00 94 NIV Bilevel 65 12/01/21 19:46 36.4 12/01/21 19:00 60 22 126/68 94 NIV Bilevel 70.00 12/01/21 19:00 60 12/01/21 18:38 61 22 93 70.00 12/01/21 18:00 58 36 139/72 98 NIV Bilevel 70.00 12/01/21 17:00 57 24 144/76 94 NIV Bilevel 70.00 12/01/21 16:00 54 19 133/69 93 NIV Bilevel 70.00 12/01/21 16:00 NIV Bilevel 70 12/01/21 15:46 NIV Bilevel 70.00 12/01/21 15:43 48 22 94 80.00 12/01/21 15:43 36.3 12/01/21 15:17 NIV Bilevel 80.00 12/01/21 15:00 48 20 130/73 93 NIV Bilevel 100.00 12/01/21 14:00 45 22 130/71 95 NIV Bilevel 100.00 12/01/21 13:00 48 20 112/65 93 NIV Bilevel 100.00 12/01/21 13:00 51 12/01/21 12:00 49 19 113/64 91 NIV Bilevel 100.00 12/01/21 11:27 92 NIV Bilevel 100 12/01/21 11:25 36.1 NIV Bilevel 100.00 12/01/21 11:00 52 22 122/71 92 NIV Bilevel 70.00 12/01/21 10:32 50 27 94 40.00 I & O 12/02/21 07:00 Intake Total 700 ml Output Total 1425 ml Balance -725 ml Height & Weight Height: '" Weight: lbs. oz. kg; 23.85 BMI Method: General Appearance: Anxious, Chronically ill, Thin HEENT: PERRL/EOMI, Pharynx Normal Neck: Normal Inspection, Supple Respiratory: No Respiratory Distress, Accessory Muscle Use, Decreased Breath Sounds, Other (on bipap) Cardiovascular: Regular Rate, Rhythm Capillary Refill: Less Than 3 Seconds Peripheral Pulses: 1+ Dorsalis Pedis (R), 1+ Left Dors-Pedis (L) (see free text) Extremity: Normal Inspection, Non Tender, No Pedal Edema Neurologic/Psychiatric: Alert, Depressed Affect Skin: Normal Color, Warm/Dry Results Lab Laboratory Tests 12/01/21 04:28 12/02/21 04:50 Assessment/Plan Assessment/Plan See free text Critical Care: Critically Ill Patient AMANDA VIRAMONTES MD Dec 02, 2021 10:08
--- NOTE | 2021-12-02 10:26 | Cardiology Progress Note ---
Subjective Date Seen by Provider: Dec 02, 2021 Time Seen by Provider: 10:26 Subjective/Events-last exam Patient was seen at bedside, pulling down his BiPAP mask. Still in respiratory failure Objective-Cardiology Exam Last Set of Vital Signs Vital Signs 12/02/21 12/02/21 08:00 10:00 Temp 36.4 Pulse 65 Resp 25 B/P (MAP) 140/69 Pulse Ox 91 O2 Delivery NIV Bilevel O2 Flow Rate 80.00 FiO2 80 I&O Intake and Output 12/02/21 00:00 Intake Total 950 ml Output Total 1425 ml Balance -475 ml Intake Oral 450 ml IV Total 500 ml Output Urine Total 1425 ml General: Alert, No Acute Distress Neck: Supple, No JVD Lungs: Normal Air Movement, Other (ronchi, bipap in place) Heart: Regular Rate, Normal S1, Normal S2, No Murmurs Abdomen: Normal Bowel Sounds, Soft Extremities: No Edema Skin: No Rashes Neuro: Normal Speech Psych/Mental Status: Mood NL Results Lab Laboratory Tests 12/02/21 04:50 A/P-Cardiology Admission Diagnosis Coronary artery disease Congestive heart failure, acute left ventricular systolic dysfunction Acute respiratory failure COVID-19 pneumonia Pulmonary embolism Assessment/Plan Coronary artery disease, status post acute myocardial infarction involving the a nterolateral wall. Status post angiogram and stenting to the LAD by Dr. Grewal. Maintained on aspirin and Plavix. Continue to monitor Congestive heart failure, acute left ventricular systolic dysfunction due to acute myocardial infarction, continue current treatment and monitor Acute respiratory failure secondary to COVID-19 pneumonia, maintained on BiPAP. Pulmonary embolism, maintained on Eliquis Status post acute renal failure. Improved Hypertension, monitor blood pressure Hyperlipidemia, maintained on statin. DIONISIO THOMSON MD Dec 02, 2021 10:26
[2021-12-02] MEDS: CAPTOPRIL 25 MG (CAPOTEN) TAB PO SCH ×2 (11:00→20:33)
[2021-12-02] MEDS: ASPIRIN 81 MG CHEW (CHILDREN'S ASA) PO SCH (11:01)
[2021-12-02] MEDS: APIXABAN 5 MG (ELIQUIS) TABLET PO SCH ×2 (11:01→20:33)
[2021-12-02] MEDS: DOCUSATE SODIUM 100 MG (COLACE) CAP PO SCH ×2 (11:01→20:33)
[2021-12-02] MEDS: CLOPIDOGREL 75 MG (PLAVIX) TABLET PO SCH (11:02)
[2021-12-02] MEDS: ACYCLOVIR 400 MG TABLET (ZOVIRAX) PO SCH ×2 (11:02→20:33)
[2021-12-02] MEDS: PANTOPRAZOLE 40 MG (PROTONIX) TAB PO SCH (11:02)
[2021-12-02] MEDS: SENNOSIDES 8.6 MG (SENOKOT) TAB PO SCH ×2 (11:02→20:33)
[2021-12-02 14:36] VITALS: BP 127/67
[2021-12-02] MEDS: ROSUVASTATIN 20 MG (CRESTOR) TABLET PO SCH (20:33)
[2021-12-02 21:13] VITALS: BP 138/74
[2021-12-03] MEDS: LORazepam INJ 2 MG/ML (ATIVAN) VIAL IVP PRN ×3 (00:30→21:55)
[2021-12-03 02:10] VITALS: BP 147/67
[2021-12-03] MEDS: RT-ALBUTEROL HFA 8.5 GM INHALER IH SCH ×6 (02:10→21:39)
[2021-12-03 05:13] LABS: BASOPHILS % (AUTO) 0 % (0-10); EOSINOPHILS % (AUTO) 0 % (0-10); HEMATOCRIT 40 % (40-54); HEMOGLOBIN 13.5 g/dL (13.3-17.7); LYMPHOCYTES # (AUTO) 0.4 10^3/uL (1.0-4.0); LYMPHOCYTES % (AUTO) 3 % (12-44); MEAN CORPUSCULAR HEMOGLOBIN 29 pg (25-34); MEAN CORPUSCULAR HGB CONC 34 g/dL (32-36); MEAN CORPUSCULAR VOLUME 87 fL (80-99); MEAN PLATELET VOLUME 12.2 fL (9.0-12.2); MONOCYTES # (AUTO) 0.5 10^3/uL (0.0-1.0); MONOCYTES % (AUTO) 3 % (0-12); NEUTROPHILS # (AUTO) 13.9 10^3/uL (1.8-7.8); NEUTROPHILS % (AUTO) 94 % (42-75); PLATELET COUNT 106 10^3/uL (130-400); WHITE BLOOD COUNT 14.9 10^3/uL (4.3-11.0)
[2021-12-03 05:16] LABS: ALBUMIN 3.6 GM/DL (3.2-4.5); POTASSIUM 4.6 MMOL/L (3.6-5.0)
[2021-12-03 05:17] LABS: CALCIUM 9.3 MG/DL (8.5-10.1)
[2021-12-03 05:19] LABS: TOTAL PROTEIN 6.7 GM/DL (6.4-8.2)
[2021-12-03 05:20] LABS: BILIRUBIN,TOTAL 0.6 MG/DL (0.1-1.0)
[2021-12-03 05:22] LABS: CREATININE SERUM 1.17 MG/DL (0.60-1.30); PHOSPHORUS 4.1 MG/DL (2.3-4.7)
[2021-12-03 05:25] LABS: MAGNESIUM 2.7 MG/DL (1.6-2.4)
[2021-12-03] MEDS: MAGNESIUM 1 GM/100 ML IVPB 100 ML IV SCH (05:36)
[2021-12-03] MEDS: POTASSIUM CL 10MEQ/50ML IVPB 50 ML IV SCH (05:36)
[2021-12-03] MEDS: KCL 20 MEQ TAB (K-DUR) PO SCH (05:36)
[2021-12-03] MEDS: NOREPINEPHRINE 8 MG/250 ML 250 ML IV SCH ×2 (05:36→21:55)
[2021-12-03] MEDS: inSUlin ASPART (NovoLOG) 1 UNIT/0.01 ML (CHARGE PER UNIT) SC SCH ×4 (05:47→21:00)
[2021-12-03] MEDS: methylPREDNISolone 40 MG/ML (Solu-MEDROL) VIAL IV SCH ×2 (05:48→17:35)
[2021-12-03 07:09] VITALS: BP 135/63
--- NOTE | 2021-12-03 07:37 | Physical Therapy Progress Note ---
Therapy Progress Note Patient continues to have increase O2 demand requiring BiPap. Per report, patient is dependent on BiPap and has increased confusion. Patient is not safe to actively participate with skilled therapy. Patient on Hold. RYAN KHAN PT Dec 03, 2021 07:37
--- NOTE | 2021-12-03 08:39 | Cardiology Progress Note ---
Progress Note-Cardiology Events since last exam Date Seen by Provider: Dec 03, 2021 Time Seen by Provider: 08:38 Events since last exam I am following him due to acute anterolateral STEMI that occurred during this admission. He is now BiPAP dependent in the intensive care unit. He is unable to take oral medication due to his dependency on BiPAP. He has not received his Eliquis since 12/01. I did not see the patient due to his COVID status. I did speak with his nurse of today. Certain portions of this document may have been dictated utilizing voice recognition technology. Inherent to this technology, typographical and grammatical errors may exist. As much as I am diligent to identify and correct these mistakes, some errors may remain in the document. Vitals Last set of Vitals Signs Vital Signs 12/03/21 12/03/21 12/03/21 12/03/21 08:00 08:42 10:00 10:27 Temp 37.0 Pulse 55 Resp 29 B/P (MAP) 144/70 Pulse Ox 93 O2 Delivery NIV Bilevel O2 Flow Rate 70.00 FiO2 70 Labs Labs Laboratory Tests 12/03/21 04:40 Exam Vital Signs Vital Signs Date Time Temp Pulse Resp B/P (MAP) Pulse Ox O2 Delivery O2 Flow Rate FiO2 12/03/21 10:27 55 29 93 70.00 12/03/21 10:00 144/70 NIV Bilevel 12/03/21 08:42 70 12/03/21 08:00 37.0 Physical Exam I did not examine the patient due to his COVID status. Labs Laboratory Tests Test 12/02/21 16:19 12/02/21 20:46 12/03/21 04:40 12/03/21 10:42 Range/Units Glucometer 169 H 146 H 148 H 70-110 MG/DL White Blood Count 14.9 H 4.3-11.0 10^3/uL Red Blood Count 4.66 4.30-5.52 10^6/uL Hemoglobin 13.5 13.3-17.7 g/dL Hematocrit 40 40-54 % Mean Corpuscular Volume 87 80-99 fL Mean Corpuscular Hemoglobin 29 25-34 pg Mean Corpuscular Hemoglobin Concent 34 32-36 g/dL Red Cell Distribution Width 14.7 H 10.0-14.5 % Platelet Count 106 L 130-400 10^3/uL Mean Platelet Volume 12.2 9.0-12.2 fL Immature Granulocyte % (Auto) 1 % Neutrophils (%) (Auto) 94 H 42-75 % Lymphocytes (%) (Auto) 3 L 12-44 % Monocytes (%) (Auto) 3 0-12 % Eosinophils (%) (Auto) 0 0-10 % Basophils (%) (Auto) 0 0-10 % Neutrophils # (Auto) 13.9 H 1.8-7.8 10^3/uL Lymphocytes # (Auto) 0.4 L 1.0-4.0 10^3/uL Monocytes # (Auto) 0.5 0.0-1.0 10^3/uL Eosinophils # (Auto) 0.0 0.0-0.3 10^3/uL Basophils # (Auto) 0.0 0.0-0.1 10^3/uL Immature Granulocyte # (Auto) 0.1 0.0-0.1 10^3/uL Sodium Level 145 135-145 MMOL/L Potassium Level 4.6 3.6-5.0 MMOL/L Chloride Level 107 98-107 MMOL/L Carbon Dioxide Level 26 21-32 MMOL/L Anion Gap 12 5-14 MMOL/L Blood Urea Nitrogen 87 H 7-18 MG/DL Creatinine 1.17 0.60-1.30 MG/DL Estimat Glomerular Filtration Rate 62 BUN/Creatinine Ratio 74 Glucose Level 169 H 70-105 MG/DL Calcium Level 9.3 8.5-10.1 MG/DL Corrected Calcium 9.6 8.5-10.1 MG/DL Phosphorus Level 4.1 2.3-4.7 MG/DL Magnesium Level 2.7 H 1.6-2.4 MG/DL Total Bilirubin 0.6 0.1-1.0 MG/DL Aspartate Amino Transf (AST/SGOT) 23 5-34 U/L Alanine Aminotransferase (ALT/SGPT) 19 0-55 U/L Alkaline Phosphatase 68 40-136 U/L Total Protein 6.7 6.4-8.2 GM/DL Albumin 3.6 3.2-4.5 GM/DL Test 12/03/21 11:20 Range/Units Blood Gas Puncture Site R RAD Blood Gas Patient Temperature 36.7 Arterial Blood pH 7.46 H 7.37-7.43 Arterial Blood Partial Pressure CO2 38 35-45 MMHG Arterial Blood Partial Pressure O2 96 H 79-93 MMHG Arterial Blood HCO3 27 23-27 MMOL/L Arterial Blood Total CO2 27.9 21.0-31.0 MMOL/L Arterial Blood Oxygen Saturation 98 94-100 % Arterial Blood Base Excess 3.0 H -2.5-2.5 MMOL/L Juvenal Test YES-POS Blood Gas Ventilator Setting NO Blood Gas Inspired Oxygen 70% Diagnosis/Problems Diagnosis/Problems (1) ST elevation myocardial infarction (STEMI) of anterolateral wall, initial episode of care Status: Acute Assessment & Plan: On 11/20/21 he started having chest pain and an electrocardiogram showed an acute anterolateral ST elevation myocardial infarction. 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 He has been started on clopidogrel. I will continue aspirin until discharge. He is on apixaban due to pulmonary embolism diagnosed during this admission. His discharge anticoagulation should be clopidogrel and apixaban without aspirin. However, he has not been receiving apixaban since 12/01 due to his inability to take oral medication. I will start him on enoxaparin. Continue beta-earline, JESUSITA inhibitor and statin as tolerated. (2) Acute HFrEF (heart failure with reduced ejection fraction) Assessment & Plan: He may have some superimposed pulmonary edema on top of the Covid pneumonia. I started him on IV Lasix twice daily on 11/29 to this was cut back to once daily dosing over the weekend. His follow-up echocardiogram after the myocardial infarction showed mild left ventricular systolic dysfunction with an estimated ejection fraction of 40-45%. I have him on low-dose carvedilol and captopril as tolerated by blood pressure. However, as above, he has not been taking oral medications due to his dependency on BiPAP. (3) Cardiomyopathy Assessment & Plan: When he first presented to the hospital his ejection fraction was normal. However, following the myocardial infarction, he has mild left ventricular systolic dysfunction. Some of this could be due to regional stunning. As above, I have him on low-dose carvedilol and captopril when his blood pressure will tolerate the medication. (4) Pulmonary embolism Assessment & Plan: This may possibly be related to his Covid infection. I changed his enoxaparin over to apixaban on 11/21 but he has not taken apixaban since 12/01. I will change the apixaban back over to enoxaparin at therapeutic dosing until he can once again take oral medication. (5) Primary hypertension Assessment & Plan: Blood pressures continue to intermittently be on the low side. I have ordered carvedilol and captopril as his blood pressure will tolerate. He has intermittently required low-dose norepinephrine infusion. (6) Mixed hyperlipidemia Status: Chronic Assessment & Plan: Due to his acute myocardial infarction, I started him on intensive-dose statin medication. (7) Acute respiratory failure due to COVID-19 Status: Acute Assessment & Plan: His pulmonary status had been waxing and waning requiring intermittent BiPAP interspersed with Vapotherm but now seems to be requiring constant BiPAP. (8) Acute kidney injury Status: Resolved Assessment & Plan: Renal function seems to have stabilized over the past week. Resolution Date/Time: 11/30/21 @ 13:32 ALISHA WILSON JR, MD Dec 03, 2021 08:39
[2021-12-03] MEDS: FUROSEMIDE 40 MG/4 ML INJ (LASIX) IVP SCH (08:43)
[2021-12-03] MEDS: DOCUSATE SODIUM 100 MG (COLACE) CAP PO SCH ×2 (08:44→21:00)
[2021-12-03] MEDS: PANTOPRAZOLE 40 MG (PROTONIX) TAB PO SCH (08:44)
[2021-12-03] MEDS: SENNOSIDES 8.6 MG (SENOKOT) TAB PO SCH ×2 (08:44→21:00)
[2021-12-03] MEDS: APIXABAN 5 MG (ELIQUIS) TABLET PO SCH (08:44)
[2021-12-03] MEDS: CAPTOPRIL 25 MG (CAPOTEN) TAB PO SCH ×2 (08:44→21:00)
[2021-12-03] MEDS: ASPIRIN 81 MG CHEW (CHILDREN'S ASA) PO SCH (08:44)
[2021-12-03] MEDS: CLOPIDOGREL 75 MG (PLAVIX) TABLET PO SCH (08:44)
[2021-12-03] MEDS: NYSTATIN CREAM (MYCOSTATIN) 30 GM TUBE TP SCH ×3 (08:45→21:00)
[2021-12-03] MEDS: ACYCLOVIR 400 MG TABLET (ZOVIRAX) PO SCH ×2 (08:45→21:00)
[2021-12-03] MEDS: ENOXAPARIN 80 MG/0.8 ML (LOVENOX) SYR SC SCH ×2 (09:24→21:55)
[2021-12-03 10:27] VITALS: BP 139/67
[2021-12-03 11:32] LABS: ABG OXYGEN SATURATION 98 % (94-100); ABG PCO2 38 MMHG (35-45); ABG PH 7.46 (7.37-7.43); ABG PO2 96 MMHG (79-93); ABG TCO2 27.9 MMOL/L (21.0-31.0)
[2021-12-03 11:33] LABS: ALLENS TEST YES-POS; INSPIRED O2 70%; PATIENT TEMP 36.7; VENTILATOR NO
--- NOTE | 2021-12-03 12:34 | Tele-ICU Progress Note ---
Subjective Date Seen by a Provider: Dec 03, 2021 Time Seen by a Provider: 12:34 Sepsis Event Evaluation Height, Weight, BMI Height: '" Weight: lbs. oz. kg; 23.85 BMI Method: Exam Exam Patient acknowledged, consented, and participated in this virtual visit which was conducted using real time audio/video Vital Signs Date Time Temp Pulse Resp B/P (MAP) Pulse Ox O2 Delivery O2 Flow Rate FiO2 12/03/21 12:00 36.6 12/03/21 11:50 NIV Bilevel 70 12/03/21 11:00 52 21 147/72 95 NIV Bilevel 70.00 12/03/21 10:27 55 29 93 70.00 12/03/21 10:00 55 30 144/70 95 NIV Bilevel 70.00 12/03/21 09:00 54 30 135/69 96 NIV Bilevel 70.00 12/03/21 08:42 NIV Bilevel 70 12/03/21 08:00 37.0 12/03/21 08:00 62 28 140/72 96 NIV Bilevel 70.00 12/03/21 07:09 54 22 97 70.00 12/03/21 07:00 54 29 136/67 97 NIV Bilevel 70.00 12/03/21 07:00 61 12/03/21 06:00 53 22 138/64 95 NIV Bilevel 70.00 12/03/21 05:57 NIV Bilevel 70.00 12/03/21 05:00 64 28 142/69 92 NIV Bilevel 55.00 12/03/21 04:00 61 16 143/69 93 NIV Bilevel 55.00 12/03/21 04:00 NIV Bilevel 50 12/03/21 03:00 50 19 145/61 93 NIV Bilevel 55.00 12/03/21 02:10 58 23 97 60.00 12/03/21 02:00 54 18 147/67 98 NIV Bilevel 55.00 12/03/21 01:35 NIV Bilevel 55.00 12/03/21 01:00 50 12/03/21 01:00 50 24 143/68 98 NIV Bilevel 60.00 12/03/21 00:00 61 14 156/73 97 NIV Bilevel 60.00 12/03/21 00:00 NIV Bilevel 60 12/02/21 23:00 55 17 143/71 95 NIV Bilevel 60.00 12/02/21 22:00 52 13 139/70 97 NIV Bilevel 60.00 12/02/21 21:23 52 18 95 NIV Bilevel 60.00 12/02/21 21:13 52 23 97 65.00 12/02/21 21:00 54 17 138/74 97 NIV Bilevel 65.00 12/02/21 20:47 56 109/62 12/02/21 20:00 61 23 133/68 92 NIV Bilevel 65.00 12/02/21 20:00 NIV Bilevel 65 12/02/21 20:00 35.3 12/02/21 19:00 54 15 128/68 97 NIV Bilevel 65.00 12/02/21 19:00 54 12/02/21 18:00 61 20 145/79 97 NIV Bilevel 65.00 12/02/21 17:00 53 18 128/68 93 NIV Bilevel 65.00 12/02/21 16:58 92 NIV Bilevel 65.00 12/02/21 16:06 93 NIV Bilevel 75 12/02/21 16:05 NIV Bilevel 75.00 12/02/21 16:00 35.8 12/02/21 16:00 52 21 135/68 90 NIV Bilevel 70.00 12/02/21 15:00 51 21 129/70 96 NIV Bilevel 70.00 12/02/21 14:36 57 23 93 70.00 12/02/21 14:00 57 21 136/67 95 NIV Bilevel 70.00 12/02/21 13:00 53 21 134/67 96 NIV Bilevel 70.00 12/02/21 13:00 59 I & O 12/03/21 07:00 Intake Total 350 ml Output Total 1700 ml Balance -1350 ml Height & Weight Height: '" Weight: lbs. oz. kg; 23.85 BMI Method: General Appearance: No Apparent Distress, WD/WN, Anxious, Chronically ill, Thin HEENT: PERRL/EOMI, Pharynx Normal Neck: Normal Inspection, Supple Respiratory: Lungs Clear, Normal Breath Sounds Cardiovascular: Regular Rate, Rhythm Capillary Refill: Less Than 3 Seconds Peripheral Pulses: 1+ Dorsalis Pedis (R), 1+ Left Dors-Pedis (L) (see free text) Extremity: Normal Inspection, Non Tender, No Pedal Edema Neurologic/Psychiatric: Alert, Depressed Affect Skin: Normal Color, Warm/Dry Results Lab Laboratory Tests 12/02/21 04:50 12/03/21 04:40 Assessment/Plan Assessment/Plan Tele-ICU Physician , Progress Note ) Available chart/ vitals / labs / Images reviewed Video assesment done using teleICU camera, rest of exam as per RN Discussed with RN , EXAM PER RN Events overnight : on bipap Afebrile FiO2 - 70% I/O = neg 700 Drips: Pressors: hemodynamically stable Consultants: A/P Pneumonia due to COVID-19 virus s/p Actemra, on acyclovir for pprx. dexamethasone finished zosyn eliquis( +PE ) Acute rsp failure = vapotherm with 90% FiO2 --> to BIPAP 11/28 , still on BIPAP 11/29 70 % high risk for intubation -- cxr with infitrates - better then on admission- 11/30 neg PCT and cxr same - recheck ddimer and Xa - pending -IV steroids / DECREASED 12/03 STEMI of anterolateral 11/20 cath with stent to LAD, clopidogrel, aspirin, statin. Acute ischemic stroke CTHsubacute or recent ischemia, unable to get MRI due to respiratory status, - Carotid US without significant stenosis. Bilateral pulmonary embolism ( Bilateral segmental and subsegmenta On apixaban--> lovenoc since can not take PO 12/03 Secondary bacterial pneumonia - cxr with infitrates - better then on admission cefrt/z-max 1222-11/19 - Zosyn 11/22--11/27 OFF ABX - repeat cxr and PCT EVAN - cr increased 11/29 ( poor po intake and disrrhea ) - change lasix to qd from bid - no diarrhea 11/30 Anxiety - precedex / ativan Lines : (Central Line Necessity Reviewed) Prieot: OG: Nutrition: poor, ONLY ENSURE TAKEN DVT propn - eliquis Stress Ulcer Prophylaxis: h2b Glycemic Control: Plans in collaboration with bedside consultants and IM MDs. Discussed with RN to reach out if any questions or concerns A total of 43 minutes of critical care time was devoted to this patient today, required to treat and/or prevent further deterioration of critical care condition ( as above) . SAMSON MAYEN MD Dec 03, 2021 12:34
[2021-12-03 14:14] VITALS: BP 130/67
[2021-12-03 19:10] VITALS: BP 134/80
[2021-12-03] MEDS: ROSUVASTATIN 20 MG (CRESTOR) TABLET PO SCH (21:00)
[2021-12-03 21:40] VITALS: BP 151/79
[2021-12-03] MEDS: DexMEDEtomidine 250 ML DRIP 250 ML IV SCH (21:55)
--- NOTE | 2021-12-03 22:04 | Progress Note ---
Subjective Subjective/Events-last exam Patient on bipap and non responsive, will open eyes to stimuli Objective Exam Last Set of Vital Signs Vital Signs Date Time Temp Pulse Resp B/P (MAP) Pulse Ox O2 Delivery O2 Flow Rate FiO2 12/03/21 21:40 72 19 97 70.00 12/03/21 20:00 36.6 12/03/21 18:00 152/79 NIV Bilevel 12/03/21 15:56 70 Capillary Refill : Less Than 3 Seconds I&O Intake and Output 12/02/21 23:59 Intake Total 350 ml Output Total 1700 ml Balance -1350 ml Intake Oral 100 ml IV Total 250 ml Output Urine Total 1700 ml General: Moderate Distress, Other (Disoriented) Lungs: Other (Diminished breath sounds throughout, increased work of breathing) Heart: Regular Rate, No Murmurs Abdomen: Soft, No Tenderness Results/Procedures Lab Laboratory Tests 12/03/21 04:40: White Blood Count 14.9H, Red Blood Count 4.66, Hemoglobin 13.5, Hematocrit 40, Mean Corpuscular Volume 87, Mean Corpuscular Hemoglobin 29, Mean Corpuscular Hemoglobin Concent 34, Red Cell Distribution Width 14.7H, Platelet Count 106L, Mean Platelet Volume 12.2, Immature Granulocyte % (Auto) 1, Neutrophils (%) (Auto) 94H, Lymphocytes (%) (Auto) 3L, Monocytes (%) (Auto) 3, Eosinophils (%) (Auto) 0, Basophils (%) (Auto) 0, Neutrophils # (Auto) 13.9H, Lymphocytes # (Auto) 0.4L, Monocytes # (Auto) 0.5, Eosinophils # (Auto) 0.0, Basophils # (Auto) 0.0, Immature Granulocyte # (Auto) 0.1, Sodium Level 145, Potassium Level 4.6, Chloride Level 107, Carbon Dioxide Level 26, Anion Gap 12, Blood Urea Nitrogen 87H, Creatinine 1.17, Estimat Glomerular Filtration Rate 62, BUN/Creatinine Ratio 74, Glucose Level 169H, Calcium Level 9.3, Corrected Calcium 9.6, Phosphorus Level 4.1, Magnesium Level 2.7H, Total Bilirubin 0.6, Aspartate Amino Transf (AST/SGOT) 23, Alanine Aminotransferase (ALT/SGPT) 19, Alkaline Phosphatase 68, Total Protein 6.7, Albumin 3.6 12/03/21 10:42: Glucometer 148H 12/03/21 11:20: Blood Gas Puncture Site R RAD, Blood Gas Patient Temperature 36.7, Arterial Blood pH 7.46H, Arterial Blood Partial Pressure CO2 38, Arterial Blood Partial Pressure O2 96H, Arterial Blood HCO3 27, Arterial Blood Total CO2 27.9, Arterial Blood Oxygen Saturation 98, Arterial Blood Base Excess 3.0H, Juvenal Test YES-POS, Blood Gas Ventilator Setting NO, Blood Gas Inspired Oxygen 70% 12/03/21 15:51: Glucometer 141H 12/03/21 20:47: Glucometer 165H Microbiology 11/14/21 Urine Culture - Final, Complete NO GROWTH 11/14/21 MRSA Screen - Final, Complete MRSA not isolated 11/14/21 Blood Culture - Final, Complete No growth Assessment/Plan Assessment/Plan (1) Acute respiratory failure due to COVID-19 Status: Acute (2) Pneumonia due to COVID-19 virus Status: Acute Assessment & Plan: 11/26 Requiring vapotherm with 90% FiO2 today. s/p Actemra, on acyclovir for pprx. Continued on dexamethasone and zosyn for suspected secondary bacterial pneumonia. 11/27- has received 13 days of dexamethasone will d/c. continues to require high Fio2 but is relatively stable on that. Continued zosyn. 11/28- completed course of Zosyn, somewhat worsened today requiring bipap this am, appreciate [facility] ICU assistance. Updated daughter via phone today. 11/29- continued to require bipap, suspect possible aspiration with vomiting this morning, appreciate Thania assistance, anticipate may need intubated soon if no change. 11/30- continued on bipap but is much more alert today, possible benefit from steroids started yesterday per ICU physician. Called daughter to update, unable to reach. 12/03: Bipap dependent, very poor prognosis (3) ST elevation myocardial infarction (STEMI) of anterolateral wall, initial episode of care Status: Acute Assessment & Plan: 11/20 cath with stent to LAD, appreciate Cardiology recommendations. On clopidogrel, aspirin, statin. (4) Acute ischemic stroke Status: Acute Assessment & Plan: CT findings with possible subacute or recent ischemia, unable to get MRI due to respiratory status, no clear physical findings of ischemia. Carotid US without significant stenosis. (5) Bilateral pulmonary embolism Status: Acute Assessment & Plan: On apixaban. Bilateral segmental and subsegmental. 11/30 d dimer decreased, factor Xa pending to eval apixaban efficacy given recent worsening respiratory status. (6) Altered mental status Status: Acute Assessment & Plan: Suspect illness induced delirium Qualifiers: Qualified Codes: R41.82 - Altered mental status, unspecified (7) Mixed hyperlipidemia Status: Chronic (8) HTN (hypertension) Status: Chronic (9) HLD (hyperlipidemia) Status: Chronic (10) Secondary bacterial pneumonia Status: Acute Assessment & Plan: Had 5 days of azithromycin and ceftriaxone 11/14-11/19, Zosyn 11/22-11/27. (11) Acute kidney injury Status: Resolved Assessment & Plan: 11/29 creatinine increased today, Will decrease lasix to daily. 11/30 improved CRISTINA HOUSE MD Dec 03, 2021 22:04
[2021-12-04 02:49] VITALS: BP 150/83
[2021-12-04] MEDS: RT-ALBUTEROL HFA 8.5 GM INHALER IH SCH ×6 (02:49→21:51)
[2021-12-04] MEDS: methylPREDNISolone 40 MG/ML (Solu-MEDROL) VIAL IV SCH ×2 (05:02→17:46)
[2021-12-04 05:22] LABS: BASOPHILS % (AUTO) 0 % (0-10); EOSINOPHILS % (AUTO) 0 % (0-10); HEMATOCRIT 48 % (40-54); HEMOGLOBIN 15.9 g/dL (13.3-17.7); LYMPHOCYTES # (AUTO) 0.6 10^3/uL (1.0-4.0); LYMPHOCYTES % (AUTO) 3 % (12-44); MEAN CORPUSCULAR HEMOGLOBIN 29 pg (25-34); MEAN CORPUSCULAR HGB CONC 33 g/dL (32-36); MEAN CORPUSCULAR VOLUME 88 fL (80-99); MEAN PLATELET VOLUME 12.1 fL (9.0-12.2); MONOCYTES # (AUTO) 1.4 10^3/uL (0.0-1.0); MONOCYTES % (AUTO) 6 % (0-12); NEUTROPHILS # (AUTO) 21.4 10^3/uL (1.8-7.8); NEUTROPHILS % (AUTO) 90 % (42-75); PLATELET COUNT 118 10^3/uL (130-400); WHITE BLOOD COUNT 23.7 10^3/uL (4.3-11.0)
[2021-12-04 05:40] LABS: POTASSIUM 4.1 MMOL/L (3.6-5.0)
[2021-12-04 05:41] LABS: CALCIUM 9.8 MG/DL (8.5-10.1)
[2021-12-04 05:43] LABS: TOTAL PROTEIN 7.4 GM/DL (6.4-8.2)
[2021-12-04 05:44] LABS: BILIRUBIN,TOTAL 0.6 MG/DL (0.1-1.0)
[2021-12-04 05:46] LABS: CREATININE SERUM 1.24 MG/DL (0.60-1.30); PHOSPHORUS 3.5 MG/DL (2.3-4.7)
[2021-12-04] MEDS: MAGNESIUM 1 GM/100 ML IVPB 100 ML IV SCH (06:07)
[2021-12-04] MEDS: inSUlin ASPART (NovoLOG) 1 UNIT/0.01 ML (CHARGE PER UNIT) SC SCH ×4 (06:07→20:59)
[2021-12-04] MEDS: KCL 20 MEQ TAB (K-DUR) PO SCH (06:07)
[2021-12-04] MEDS: POTASSIUM CL 10MEQ/50ML IVPB 50 ML IV SCH (06:07)
--- NOTE | 2021-12-04 06:07 | Diagnostic Imaging Report ---
CHEST 1 VIEW, AP/PA ONLY Indication: Pneumonia. Comparison: 11/30/2021 Findings: Stable right PICC. Improving but persistent right upper lobe consolidations. Left-sided pulmonary opacities are similar. No pleural effusion or pneumothorax. Stable cardiac silhouette. Impression: 1. Improving but persistent pulmonary consolidations. Dictated by: Dictated on workstation # [id number]
--- NOTE | 2021-12-04 07:20 | Physical Therapy Progress Note ---
Therapy Progress Note PT to dismiss patient from services at this time due to declined in status. RYAN KHAN PT Dec 04, 2021 07:20
[2021-12-04 07:40] VITALS: BP 138/82
[2021-12-04] MEDS: ENOXAPARIN 80 MG/0.8 ML (LOVENOX) SYR SC SCH ×2 (08:00→20:58)
[2021-12-04] MEDS: FUROSEMIDE 40 MG/4 ML INJ (LASIX) IVP SCH ×3 (08:00→20:59)
[2021-12-04] MEDS: ASPIRIN 81 MG CHEW (CHILDREN'S ASA) PO SCH (08:00)
[2021-12-04] MEDS: DOCUSATE SODIUM 100 MG (COLACE) CAP PO SCH ×2 (08:01→20:59)
[2021-12-04] MEDS: SENNOSIDES 8.6 MG (SENOKOT) TAB PO SCH ×2 (08:01→20:59)
[2021-12-04] MEDS: CAPTOPRIL 25 MG (CAPOTEN) TAB PO SCH ×2 (08:01→20:59)
[2021-12-04] MEDS: ACYCLOVIR 400 MG TABLET (ZOVIRAX) PO SCH ×2 (08:01→21:00)
[2021-12-04] MEDS: PANTOPRAZOLE 40 MG (PROTONIX) TAB PO SCH (08:01)
[2021-12-04] MEDS: CLOPIDOGREL 75 MG (PLAVIX) TABLET PO SCH (08:01)
[2021-12-04] MEDS: NYSTATIN CREAM (MYCOSTATIN) 30 GM TUBE TP SCH ×3 (08:02→21:00)
--- NOTE | 2021-12-04 08:23 | Cardiology Progress Note ---
Progress Note-Cardiology Events since last exam Date Seen by Provider: Dec 04, 2021 Time Seen by Provider: 08:22 Events since last exam I am following him for acute anterolateral ST elevation myocardial infarction that occurred while he was in the hospital. He remains in the intensive care unit on BiPAP. He remains confused but will open his eyes although not following commands. I did not see the patient due to his COVID status. I did speak with his nurse of today. Certain portions of this document may have been dictated utilizing voice recognition technology. Inherent to this technology, typographical and grammatical errors may exist. As much as I am diligent to identify and correct these mistakes, some errors may remain in the document. Vitals Last set of Vitals Signs Vital Signs 12/04/21 12/04/21 07:57 08:00 Temp 35.8 Pulse 83 Resp 23 B/P (MAP) 120/75 Pulse Ox 95 O2 Delivery NIV Bilevel O2 Flow Rate 60.00 FiO2 60 Labs Labs Laboratory Tests 12/04/21 05:08 Exam Vital Signs Vital Signs Date Time Temp Pulse Resp B/P (MAP) Pulse Ox O2 Delivery O2 Flow Rate FiO2 12/04/21 08:00 83 23 120/75 95 NIV Bilevel 60.00 12/04/21 08:00 35.8 12/04/21 07:57 60 Physical Exam I did not examine the patient due to his COVID status. Labs Laboratory Tests Test 12/03/21 10:42 12/03/21 11:20 12/03/21 15:51 12/03/21 20:47 Range/Units Glucometer 148 H 141 H 165 H 70-110 MG/DL Blood Gas Puncture Site R RAD Blood Gas Patient Temperature 36.7 Arterial Blood pH 7.46 H 7.37-7.43 Arterial Blood Partial Pressure CO2 38 35-45 MMHG Arterial Blood Partial Pressure O2 96 H 79-93 MMHG Arterial Blood HCO3 27 23-27 MMOL/L Arterial Blood Total CO2 27.9 21.0-31.0 MMOL/L Arterial Blood Oxygen Saturation 98 94-100 % Arterial Blood Base Excess 3.0 H -2.5-2.5 MMOL/L Juvenal Test YES-POS Blood Gas Ventilator Setting NO Blood Gas Inspired Oxygen 70% Test 12/04/21 05:08 Range/Units White Blood Count 23.7 H 4.3-11.0 10^3/uL Red Blood Count 5.49 4.30-5.52 10^6/uL Hemoglobin 15.9 13.3-17.7 g/dL Hematocrit 48 40-54 % Mean Corpuscular Volume 88 80-99 fL Mean Corpuscular Hemoglobin 29 25-34 pg Mean Corpuscular Hemoglobin Concent 33 32-36 g/dL Red Cell Distribution Width 15.0 H 10.0-14.5 % Platelet Count 118 L 130-400 10^3/uL Mean Platelet Volume 12.1 9.0-12.2 fL Immature Granulocyte % (Auto) 1 % Neutrophils (%) (Auto) 90 H 42-75 % Lymphocytes (%) (Auto) 3 L 12-44 % Monocytes (%) (Auto) 6 0-12 % Eosinophils (%) (Auto) 0 0-10 % Basophils (%) (Auto) 0 0-10 % Neutrophils # (Auto) 21.4 H 1.8-7.8 10^3/uL Lymphocytes # (Auto) 0.6 L 1.0-4.0 10^3/uL Monocytes # (Auto) 1.4 H 0.0-1.0 10^3/uL Eosinophils # (Auto) 0.0 0.0-0.3 10^3/uL Basophils # (Auto) 0.0 0.0-0.1 10^3/uL Immature Granulocyte # (Auto) 0.2 H 0.0-0.1 10^3/uL Sodium Level 152 H 135-145 MMOL/L Potassium Level 4.1 3.6-5.0 MMOL/L Chloride Level 112 H 98-107 MMOL/L Carbon Dioxide Level 26 21-32 MMOL/L Anion Gap 14 5-14 MMOL/L Blood Urea Nitrogen 84 H 7-18 MG/DL Creatinine 1.24 0.60-1.30 MG/DL Estimat Glomerular Filtration Rate 58 BUN/Creatinine Ratio 68 Glucose Level 166 H 70-105 MG/DL Calcium Level 9.8 8.5-10.1 MG/DL Corrected Calcium 9.8 8.5-10.1 MG/DL Phosphorus Level 3.5 2.3-4.7 MG/DL Magnesium Level 3.0 H 1.6-2.4 MG/DL Total Bilirubin 0.6 0.1-1.0 MG/DL Aspartate Amino Transf (AST/SGOT) 24 5-34 U/L Alanine Aminotransferase (ALT/SGPT) 23 0-55 U/L Alkaline Phosphatase 79 40-136 U/L Total Protein 7.4 6.4-8.2 GM/DL Albumin 4.0 3.2-4.5 GM/DL Procalcitonin 0.05 <0.10 NG/ML Diagnosis/Problems Diagnosis/Problems (1) ST elevation myocardial infarction (STEMI) of anterolateral wall, initial ep isode of care Status: Acute Assessment & Plan: On 11/20/21 he started having chest pain and an electrocardiogram showed an acute anterolateral ST elevation myocardial infarction. 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 He has been started on clopidogrel. I will continue aspirin until discharge. He is on apixaban due to pulmonary embolism diagnosed during this admission. His discharge anticoagulation should be clopidogrel and apixaban without aspirin. However, he has not been receiving apixaban since 12/01 due to his inability to take oral medication. I started him on enoxaparin on 12/03. Continue beta-earline, JESUSITA inhibitor and statin as tolerated. Since he is still not able to take oral medication, I will start him on metoprolol tartrate 2.5 mg IV every 6 hours. (2) Acute HFrEF (heart failure with reduced ejection fraction) Assessment & Plan: He may have some superimposed pulmonary edema on top of the Covid pneumonia. I started him on IV Lasix twice daily on 11/29 to this was cut back to once daily dosing over the weekend. His follow-up echocardiogram after the myocardial infarction showed mild left ventricular systolic dysfunction with an estimated ejection fraction of 40-45%. I have him on low-dose carvedilol and captopril as tolerated by blood pressure and his ability to take oral medication. (3) Cardiomyopathy Assessment & Plan: When he first presented to the hospital his ejection fraction was normal. However, following the myocardial infarction, he has mild left ventricular systolic dysfunction. Some of this could be due to regional stunning. As above, I have him on low-dose carvedilol and captopril when his blood pressure will tolerate the medication and he can take oral medication. Unfortunately, he has not been able to take oral medication in several days due to altered mental status and he is BiPAP dependent. (4) Pulmonary embolism Assessment & Plan: This may possibly be related to his Covid infection. I changed his enoxaparin over to apixaban on 11/21 but he had not taken apixaban since 12/01. I managed the apixaban back over to enoxaparin at therapeutic dosing on 12/03. We can resume apixaban if he reaches the point where he can take oral medication. (5) Primary hypertension Assessment & Plan: Blood pressures have improved despite pulmonary status worsening. We will proceed as above. (6) Mixed hyperlipidemia Status: Chronic Assessment & Plan: Due to his acute myocardial infarction, I started him on intensive-dose statin medication. We will resume the statin medication when he can take oral medication. (7) Acute respiratory failure due to COVID-19 Status: Acute Assessment & Plan: His pulmonary status had been waxing and waning requiring intermittent BiPAP interspersed with Vapotherm but now seems to be requiring constant BiPAP. Prognosis is guarded. (8) Acute kidney injury Status: Resolved Assessment & Plan: Renal function seems to have stabilized over the past week. Resolution Date/Time: 11/30/21 @ 13:32 ALISHA WILSON JR, MD Dec 04, 2021 08:23
[2021-12-04] MEDS: meTOprolol 5 MG/5 ML (LOPRESSOR) VIAL IV SCH ×3 (09:41→17:46)
--- NOTE | 2021-12-04 09:44 | Tele-ICU Progress Note ---
Subjective Date Seen by a Provider: Dec 04, 2021 Time Seen by a Provider: 09:43 Sepsis Event Evaluation Height, Weight, BMI Height: '" Weight: lbs. oz. kg; 23.85 BMI Method: Exam Exam Patient acknowledged, consented, and participated in this virtual visit which was conducted using real time audio/video Vital Signs Date Time Temp Pulse Resp B/P (MAP) Pulse Ox O2 Delivery O2 Flow Rate FiO2 12/04/21 09:00 93 19 125/80 93 NIV Bilevel 60.00 12/04/21 08:00 83 23 120/75 95 NIV Bilevel 60.00 12/04/21 08:00 35.8 12/04/21 07:57 NIV Bilevel 60 12/04/21 07:40 84 23 93 60.00 12/04/21 07:00 79 23 156/87 94 NIV Bilevel 60.00 12/04/21 07:00 75 12/04/21 06:14 NIV Bilevel 60.00 12/04/21 06:00 81 17 138/87 93 NIV Bilevel 70.00 12/04/21 05:00 61 15 148/88 94 NIV Bilevel 70.00 12/04/21 04:00 79 22 146/82 93 NIV Bilevel 70.00 12/04/21 04:00 NIV Bilevel 60 12/04/21 03:00 79 21 144/83 94 NIV Bilevel 70.00 12/04/21 02:49 65 22 96 65.00 12/04/21 02:00 79 22 147/82 97 NIV Bilevel 70.00 12/04/21 01:00 63 16 113/89 97 NIV Bilevel 70.00 12/04/21 01:00 63 12/04/21 00:00 67 20 108/67 97 NIV Bilevel 70.00 12/04/21 00:00 NIV Bilevel 60 12/03/21 23:00 65 21 109/70 95 NIV Bilevel 70.00 12/03/21 22:00 66 21 139/73 97 NIV Bilevel 70.00 12/03/21 21:55 74 12/03/21 21:40 72 19 97 70.00 12/03/21 21:00 89 26 159/97 94 NIV Bilevel 70.00 12/03/21 20:00 77 24 158/92 96 NIV Bilevel 70.00 12/03/21 20:00 36.6 12/03/21 20:00 NIV Bilevel 70 12/03/21 19:29 36.7 12/03/21 19:10 87 29 93 70.00 12/03/21 19:00 75 16 134/80 8 NIV Bilevel 70.00 12/03/21 19:00 75 12/03/21 19:00 NIV Bilevel 70.00 12/03/21 18:00 82 22 152/79 96 NIV Bilevel 70.00 12/03/21 17:00 81 22 154/88 94 NIV Bilevel 70.00 12/03/21 16:00 61 21 160/87 94 NIV Bilevel 70.00 12/03/21 16:00 36.8 12/03/21 15:56 NIV Bilevel 70 12/03/21 15:00 56 20 148/77 99 NIV Bilevel 70.00 12/03/21 14:14 55 29 90 80.00 12/03/21 14:00 61 21 138/70 97 NIV Bilevel 70.00 12/03/21 13:00 64 23 139/64 96 NIV Bilevel 70.00 12/03/21 13:00 54 12/03/21 12:00 36.6 12/03/21 12:00 54 31 134/64 97 NIV Bilevel 70.00 12/03/21 11:50 NIV Bilevel 70 12/03/21 11:00 52 21 147/72 95 NIV Bilevel 70.00 12/03/21 10:27 55 29 93 70.00 12/03/21 10:00 55 30 144/70 95 NIV Bilevel 70.00 I & O 12/04/21 07:00 Intake Total 0 ml Output Total 2000 ml Balance -2000 ml Height & Weight Height: '" Weight: lbs. oz. kg; 23.85 BMI Method: General Appearance: No Apparent Distress, WD/WN, Anxious, Chronically ill, Thin HEENT: PERRL/EOMI, Pharynx Normal Neck: Normal Inspection, Supple Respiratory: Lungs Clear, Normal Breath Sounds Cardiovascular: Regular Rate, Rhythm Capillary Refill: Less Than 3 Seconds Peripheral Pulses: 1+ Dorsalis Pedis (R), 1+ Left Dors-Pedis (L) (see free text) Extremity: Normal Inspection, Non Tender, No Pedal Edema Neurologic/Psychiatric: Alert, Depressed Affect Skin: Normal Color, Warm/Dry Results Lab Laboratory Tests 12/03/21 04:40 12/04/21 05:08 Assessment/Plan Assessment/Plan Tele-ICU Physician , Progress Note ) Available chart/ vitals / labs / Images reviewed Video assesment done using teleICU camera, rest of exam as per RN Discussed with RN , EXAM PER RN Events overnight : on bipap Afebrile FiO2 - 60% I/O = neg 700 Drips: precedex 1.0 Pressors: hemodynamically stable Consultants: A/P Pneumonia due to COVID-19 virus s/p Actemra, on acyclovir for pprx. dexamethasone finished zosyn eliquis( +PE ) Acute rsp failure = vapotherm with 90% FiO2 --> to BIPAP 11/28 , still on BIPAP 11/29 70 % high risk for intubation -- cxr with infitrates - better then on admission- 11/30 neg PCT and cxr same - recheck ddimer and Xa - pending -IV steroids / DECREASED again STEMI of anterolateral 11/20 cath with stent to LAD, clopidogrel, aspirin, statin. Acute ischemic stroke CTHsubacute or recent ischemia, unable to get MRI due to respiratory status, - Carotid US without significant stenosis. Bilateral pulmonary embolism ( Bilateral segmental and subsegmenta On apixaban--> lovenoc since can not take PO 12/03 Secondary bacterial pneumonia - cxr with infitrates - better then on admission cefrt/z-max 1222-11/19 - Zosyn 11/22--11/27 OFF ABX - repeated cxr still with severe infiltrates EVAN - cr increased 11/29 ( poor po intake and disrrhea ) - change lasix to qd from bid - no diarrhea 11/30 Anxiety - precedex / ativan No nutritions - dependent on BIPAP can notr take po - start d5w POOR PROGNOSIS< need to duiscuss goals of care with family Lines : (Central Line Necessity Reviewed) Prieto: OG: Nutrition: poor, ONLY ENSURE TAKEN DVT propn - eliquis Stress Ulcer Prophylaxis: h2b Glycemic Control: Plans in collaboration with bedside consultants and IM MDs. Discussed with RN to reach out if any questions or concerns A total of 43 minutes of critical care time was devoted to this patient today, required to treat and/or prevent further deterioration of critical care condition ( as above) . SAMSON MAYEN MD Dec 04, 2021 09:44
[2021-12-04] MEDS: D5W 1000 ML IV SOLUTION 1,000 ML IV SCH (10:41)
[2021-12-04] MEDS: DexMEDEtomidine 250 ML DRIP 250 ML IV SCH (10:44)
[2021-12-04 11:19] VITALS: BP 130/76
--- NOTE | 2021-12-04 12:22 | Pulmonary Progress Note ---
Subjective Date Seen by a Provider: Dec 04, 2021 Time Seen by a Provider: 08:10 Subjective/Events-last exam Christiano is on bipap at 20/15 and FiO2 60%. He is confused and unable to verbalize in response to any questions. Exam Exam Patient acknowledged, consented, and participated in this virtual visit which was conducted using real time audio/video Vital Signs Date Time Temp Pulse Resp B/P (MAP) Pulse Ox O2 Delivery O2 Flow Rate FiO2 12/04/21 11:19 73 28 97 60.00 12/04/21 11:06 NIV Bilevel 60 12/04/21 11:00 80 22 144/87 96 NIV Bilevel 60.00 12/04/21 10:44 75 130/78 12/04/21 10:00 75 18 130/78 96 NIV Bilevel 60.00 12/04/21 09:00 93 19 125/80 93 NIV Bilevel 60.00 12/04/21 08:00 83 23 120/75 95 NIV Bilevel 60.00 12/04/21 08:00 35.8 12/04/21 07:57 NIV Bilevel 60 12/04/21 07:40 84 23 93 60.00 12/04/21 07:00 79 23 156/87 94 NIV Bilevel 60.00 12/04/21 07:00 75 12/04/21 06:14 NIV Bilevel 60.00 12/04/21 06:00 81 17 138/87 93 NIV Bilevel 70.00 12/04/21 05:00 61 15 148/88 94 NIV Bilevel 70.00 12/04/21 04:00 79 22 146/82 93 NIV Bilevel 70.00 12/04/21 04:00 NIV Bilevel 60 12/04/21 03:00 79 21 144/83 94 NIV Bilevel 70.00 12/04/21 02:49 65 22 96 65.00 12/04/21 02:00 79 22 147/82 97 NIV Bilevel 70.00 12/04/21 01:00 63 16 113/89 97 NIV Bilevel 70.00 12/04/21 01:00 63 12/04/21 00:00 67 20 108/67 97 NIV Bilevel 70.00 12/04/21 00:00 NIV Bilevel 60 12/03/21 23:00 65 21 109/70 95 NIV Bilevel 70.00 12/03/21 22:00 66 21 139/73 97 NIV Bilevel 70.00 12/03/21 21:55 74 12/03/21 21:40 72 19 97 70.00 12/03/21 21:00 89 26 159/97 94 NIV Bilevel 70.00 12/03/21 20:00 77 24 158/92 96 NIV Bilevel 70.00 12/03/21 20:00 36.6 12/03/21 20:00 NIV Bilevel 70 12/03/21 19:29 36.7 12/03/21 19:10 87 29 93 70.00 12/03/21 19:00 75 16 134/80 8 NIV Bilevel 70.00 12/03/21 19:00 75 12/03/21 19:00 NIV Bilevel 70.00 12/03/21 18:00 82 22 152/79 96 NIV Bilevel 70.00 12/03/21 17:00 81 22 154/88 94 NIV Bilevel 70.00 12/03/21 16:00 61 21 160/87 94 NIV Bilevel 70.00 12/03/21 16:00 36.8 12/03/21 15:56 NIV Bilevel 70 12/03/21 15:00 56 20 148/77 99 NIV Bilevel 70.00 12/03/21 14:14 55 29 90 80.00 12/03/21 14:00 61 21 138/70 97 NIV Bilevel 70.00 12/03/21 13:00 64 23 139/64 96 NIV Bilevel 70.00 12/03/21 13:00 54 I & O 12/04/21 07:00 Intake Total 0 ml Output Total 2000 ml Balance -2000 ml Height & Weight Height: '" Weight: lbs. oz. kg; 23.85 BMI Method: General Appearance: WD/WN, Anxious, Chronically ill, Thin HEENT: PERRL/EOMI, Pharynx Normal Neck: Normal Inspection, Supple Respiratory: No Crackles; Other (breath sounds scarcely audible all lung joseph. No wheezing or crackles. Abdominal accessory muscle usage) Cardiovascular: Regular Rate, Rhythm Capillary Refill: Less Than 3 Seconds Peripheral Pulses: 1+ Dorsalis Pedis (R), 1+ Left Dors-Pedis (L) (see free text) Gastrointestinal: normal bowel sounds, non tender, soft Extremity: Normal Inspection, Non Tender, No Pedal Edema Neurologic/Psychiatric: Alert, Disoriented (does not articulate words or answer questions. Vocalizes sounds occasionally.) Skin: Normal Color, Warm/Dry; No Rash Results Lab Laboratory Tests 12/03/21 04:40 12/04/21 05:08 Assessment/Plan Assessment/Plan covid 19 pneumonia acute respiratory failure -received Actemra and remdizivir. On Acyclovir for prophylaxis. -completed Azithromycin and ceftriaxone 11/14-11/19, Zosyn 11/22-11/27 -decadron 11/20-11/27, -solu-medrol starting on 11/29, now titrating down the dose BIPAP dependent altered mental status -likely medication related or icu psychosis -on precedex drip to help the patient tolerate Bipap -increased oxygenation requirements compared to yesterday. leukocytosis, WBC 23. from 14 yesterday -likely steroid related -continue to monitor for signs of bacterial superinfection segmental and subsegmental pulmonary emboli on CTA 11/14 -on lovenox 70 BID 11/18 evidence of acute/subacute cerebral infarct 11/20 STEMI Critical Care: Critically Ill Patient CURRY RIOS [employer] STUDENT Dec 04, 2021 12:22
[2021-12-04] MEDS: NOREPINEPHRINE 8 MG/250 ML 250 ML IV SCH (14:10)
[2021-12-04 14:53] VITALS: BP 150/99
[2021-12-04 18:56] VITALS: BP 132/74
--- NOTE | 2021-12-04 20:35 | Progress Note ---
Subjective Subjective/Events-last exam No acute ON events. Patient opens eyes to name. Not following commands Review of Systems Unable to assess Objective Exam Last Set of Vital Signs Vital Signs Date Time Temp Pulse Resp B/P (MAP) Pulse Ox O2 Delivery O2 Flow Rate FiO2 12/04/21 19:49 36.3 12/04/21 18:56 72 19 96 55.00 12/04/21 18:00 123/68 NIV Bilevel 12/04/21 15:28 50 Capillary Refill : Less Than 3 Seconds I&O Intake and Output 12/04/21 00:00 Intake Total 0 ml Output Total 1450 ml Balance -1450 ml Intake Oral 0 ml Output Urine Total 1450 ml General: Other (Opens eyes to names, does not follow commands) Lungs: Other (Diminished breath sounds, moderate increased work of breathing, bipap dependent) Heart: Regular Rate, No Murmurs Abdomen: Soft Extremities: Other (2+ pitting edema bilaterally) Results/Procedures Lab Laboratory Tests 12/03/21 20:47: Glucometer 165H 12/04/21 05:08: White Blood Count 23.7H, Red Blood Count 5.49, Hemoglobin 15.9, Hematocrit 48, Mean Corpuscular Volume 88, Mean Corpuscular Hemoglobin 29, Mean Corpuscular Hem oglobin Concent 33, Red Cell Distribution Width 15.0H, Platelet Count 118L, Mean Platelet Volume 12.1, Immature Granulocyte % (Auto) 1, Neutrophils (%) (Auto) 90H, Lymphocytes (%) (Auto) 3L, Monocytes (%) (Auto) 6, Eosinophils (%) (Auto) 0, Basophils (%) (Auto) 0, Neutrophils # (Auto) 21.4H, Lymphocytes # (Auto) 0.6L , Monocytes # (Auto) 1.4H, Eosinophils # (Auto) 0.0, Basophils # (Auto) 0.0, Immature Granulocyte # (Auto) 0.2H, Sodium Level 152H, Potassium Level 4.1, Chloride Level 112H, Carbon Dioxide Level 26, Anion Gap 14, Blood Urea Nitrogen 84H, Creatinine 1.24, Estimat Glomerular Filtration Rate 58, BUN/Creatinine Ratio 68, Glucose Level 166H, Calcium Level 9.8, Corrected Calcium 9.8, Phosphorus Level 3.5, Magnesium Level 3.0H, Total Bilirubin 0.6, Aspartate Amino Transf (AST/SGOT) 24, Alanine Aminotransferase (ALT/SGPT) 23, Alkaline Phosphatase 79, Total Protein 7.4, Albumin 4.0, Procalcitonin 0.05 12/04/21 10:31: Glucometer 184H 12/04/21 15:25: Glucometer 149H 12/04/21 20:04: Glucometer 183H Microbiology 11/14/21 Urine Culture - Final, Complete NO GROWTH 11/14/21 MRSA Screen - Final, Complete MRSA not isolated 11/14/21 Blood Culture - Final, Complete No growth Assessment/Plan Assessment/Plan (1) Acute respiratory failure due to COVID-19 Status: Acute (2) Pneumonia due to COVID-19 virus Status: Acute Assessment & Plan: 11/26 Requiring vapotherm with 90% FiO2 today. s/p Actemra, on acyclovir for pprx. Continued on dexamethasone and zosyn for suspected secondary bacterial pneumonia. 11/27- has received 13 days of dexamethasone will d/c. continues to require high Fio2 but is relatively stable on that. Continued zosyn. 11/28- completed course of Zosyn, somewhat worsened today requiring bipap this am, appreciate [facility] ICU assistance. Updated daughter via phone today. 11/29- continued to require bipap, suspect possible aspiration with vomiting this morning, appreciate Thania assistance, anticipate may need intubated soon if no change. 11/30- continued on bipap but is much more alert today, possible benefit from steroids started yesterday per ICU physician. Called daughter to update, unable to reach. 12/03: Bipap dependent, very poor prognosis 12/04: Continues to be bipap dependent, discussed comfort care and code status with Darlene HATFIELD, She is to come and see patient this afternoon. Around 1829 RN called and family has arrived and would like to make patient DNR/DNI, plan for comfort care in the AM when more family can arrive (3) ST elevation myocardial infarction (STEMI) of anterolateral wall, initial episode of care Status: Acute Assessment & Plan: 11/20 cath with stent to LAD, appreciate Cardiology recommendations. On clopidogrel, aspirin, statin. (4) Acute ischemic stroke Status: Acute Assessment & Plan: CT findings with possible subacute or recent ischemia, unable to get MRI due to respiratory status, no clear physical findings of ischemia. Carotid US without significant stenosis. (5) Bilateral pulmonary embolism Status: Acute Assessment & Plan: On apixaban. Bilateral segmental and subsegmental. 11/30 d dimer decreased, factor Xa pending to eval apixaban efficacy given recent worsening respiratory status. (6) Altered mental status Status: Acute Assessment & Plan: Suspect illness induced delirium Qualifiers: Qualified Codes: R41.82 - Altered mental status, unspecified (7) Mixed hyperlipidemia Status: Chronic (8) HTN (hypertension) Status: Chronic (9) HLD (hyperlipidemia) Status: Chronic (10) Secondary bacterial pneumonia Status: Acute Assessment & Plan: Had 5 days of azithromycin and ceftriaxone 11/14-11/19, Zosyn 11/22-11/27. (11) Acute kidney injury Status: Resolved Assessment & Plan: 11/29 creatinine increased today, Will decrease lasix to daily. 11/30 improved CRISTINA HOUSE MD Dec 04, 2021 20:35
[2021-12-04] MEDS: ROSUVASTATIN 20 MG (CRESTOR) TABLET PO SCH (20:59)
[2021-12-04 21:52] VITALS: BP 156/87
[2021-12-05] MEDS: meTOprolol 5 MG/5 ML (LOPRESSOR) VIAL IV SCH ×4 (00:05→18:23)
[2021-12-05] MEDS: DexMEDEtomidine 250 ML DRIP 250 ML IV SCH ×2 (00:05→14:19)
[2021-12-05 01:58] VITALS: BP 133/83
[2021-12-05] MEDS: RT-ALBUTEROL HFA 8.5 GM INHALER IH SCH ×6 (01:58→22:09)
[2021-12-05 02:47] LABS: BASOPHILS % (AUTO) 0 % (0-10); EOSINOPHILS % (AUTO) 0 % (0-10); HEMATOCRIT 49 % (40-54); HEMOGLOBIN 16.2 g/dL (13.3-17.7); LYMPHOCYTES # (AUTO) 0.9 10^3/uL (1.0-4.0); LYMPHOCYTES % (AUTO) 3 % (12-44); MEAN CORPUSCULAR HEMOGLOBIN 29 pg (25-34); MEAN CORPUSCULAR HGB CONC 33 g/dL (32-36); MEAN CORPUSCULAR VOLUME 88 fL (80-99); MEAN PLATELET VOLUME 12.3 fL (9.0-12.2); MONOCYTES # (AUTO) 1.3 10^3/uL (0.0-1.0); MONOCYTES % (AUTO) 5 % (0-12); NEUTROPHILS # (AUTO) 26.3 10^3/uL (1.8-7.8); NEUTROPHILS % (AUTO) 91 % (42-75); PLATELET COUNT 138 10^3/uL (130-400); WHITE BLOOD COUNT 28.8 10^3/uL (4.3-11.0)
[2021-12-05 02:53] LABS: ALBUMIN 3.9 GM/DL (3.2-4.5); POTASSIUM 3.6 MMOL/L (3.6-5.0)
[2021-12-05 02:54] LABS: CALCIUM 9.3 MG/DL (8.5-10.1)
[2021-12-05 02:55] LABS: TOTAL PROTEIN 7.4 GM/DL (6.4-8.2)
[2021-12-05 02:57] LABS: BILIRUBIN,TOTAL 0.7 MG/DL (0.1-1.0)
[2021-12-05 02:58] LABS: PHOSPHORUS 2.8 MG/DL (2.3-4.7)
[2021-12-05 02:59] LABS: CREATININE SERUM 1.32 MG/DL (0.60-1.30)
[2021-12-05 03:02] LABS: MAGNESIUM 2.7 MG/DL (1.6-2.4)
[2021-12-05 03:12] LABS: BAND NEUTROPHILS 3 %; LYMPHOCYTES % (MANUAL) 7 %; MONOCYTES % (MANUAL) 7 %; NEUTROPHILS % (MANUAL) 83 %; RBC MORPH NORMAL
[2021-12-05] MEDS: D5W 1000 ML IV SOLUTION 1,000 ML IV SCH (06:32)
[2021-12-05] MEDS: methylPREDNISolone 40 MG/ML (Solu-MEDROL) VIAL IV SCH ×2 (06:33→18:23)
[2021-12-05] MEDS: POTASSIUM CL 10MEQ/50ML IVPB 50 ML IV SCH (06:33)
[2021-12-05] MEDS: inSUlin ASPART (NovoLOG) 1 UNIT/0.01 ML (CHARGE PER UNIT) SC SCH ×4 (06:33→21:42)
[2021-12-05] MEDS: KCL 20 MEQ TAB (K-DUR) PO SCH (06:34)
[2021-12-05] MEDS: MAGNESIUM 1 GM/100 ML IVPB 100 ML IV SCH (06:34)
[2021-12-05 07:18] VITALS: BP 83/61
[2021-12-05] MEDS: CLOPIDOGREL 75 MG (PLAVIX) TABLET PO SCH (07:55)
[2021-12-05] MEDS: DOCUSATE SODIUM 100 MG (COLACE) CAP PO SCH ×2 (07:55→21:13)
[2021-12-05] MEDS: CAPTOPRIL 25 MG (CAPOTEN) TAB PO SCH ×2 (07:55→21:13)
[2021-12-05] MEDS: SENNOSIDES 8.6 MG (SENOKOT) TAB PO SCH ×2 (07:55→21:13)
[2021-12-05] MEDS: PANTOPRAZOLE 40 MG (PROTONIX) TAB PO SCH (07:55)
[2021-12-05] MEDS: ASPIRIN 81 MG CHEW (CHILDREN'S ASA) PO SCH (07:55)
[2021-12-05] MEDS: NOREPINEPHRINE 8 MG/250 ML 250 ML IV SCH (07:55)
[2021-12-05] MEDS: ACYCLOVIR 400 MG TABLET (ZOVIRAX) PO SCH ×2 (07:56→21:13)
--- NOTE | 2021-12-05 08:24 | Cardiology Progress Note ---
Progress Note-Cardiology Events since last exam Date Seen by Provider: Dec 05, 2021 Time Seen by Provider: 08:23 Events since last exam I am following him for acute anterolateral myocardial infarction that occurred in the hospital while he was being treated for COVID infection. He remains in the intensive care unit on BiPAP. I did not speak with the patient due to his COVID status. I did speak with his nurse of today. His family plans to change his status to comfort care on 12/06. They are waiting for family members to arrive. Certain portions of this document may have been dictated utilizing voice recognition technology. Inherent to this technology, typographical and grammatical errors may exist. As much as I am diligent to identify and correct these mistakes, some errors may remain in the document. Vitals Last set of Vitals Signs Vital Signs 12/05/21 12/05/21 12/05/21 12/05/21 04:00 07:18 07:55 08:47 Temp 36.8 Pulse 110 Resp 21 B/P (MAP) 83/61 Pulse Ox 96 O2 Delivery NIV Bilevel O2 Flow Rate 50.00 FiO2 50 Labs Labs Laboratory Tests 12/05/21 02:30 Exam Vital Signs Vital Signs Date Time Temp Pulse Resp B/P (MAP) Pulse Ox O2 Delivery O2 Flow Rate FiO2 12/05/21 08:47 96 NIV Bilevel 50 12/05/21 07:55 110 83/61 12/05/21 07:18 21 50.00 12/05/21 04:00 36.8 Physical Exam I did not examine the patient due to his COVID status. Labs Laboratory Tests Test 12/04/21 10:31 12/04/21 15:25 12/04/21 20:04 12/05/21 02:30 Range/Units Glucometer 184 H 149 H 183 H 70-110 MG/DL White Blood Count 28.8 H 4.3-11.0 10^3/uL Red Blood Count 5.60 H 4.30-5.52 10^6/uL Hemoglobin 16.2 13.3-17.7 g/dL Hematocrit 49 40-54 % Mean Corpuscular Volume 88 80-99 fL Mean Corpuscular Hemoglobin 29 25-34 pg Mean Corpuscular Hemoglobin Concent 33 32-36 g/dL Red Cell Distribution Width 15.3 H 10.0-14.5 % Platelet Count 138 130-400 10^3/uL Mean Platelet Volume 12.3 H 9.0-12.2 fL Immature Granulocyte % (Auto) 1 % Neutrophils (%) (Auto) 91 H 42-75 % Lymphocytes (%) (Auto) 3 L 12-44 % Monocytes (%) (Auto) 5 0-12 % Eosinophils (%) (Auto) 0 0-10 % Basophils (%) (Auto) 0 0-10 % Neutrophils # (Auto) 26.3 H 1.8-7.8 10^3/uL Lymphocytes # (Auto) 0.9 L 1.0-4.0 10^3/uL Monocytes # (Auto) 1.3 H 0.0-1.0 10^3/uL Eosinophils # (Auto) 0.0 0.0-0.3 10^3/uL Basophils # (Auto) 0.0 0.0-0.1 10^3/uL Immature Granulocyte # (Auto) 0.2 H 0.0-0.1 10^3/uL Neutrophils % (Manual) 83 % Lymphocytes % (Manual) 7 % Monocytes % (Manual) 7 % Band Neutrophils 3 % Blood Morphology Comment NORMAL Sodium Level 147 H 135-145 MMOL/L Potassium Level 3.6 3.6-5.0 MMOL/L Chloride Level 108 H 98-107 MMOL/L Carbon Dioxide Level 22 21-32 MMOL/L Anion Gap 17 H 5-14 MMOL/L Blood Urea Nitrogen 80 H 7-18 MG/DL Creatinine 1.32 H 0.60-1.30 MG/DL Estimat Glomerular Filtration Rate 54 BUN/Creatinine Ratio 61 Glucose Level 354 H 70-105 MG/DL Calcium Level 9.3 8.5-10.1 MG/DL Corrected Calcium 9.4 8.5-10.1 MG/DL Phosphorus Level 2.8 2.3-4.7 MG/DL Magnesium Level 2.7 H 1.6-2.4 MG/DL Total Bilirubin 0.7 0.1-1.0 MG/DL Aspartate Amino Transf (AST/SGOT) 26 5-34 U/L Alanine Aminotransferase (ALT/SGPT) 25 0-55 U/L Alkaline Phosphatase 68 40-136 U/L Total Protein 7.4 6.4-8.2 GM/DL Albumin 3.9 3.2-4.5 GM/DL Diagnosis/Problems Diagnosis/Problems (1) ST elevation myocardial infarction (STEMI) of anterolateral wall, initial episode of care Status: Acute Assessment & Plan: On 11/20/21 he started having chest pain and an el ectrocardiogram showed an acute anterolateral ST elevation myocardial infarction. 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 He has been started on clopidogrel. I will continue aspirin until discharge. He is on apixaban due to pulmonary embolism diagnosed during this admission. His discharge anticoagulation should be clopidogrel and apixaban without aspirin. However, he has not been receiving apixaban since 12/01 due to his inability to take oral medication. I started him on enoxaparin on 12/03. Continue beta-earline, JESUSITA inhibitor and statin as tolerated. Since he is still not able to take oral medication, I started him on metoprolol tartrate 2.5 mg IV every 6 hours. If he goes on comfort care, we can stop all of these medications. (2) Acute HFrEF (heart failure with reduced ejection fraction) Assessment & Plan: He may have some superimposed pulmonary edema on top of the Covid pneumonia. I started him on IV Lasix twice daily on 11/29 to this was cut back to once daily dosing over the weekend. His follow-up echocardiogram after the myocardial infarction showed mild left ventricular systolic dysfunction with an estimated ejection fraction of 40-45%. I have him on low-dose carvedilol and captopril as tolerated by blood pressure and his ability to take oral medication. I did start him on intravenous metoprolol tartrate to be given while he cannot take oral medication. I changed the furosemide back to twice daily dosing on 12/04. As above, if he transfers over to comfort care, we can stop these medications. (3) Cardiomyopathy Assessment & Plan: When he first presented to the hospital his ejection fraction was normal. However, following the myocardial infarction, he has mild left ventricular systolic dysfunction. Some of this could be due to regional stunning. As above, I have him on low-dose carvedilol and captopril when his blood pressure will tolerate the medication and he can take oral medication. Unfortunately, he has not been able to take oral medication in several days due to altered mental status and he is BiPAP dependent. (4) Pulmonary embolism Assessment & Plan: This may possibly be related to his Covid infection. I changed his enoxaparin over to apixaban on 11/21 but he had not taken apixaban since 12/01. I managed the apixaban back over to enoxaparin at therapeutic dosing on 12/03. We can resume apixaban if he reaches the point where he can take oral medication. (5) Primary hypertension Assessment & Plan: Blood pressures have improved despite pulmonary status worsening. We will proceed as above. (6) Mixed hyperlipidemia Status: Chronic Assessment & Plan: Due to his acute myocardial infarction, I started him on intensive-dose statin medication. We will resume the statin medication when he can take oral medication. (7) Acute respiratory failure due to COVID-19 Status: Acute Assessment & Plan: His pulmonary status had been waxing and waning requiring intermittent BiPAP interspersed with Vapotherm but now seems to be requiring constant BiPAP. Prognosis is guarded. (8) Acute kidney injury Status: Resolved Assessment & Plan: Renal function seems to have stabilized over the past week. Resolution Date/Time: 11/30/21 @ 13:32 ALISHA WILSON JR, MD Dec 05, 2021 08:24
[2021-12-05] MEDS: NYSTATIN CREAM (MYCOSTATIN) 30 GM TUBE TP SCH ×3 (08:42→21:41)
[2021-12-05] MEDS: FUROSEMIDE 40 MG/4 ML INJ (LASIX) IVP SCH ×2 (08:42→21:41)
[2021-12-05] MEDS: ENOXAPARIN 80 MG/0.8 ML (LOVENOX) SYR SC SCH ×2 (08:43→21:42)
[2021-12-05 10:43] VITALS: BP 140/83
--- NOTE | 2021-12-05 11:40 | Tele-ICU Progress Note ---
Subjective Date Seen by a Provider: Dec 05, 2021 Time Seen by a Provider: 11:40 Subjective/Events-last exam He is remained on a BiPAP ventilation with FiO2 of 50%. His white count went up to 28.8. BUN 80 creatinine 1.32. Chest x-ray showed bilateral infiltrates. Apparently patient family is considering comfort care for him. Review of Systems ros per rn Sepsis Event Evaluation Height, Weight, BMI Height: '" Weight: lbs. oz. kg; 23.85 BMI Method: Exam Exam Patient acknowledged, consented, and participated in this virtual visit which was conducted using real time audio/video Vital Signs Date Time Temp Pulse Resp B/P (MAP) Pulse Ox O2 Delivery O2 Flow Rate FiO2 12/05/21 11:36 35.9 12/05/21 10:43 85 21 93 50.00 12/05/21 10:00 71 14 140/83 94 NIV Bilevel 55.00 12/05/21 09:00 76 19 91/68 93 NIV Bilevel 55.00 12/05/21 08:47 96 NIV Bilevel 50 12/05/21 08:00 63 17 124/79 95 NIV Bilevel 55.00 12/05/21 07:55 110 83/61 12/05/21 07:18 110 21 96 50.00 12/05/21 07:00 67 12/05/21 07:00 75 17 116/79 94 NIV Bilevel 55.00 12/05/21 06:00 67 20 114/72 97 NIV Bilevel 55.00 12/05/21 05:00 81 16 99/69 97 NIV Bilevel 55.00 12/05/21 04:15 84 19 124/83 99 NIV Bilevel 55.00 12/05/21 04:00 36.8 12/05/21 04:00 NIV Bilevel 50 12/05/21 03:00 102 22 127/83 94 NIV Bilevel 55.00 12/05/21 02:00 107 17 145/88 95 NIV Bilevel 55.00 12/05/21 01:58 110 21 93 55.00 12/05/21 01:00 98 21 140/83 96 NIV Bilevel 55.00 12/05/21 01:00 98 12/05/21 00:05 87 133/81 12/05/21 00:00 NIV Bilevel 50 12/05/21 00:00 95 23 133/81 94 NIV Bilevel 55.00 12/04/21 23:00 89 15 115/73 94 NIV Bilevel 55.00 12/04/21 22:00 98 20 128/80 92 NIV Bilevel 55.00 12/04/21 21:52 100 22 91 55.00 12/04/21 21:00 78 21 138/77 94 NIV Bilevel 55.00 12/04/21 20:00 NIV Bilevel 50 12/04/21 20:00 71 19 138/78 93 NIV Bilevel 55.00 12/04/21 19:49 36.3 12/04/21 19:00 73 21 142/81 96 NIV Bilevel 55.00 12/04/21 19:00 73 12/04/21 18:56 72 19 96 55.00 12/04/21 18:00 71 20 123/68 94 NIV Bilevel 55.00 12/04/21 17:00 74 19 129/80 94 NIV Bilevel 55.00 12/04/21 16:00 101 31 163/100 94 NIV Bilevel 55.00 12/04/21 15:39 36.0 12/04/21 15:28 NIV Bilevel 50 12/04/21 15:03 NIV Bilevel 55.00 12/04/21 15:00 73 18 130/84 94 NIV Bilevel 60.00 12/04/21 14:53 73 20 96 55.00 12/04/21 14:10 71 132/77 12/04/21 14:00 71 20 132/77 97 NIV Bilevel 60.00 12/04/21 13:00 69 12/04/21 13:00 61 16 100/69 94 NIV Bilevel 60.00 12/04/21 12:00 35.2 12/04/21 12:00 99 29 167/93 97 NIV Bilevel 60.00 I & O 12/05/21 07:00 Intake Total 250 ml Output Total 600 ml Balance -350 ml Height & Weight Height: '" Weight: lbs. oz. kg; 23.85 BMI Method: General Appearance: WD/WN, Anxious, Chronically ill, Thin HEENT: PERRL/EOMI, Pharynx Normal Neck: Normal Inspection, Supple Respiratory: No Crackles; Other (breath sounds scarcely audible all lung joseph. No wheezing or crackles. Abdominal accessory muscle usage) Cardiovascular: Regular Rate, Rhythm Capillary Refill: Less Than 3 Seconds Peripheral Pulses: 1+ Dorsalis Pedis (R), 1+ Left Dors-Pedis (L) (see free text) Gastrointestinal: normal bowel sounds, non tender, soft Extremity: Normal Inspection, Non Tender, No Pedal Edema Neurologic/Psychiatric: Alert, Disoriented (does not articulate words or answer questions. Vocalizes sounds occasionally.) Skin: Normal Color, Warm/Dry; No Rash Other comments pe per rn Results Lab Laboratory Tests 12/04/21 05:08 12/05/21 02:30 Assessment/Plan Assessment/Plan 1. SARScoronavirus2/Covid19 pneumonia 2. Acute hypoxic respiratory failure requiring bipap 3. Status post STEMI requiring PCI of LAD 4. Recent CVA with mild mental status changes 5. EVAN improving 6. Hyperglycemia secondary to steroids and diabetes mellitus. Recommendations 1. Continue Bipap and wean FiO2 as tolerated 2. Continue Lovenox and ulcer prophylaxis 3. IV Zosyn per primary care physician 4. .Family considering comfort care 5. His prognosis is guarded. 6. Video visit made and discussed with SCREEN STRETCHERstrawhat inspector and packer: Critically Ill Patient Time spent with patient (mins): 25 PRISCILA CONCEPCION MD Dec 05, 2021 11:40
[2021-12-05 14:31] VITALS: BP 113/79
[2021-12-05 18:41] VITALS: BP 112/77
--- NOTE | 2021-12-05 20:32 | Progress Note ---
Subjective Subjective/Events-last exam Patient unresponsive. No acute ON events Review of Systems Unable to assess Objective Exam Last Set of Vital Signs Vital Signs Date Time Temp Pulse Resp B/P (MAP) Pulse Ox O2 Delivery O2 Flow Rate FiO2 12/05/21 19:51 36.4 12/05/21 19:00 73 12/05/21 18:41 21 92 50.00 12/05/21 18:00 113/77 NIV Bilevel 12/05/21 16:29 50 Capillary Refill : Less Than 3 Seconds I&O Intake and Output 12/05/21 00:00 Intake Total 0 ml Output Total 1150 ml Balance -1150 ml Intake Oral 0 ml Output Urine Total 1150 ml General: Other (Unresponsive on bipap) Lungs: Other (end exp wheezing, increased work of breathing) Heart: Regular Rate, No Murmurs Abdomen: Soft Extremities: Other (2+ pitting edema bilaterally) Results/Procedures Lab Laboratory Tests 12/05/21 02:30: White Blood Count 28.8H, Red Blood Count 5.60H, Hemoglobin 16.2, Hematocrit 49, Mean Corpuscular Volume 88, Mean Corpuscular Hemoglobin 29, Mean Corpuscular Hemoglobin Concent 33, Red Cell Distribution Width 15.3H, Platelet Count 138, Mean Platelet Volume 12.3H, Immature Granulocyte % (Auto) 1, Neutrophils (%) (Auto) 91H, Lymphocytes (%) (Auto) 3L, Monocytes (%) (Auto) 5, Eosinophils (%) (Auto) 0, Basophils (%) (Auto) 0, Neutrophils # (Auto) 26.3H, Lymphocytes # (Auto) 0.9L, Monocytes # (Auto) 1.3H, Eosinophils # (Auto) 0.0, Basophils # (Auto) 0.0, Immature Granulocyte # (Auto) 0.2H, Neutrophils % (Manual) 83, Lymphocytes % (Manual) 7, Monocytes % (Manual) 7, Band Neutrophils 3, Blood Morphology Comment NORMAL, Sodium Level 147H, Potassium Level 3.6, Chloride Level 108H, Carbon Dioxide Level 22, Anion Gap 17H, Blood Urea Nitrogen 80H, Creatinine 1.32H, Estimat Glomerular Filtration Rate 54, BUN/Creatinine Ratio 61, Glucose Level 354H, Calcium Level 9.3, Corrected Calcium 9.4, Phosphorus Level 2.8, Magnesium Level 2.7H, Total Bilirubin 0.7, Aspartate Amino Transf (AST/SGOT) 26, Alanine Aminotransferase (ALT/SGPT) 25, Alkaline Phosphatase 68, Total Protein 7.4, Albumin 3.9 12/05/21 10:56: Glucometer 187H 12/05/21 15:50: Glucometer 148H Microbiology 11/14/21 Urine Culture - Final, Complete NO GROWTH 11/14/21 MRSA Screen - Final, Complete MRSA not isolated 11/14/21 Blood Culture - Final, Complete No growth Assessment/Plan Assessment/Plan (1) Acute respiratory failure due to COVID-19 Status: Acute (2) Pneumonia due to COVID-19 virus Status: Acute Assessment & Plan: 11/26 Requiring vapotherm with 90% FiO2 today. s/p Actemra, on acyclovir for pprx. Continued on dexamethasone and zosyn for suspected secondary bacterial pneumonia. 11/27- has received 13 days of dexamethasone will d/c. continues to require high Fio2 but is relatively stable on that. Continued zosyn. 11/28- completed course of Zosyn, somewhat worsened today requiring bipap this am, appreciate Thnaia ICU assistance. Updated daughter via phone today. 11/29- continued to require bipap, suspect possible aspiration with vomiting this morning, appreciate Thania assistance, anticipate may need intubated soon if no change. 11/30- continued on bipap but is much more alert today, possible benefit from ster oids started yesterday per ICU physician. Called daughter to update, unable to reach. 12/03: Bipap dependent, very poor prognosis 12/04: Continues to be bipap dependent, discussed comfort care and code status with Darlene HATFIELD, She is to come and see patient this afternoon. Around 1830 RN called and family has arrived and would like to make patient DNR/DNI, plan for comfort care in the AM when more family can arrive 12/05: No change, plan to start comfort care when brother can arrive from out of town (3) ST elevation myocardial infarction (STEMI) of anterolateral wall, initial episode of care Status: Acute Assessment & Plan: 11/20 cath with stent to LAD, appreciate Cardiology recommendations. On clopidogrel, aspirin, statin. (4) Acute ischemic stroke Status: Acute Assessment & Plan: CT findings with possible subacute or recent ischemia, unable to get MRI due to respiratory status, no clear physical findings of ischemia. Carotid US without significant stenosis. (5) Bilateral pulmonary embolism Status: Acute Assessment & Plan: On apixaban. Bilateral segmental and subsegmental. 11/30 d dimer decreased, factor Xa pending to eval apixaban efficacy given recent worsening respiratory status. (6) Altered mental status Status: Acute Assessment & Plan: Suspect illness induced delirium Qualifiers: Qualified Codes: R41.82 - Altered mental status, unspecified (7) Mixed hyperlipidemia Status: Chronic (8) HTN (hypertension) Status: Chronic (9) HLD (hyperlipidemia) Status: Chronic (10) Secondary bacterial pneumonia Status: Acute Assessment & Plan: Had 5 days of azithromycin and ceftriaxone 11/14-11/19, Zosyn 11/22-11/27. (11) Acute kidney injury Status: Resolved Assessment & Plan: 11/29 creatinine increased today, Will decrease lasix to daily. 11/30 improved CRISTINA HOUSE MD Dec 05, 2021 20:32
[2021-12-05] MEDS: ROSUVASTATIN 20 MG (CRESTOR) TABLET PO SCH (21:13)
[2021-12-05 22:09] VITALS: BP 118/79
[2021-12-06] MEDS: meTOprolol 5 MG/5 ML (LOPRESSOR) VIAL IV SCH ×5 (00:58→23:54)
[2021-12-06 02:50] VITALS: BP 131/80
[2021-12-06] MEDS: RT-ALBUTEROL HFA 8.5 GM INHALER IH SCH ×6 (02:50→22:29)
[2021-12-06] MEDS: D5W 1000 ML IV SOLUTION 1,000 ML IV SCH ×2 (03:02→17:11)
[2021-12-06] MEDS: DexMEDEtomidine 250 ML DRIP 250 ML IV SCH ×2 (03:03→17:11)
[2021-12-06] MEDS: NOREPINEPHRINE 8 MG/250 ML 250 ML IV SCH ×2 (04:46→21:00)
[2021-12-06] MEDS: methylPREDNISolone 40 MG/ML (Solu-MEDROL) VIAL IV SCH ×2 (05:28→17:26)
[2021-12-06 05:54] LABS: BASOPHILS % (AUTO) 0 % (0-10); EOSINOPHILS % (AUTO) 0 % (0-10); HEMOGLOBIN 16.2 g/dL (13.3-17.7)
[2021-12-06 05:56] LABS: HEMATOCRIT 50 % (40-54); LYMPHOCYTES % (AUTO) 4 % (12-44); MEAN CORPUSCULAR HEMOGLOBIN 29 pg (25-34); MEAN CORPUSCULAR HGB CONC 33 g/dL (32-36); MEAN CORPUSCULAR VOLUME 89 fL (80-99); MEAN PLATELET VOLUME 12.4 fL (9.0-12.2); MONOCYTES # (AUTO) 1.1 10^3/uL (0.0-1.0); MONOCYTES % (AUTO) 5 % (0-12); NEUTROPHILS # (AUTO) 21.3 10^3/uL (1.8-7.8); NEUTROPHILS % (AUTO) 90 % (42-75); PLATELET COUNT 103 10^3/uL (130-400); WHITE BLOOD COUNT 23.6 10^3/uL (4.3-11.0)
[2021-12-06 06:18] LABS: ALBUMIN 3.7 GM/DL (3.2-4.5); BILIRUBIN,TOTAL 0.8 MG/DL (0.1-1.0); CALCIUM 9.7 MG/DL (8.5-10.1); CREATININE SERUM 1.62 MG/DL (0.60-1.30); MAGNESIUM 2.9 MG/DL (1.6-2.4); PHOSPHORUS 3.3 MG/DL (2.3-4.7); POTASSIUM 3.9 MMOL/L (3.6-5.0); TOTAL PROTEIN 7.1 GM/DL (6.4-8.2)
[2021-12-06] MEDS: MAGNESIUM 1 GM/100 ML IVPB 100 ML IV SCH (06:26)
[2021-12-06] MEDS: inSUlin ASPART (NovoLOG) 1 UNIT/0.01 ML (CHARGE PER UNIT) SC SCH ×4 (06:26→22:00)
[2021-12-06] MEDS: KCL 20 MEQ TAB (K-DUR) PO SCH (06:26)
[2021-12-06] MEDS: POTASSIUM CL 10MEQ/50ML IVPB 50 ML IV SCH (06:26)
[2021-12-06] MEDS: ACYCLOVIR 400 MG TABLET (ZOVIRAX) PO SCH ×2 (07:54→20:59)
[2021-12-06] MEDS: DOCUSATE SODIUM 100 MG (COLACE) CAP PO SCH ×2 (07:54→20:59)
[2021-12-06] MEDS: SENNOSIDES 8.6 MG (SENOKOT) TAB PO SCH ×2 (07:54→20:59)
[2021-12-06] MEDS: CLOPIDOGREL 75 MG (PLAVIX) TABLET PO SCH (07:54)
[2021-12-06] MEDS: ASPIRIN 81 MG CHEW (CHILDREN'S ASA) PO SCH (07:55)
[2021-12-06] MEDS: CAPTOPRIL 25 MG (CAPOTEN) TAB PO SCH ×2 (07:55→20:59)
[2021-12-06] MEDS: PANTOPRAZOLE 40 MG (PROTONIX) TAB PO SCH (07:55)
[2021-12-06 08:20] VITALS: BP 129/82
[2021-12-06] MEDS: FUROSEMIDE 40 MG/4 ML INJ (LASIX) IVP SCH ×2 (08:39→22:01)
[2021-12-06] MEDS: ENOXAPARIN 80 MG/0.8 ML (LOVENOX) SYR SC SCH ×2 (08:39→22:00)
[2021-12-06] MEDS: NYSTATIN CREAM (MYCOSTATIN) 30 GM TUBE TP SCH ×3 (08:40→22:01)
[2021-12-06 09:12] LABS: CALCIUM 9.5 MG/DL (8.5-10.1); CREATININE SERUM 1.67 MG/DL (0.60-1.30); POTASSIUM 4.2 MMOL/L (3.6-5.0)
[2021-12-06 10:41] VITALS: BP 130/89
--- NOTE | 2021-12-06 11:08 | Cardiology Progress Note ---
Progress Note-Cardiology Events since last exam Date Seen by Provider: Dec 06, 2021 Time Seen by Provider: 11:06 Events since last exam I am following him due to acute anterolateral myocardial infarction that occ urred while he was in the hospital being treated for COVID infection. He remains on BiPAP. The BiPAP has not been able to be removed because he will immediately desaturate. He has not had any oral medication or food for several days. The family was planning to withdraw support today but have now changed this to tomorrow. Did not see the patient due to his COVID status. I did speak with his nurse of today. Certain portions of this document may have been dictated utilizing voice recognition technology. Inherent to this technology, typographical and grammatical errors may exist. As much as I am diligent to identify and correct these mistakes, some errors may remain in the document. Vitals Last set of Vitals Signs Vital Signs 12/06/21 12/06/21 16:00 18:00 Temp 37.2 Pulse 91 Resp 24 B/P (MAP) 112/78 Pulse Ox 92 O2 Delivery NIV Bilevel O2 Flow Rate 50.00 FiO2 50 Labs Labs Laboratory Tests 12/06/21 05:29 12/06/21 08:35 Exam Vital Signs Vital Signs Date Time Temp Pulse Resp B/P (MAP) Pulse Ox O2 Delivery O2 Flow Rate FiO2 12/06/21 18:00 91 24 112/78 92 NIV Bilevel 50.00 12/06/21 16:00 50 12/06/21 16:00 37.2 Physical Exam I did not examine the patient due to his COVID status. Labs Laboratory Tests Test 12/05/21 20:35 12/06/21 05:29 12/06/21 08:35 12/06/21 10:39 Range/Units Glucometer 194 H 242 H 70-110 MG/DL White Blood Count 23.6 H 4.3-11.0 10^3/uL Red Blood Count 5.58 H 4.30-5.52 10^6/uL Hemoglobin 16.2 13.3-17.7 g/dL Hematocrit 50 40-54 % Mean Corpuscular Volume 89 80-99 fL Mean Corpuscular Hemoglobin 29 25-34 pg Mean Corpuscular Hemoglobin Concent 33 32-36 g/dL Red Cell Distribution Width 15.0 H 10.0-14.5 % Platelet Count 103 L 130-400 10^3/uL Mean Platelet Volume 12.4 H 9.0-12.2 fL Immature Granulocyte % (Auto) 1 % Neutrophils (%) (Auto) 90 H 42-75 % Lymphocytes (%) (Auto) 4 L 12-44 % Monocytes (%) (Auto) 5 0-12 % Eosinophils (%) (Auto) 0 0-10 % Basophils (%) (Auto) 0 0-10 % Neutrophils # (Auto) 21.3 H 1.8-7.8 10^3/uL Lymphocytes # (Auto) 1.0 1.0-4.0 10^3/uL Monocytes # (Auto) 1.1 H 0.0-1.0 10^3/uL Eosinophils # (Auto) 0.0 0.0-0.3 10^3/uL Basophils # (Auto) 0.0 0.0-0.1 10^3/uL Immature Granulocyte # (Auto) 0.1 0.0-0.1 10^3/uL Percent Immature Platelet Fraction 6.5 0.0-7.6 % Sodium Level 154 H 153 H 135-145 MMOL/L Potassium Level 3.9 4.2 3.6-5.0 MMOL/L Chloride Level 115 H 115 H 98-107 MMOL/L Carbon Dioxide Level 23 23 21-32 MMOL/L Anion Gap 16 H 15 H 5-14 MMOL/L Blood Urea Nitrogen 100 #*H 104 *H 7-18 MG/DL Creatinine 1.62 H 1.67 H 0.60-1.30 MG/DL Estimat Glomerular Filtration Rate 42 44 BUN/Creatinine Ratio 62 62 Glucose Level 168 H 223 H 70-105 MG/DL Calcium Level 9.7 9.5 8.5-10.1 MG/DL Corrected Calcium 9.9 8.5-10.1 MG/DL Phosphorus Level 3.3 2.3-4.7 MG/DL Magnesium Level 2.9 H 1.6-2.4 MG/DL Total Bilirubin 0.8 0.1-1.0 MG/DL Aspartate Amino Transf (AST/SGOT) 28 5-34 U/L Alanine Aminotransferase (ALT/SGPT) 27 0-55 U/L Alkaline Phosphatase 69 40-136 U/L Total Protein 7.1 6.4-8.2 GM/DL Albumin 3.7 3.2-4.5 GM/DL Test 12/06/21 16:30 Range/Units Glucometer 182 H 70-110 MG/DL Diagnosis/Problems Diagnosis/Problems (1) ST elevation myocardial infarction (STEMI) of anterolateral wall, initial episode of care Status: Acute Assessment & Plan: On 11/20/21 he started having chest pain and an electrocardiogram showed an acute anterolateral ST elevation myocardial infarction. 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 He has been started on clopidogrel. I will continue aspirin until discharge. He is on apixaban due to pulmonary embolism diagnosed during this admission. His discharge anticoagulation should be clopidogrel and apixaban without aspirin. However, he has not been receiving apixaban since 12/01 due to his inability to take oral medication. I started him on enoxaparin on 12/03. Continue beta-earline, JESUSITA inhibitor and statin as tolerated. Since he is still not able to take oral medication, I started him on metoprolol tartrate 2.5 mg IV every 6 hours. If he goes on comfort care, we can stop all of these medications. (2) Acute HFrEF (heart failure with reduced ejection fraction) Assessment & Plan: He may have some superimposed pulmonary edema on top of the Covid pneumonia. I started him on IV Lasix twice daily on 11/29 to this was cut back to once daily dosing over the weekend. His follow-up echocardiogram after the myocardial infarction showed mild left ventricular systolic dysfunction with an estimated ejection fraction of 40-45%. I have him on low-dose carvedilol and captopril as tolerated by blood pressure and his ability to take oral medication. I did start him on intravenous metoprolol tartrate to be given while he cannot take oral medication. I changed the furosemide back to twice daily dosing on 12/04. As above, if he transfers over to comfort care, we can stop these medications. (3) Cardiomyopathy Assessment & Plan: When he first presented to the hospital his ejection fraction was normal. However, following the myocardial infarction, he has mild left ventricular systolic dysfunction. Some of this could be due to regional stunning. As above, I have him on low-dose carvedilol and captopril when his blood pressure will tolerate the medication and he can take oral medication. Unfortunately, he has not been able to take oral medication in several days due to altered mental status and he is BiPAP dependent. (4) Pulmonary embolism Assessment & Plan: This may possibly be related to his Covid infection. I changed his enoxaparin over to apixaban on 11/21 but he had not taken apixaban since 12/01. I managed the apixaban back over to enoxaparin at therapeutic dosing on 12/03. We can resume apixaban if he reaches the point where he can take oral medication. (5) Primary hypertension Assessment & Plan: Blood pressures have improved despite pulmonary status worsening. We will proceed as above. (6) Mixed hyperlipidemia Status: Chronic Assessment & Plan: Due to his acute myocardial infarction, I started him on intensive-dose statin medication. We will resume the statin medication when he can take oral medication. (7) Acute respiratory failure due to COVID-19 Status: Acute Assessment & Plan: His pulmonary status had been waxing and waning requiring intermittent BiPAP interspersed with Vapotherm but now seems to be requiring constant BiPAP. Prognosis is guarded. (8) Acute kidney injury Status: Resolved Assessment & Plan: Renal function seems to have stabilized over the past week. Resolution Date/Time: 11/30/21 @ 13:32 ALISHA WILSON JR, MD Dec 06, 2021 11:08
[2021-12-06 14:30] VITALS: BP 112/78
[2021-12-06 19:08] VITALS: BP 120/80
[2021-12-06] MEDS: ROSUVASTATIN 20 MG (CRESTOR) TABLET PO SCH (20:59)
--- NOTE | 2021-12-06 21:49 | Progress Note ---
Subjective Subjective/Events-last exam Patient starting to have desaturations. Plan for comfort care when family arrives in the AM. Review of Systems Unable to assess Objective Exam Last Set of Vital Signs Vital Signs Date Time Temp Pulse Resp B/P (MAP) Pulse Ox O2 Delivery O2 Flow Rate FiO2 12/06/21 21:00 37.7 12/06/21 19:08 90 25 92 50.00 12/06/21 18:00 112/78 NIV Bilevel 12/06/21 16:00 50 Capillary Refill : Less Than 3 Seconds I&O Intake and Output 12/06/21 00:00 Intake Total 250 ml Output Total 850 ml Balance -600 ml IV Total 250 ml Output Urine Total 850 ml General: Other (Unresponsive) Lungs: Other (minimal air movement, increased work of breathing with belly breathing) Heart: Regular Rate Abdomen: Soft Results/Procedures Lab Laboratory Tests 12/06/21 05:29: White Blood Count 23.6H, Red Blood Count 5.58H, Hemoglobin 16.2, Hematocrit 50, Mean Corpuscular Volume 89, Mean Corpuscular Hemoglobin 29, Mean Corpuscular Hemoglobin Concent 33, Red Cell Distribution Width 15.0H, Platelet Count 103L, Mean Platelet Volume 12.4H, Immature Granulocyte % (Auto) 1, Neutrophils (%) (Auto) 90H, Lymphocytes (%) (Auto) 4L, Monocytes (%) (Auto) 5, Eosinophils (%) (Auto) 0, Basophils (%) (Auto) 0, Neutrophils # (Auto) 21.3H, Lymphocytes # (Auto) 1.0, Monocytes # (Auto) 1.1H, Eosinophils # (Auto) 0.0, Basophils # (Auto) 0.0, Immature Granulocyte # (Auto) 0.1, Percent Immature Platelet Fraction 6.5, Sodium Level 154H, Potassium Level 3.9, Chloride Level 115H, Carbon Dioxide Level 23, Anion Gap 16H, Blood Urea Nitrogen 100#*H, Creatinine 1.62H, Estimat Glomerular Filtration Rate 42, BUN/Creatinine Ratio 62, Glucose Level 168H, Calcium Level 9.7, Corrected Calcium 9.9, Phosphorus Level 3.3, Magnesium Level 2.9H, Total Bilirubin 0.8, Aspartate Amino Transf (AST/SGOT) 28, Alanine Aminotransferase (ALT/SGPT) 27, Alkaline Phosphatase 69, Total Protein 7.1, Albumin 3.7 12/06/21 08:35: Sodium Level 153H, Potassium Level 4.2, Chloride Level 115H, Carbon Dioxide Level 23, Anion Gap 15H, Blood Urea Nitrogen 104*H, Creatinine 1.67H, Estimat Glomerular Filtration Rate 44, BUN/Creatinine Ratio 62, Glucose Level 223H, Calcium Level 9.5 12/06/21 10:39: Glucometer 242H 12/06/21 16:30: Glucometer 182H 12/06/21 20:45: Glucometer 192H Microbiology 11/14/21 Urine Culture - Final, Complete NO GROWTH 11/14/21 MRSA Screen - Final, Complete MRSA not isolated 11/14/21 Blood Culture - Final, Complete No growth Assessment/Plan Assessment/Plan (1) Acute respiratory failure due to COVID-19 Status: Acute (2) Pneumonia due to COVID-19 virus Status: Acute Assessment & Plan: 11/26 Requiring vapotherm with 90% FiO2 today. s/p Actemra, on acyclovir for pprx. Continued on dexamethasone and zosyn for suspected secondary bacterial pneumonia. 11/27- has received 13 days of dexamethasone will d/c. continues to require high Fio2 but is relatively stable on that. Continued zosyn. 11/28- completed course of Zosyn, somewhat worsened today requiring bipap this am, appreciate [facility] ICU assistance. Updated daughter via phone today. 11/29- continued to require bipap, suspect possible aspiration with vomiting this morning, appreciate [facility] assistance, anticipate may need intubated soon if no change. 11/30- continued on bipap but is much more alert today, possible benefit from steroids started yesterday per ICU physician. Called daughter to update, unable to reach. 12/03: Bipap dependent, very poor prognosis 12/04: Continues to be bipap dependent, discussed comfort care and code status with February ALYSIA, She is to come and see patient this afternoon. Around 1830 RN called and family has arrived and would like to make patient DNR/DNI, plan for comfort care in the AM when more family can arrive 12/05: No change, plan to start comfort care when brother can arrive from out of town 12/06: Patient starting to have desaturation, plan for comfort care in the AM with family arrives (3) ST elevation myocardial infarction (STEMI) of anterolateral wall, initial episode of care Status: Acute Assessment & Plan: 11/20 cath with stent to LAD, appreciate Cardiology recommendations. On clopidogrel, aspirin, statin. (4) Acute ischemic stroke Status: Acute Assessment & Plan: CT findings with possible subacute or recent ischemia, unable to get MRI due to respiratory status, no clear physical findings of ischemia. Carotid US without significant stenosis. (5) Bilateral pulmonary embolism Status: Acute Assessment & Plan: On apixaban. Bilateral segmental and subsegmental. 11/30 d dimer decreased, factor Xa pending to eval apixaban efficacy given recent worsening respiratory status. (6) Altered mental status Status: Acute Assessment & Plan: Suspect illness induced delirium Qualifiers: Qualified Codes: R41.82 - Altered mental status, unspecified (7) Mixed hyperlipidemia Status: Chronic (8) HTN (hypertension) Status: Chronic (9) HLD (hyperlipidemia) Status: Chronic (10) Secondary bacterial pneumonia Status: Acute Assessment & Plan: Had 5 days of azithromycin and ceftriaxone 11/14-11/19, Zosyn 11/22-11/27. (11) Acute kidney injury Status: Resolved Assessment & Plan: 11/29 creatinine increased today, Will decrease lasix to daily. 11/30 improved CRISTINA HOUSE MD Dec 06, 2021 21:49
[2021-12-06 22:29] VITALS: BP 130/84
[2021-12-07] MEDS: D5W 1000 ML IV SOLUTION 1,000 ML IV SCH ×2 (01:24→03:20)
[2021-12-07] MEDS: LORazepam INJ 2 MG/ML (ATIVAN) VIAL IVP PRN ×6 (01:24→15:32)
[2021-12-07 02:34] VITALS: BP 78/58
[2021-12-07] MEDS: RT-ALBUTEROL HFA 8.5 GM INHALER IH SCH ×3 (02:34→10:59)
[2021-12-07 04:05] LABS: BASOPHILS % (AUTO) 0 % (0-10); EOSINOPHILS % (AUTO) 0 % (0-10); MEAN CORPUSCULAR VOLUME 90 fL (80-99)
[2021-12-07 04:07] LABS: HEMATOCRIT 46 % (40-54); HEMOGLOBIN 14.6 g/dL (13.3-17.7); LYMPHOCYTES # (AUTO) 0.7 10^3/uL (1.0-4.0); LYMPHOCYTES % (AUTO) 3 % (12-44); MEAN CORPUSCULAR HEMOGLOBIN 29 pg (25-34); MEAN CORPUSCULAR HGB CONC 32 g/dL (32-36); MEAN PLATELET VOLUME 12.8 fL (9.0-12.2); MONOCYTES # (AUTO) 1.2 10^3/uL (0.0-1.0); MONOCYTES % (AUTO) 5 % (0-12); NEUTROPHILS # (AUTO) 23.4 10^3/uL (1.8-7.8); NEUTROPHILS % (AUTO) 91 % (42-75); PLATELET COUNT 97 10^3/uL (130-400); WHITE BLOOD COUNT 25.7 10^3/uL (4.3-11.0)
[2021-12-07 04:23] LABS: ALBUMIN 3.3 GM/DL (3.2-4.5)
[2021-12-07 04:24] LABS: CALCIUM 8.9 MG/DL (8.5-10.1)
[2021-12-07 04:26] LABS: TOTAL PROTEIN 6.5 GM/DL (6.4-8.2)
[2021-12-07 04:27] LABS: BILIRUBIN,TOTAL 0.9 MG/DL (0.1-1.0)
[2021-12-07 04:29] LABS: CREATININE SERUM 1.96 MG/DL (0.60-1.30); PHOSPHORUS 3.8 MG/DL (2.3-4.7)
[2021-12-07 04:32] LABS: MAGNESIUM 2.9 MG/DL (1.6-2.4)
[2021-12-07] MEDS: MAGNESIUM 1 GM/100 ML IVPB 100 ML IV SCH (06:07)
[2021-12-07] MEDS: POTASSIUM CL 10MEQ/50ML IVPB 50 ML IV SCH (06:07)
[2021-12-07] MEDS: KCL 20 MEQ TAB (K-DUR) PO SCH (06:08)
[2021-12-07] MEDS: meTOprolol 5 MG/5 ML (LOPRESSOR) VIAL IV SCH (06:28)
[2021-12-07] MEDS: inSUlin ASPART (NovoLOG) 1 UNIT/0.01 ML (CHARGE PER UNIT) SC SCH ×3 (06:37→16:11)
[2021-12-07] MEDS: methylPREDNISolone 40 MG/ML (Solu-MEDROL) VIAL IV SCH (06:37)
[2021-12-07] MEDS: DexMEDEtomidine 250 ML DRIP 250 ML IV SCH (06:40)
[2021-12-07 07:17] VITALS: BP 91/64
[2021-12-07] MEDS: CAPTOPRIL 25 MG (CAPOTEN) TAB PO SCH (08:40)
[2021-12-07] MEDS: NYSTATIN CREAM (MYCOSTATIN) 30 GM TUBE TP SCH ×2 (08:41→13:00)
--- NOTE | 2021-12-07 08:45 | Cardiology Progress Note ---
Progress Note-Cardiology Events since last exam Date Seen by Provider: Dec 07, 2021 Time Seen by Provider: 08:44 Events since last exam I am following him for an acute anterolateral myocardial infarction that occ urred while he was in the hospital being treated for COVID-pneumonia. He remains in the intensive care unit dependent on BiPAP. He has not been able to eat or take medications orally because he will desaturate almost immediately after the BiPAP is removed. His family is considering changing his status to comfort care later today. I did not see the patient due to his COVID status. I did speak with his nurse of today. Certain portions of this document may have been dictated utilizing voice r ecognition technology. Inherent to this technology, typographical and grammatical errors may exist. As much as I am diligent to identify and correct these mistakes, some errors may remain in the document. Dr. Chavira will be covering me for the weekend. Please contact him if you have any questions or concerns. Vitals Last set of Vitals Signs Vital Signs 12/07/21 12/07/21 04:00 10:00 Pulse 89 Resp 25 B/P (MAP) 85/66 Pulse Ox 93 O2 Delivery NIV Bilevel O2 Flow Rate 50.00 FiO2 50 Labs Labs Laboratory Tests 12/07/21 03:57 Exam Vital Signs Vital Signs Date Time Temp Pulse Resp B/P (MAP) Pulse Ox O2 Delivery O2 Flow Rate FiO2 12/07/21 10:00 89 25 85/66 93 NIV Bilevel 50.00 12/07/21 08:00 37.0 12/07/21 04:00 50 Physical Exam I did not examine the patient due to his COVID status. Labs Laboratory Tests Test 12/06/21 16:30 12/06/21 20:45 12/07/21 03:57 12/07/21 10:22 Range/Units Glucometer 182 H 192 H 202 H 70-110 MG/DL White Blood Count 25.7 H 4.3-11.0 10^3/uL Red Blood Count 5.07 4.30-5.52 10^6/uL Hemoglobin 14.6 13.3-17.7 g/dL Hematocrit 46 40-54 % Mean Corpuscular Volume 90 80-99 fL Mean Corpuscular Hemoglobin 29 25-34 pg Mean Corpuscular Hemoglobin Concent 32 32-36 g/dL Red Cell Distribution Width 15.2 H 10.0-14.5 % Platelet Count 97 L 130-400 10^3/uL Mean Platelet Volume 12.8 H 9.0-12.2 fL Immature Granulocyte % (Auto) 1 % Neutrophils (%) (Auto) 91 H 42-75 % Lymphocytes (%) (Auto) 3 L 12-44 % Monocytes (%) (Auto) 5 0-12 % Eosinophils (%) (Auto) 0 0-10 % Basophils (%) (Auto) 0 0-10 % Neutrophils # (Auto) 23.4 H 1.8-7.8 10^3/uL Lymphocytes # (Auto) 0.7 L 1.0-4.0 10^3/uL Monocytes # (Auto) 1.2 H 0.0-1.0 10^3/uL Eosinophils # (Auto) 0.0 0.0-0.3 10^3/uL Basophils # (Auto) 0.0 0.0-0.1 10^3/uL Immature Granulocyte # (Auto) 0.2 H 0.0-0.1 10^3/uL Percent Immature Platelet Fraction 9.2 H 0.0-7.6 % Sodium Level 147 H 135-145 MMOL/L Potassium Level 4.0 3.6-5.0 MMOL/L Chloride Level 109 H 98-107 MMOL/L Carbon Dioxide Level 22 21-32 MMOL/L Anion Gap 16 H 5-14 MMOL/L Blood Urea Nitrogen 114 *H 7-18 MG/DL Creatinine 1.96 H 0.60-1.30 MG/DL Estimat Glomerular Filtration Rate 36 BUN/Creatinine Ratio 58 Glucose Level 244 H 70-105 MG/DL Calcium Level 8.9 8.5-10.1 MG/DL Corrected Calcium 9.5 8.5-10.1 MG/DL Phosphorus Level 3.8 2.3-4.7 MG/DL Magnesium Level 2.9 H 1.6-2.4 MG/DL Total Bilirubin 0.9 0.1-1.0 MG/DL Aspartate Amino Transf (AST/SGOT) 26 5-34 U/L Alanine Aminotransferase (ALT/SGPT) 20 0-55 U/L Alkaline Phosphatase 57 40-136 U/L Total Protein 6.5 6.4-8.2 GM/DL Albumin 3.3 3.2-4.5 GM/DL Diagnosis/Problems Diagnosis/Problems (1) ST elevation myocardial infarction (STEMI) of anterolateral wall, initial episode of care Status: Acute Assessment & Plan: On 11/20/21 he started having chest pain and an electrocardiogram showed an acute anterolateral ST elevation myocardial infarction. 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 He has been started on clopidogrel. I will continue aspirin until discharge. He is on apixaban due to pulmonary embolism diagnosed during this admission. His discharge anticoagulation should be clopidogrel and apixaban without aspirin. However, he has not been receiving apixaban since 12/01 due to his inability to take oral medication. I started him on enoxaparin on 12/03. Continue beta-earline, JESUSITA inhibitor and statin as tolerated. Since he is still not able to take oral medication, I started him on metoprolol tartrate 2.5 mg IV every 6 hours. Now his blood pressures are running low at times. I will place the intravenous metoprolol on hold for the time being. If he goes on comfort care, we can stop all of these medications. (2) Acute HFrEF (heart failure with reduced ejection fraction) Assessment & Plan: He may have some superimposed pulmonary edema on top of the Covid pneumonia. I started him on IV Lasix twice daily on 11/29 to this was cut back to once daily dosing over the weekend. His follow-up echocardiogram after the myocardial infarction showed mild left ventricular systolic dysfunction with an estimated ejection fraction of 40-45%. I have him on low-dose carvedilol and captopril as tolerated by blood pressure and his ability to take oral medication. I did start him on intravenous metoprolol tartrate to be given while he cannot take oral medication. I changed the furosemide back to twice daily dosing on 12/04. His creatinine has gone up over the past 2 days. I will stop the intravenous furosemide. (3) Cardiomyopathy Assessment & Plan: When he first presented to the hospital his ejection fraction was normal. However, following the myocardial infarction, he has mild left ventricular systolic dysfunction. Some of this could be due to regional stunning. As above, I have him on low-dose carvedilol and captopril when his blood pressure will tolerate the medication and he can take oral medication. Unfortunately, he has not been able to take oral medication in several days due to altered mental status and he is BiPAP dependent. As above, if he changes his status over to comfort care, we can discontinue these medications. (4) Pulmonary embolism Assessment & Plan: This may possibly be related to his Covid infection. I changed his enoxaparin over to apixaban on 11/21 but he had not taken apixaban since 12/01. I managed the apixaban back over to enoxaparin at therapeutic dosing on 12/03. We can resume apixaban if he reaches the point where he can take oral medication. (5) Primary hypertension Assessment & Plan: Blood pressures are actually running somewhat low at this point. I will place the intravenous metoprolol on hold. (6) Mixed hyperlipidemia Status: Chronic Assessment & Plan: Due to his acute myocardial infarction, I started him on intensive-dose statin medication. We will resume the statin medication when and if he can take oral medication. (7) Acute respiratory failure due to COVID-19 Status: Acute Assessment & Plan: His pulmonary status had been waxing and waning requiring intermittent BiPAP interspersed with Vapotherm but now seems to be requiring constant BiPAP. Prognosis is guarded. (8) Acute kidney injury Status: Resolved Assessment & Plan: As above, his renal function has worsened over the past 48 hours. This may be related to the diuretic. I have discontinued the intravenous furosemide. Resolution Date/Time: 11/30/21 @ 13:32 ALISHA WILSON JR, MD Dec 07, 2021 08:45
[2021-12-07] MEDS: CLOPIDOGREL 75 MG (PLAVIX) TABLET PO SCH (09:00)
[2021-12-07] MEDS: SENNOSIDES 8.6 MG (SENOKOT) TAB PO SCH (09:00)
[2021-12-07] MEDS: ENOXAPARIN 80 MG/0.8 ML (LOVENOX) SYR SC SCH (09:00)
[2021-12-07] MEDS: DOCUSATE SODIUM 100 MG (COLACE) CAP PO SCH (09:00)
[2021-12-07] MEDS: ASPIRIN 81 MG CHEW (CHILDREN'S ASA) PO SCH (09:00)
[2021-12-07] MEDS: PANTOPRAZOLE 40 MG (PROTONIX) TAB PO SCH (09:00)
[2021-12-07] MEDS: ACYCLOVIR 400 MG TABLET (ZOVIRAX) PO SCH (09:00)
[2021-12-07] MEDS ORDERED: LORazepam INJ 2 MG/ML (ATIVAN) VIAL ONE (10:37)
[2021-12-07 10:59] VITALS: BP 91/64
[2021-12-07] MEDS ORDERED: PROMETHAZINE INJ 25 MG/ML (PHENERGAN) AMP IVP PRN (11:00)
[2021-12-07] MEDS ORDERED: RT-ALBUTEROL/IPRATROPIUM 3 ML (DUONEB) VIAL INH PRN (11:00)
[2021-12-07] MEDS ORDERED: ONDANSETRON 4 MG/2 ML (SDV) Z0FRAN IVP PRN (11:00)
[2021-12-07] MEDS ORDERED: SALIVA STIMULANT MOUTH SPRAY (BIOTENE) 1.5 OZ MM PRN (11:00)
[2021-12-07] MEDS ORDERED: morphine INJ 4 MG/ML 1 ML (VIAL/SYRINGE) IV PRN (11:00)
[2021-12-07] MEDS ORDERED: ARTIFICAL TEARS 0.4 ML UNIT DOSE (REFRESH PLUS) OU PRN (11:00)
[2021-12-07] MEDS ORDERED: GLYCOPYRROLATE 0.2 MG/ML (ROBINUL) 2 ML VIAL IV PRN (11:00)
[2021-12-07] MEDS ORDERED: ACETAMINOPHEN 650 MG SUPP (TYLENOL) PR PRN (11:00)
[2021-12-07] MEDS: morphine INJ 4 MG/ML 1 ML (VIAL/SYRINGE) IVP PRN ×4 (15:10→16:02)
[2021-12-07] MEDS: NOREPINEPHRINE 8 MG/250 ML 250 ML IV SCH (15:10)
[2021-12-07] MEDS ORDERED: LORazepam INJ 2 MG/ML (ATIVAN) VIAL IVP PRN (15:15)
--- NOTE | 2021-12-07 19:19 | Discharge Summary ---
Diagnosis/Chief Complaint Date of Admission Nov 14, 2021 at 11:43 Date of Discharge Dec 07, 2021 at 16:22 Discharge Diagnosis Problems/Diagnosis: (1) Acute respiratory failure due to COVID-19 Status: Acute (2) Pneumonia due to COVID-19 virus Assessment & Plan: 11/26 Requiring vapotherm with 90% FiO2 today. s/p Actemra, on acyclovir for pprx. Continued on dexamethasone and zosyn for suspected secondary bacterial pneumonia. 11/27- has received 13 days of dexamethasone will d/c. continues to require high Fio2 but is relatively stable on that. Continued zosyn. 11/28- completed course of Zosyn, somewhat worsened today requiring bipap this am, appreciate [facility] ICU assistance. Updated daughter via phone today. 11/29- continued to require bipap, suspect possible aspiration with vomiting this morning, appreciate [facility] assistance, anticipate may need intubated soon if no change. 11/30- continued on bipap but is much more alert today, possible benefit from steroids started yesterday per ICU physician. Called daughter to update, unable to reach. 12/03: Bipap dependent, very poor prognosis 12/04: Continues to be bipap dependent, discussed comfort care and code status with February ALYSIA, She is to come and see patient this afternoon. Around 1830 RN called and family has arrived and would like to make patient DNR/DNI, plan for comfort care in the AM when more family can arrive 12/05: No change, plan to start comfort care when brother can arrive from out of town 12/06: Patient starting to have desaturation, plan for comfort care in the AM with family arrives Status: Acute (3) ST elevation myocardial infarction (STEMI) of anterolateral wall, initial episode of care Assessment & Plan: 11/20 cath with stent to LAD, appreciate Cardiology recommendations. On clopidogrel, aspirin, statin. Status: Acute (4) Acute ischemic stroke Assessment & Plan: CT findings with possible subacute or recent ischemia, unable to get MRI due to respiratory status, no clear physical findings of ischemia. Carotid US without significant stenosis. Status: Acute (5) Bilateral pulmonary embolism Assessment & Plan: On apixaban. Bilateral segmental and subsegmental. 11/30 d dimer decreased, factor Xa pending to eval apixaban efficacy given recent worsening respiratory status. Status: Acute (6) Altered mental status Assessment & Plan: Suspect illness induced delirium Qualifiers: Qualified Codes: R41.82 - Altered mental status, unspecified Status: Acute (7) Mixed hyperlipidemia Status: Chronic (8) HTN (hypertension) Status: Chronic (9) HLD (hyperlipidemia) Status: Chronic (10) Secondary bacterial pneumonia Assessment & Plan: Had 5 days of azithromycin and ceftriaxone 11/14-11/19, Zosyn 11/22-11/27. Status: Acute (11) Acute kidney injury Assessment & Plan: 11/29 creatinine increased today, Will decrease lasix to daily. 11/30 improved Status: Resolved Resolution Date/Time: 11/30/21 @ 13:32 Discharge Summary-Simple/Stand Consultations Discharge Physical Examination Allergies: Coded Allergies: No Known Drug Allergies (Unverified , 10/23/21) Vitals & I&Os Vital Sign - Last 12Hours Date Time Temp Pulse Resp B/P (MAP) Pulse Ox O2 Delivery O2 Flow Rate FiO2 12/07/21 12:00 36.8 12/07/21 10:59 92 27 91 50.00 12/07/21 10:00 85/66 NIV Bilevel 12/07/21 08:00 50 Intake and Output 12/07/21 00:00 Intake Total 250 ml Output Total 550 ml Balance -300 ml Hospital Course See final discharge diagnosis. Discharge Instructions to patient/family Please see electronic discharge instructions given to patient. Discharge Medications Reviewed and agree with Discharge Medication list on patient's Discharge Instruction sheet CRISTINA HOUSE MD Dec 07, 2021 19:19
== END 2021-12-07 16:22 | disposition expired | DRG 981 ==
LOC: EDUNIT# 08:31 → ER 08:33 → ICU 11:43
PROVIDERS: ADMIT Internal Medicine; ATTEND Family Medicine
PROC: XW033E5 Introduction of Remdesivir Anti-infective into Peripheral Vein, Percutaneous Approach, New Technology Group 5 (ICD-10-PCS; principal; 2021-11-14)
PROC: 027034Z Dilation of Coronary Artery, One Artery with Drug-eluting Intraluminal Device, Percutaneous Approach (ICD-10-PCS; 2021-11-20)
PROC: 4A023N7 Measurement of Cardiac Sampling and Pressure, Left Heart, Percutaneous Approach (ICD-10-PCS; 2021-11-20)
PROC: B2111ZZ Fluoroscopy of Multiple Coronary Arteries using Low Osmolar Contrast (ICD-10-PCS; 2021-11-20)
PROC: 5A09557 Assistance with Respiratory Ventilation, Greater than 96 Consecutive Hours, Continuous Positive Airway Pressure (ICD-10-PCS; 2021-11-30)
DX: U07.1 COVID-19 (principal); J12.82 Pneumonia due to coronavirus disease 2019; I21.09 ST elevation (STEMI) myocardial infarction involving other coronary artery of anterior wall; I26.99 Other pulmonary embolism without acute cor pulmonale; J15.9 Unspecified bacterial pneumonia; I50.21 Acute systolic (congestive) heart failure; J80 Acute respiratory distress syndrome; N17.9 Acute kidney failure, unspecified; E87.2 Acidosis; I42.9 Cardiomyopathy, unspecified; R41.82 Altered mental status, unspecified; E78.2 Mixed hyperlipidemia; Z66 Do not resuscitate; Z51.5 Encounter for palliative care; Z86.73 Personal history of transient ischemic attack (TIA), and cerebral infarction without residual deficits; E11.65 Type 2 diabetes mellitus with hyperglycemia; T38.0X5A Adverse effect of glucocorticoids and synthetic analogues, initial encounter; F41.9 Anxiety disorder, unspecified; Z79.82 Long term (current) use of aspirin; I11.0 Hypertensive heart disease with heart failure; Z79.899 Other long term (current) drug therapy; D72.829 Elevated white blood cell count, unspecified; I25.10 Atherosclerotic heart disease of native coronary artery without angina pectoris; G47.33 Obstructive sleep apnea (adult) (pediatric); E66.9 Obesity, unspecified; Z68.20 Body mass index [BMI] 20.0-20.9, adult; Z73.0 Burn-out
CPT/HCPCS: 36415; 36569; 36600; 70450; 71045; 71275; 76937; 80048; 80053; 80061; 81000; 82728; 82805; 82947; 83605; 83615; 83735; 83880; 84100; 84145; 84484; 85007; 85025; 85027; 85260; 85379; 85610; 85730; 86141; 87040; 87081; 87088; 93005; 93041; 93308; 93458; 93880; 94640; 94660; 94760; 96372; 96374; 96375